=== PATIENT | female | born 1950 | race Caucasian/White ===

== ENCOUNTER 2017-06-13 12:58 | Inpatient (IN) | payer MEDICARE, OTHER ==
[2017-06-13] MEDS ORDERED: Nitroglycerin 0.4 MG Tab.SL SL PRN (16:15)
[2017-06-13] MEDS ORDERED: Albuterol 0.083% 2.5 MG/3 ML Neb Soln NEB PRN (16:15)
[2017-06-13] MEDS ORDERED: Benzocaine/Cetylpyridinium/Menthol Lozenge MUCMEM PRN (16:15)
[2017-06-13] MEDS: oxyCODONE 5 MG Tab PO PRN (18:16)
[2017-06-13] MEDS: Cholecalciferol (Vitamin D3) 1,000 Unit Tab PO SCH (18:16)
[2017-06-13] MEDS: Docusate Sodium 100 MG Cap PO SCH (21:10)
[2017-06-13] MEDS: Lactulose Soln 10 GM/15 ML 15 ML UD Cup PO SCH (21:10)
[2017-06-13] MEDS: Gabapentin 300 MG Cap PO SCH (21:13)
[2017-06-13] MEDS: Cyclobenzaprine 10 MG Tab PO PRN (21:13)
[2017-06-13] MEDS: oxyCODONE ER 20 MG TAB.ER PO SCH (21:13)
--- NOTE | 2017-06-14 02:58 | HP ---
CHIEF COMPLAINT: Status post back surgery. HISTORY OF PRESENT ILLNESS: This is a 67-year-old female, who was admitted to [facility] on 12/08 for a planned T2 through T12 posterior fusion with T2 through T3 and T6 laminectomy and right T9 through 10 costotransversectomy. The patient states the surgery went wonderfully, although, she has not been able to lift and use her right leg, since she had thoracic myelopathy. She has had constant pain in the area, has been started on scheduled oxycodone and is tolerating that, but she has really been unable to eat, because she is wearing a neck brace. She has also been having only liquid stools, but states she feels that is due to her lack of solid food and the food was also not very good at the [facility] per her report. She has not had any chest pain, no cough, no breathing trouble. She does have a history of smoking and COPD, but she is doing okay without that on the NicoDerm patch. Otherwise, her postoperative course was not overly complicated. She did stay on a PODIATRIC MEDICINE DOCTOR for a while, did end up in the ICU with a central line due to hypertension, but after resuming her home medications those things improved. She did require any blood transfusions. She did get some cefazolin until her drains were removed. She has not had any fever or chills. Otherwise, her past medical history includes impaired fasting glucose, essential hypertension, Mittal's esophagus, sleep related hypoxia, but not on oxygen, fibrocystic breast disease, bilateral carotid artery stenosis on Plavix, hyperlipidemia, chronic pain but previously only taking about 1 hydrocodone a day until the last year when she had increased pain prior to this back surgery, lumbar disk herniation L4 in 09/2016 with lumbar radiculopathy. She has had some epidural steroid injections last in November. Left SI joint injection in 09/2016. She has had chronic anxiety. She quit smoking back in 2013, but started again after her had a heart attack, but she quit again in 04/2017 to prepare for this surgery. She has had COPD which is severe, but she is doing much better on Stiolto with fewer exacerbations. She has had coronary artery disease, small vessel disease, not amenable to interventions on medical management with Plavix as she is allergic to aspirin. She has had GERD which is severe with a hiatal hernia. She has had major depressive disorder, otherwise. SOCIAL HISTORY: The patient is . She lives at home with her . She is a former smoker. She did lose a son like over 10 years ago. Otherwise, she has at least a couple other children. FAMILY HISTORY: Her mother and father are . She has a sister who is who had diabetes. She has a brother with diabetes, otherwise. PAST SURGICAL HISTORY: She has had tubal ligation, anal fissure repair, tonsillectomy, hysterectomy, cholecystectomy. She has had a previous cervical C5 through 7 fusion, cataract extractions. She has had a breast excision in 1995 that was benign. She has had an appendectomy. ALLERGIES: List includes penicillin, nausea, vomiting, diarrhea. Levaquin wheezing, but she previously has tolerated Levaquin also. Aspirin, nausea, vomiting and diarrhea, but she has tolerated enteric-coated. Celexa was not helping. Prozac caused anxiety. Codeine caused nausea, vomiting, and diarrhea. Wellbutrin caused depression. Zoloft caused anxiety. MEDICATION: Her medications list is reviewed includes Plavix 75 mg daily, Colace 100 mg twice daily, vitamin D 2000 units daily, Lipitor 40 mg daily, Stiolto 2 puffs once daily, nebulizer as needed, Paxil 10 mg daily, Neurontin 300 mg daily, Cardizem 120 daily, Toprol 50 daily, Protonix 40 mg daily, nitro as needed for chest pain, Dulcolax as needed, NicoDerm 14 mg patch, lactulose 30 mL 3 times a day, stop if more than 3 bowel movements 24 hours. Colace and Senokot one tablet twice daily. OxyContin 20 twice a day for at least another 3 to 4 days. Oxycodone 7.5 mg every 4 to 6 hours as needed for severe pain. Flexeril 10 mg at bedtime as needed for muscle spasm, Cepacol lozenges. During her inpatient stay, I did not see where the patient had been receiving heparin or Lovenox for DVT prophylaxis. REVIEW OF SYSTEMS: General: The patient has not had much of an appetite. HEENT: She has had some trouble swallowing, due to the neck brace and also she had a central line and that has been removed now, another drains, otherwise. Cardiac: Again no chest pain. Respiratory: No trouble breathing. Abdominal: As stated in the HPI. Musculoskeletal: She has had back pain. She has had right leg weakness. Her right leg is also numb. Otherwise, all systems reviewed and found to be negative unless otherwise stated. PHYSICAL EXAMINATION: Vital signs: Weight 97 kg which coincidentally is up about 5 kg since last summer. Temperature 98.9, pulse 98, blood pressure 158/66, respiratory rate 16, and O2 of 94 on 2.5 L. General: She is in no acute distress. Heart: Regular rate and rhythm. S1, S2. She did have a murmur. Lungs: Sounds are clear to auscultation bilaterally without crackles or wheezes. Abdomen: Positive bowel sounds, mildly distended, but soft and nontender. Extremities: Warm and dry. She has trace edema over the right leg. There is no calf tenderness. Homans sign is negative. Otherwise, she is able to wiggle the right toes, but she is not able to lift the right leg. She is able to move her arms equally. She is able to grasp and squeeze my hand. Mental Status: She is alert and orientated x3. Neck: There is covering over the right IJ area. There are also sutures noted on the posterior neck without any drainage from her wound without any surrounding redness or warmth. LABORATORY DATA: Otherwise, lab work should be noted from today, her hemoglobin had actually went up slightly to 8.6. White count was normal. Platelets 277. Her glucose 136, sodium 139, potassium 3.9, and bicarb 37. ASSESSMENT: 1. Postoperative from T2 through T12 posterior fusion, T2-T3 and T6 laminectomy and right T9 through 10 costotransversectomy on 06/07/2017. We will continue all postop cares. No bending wearing her braces and suture removal for 05/21 as outlined by Neurosurgery. She will have a postop check about 6 weeks postop with some x-rays. We will order PT and OT to work with her as well. 2. Postoperative anemia. Hemoglobin has improved slightly, we will probably check in a week or sooner if needed. 3. Essential hypertension. Blood pressure is slightly elevated on admission locally, we will recheck it after she gets settled and get some pain medications. We will make adjustments to her metoprolol if needed. Her dose is back up to 50 mg daily. Pulse is running at 98, so we could easily increase that. 4. Coronary artery disease. She is on Plavix and Zocor. She is not having any chest pain. She is on medical management. 5. Chronic obstructive pulmonary disease. We will continue her home regimen if we were unable to Stiolto, we will make adjustments. 6. Nicotine dependence. She is on the nicotine patch. 7. Depression and anxiety. We will continue her Paxil. 8. Constipation. We will continue laxatives and stool softeners. Hopefully, things will move when she is tolerating a diet, if not we will order some Dulcolax. PLAN: At this point, the patient will continue swing bed cares. PT/OT consult has been ordered. Appropriate followups with Neurosurgery will be arranged. Continue to assess for local signs of infection and we will remove the sutures when do. For DVT prophylaxis, I will put her on support stockings. No Lovenox is ordered on discharge. MKA: 06/13/2017 17:55:17 MODL: 06/14/2017 02:50:32 /[id number]
[2017-06-14] MEDS: oxyCODONE 5 MG Tab PO PRN ×2 (05:45→15:16)
[2017-06-14] MEDS: Pantoprazole 40 MG Tab.CR PO SCH (06:07)
[2017-06-14] MEDS: Albuterol/Ipratropium 3.0-0.5 MG/3 ML Neb Soln NEB SCH ×3 (07:19→18:03)
[2017-06-14] MEDS: atorvaSTATin 40 MG Tab PO SCH (08:12)
[2017-06-14] MEDS: oxyCODONE ER 20 MG TAB.ER PO SCH ×2 (08:12→19:52)
[2017-06-14] MEDS: Diltiazem 120 MG Cap.CD PO SCH (08:12)
[2017-06-14] MEDS: Metoprolol Succinate 50 MG Tab.ER PO SCH (08:13)
[2017-06-14] MEDS: PARoxetine 20 MG Tab PO SCH (08:13)
[2017-06-14] MEDS: Gabapentin 300 MG Cap PO SCH ×3 (08:13→19:52)
[2017-06-14] MEDS: Clopidogrel 75 MG Tab PO SCH (08:13)
[2017-06-14] MEDS: Docusate Sodium 100 MG Cap PO SCH ×2 (08:15→19:52)
[2017-06-14] MEDS: Lactulose Soln 10 GM/15 ML 15 ML UD Cup PO SCH ×3 (08:15→19:56)
[2017-06-14] MEDS: Nicotine 14 MG/24 Hr Patch TRDERM SCH (08:26)
[2017-06-14] MEDS: Cholecalciferol (Vitamin D3) 1,000 Unit Tab PO SCH (16:59)
[2017-06-15] MEDS: Albuterol/Ipratropium 3.0-0.5 MG/3 ML Neb Soln NEB SCH ×4 (00:52→19:48)
[2017-06-15] MEDS: Cyclobenzaprine 10 MG Tab PO PRN ×2 (00:57→21:34)
[2017-06-15] MEDS: oxyCODONE 5 MG Tab PO PRN ×2 (04:00→21:35)
[2017-06-15] MEDS: Pantoprazole 40 MG Tab.CR PO SCH (06:15)
[2017-06-15] MEDS: Diltiazem 120 MG Cap.CD PO SCH (07:59)
[2017-06-15] MEDS: oxyCODONE ER 20 MG TAB.ER PO SCH (08:00)
[2017-06-15] MEDS: PARoxetine 20 MG Tab PO SCH (08:00)
[2017-06-15] MEDS: Gabapentin 300 MG Cap PO SCH ×3 (08:01→19:47)
[2017-06-15] MEDS: atorvaSTATin 40 MG Tab PO SCH (08:01)
[2017-06-15] MEDS: Clopidogrel 75 MG Tab PO SCH (08:01)
[2017-06-15] MEDS: Lactulose Soln 10 GM/15 ML 15 ML UD Cup PO SCH (08:02)
[2017-06-15] MEDS: Docusate Sodium 100 MG Cap PO SCH ×2 (08:02→19:47)
[2017-06-15] MEDS: Nicotine 14 MG/24 Hr Patch TRDERM SCH (08:03)
[2017-06-15] MEDS: Metoprolol Succinate 50 MG Tab.ER PO SCH (08:06)
[2017-06-15] MEDS ORDERED: Lactulose Soln 10 GM/15 ML 30 ML UD Cup PO SCH (12:00)
[2017-06-15] MEDS ORDERED: Albuterol/Ipratropium 3.0-0.5 MG/3 ML Neb Soln NEB PRN (13:52)
[2017-06-15] MEDS: Metoclopramide 10 MG Tab PO SCH (17:06)
[2017-06-15] MEDS: Cholecalciferol (Vitamin D3) 1,000 Unit Tab PO SCH (21:46)
[2017-06-16] MEDS: oxyCODONE 5 MG Tab PO PRN ×2 (01:22→05:31)
[2017-06-16] MEDS: Pantoprazole 40 MG Tab.CR PO SCH (06:21)
[2017-06-16] MEDS: Albuterol/Ipratropium 3.0-0.5 MG/3 ML Neb Soln NEB SCH ×3 (07:18→20:07)
[2017-06-16] MEDS ORDERED: oxyCODONE ER 20 MG TAB.ER PO SCH (08:00)
[2017-06-16] MEDS: Docusate Sodium 100 MG Cap PO SCH ×2 (08:19→20:07)
[2017-06-16] MEDS: PARoxetine 20 MG Tab PO SCH (08:19)
[2017-06-16] MEDS: atorvaSTATin 40 MG Tab PO SCH (08:19)
[2017-06-16] MEDS: Gabapentin 300 MG Cap PO SCH ×3 (08:20→20:07)
[2017-06-16] MEDS: Diltiazem 120 MG Cap.CD PO SCH (08:20)
[2017-06-16] MEDS: Clopidogrel 75 MG Tab PO SCH (08:21)
[2017-06-16] MEDS: Metoprolol Succinate 50 MG Tab.ER PO SCH (08:21)
[2017-06-16] MEDS: Nicotine 14 MG/24 Hr Patch TRDERM SCH (08:22)
[2017-06-16] MEDS: Enoxaparin 40 MG/0.4 ML Syringe SUBCUT SCH (08:26)
--- NOTE | 2017-06-16 08:47 | PN ---
Progress Note for BOB BARONE Date: 06/16/2017 Room #: VM.203 SUBJECTIVE: This is a 67-year-old on swing bed after a thoracic spinal fusion. The patient's pain has improved some, however she is having dreams at night. We tried stopping her OxyContin at night, but still she had the dreams. She is getting oxycodone. In the past, she did take hydrocodone for pain, so we discussed changing it from 7.5 of the Oxy to 10-325 of hydrocodone and getting some Tylenol, and she is agreeable to this. Otherwise, she has been having significant bowel movements. Her lactulose was discontinued. She is not having any abdominal pain, chest pain, cough or shortness of breath. She actually requested to decrease her nebulizers to 3 times a day instead of 4. OBJECTIVE: Vital signs: She has a temperature of 99.2 this morning. She has some sharp stinging pains at times around her incisions, but they were all examined today and looked excellent. Pulse is 86, blood pressure 139/58, respiratory rate 12, O2 90 on room air. General: She is in no acute distress. Cardiac: Her heart is in regular rate and rhythm with murmur. Respiratory: Lung sounds are clear to auscultation bilaterally without crackles or wheezes. She did have slight decreased breath sounds in the left base initially but this improved with deeper breaths. Abdomen: Soft, nontender. Extremities: Warm and dry. Mental status: Alert and orientated x3.. ASSESSMENT: 1. Status post thoracic fusion. Discussed with her primary team from [place]. Lovenox was not indicated on discharge as long as she was up and ambulating. At this point because she is going to be off PTs for the weekend, we discussed doing Lovenox to prevent DVT and patient is agreeable to this. 2. Postoperative anemia. Her hemoglobin had improved prior to discharge from [place]. We will check a hemoglobin today. 3. Essential hypertension. Blood pressure is under control. 4. Coronary artery disease, on medical management with Plavix and Zocor. 5. Chronic obstructive pulmonary disease stable without exacerbation. 6. Nicotine dependence. She is on the patch. 7. Depression and anxiety. Stable on Paxil. 8. Dreams from pain medications. We have made adjustments. PLAN: At this point, the patient will continue swing bed cares. I will likely be discontinuing her morning OxyContin next week. She will be up and moving with PT. She does have Chung stockings ordered, but we will give her Lovenox over the weekend. We will change her oxycodone 7.5 to hydrocodone 10 and see how she does. She was on narcotics before surgery, so I do not anticipate that she will wean off completely. Addendum WBC mildly elevated at 11 and she was hallucinating and O2 sats checked were down to 86 % so oxygen was started She had not had a hydrocodone at this point I advised oxygen and when I reexamined her she did have mild crackles in the left base and reports coughing up green sputum so an x-ray was ordered and Doxycycline 100 mg twice daily was started for 1 week. PENNY: 06/16/2017 08:27:00 MODL: 06/16/2017 08:41:06 /[id number]
[2017-06-16 09:10] LABS: CHLORIDE,CL 99 mmol/L (98-107); SODIUM,NA 135 mmol/L (136-145)
[2017-06-16] MEDS: Doxycycline 100 MG Cap PO SCH ×2 (15:03→20:07)
[2017-06-16] MEDS: Metoclopramide 10 MG Tab PO SCH ×2 (15:50→16:00)
[2017-06-16] MEDS: Bisacodyl 10 MG Supp RECTAL PRN (15:50)
[2017-06-16] MEDS: Acetaminophen/HYDROcodone 325-10 MG Tab PO PRN ×2 (18:38→22:50)
[2017-06-16] MEDS: Cholecalciferol (Vitamin D3) 1,000 Unit Tab PO SCH (22:49)
[2017-06-17] MEDS: Acetaminophen/HYDROcodone 325-10 MG Tab PO PRN ×3 (02:43→20:13)
[2017-06-17] MEDS: Cyclobenzaprine 10 MG Tab PO PRN (02:43)
[2017-06-17] MEDS: Albuterol/Ipratropium 3.0-0.5 MG/3 ML Neb Soln NEB SCH ×3 (07:19→20:13)
[2017-06-17] MEDS: Pantoprazole 40 MG Tab.CR PO SCH (07:33)
[2017-06-17] MEDS: PARoxetine 20 MG Tab PO SCH (08:01)
[2017-06-17] MEDS: Clopidogrel 75 MG Tab PO SCH (08:01)
[2017-06-17] MEDS: Doxycycline 100 MG Cap PO SCH ×2 (08:01→20:13)
[2017-06-17] MEDS: Gabapentin 300 MG Cap PO SCH ×3 (08:01→20:13)
[2017-06-17] MEDS: Diltiazem 120 MG Cap.CD PO SCH (08:01)
[2017-06-17] MEDS: atorvaSTATin 40 MG Tab PO SCH (08:01)
[2017-06-17] MEDS: Docusate Sodium 100 MG Cap PO SCH ×2 (08:01→20:13)
[2017-06-17] MEDS: Metoprolol Succinate 50 MG Tab.ER PO SCH (08:01)
[2017-06-17] MEDS: Enoxaparin 40 MG/0.4 ML Syringe SUBCUT SCH (08:02)
[2017-06-17] MEDS: Nicotine 14 MG/24 Hr Patch TRDERM SCH (08:02)
[2017-06-17] MEDS: Metoclopramide 10 MG Tab PO SCH (16:21)
[2017-06-17] MEDS: Cholecalciferol (Vitamin D3) 1,000 Unit Tab PO SCH ×2 (20:17→22:58)
[2017-06-18] MEDS: Acetaminophen/HYDROcodone 325-10 MG Tab PO PRN ×3 (02:36→20:38)
[2017-06-18] MEDS: Pantoprazole 40 MG Tab.CR PO SCH (06:37)
[2017-06-18] MEDS: Albuterol/Ipratropium 3.0-0.5 MG/3 ML Neb Soln NEB SCH ×4 (07:17→23:28)
[2017-06-18] MEDS: Docusate Sodium 100 MG Cap PO SCH ×2 (08:31→20:29)
[2017-06-18] MEDS: Diltiazem 120 MG Cap.CD PO SCH (08:31)
[2017-06-18] MEDS: Gabapentin 300 MG Cap PO SCH ×3 (08:31→20:29)
[2017-06-18] MEDS: Clopidogrel 75 MG Tab PO SCH (08:32)
[2017-06-18] MEDS: Doxycycline 100 MG Cap PO SCH ×2 (08:32→20:29)
[2017-06-18] MEDS: Metoprolol Succinate 50 MG Tab.ER PO SCH (08:32)
[2017-06-18] MEDS: atorvaSTATin 40 MG Tab PO SCH (08:33)
[2017-06-18] MEDS: PARoxetine 20 MG Tab PO SCH (08:33)
[2017-06-18] MEDS: Nicotine 14 MG/24 Hr Patch TRDERM SCH (08:34)
[2017-06-18] MEDS: Enoxaparin 40 MG/0.4 ML Syringe SUBCUT SCH (08:36)
[2017-06-18] MEDS: Metoclopramide 10 MG Tab PO SCH (17:05)
[2017-06-18] MEDS ORDERED: Cholecalciferol (Vitamin D3) 1,000 Unit Tab PO SCH (20:00)
[2017-06-18] MEDS: Cholecalciferol (Vitamin D3) 1,000 Unit Tab PO SCH (20:30)
[2017-06-19] MEDS: Cyclobenzaprine 10 MG Tab PO PRN (00:37)
[2017-06-19] MEDS: Acetaminophen/HYDROcodone 325-10 MG Tab PO PRN ×4 (01:50→22:45)
[2017-06-19] MEDS: Pantoprazole 40 MG Tab.CR PO SCH (06:01)
[2017-06-19] MEDS: Albuterol/Ipratropium 3.0-0.5 MG/3 ML Neb Soln NEB SCH ×3 (06:02→19:25)
[2017-06-19] MEDS: Nicotine 14 MG/24 Hr Patch TRDERM SCH (08:28)
[2017-06-19] MEDS: Doxycycline 100 MG Cap PO SCH ×2 (08:28→19:26)
[2017-06-19] MEDS: Docusate Sodium 100 MG Cap PO SCH ×2 (08:28→19:49)
[2017-06-19] MEDS: atorvaSTATin 40 MG Tab PO SCH (08:28)
[2017-06-19] MEDS: Diltiazem 120 MG Cap.CD PO SCH (08:28)
[2017-06-19] MEDS: Clopidogrel 75 MG Tab PO SCH (08:28)
[2017-06-19] MEDS: PARoxetine 20 MG Tab PO SCH (08:29)
[2017-06-19] MEDS: Gabapentin 300 MG Cap PO SCH ×2 (08:29→19:25)
[2017-06-19] MEDS: Metoprolol Succinate 50 MG Tab.ER PO SCH (08:29)
[2017-06-19] MEDS: Enoxaparin 40 MG/0.4 ML Syringe SUBCUT SCH (08:35)
--- NOTE | 2017-06-19 15:04 | PN ---
Progress Note for BOB BARONE Date: 06/19/2017 Room #: VM.203 SUBJECTIVE: The patient is a 67-year-old, on swing bed after thoracic spinal fusion. The patient continued to have hallucinations throughout the weekend. She is aware of these. She talked about having one when she was getting ready for [facility]. She seems clear today. She is very concerned about her who has abdominal pain and chills, who I advised to make an appointment in the clinic [facility]. Otherwise, she has been afebrile throughout the weekend. She was started on doxycycline on Monday for presumed COPD exacerbation. Her x-ray was okay. Her white count is normal today at 9.9. Her UA is normal. Staff reported, she had a hallucination about the oxygen coming up in the room even though they took the tank out. Her oxygen saturations have been better. Otherwise, she denies any headache or vision changes. She feels like she is worried some thing is going on in her head, after surgery; but really she has periods of complete clearness between these hallucinations. We have cut back and adjusted her narcotics. In the end, she did admit that she was only taking the Neurontin twice a day at home, so perhaps that could be contributing. OBJECTIVE: Vital Signs: Her temperature is 98.5, pulse 95, blood pressure 181/62, respiratory rate 20, and O2 of 97% on room air. General: She is in no acute distress. Heart: Regular rate and rhythm with murmur. Lungs: Sounds are clear to auscultation bilaterally without crackles or wheezes. Extremities: Warm and dry. No edema. Her back incision is examined with sutures in place. There is no redness, drainage, or warmth. Mental Status: She is alert and orientated x3. LABORATORY DATA: Lab work today did show again hemoglobin improved up to 9.9, and platelets are at 442. She was on Lovenox this weekend for DVT prophylaxis, because she was off PT; but is up and ambulatory. I watched her sit up in bed by herself. She is really doing quite well. ASSESSMENT AND PLAN: 1. Status post thoracic fusion. 2. Postoperative anemia, improving. 3. Essential hypertension with blood pressures elevated this morning, but she is stressed about her . 4. Coronary artery disease, on medical management. 5. Chronic obstructive pulmonary disease, severe with exacerbation, improving on the doxycycline. Stop date is 06/23. 6. Nicotine dependence. Doing well on the patch. 7. Depression and anxiety. She is stable on Paxil. 8. Hallucinations. We will try to go back on Neurontin to twice daily. I think we can continue to monitor this as we taper her off her pain medications. She is down to only 3 per day. PLAN: At this point, the patient will continue swing bed cares. She is off Lovenox today. We will go down to twice daily on Neurontin. We will continue to monitor these hallucinations. Overall, I think her condition is improving. MKA: 06/19/2017 14:11:13 MODL: 06/19/2017 14:46:20 /[id number]
[2017-06-19] MEDS: Metoclopramide 10 MG Tab PO SCH (17:16)
[2017-06-19] MEDS: Cholecalciferol (Vitamin D3) 1,000 Unit Tab PO SCH (19:26)
[2017-06-20] MEDS: Acetaminophen/HYDROcodone 325-10 MG Tab PO PRN ×2 (02:57→20:03)
[2017-06-20] MEDS: Pantoprazole 40 MG Tab.CR PO SCH (06:17)
[2017-06-20] MEDS: Docusate Sodium 100 MG Cap PO SCH ×2 (07:55→20:02)
[2017-06-20] MEDS: PARoxetine 20 MG Tab PO SCH (07:55)
[2017-06-20] MEDS: Clopidogrel 75 MG Tab PO SCH (07:56)
[2017-06-20] MEDS: Metoprolol Succinate 50 MG Tab.ER PO SCH (07:56)
[2017-06-20] MEDS: Gabapentin 300 MG Cap PO SCH ×2 (07:56→20:02)
[2017-06-20] MEDS: Diltiazem 120 MG Cap.CD PO SCH (07:56)
[2017-06-20] MEDS: Doxycycline 100 MG Cap PO SCH ×2 (07:57→20:02)
[2017-06-20] MEDS: Nicotine 14 MG/24 Hr Patch TRDERM SCH (07:57)
[2017-06-20] MEDS: atorvaSTATin 40 MG Tab PO SCH (07:57)
[2017-06-20] MEDS: Albuterol/Ipratropium 3.0-0.5 MG/3 ML Neb Soln NEB SCH ×3 (08:07→20:03)
[2017-06-20] MEDS: Metoclopramide 10 MG Tab PO SCH (17:06)
[2017-06-20] MEDS: Cholecalciferol (Vitamin D3) 1,000 Unit Tab PO SCH (20:01)
[2017-06-21] MEDS: Acetaminophen/HYDROcodone 325-10 MG Tab PO PRN ×3 (05:04→17:43)
[2017-06-21] MEDS: Pantoprazole 40 MG Tab.CR PO SCH (06:52)
[2017-06-21] MEDS: Albuterol/Ipratropium 3.0-0.5 MG/3 ML Neb Soln NEB SCH (07:09)
[2017-06-21] MEDS: atorvaSTATin 40 MG Tab PO SCH (08:00)
[2017-06-21] MEDS: Docusate Sodium 100 MG Cap PO SCH ×2 (08:00→19:59)
[2017-06-21] MEDS: Gabapentin 300 MG Cap PO SCH ×2 (08:00→19:59)
[2017-06-21] MEDS: Doxycycline 100 MG Cap PO SCH ×2 (08:00→19:59)
[2017-06-21] MEDS: PARoxetine 20 MG Tab PO SCH (08:01)
[2017-06-21] MEDS: Metoprolol Succinate 50 MG Tab.ER PO SCH (08:01)
[2017-06-21] MEDS: Nicotine 14 MG/24 Hr Patch TRDERM SCH (08:02)
[2017-06-21] MEDS: Clopidogrel 75 MG Tab PO SCH (08:02)
[2017-06-21] MEDS: Diltiazem 120 MG Cap.CD PO SCH (08:02)
[2017-06-21] MEDS: Albuterol 0.083% 2.5 MG/3 ML Neb Soln NEB SCH ×2 (12:50→20:00)
--- NOTE | 2017-06-21 15:35 | PN ---
Progress Note for BOB BARONE Date: 06/21/2017 Room #: VM.203 SUBJECTIVE: This is a 67-year-old on swing bed after a thoracic spine surgery. She is due to get her sutures out today. She is very hopeful to shower and wash her hair, but she needs to wear her neck brace for a total of 3 months. She also wears a thoracic brace when she is up. She said yesterday it was just so tight that she could not even eat. She is hopeful that we can loosen it up some so she can eat. She is also only up walking with PT once a day and she feels that she is not making enough progress, so she would like to be up moving more. Otherwise, she feels her breathing and cough are fine. Her is going to be having surgery today so she is worried about him. She states her pain is a little bit worse because of the irritation from the brace yesterday, but otherwise has been fine. She is tolerating the Neurontin twice daily without hallucinations. ASSESSMENT: 1. Post thoracic surgery, 2 weeks out time for suture removal. This will happen today. 2. Postoperative anemia, stable. 3. Essential hypertension. Blood pressures are under good control today. 4. Coronary artery disease, stable. 5. Chronic obstructive pulmonary disease stable. She will complete her doxycycline on 06/23 for exacerbation. 6. Nicotine dependence, on the patch. 7. Depression and anxiety. PLAN: The patient will continue swing bed cares. We will get her up in the leung and ambulate her with the aids. MKA: 06/21/2017 15:08:58 MODL: 06/21/2017 15:24:28 /[id number]
[2017-06-21] MEDS: Metoclopramide 10 MG Tab PO SCH (17:43)
[2017-06-21] MEDS: Cholecalciferol (Vitamin D3) 1,000 Unit Tab PO SCH (19:59)
[2017-06-21] MEDS: Cyclobenzaprine 10 MG Tab PO PRN (21:31)
[2017-06-22] MEDS: Acetaminophen/HYDROcodone 325-10 MG Tab PO PRN ×3 (00:24→16:21)
[2017-06-22] MEDS: Pantoprazole 40 MG Tab.CR PO SCH (06:21)
[2017-06-22] MEDS: Albuterol 0.083% 2.5 MG/3 ML Neb Soln NEB SCH ×3 (07:14→19:22)
[2017-06-22] MEDS: Doxycycline 100 MG Cap PO SCH ×2 (07:54→19:20)
[2017-06-22] MEDS: Nicotine 14 MG/24 Hr Patch TRDERM SCH (07:54)
[2017-06-22] MEDS: Docusate Sodium 100 MG Cap PO SCH ×2 (07:55→19:21)
[2017-06-22] MEDS: Clopidogrel 75 MG Tab PO SCH (07:55)
[2017-06-22] MEDS: Diltiazem 120 MG Cap.CD PO SCH (07:55)
[2017-06-22] MEDS: PARoxetine 20 MG Tab PO SCH (07:56)
[2017-06-22] MEDS: atorvaSTATin 40 MG Tab PO SCH (07:56)
[2017-06-22] MEDS: Gabapentin 300 MG Cap PO SCH ×2 (07:56→19:22)
[2017-06-22] MEDS: Metoprolol Succinate 50 MG Tab.ER PO SCH (07:56)
[2017-06-22] MEDS: Cyclobenzaprine 10 MG Tab PO PRN (09:50)
[2017-06-22] MEDS: Metoclopramide 10 MG Tab PO SCH (17:16)
[2017-06-22] MEDS: Cholecalciferol (Vitamin D3) 1,000 Unit Tab PO SCH (19:21)
[2017-06-23] MEDS: Acetaminophen/HYDROcodone 325-10 MG Tab PO PRN ×3 (02:11→17:34)
[2017-06-23] MEDS: Pantoprazole 40 MG Tab.CR PO SCH (06:31)
[2017-06-23] MEDS: Albuterol 0.083% 2.5 MG/3 ML Neb Soln NEB SCH ×3 (07:11→19:37)
[2017-06-23] MEDS: Doxycycline 100 MG Cap PO SCH ×2 (07:23→19:43)
[2017-06-23] MEDS: Diltiazem 120 MG Cap.CD PO SCH (07:24)
[2017-06-23] MEDS: Gabapentin 300 MG Cap PO SCH ×2 (07:24→19:43)
[2017-06-23] MEDS: Docusate Sodium 100 MG Cap PO SCH ×2 (07:24→19:43)
[2017-06-23] MEDS: PARoxetine 20 MG Tab PO SCH (07:25)
[2017-06-23] MEDS: Metoprolol Succinate 50 MG Tab.ER PO SCH (07:25)
[2017-06-23] MEDS: Clopidogrel 75 MG Tab PO SCH (07:26)
[2017-06-23] MEDS: Nicotine 14 MG/24 Hr Patch TRDERM SCH (07:26)
[2017-06-23] MEDS: atorvaSTATin 40 MG Tab PO SCH (07:26)
[2017-06-23] MEDS: Metoclopramide 10 MG Tab PO SCH (17:31)
[2017-06-23] MEDS: Cholecalciferol (Vitamin D3) 1,000 Unit Tab PO SCH (19:37)
[2017-06-24] MEDS: Acetaminophen/HYDROcodone 325-10 MG Tab PO PRN ×5 (00:22→22:58)
[2017-06-24] MEDS: Cyclobenzaprine 10 MG Tab PO PRN ×2 (00:22→22:59)
[2017-06-24] MEDS: Pantoprazole 40 MG Tab.CR PO SCH (06:42)
[2017-06-24] MEDS: Albuterol 0.083% 2.5 MG/3 ML Neb Soln NEB SCH ×3 (06:43→19:59)
[2017-06-24] MEDS: Docusate Sodium 100 MG Cap PO SCH ×2 (08:04→19:58)
[2017-06-24] MEDS: atorvaSTATin 40 MG Tab PO SCH (08:05)
[2017-06-24] MEDS: Metoprolol Succinate 50 MG Tab.ER PO SCH (08:05)
[2017-06-24] MEDS: PARoxetine 20 MG Tab PO SCH (08:06)
[2017-06-24] MEDS: Gabapentin 300 MG Cap PO SCH ×2 (08:06→19:58)
[2017-06-24] MEDS: Clopidogrel 75 MG Tab PO SCH (08:06)
[2017-06-24] MEDS: Nicotine 14 MG/24 Hr Patch TRDERM SCH (08:07)
[2017-06-24] MEDS: Diltiazem 120 MG Cap.CD PO SCH (08:07)
[2017-06-24] MEDS: Metoclopramide 10 MG Tab PO SCH (17:00)
[2017-06-24] MEDS: Cholecalciferol (Vitamin D3) 1,000 Unit Tab PO SCH (19:58)
[2017-06-25] MEDS: Pantoprazole 40 MG Tab.CR PO SCH (06:35)
[2017-06-25] MEDS: Acetaminophen/HYDROcodone 325-10 MG Tab PO PRN ×4 (06:37→21:51)
[2017-06-25] MEDS: Albuterol 0.083% 2.5 MG/3 ML Neb Soln NEB SCH ×3 (06:53→20:04)
[2017-06-25] MEDS: Nicotine 14 MG/24 Hr Patch TRDERM SCH (09:12)
[2017-06-25] MEDS: Docusate Sodium 100 MG Cap PO SCH ×2 (09:13→20:04)
[2017-06-25] MEDS: Diltiazem 120 MG Cap.CD PO SCH (09:13)
[2017-06-25] MEDS: Gabapentin 300 MG Cap PO SCH ×2 (09:13→20:04)
[2017-06-25] MEDS: Metoprolol Succinate 50 MG Tab.ER PO SCH (09:14)
[2017-06-25] MEDS: atorvaSTATin 40 MG Tab PO SCH (09:14)
[2017-06-25] MEDS: PARoxetine 20 MG Tab PO SCH (09:15)
[2017-06-25] MEDS: Clopidogrel 75 MG Tab PO SCH (09:15)
[2017-06-25] MEDS: Cyclobenzaprine 10 MG Tab PO PRN ×2 (13:26→21:52)
[2017-06-25] MEDS: Metoclopramide 10 MG Tab PO SCH (17:06)
[2017-06-25] MEDS: Cholecalciferol (Vitamin D3) 1,000 Unit Tab PO SCH (20:04)
[2017-06-26] MEDS: Pantoprazole 40 MG Tab.CR PO SCH (06:26)
[2017-06-26] MEDS: Albuterol 0.083% 2.5 MG/3 ML Neb Soln NEB SCH ×3 (07:21→21:21)
[2017-06-26] MEDS: atorvaSTATin 40 MG Tab PO SCH (08:46)
[2017-06-26] MEDS: Diltiazem 120 MG Cap.CD PO SCH (08:46)
[2017-06-26] MEDS: PARoxetine 20 MG Tab PO SCH (08:46)
[2017-06-26] MEDS: Docusate Sodium 100 MG Cap PO SCH ×2 (08:47→21:20)
[2017-06-26] MEDS: Gabapentin 300 MG Cap PO SCH ×2 (08:47→21:20)
[2017-06-26] MEDS: Clopidogrel 75 MG Tab PO SCH (08:47)
[2017-06-26] MEDS: Metoprolol Succinate 50 MG Tab.ER PO SCH (08:47)
[2017-06-26] MEDS: Nicotine 14 MG/24 Hr Patch TRDERM SCH (08:48)
[2017-06-26] MEDS: Acetaminophen/HYDROcodone 325-10 MG Tab PO PRN ×4 (08:48→22:10)
[2017-06-26] MEDS: Cyclobenzaprine 10 MG Tab PO PRN ×2 (08:51→22:10)
[2017-06-26 09:21] LABS: CHLORIDE,CL 104 mmol/L (98-107); SODIUM,NA 139 mmol/L (136-145)
--- NOTE | 2017-06-26 09:22 | PN ---
Progress Note for BOB BARONE Date: 06/26/2017 Room #: VM.203 SUBJECTIVE: This is a 67-year-old on swing bed after a thoracic spinal fusion. She had an episode of chest pain last night, midsternal, which she describes as light, lasting 15 minutes. It went away with a nitroglycerin. She had no shortness of breath, no cough, no diaphoresis. She has a known history of coronary artery disease, but has not had any other angina episodes. She is on Plavix. Otherwise, she feels like she is making progress. She is up walking with aids this weekend. She sometimes lets her pain get out of hand before asking for hydrocodone. Otherwise, she has not had any hallucinations since decreasing Neurontin. Hydrocodone use is 10 mg usually 4 times per day. We did also increase her Flexeril to twice daily which has been helpful. OBJECTIVE: Vital Signs: Her temperature is 97.5, pulse 86, blood pressure 110/45, respiratory rate 18, and O2 of 94% on room air. General: She is in no acute distress. Heart: Regular rate and rhythm with murmur. Lungs: Sounds are clear to auscultation bilaterally without crackles or wheezes. Extremities: Warm and dry. No edema Mental Status: Alert and orientated x3. Skin: Incisions over her back and neck area all her clean and intact. ASSESSMENT AND PLAN: 1. Post-thoracic surgery. Sutures removed last week. She is over 2 weeks out. She is progressing appropriately. 2. Postoperative anemia, stable. We will repeat a CBC today. 3. Essential hypertension, controlled. We will repeat a BMP today. 4. Coronary artery disease with chest pain during the night, possibly angina. We will check an EKG and troponin this morning. 5. Chronic obstructive pulmonary disease with recent exacerbation. She completed doxycycline on 06/23/2017. Breathing and cough symptoms are improved. 6. Nicotine dependence on the patch. 7. Depression and anxiety. 8. Hallucinations due to pain medications, resolved. PLAN: At this point, the patient will continue swing bed cares. She will be up with therapies today. We will check labs and an EKG. Nitroglycerin is available if she has any further episodes of chest pain. MKA: 06/26/2017 08:45:53 MODL: 06/26/2017 09:10:03 /[id number]
[2017-06-26] MEDS: Metoclopramide 10 MG Tab PO SCH (16:25)
[2017-06-26] MEDS: Cholecalciferol (Vitamin D3) 1,000 Unit Tab PO SCH (21:20)
[2017-06-27] MEDS: Pantoprazole 40 MG Tab.CR PO SCH (06:35)
[2017-06-27] MEDS: Acetaminophen/HYDROcodone 325-10 MG Tab PO PRN ×4 (06:39→22:04)
[2017-06-27] MEDS: Albuterol 0.083% 2.5 MG/3 ML Neb Soln NEB SCH ×3 (07:02→19:47)
[2017-06-27] MEDS: Nicotine 14 MG/24 Hr Patch TRDERM SCH (08:01)
[2017-06-27] MEDS: Metoprolol Succinate 50 MG Tab.ER PO SCH (08:02)
[2017-06-27] MEDS: atorvaSTATin 40 MG Tab PO SCH (08:02)
[2017-06-27] MEDS: PARoxetine 20 MG Tab PO SCH (08:02)
[2017-06-27] MEDS: Gabapentin 300 MG Cap PO SCH ×2 (08:02→19:47)
[2017-06-27] MEDS: Diltiazem 120 MG Cap.CD PO SCH (08:03)
[2017-06-27] MEDS: Clopidogrel 75 MG Tab PO SCH (08:03)
[2017-06-27] MEDS: Docusate Sodium 100 MG Cap PO SCH ×2 (08:04→19:46)
[2017-06-27] MEDS: Cyclobenzaprine 10 MG Tab PO PRN ×2 (13:11→22:06)
[2017-06-27] MEDS: Metoclopramide 10 MG Tab PO SCH (16:50)
[2017-06-27] MEDS: Cholecalciferol (Vitamin D3) 1,000 Unit Tab PO SCH (21:18)
[2017-06-28] MEDS: Acetaminophen/HYDROcodone 325-10 MG Tab PO PRN ×4 (03:03→22:24)
[2017-06-28] MEDS: Albuterol 0.083% 2.5 MG/3 ML Neb Soln NEB SCH ×3 (06:58→22:22)
[2017-06-28] MEDS: Metoprolol Succinate 50 MG Tab.ER PO SCH (08:20)
[2017-06-28] MEDS: PARoxetine 20 MG Tab PO SCH (08:21)
[2017-06-28] MEDS: Clopidogrel 75 MG Tab PO SCH (08:21)
[2017-06-28] MEDS: Pantoprazole 40 MG Tab.CR PO SCH (08:22)
[2017-06-28] MEDS: atorvaSTATin 40 MG Tab PO SCH (08:22)
[2017-06-28] MEDS: Docusate Sodium 100 MG Cap PO SCH ×2 (08:23→22:22)
[2017-06-28] MEDS: Diltiazem 120 MG Cap.CD PO SCH (08:23)
[2017-06-28] MEDS: Gabapentin 300 MG Cap PO SCH ×2 (08:23→22:22)
[2017-06-28] MEDS: Nicotine 14 MG/24 Hr Patch TRDERM SCH (08:24)
[2017-06-28] MEDS: Cyclobenzaprine 10 MG Tab PO PRN ×2 (08:24→22:24)
[2017-06-28] MEDS: Metoclopramide 10 MG Tab PO SCH (17:02)
[2017-06-28] MEDS: Cholecalciferol (Vitamin D3) 1,000 Unit Tab PO SCH (22:21)
[2017-06-29] MEDS: Acetaminophen/HYDROcodone 325-10 MG Tab PO PRN ×5 (04:53→21:13)
[2017-06-29] MEDS: Pantoprazole 40 MG Tab.CR PO SCH (06:26)
[2017-06-29] MEDS: Albuterol 0.083% 2.5 MG/3 ML Neb Soln NEB SCH ×3 (06:55→21:15)
[2017-06-29] MEDS: Metoprolol Succinate 50 MG Tab.ER PO SCH (08:37)
[2017-06-29] MEDS: Docusate Sodium 100 MG Cap PO SCH ×2 (08:37→21:12)
[2017-06-29] MEDS: Clopidogrel 75 MG Tab PO SCH (08:37)
[2017-06-29] MEDS: Gabapentin 300 MG Cap PO SCH ×2 (08:38→21:13)
[2017-06-29] MEDS: atorvaSTATin 40 MG Tab PO SCH (08:38)
[2017-06-29] MEDS: Diltiazem 120 MG Cap.CD PO SCH (08:38)
[2017-06-29] MEDS: PARoxetine 20 MG Tab PO SCH (08:38)
[2017-06-29] MEDS: Nicotine 14 MG/24 Hr Patch TRDERM SCH (08:38)
[2017-06-29] MEDS: Magnesium Hydroxide 400 MG/5 ML Susp 30 ML Cup PO PRN (08:56)
[2017-06-29] MEDS: Cyclobenzaprine 10 MG Tab PO PRN ×2 (08:58→21:13)
[2017-06-29] MEDS: Metoclopramide 10 MG Tab PO SCH (17:03)
[2017-06-29] MEDS: Cholecalciferol (Vitamin D3) 1,000 Unit Tab PO SCH (21:12)
[2017-06-30] MEDS: Acetaminophen/HYDROcodone 325-10 MG Tab PO PRN ×4 (02:19→22:40)
[2017-06-30] MEDS: Pantoprazole 40 MG Tab.CR PO SCH (06:49)
[2017-06-30] MEDS: Albuterol 0.083% 2.5 MG/3 ML Neb Soln NEB SCH ×3 (07:08→20:15)
[2017-06-30] MEDS: Diltiazem 120 MG Cap.CD PO SCH (07:50)
[2017-06-30] MEDS: atorvaSTATin 40 MG Tab PO SCH (07:50)
[2017-06-30] MEDS: Docusate Sodium 100 MG Cap PO SCH ×2 (07:50→20:11)
[2017-06-30] MEDS: Clopidogrel 75 MG Tab PO SCH (07:51)
[2017-06-30] MEDS: Gabapentin 300 MG Cap PO SCH ×2 (07:51→20:11)
[2017-06-30] MEDS: PARoxetine 20 MG Tab PO SCH (07:51)
[2017-06-30] MEDS: Nicotine 14 MG/24 Hr Patch TRDERM SCH (07:52)
[2017-06-30] MEDS: Metoprolol Succinate 50 MG Tab.ER PO SCH (07:52)
[2017-06-30] MEDS: Cyclobenzaprine 10 MG Tab PO PRN ×2 (07:52→22:42)
[2017-06-30] MEDS: Metoclopramide 10 MG Tab PO SCH (16:57)
[2017-06-30] MEDS: Cholecalciferol (Vitamin D3) 1,000 Unit Tab PO SCH (20:11)
[2017-07-01] MEDS: Acetaminophen/HYDROcodone 325-10 MG Tab PO PRN ×5 (02:35→21:22)
[2017-07-01] MEDS: Pantoprazole 40 MG Tab.CR PO SCH (06:24)
[2017-07-01] MEDS: Albuterol 0.083% 2.5 MG/3 ML Neb Soln NEB SCH ×3 (07:08→19:56)
[2017-07-01] MEDS: Nicotine 14 MG/24 Hr Patch TRDERM SCH (07:56)
[2017-07-01] MEDS: Docusate Sodium 100 MG Cap PO SCH ×2 (07:58→19:56)
[2017-07-01] MEDS: Diltiazem 120 MG Cap.CD PO SCH (07:58)
[2017-07-01] MEDS: Metoprolol Succinate 50 MG Tab.ER PO SCH (07:58)
[2017-07-01] MEDS: atorvaSTATin 40 MG Tab PO SCH (07:58)
[2017-07-01] MEDS: PARoxetine 20 MG Tab PO SCH (07:58)
[2017-07-01] MEDS: Gabapentin 300 MG Cap PO SCH ×2 (07:58→19:55)
[2017-07-01] MEDS: Cyclobenzaprine 10 MG Tab PO PRN ×2 (07:59→21:22)
[2017-07-01] MEDS: Clopidogrel 75 MG Tab PO SCH (07:59)
[2017-07-01] MEDS: Magnesium Hydroxide 400 MG/5 ML Susp 30 ML Cup PO PRN (12:03)
[2017-07-01] MEDS: Metoclopramide 10 MG Tab PO SCH (17:17)
[2017-07-01] MEDS: Cholecalciferol (Vitamin D3) 1,000 Unit Tab PO SCH (19:55)
[2017-07-02] MEDS: Acetaminophen/HYDROcodone 325-10 MG Tab PO PRN ×5 (02:50→20:57)
[2017-07-02] MEDS: Pantoprazole 40 MG Tab.CR PO SCH (06:10)
[2017-07-02] MEDS: Albuterol 0.083% 2.5 MG/3 ML Neb Soln NEB SCH ×3 (07:03→20:37)
[2017-07-02] MEDS: Nicotine 14 MG/24 Hr Patch TRDERM SCH (07:40)
[2017-07-02] MEDS: Metoprolol Succinate 50 MG Tab.ER PO SCH (07:41)
[2017-07-02] MEDS: Cyclobenzaprine 10 MG Tab PO PRN ×2 (07:41→20:57)
[2017-07-02] MEDS: Docusate Sodium 100 MG Cap PO SCH ×2 (07:41→20:37)
[2017-07-02] MEDS: atorvaSTATin 40 MG Tab PO SCH (07:41)
[2017-07-02] MEDS: Gabapentin 300 MG Cap PO SCH ×2 (07:41→20:37)
[2017-07-02] MEDS: Clopidogrel 75 MG Tab PO SCH (07:42)
[2017-07-02] MEDS: Diltiazem 120 MG Cap.CD PO SCH (07:42)
[2017-07-02] MEDS: PARoxetine 20 MG Tab PO SCH (07:42)
[2017-07-02] MEDS: Metoclopramide 10 MG Tab PO SCH (16:11)
[2017-07-02] MEDS: Cholecalciferol (Vitamin D3) 1,000 Unit Tab PO SCH (20:37)
[2017-07-03] MEDS: Acetaminophen/HYDROcodone 325-10 MG Tab PO PRN ×5 (01:06→20:33)
[2017-07-03] MEDS: Pantoprazole 40 MG Tab.CR PO SCH (06:34)
[2017-07-03] MEDS: Albuterol 0.083% 2.5 MG/3 ML Neb Soln NEB SCH ×3 (06:54→20:34)
[2017-07-03] MEDS: Nicotine 14 MG/24 Hr Patch TRDERM SCH (08:33)
[2017-07-03] MEDS: Diltiazem 120 MG Cap.CD PO SCH (08:33)
[2017-07-03] MEDS: PARoxetine 20 MG Tab PO SCH (08:33)
[2017-07-03] MEDS: Docusate Sodium 100 MG Cap PO SCH ×2 (08:34→20:35)
[2017-07-03] MEDS: Clopidogrel 75 MG Tab PO SCH (08:34)
[2017-07-03] MEDS: Gabapentin 300 MG Cap PO SCH ×2 (08:34→20:35)
[2017-07-03] MEDS: atorvaSTATin 40 MG Tab PO SCH (08:34)
[2017-07-03] MEDS: Cyclobenzaprine 10 MG Tab PO PRN ×2 (08:35→20:33)
[2017-07-03] MEDS: Metoprolol Succinate 50 MG Tab.ER PO SCH (08:35)
[2017-07-03] MEDS: Bisacodyl 10 MG Supp RECTAL PRN (12:24)
[2017-07-03] MEDS: Metoclopramide 10 MG Tab PO SCH (15:59)
[2017-07-03] MEDS: Cholecalciferol (Vitamin D3) 1,000 Unit Tab PO SCH (20:35)
[2017-07-04] MEDS: Acetaminophen/HYDROcodone 325-10 MG Tab PO PRN ×4 (03:42→21:45)
[2017-07-04] MEDS: Pantoprazole 40 MG Tab.CR PO SCH (06:05)
[2017-07-04] MEDS: Albuterol 0.083% 2.5 MG/3 ML Neb Soln NEB SCH ×3 (07:09→20:33)
[2017-07-04] MEDS: Nicotine 14 MG/24 Hr Patch TRDERM SCH (08:17)
[2017-07-04] MEDS: PARoxetine 20 MG Tab PO SCH (08:17)
[2017-07-04] MEDS: Clopidogrel 75 MG Tab PO SCH (08:18)
[2017-07-04] MEDS: atorvaSTATin 40 MG Tab PO SCH (08:18)
[2017-07-04] MEDS: Gabapentin 300 MG Cap PO SCH ×2 (08:18→20:33)
[2017-07-04] MEDS: Cyclobenzaprine 10 MG Tab PO PRN ×2 (08:19→21:45)
[2017-07-04] MEDS: Metoprolol Succinate 50 MG Tab.ER PO SCH (08:19)
[2017-07-04] MEDS: Docusate Sodium 100 MG Cap PO SCH ×2 (08:19→20:32)
[2017-07-04] MEDS: Diltiazem 120 MG Cap.CD PO SCH (08:20)
[2017-07-04] MEDS: Metoclopramide 10 MG Tab PO SCH (20:32)
[2017-07-04] MEDS: Cholecalciferol (Vitamin D3) 1,000 Unit Tab PO SCH (20:33)
[2017-07-05] MEDS: Pantoprazole 40 MG Tab.CR PO SCH (06:02)
[2017-07-05] MEDS: Albuterol 0.083% 2.5 MG/3 ML Neb Soln NEB SCH ×3 (07:06→19:45)
[2017-07-05] MEDS: PARoxetine 20 MG Tab PO SCH (07:52)
[2017-07-05] MEDS: Gabapentin 300 MG Cap PO SCH ×2 (07:52→19:45)
[2017-07-05] MEDS: atorvaSTATin 40 MG Tab PO SCH (07:52)
[2017-07-05] MEDS: Nicotine 14 MG/24 Hr Patch TRDERM SCH (07:52)
[2017-07-05] MEDS: Metoprolol Succinate 50 MG Tab.ER PO SCH (07:52)
[2017-07-05] MEDS: Clopidogrel 75 MG Tab PO SCH (07:53)
[2017-07-05] MEDS: Docusate Sodium 100 MG Cap PO SCH ×2 (07:53→19:46)
[2017-07-05] MEDS: Diltiazem 120 MG Cap.CD PO SCH (07:53)
[2017-07-05] MEDS: Acetaminophen/HYDROcodone 325-10 MG Tab PO PRN ×3 (07:54→21:06)
[2017-07-05] MEDS: Cyclobenzaprine 10 MG Tab PO PRN ×2 (07:54→21:06)
[2017-07-05] MEDS: Metoclopramide 10 MG Tab PO SCH (17:26)
[2017-07-05] MEDS: Cholecalciferol (Vitamin D3) 1,000 Unit Tab PO SCH (19:45)
[2017-07-06] MEDS: Pantoprazole 40 MG Tab.CR PO SCH (08:10)
[2017-07-06] MEDS: Albuterol 0.083% 2.5 MG/3 ML Neb Soln NEB SCH ×3 (08:10→20:11)
[2017-07-06] MEDS: Diltiazem 120 MG Cap.CD PO SCH (08:10)
[2017-07-06] MEDS: Gabapentin 300 MG Cap PO SCH ×2 (08:11→20:11)
[2017-07-06] MEDS: PARoxetine 20 MG Tab PO SCH (08:11)
[2017-07-06] MEDS: Docusate Sodium 100 MG Cap PO SCH ×2 (08:11→20:11)
[2017-07-06] MEDS: atorvaSTATin 40 MG Tab PO SCH (08:11)
[2017-07-06] MEDS: Metoprolol Succinate 50 MG Tab.ER PO SCH (08:11)
[2017-07-06] MEDS: Nicotine 14 MG/24 Hr Patch TRDERM SCH (08:11)
[2017-07-06] MEDS: Clopidogrel 75 MG Tab PO SCH (08:11)
[2017-07-06] MEDS: Acetaminophen/HYDROcodone 325-10 MG Tab PO PRN ×3 (11:38→20:11)
[2017-07-06] MEDS: Metoclopramide 10 MG Tab PO SCH (16:16)
[2017-07-06] MEDS: Cholecalciferol (Vitamin D3) 1,000 Unit Tab PO SCH (20:11)
[2017-07-06] MEDS: Cyclobenzaprine 10 MG Tab PO PRN (20:11)
[2017-07-07] MEDS: Acetaminophen/HYDROcodone 325-10 MG Tab PO PRN ×2 (02:13→08:59)
[2017-07-07] MEDS: Albuterol 0.083% 2.5 MG/3 ML Neb Soln NEB SCH (06:54)
[2017-07-07] MEDS: Pantoprazole 40 MG Tab.CR PO SCH (07:00)
[2017-07-07] MEDS: Gabapentin 300 MG Cap PO SCH (07:38)
[2017-07-07] MEDS: PARoxetine 20 MG Tab PO SCH (07:38)
[2017-07-07] MEDS: atorvaSTATin 40 MG Tab PO SCH (07:38)
[2017-07-07] MEDS: Diltiazem 120 MG Cap.CD PO SCH (07:39)
[2017-07-07] MEDS: Clopidogrel 75 MG Tab PO SCH (07:39)
[2017-07-07] MEDS: Nicotine 14 MG/24 Hr Patch TRDERM SCH (07:39)
[2017-07-07] MEDS: Metoprolol Succinate 50 MG Tab.ER PO SCH (07:39)
[2017-07-07] MEDS: Docusate Sodium 100 MG Cap PO SCH (07:39)
[2017-07-07 07:42] VITALS: BP 146/68
[2017-07-07] MEDS: Cyclobenzaprine 10 MG Tab PO PRN (09:00)
--- NOTE | 2017-07-19 00:07 | DISCH ---
PRIMARY DISCHARGE DIAGNOSES: Status post thoracic spinal surgery on 06/07/2017, T2 through T12; posterior spinal fusion with T2-3 and T6 laminectomy; and right T9 and 10 costotransversectomy. SECONDARY DISCHARGE DIAGNOSES: Includes: 1. Postoperative anemia, stable with improved hemoglobin, essential hypertension, coronary artery disease with 1 episode of chest pain during her stay with normal EKG and troponin. 2. Chronic obstructive pulmonary disease with mild exacerbation, getting doxycycline until 06/23 during her stay. Nicotine dependence, wearing the nicotine patch. 3. History of depression and anxiety, hallucinations due to pain medications and Neurontin, improved prior to discharge. 4. History of Mittal's esophagus, essential hypertension, controlled carotid artery stenosis, anxiety, back pain and lumbar radiculopathy, GERD, depression, and coronary artery disease under medical management. REASON FOR ADMISSION: On the date of admission, this 67-year-old female was transferred from [facility] in [place] for further therapies after her thoracic spinal fusion. She did well on swing bed, but she felt she was not walking enough. She did receive some DVT prophylaxis with Lovenox initially but was able to be taken off that. She was up. She was moving around with therapy. She was meeting her goals and progressing. Her pain was under good control. On discharge, we had been weaning her down on opioids, but she had been taking them up to 4 times a day even before admission. LABORATORY DATA: On discharge had showed her hemoglobin up to 10.3, normal white count, normal creatinine and kidney function. Blood sugars mildly elevated at one point up to 178. Otherwise, UA was not showing any UTI. PHYSICAL EXAMINATION: VITAL SIGNS: On discharge show a temperature 98.2, pulse 78, blood pressure 115/41, respiratory rate 16, and O2 of 92% on room air. GENERAL: She is in no acute distress. HEART: Regular rate and rhythm with murmur noted. LUNGS: Sounds were clear to auscultation bilaterally without crackles or wheezes. EXTREMITIES: Warm and dry, no edema. MENTAL STATUS: Alert and orientated x3. Neck brace was in place, but her incisions over the anterior neck and posterior spine were all well healed with no drainage, redness or warmth. DISCHARGE PLANS/INSTRUCTIONS: The patient will follow up with Neurosurgery as recommended on 07/31. She will also see Dr. Craft on 07/21 in the clinic. She was given a 2-week supply of pain pills. No other medication changes were made during her stay. She will take stool softeners and laxatives if needed. ADDENDUM TO HOME HEALTH: I saw this patient [id number] on 07/07/2017. I will periodically review this plan of care. The patient is homebound and requires nursing PT and OT assessment secondary to a recent spinal surgery that requires monitoring of her activities and progress with therapy as well as teaching how to apply her braces and take her pain pills and avoid constipation appropriately. Otherwise, she is requiring assist of another due to her recent surgery to leave her home. She requires the use of a walker. She is not able to drive at this point, but hopefully will be able to when cleared by Neurosurgery. ANTHONYA: 07/18/2017 15:05:04 MODL: 07/18/2017 23:59:52 /[id number]
== END 2017-07-07 10:52 | disposition home or self-care (01) | DRG 560 ==
LOC: VM.MS 14:11
PROVIDERS: ADMIT Internal Medicine; ATTEND Internal Medicine
DX: Z47.89 Encounter for other orthopedic aftercare (principal); J44.1 Chronic obstructive pulmonary disease with (acute) exacerbation; Z98.1 Arthrodesis status; Z48.02 Encounter for removal of sutures; I10 Essential (primary) hypertension; I25.10 Atherosclerotic heart disease of native coronary artery without angina pectoris; F41.8 Other specified anxiety disorders; F17.210 Nicotine dependence, cigarettes, uncomplicated; I65.23 Occlusion and stenosis of bilateral carotid arteries; F32.9 Major depressive disorder, single episode, unspecified; F41.9 Anxiety disorder, unspecified; K21.9 Gastro-esophageal reflux disease without esophagitis; K44.9 Diaphragmatic hernia without obstruction or gangrene; Z88.0 Allergy status to penicillin; Z88.1 Allergy status to other antibiotic agents; Z88.8 Allergy status to other drugs, medicaments and biological substances; Z79.02 Long term (current) use of antithrombotics/antiplatelets; Z79.899 Other long term (current) drug therapy; K59.00 Constipation, unspecified
CPT/HCPCS: 36415; 71010; 80048; 81001; 84484; 85025; 93005; 94640-76; 94760; 97110-GP; 97116-GP; 97161-GP; 97165-GO; 97530-GP; 97535-GO; A9270-GY; J1650; J7620-GY

== ENCOUNTER 2019-01-10 16:18 | Inpatient (IN) | payer MEDICARE, OTHER ==
[2019-01-10] MEDS ORDERED: Sodium Chloride 0.9% 10 ML Syringe FLUSH PRN (16:27)
[2019-01-10] MEDS ORDERED: Acetaminophen/HYDROcodone 325-10 MG Tab PO ONE (16:40)
[2019-01-10] MEDS: Furosemide 40 MG/4 ML VIAL IV SCH (17:26)
--- NOTE | 2019-01-10 17:26 | CR ---
[id number] RAD/RAD Chest PA And Lateral EXAM: FRONTAL AND LATERAL CHEST INDICATION: Shortness of breath. COMPARISON: June 16, 2017. DISCUSSION: Hyperinflation may relate to underlying chronic obstructive pulmonary disease. No acute infiltrates are identified. Normal heart size. Stable small left upper lobe granuloma. Extensive posterior thoracic spine fusion. Anterior fusion hardware at the cervicothoracic junction. IMPRESSION: 1. Chronic obstructive pulmonary disease. No acute findings. Christopher Hartley MD 01/10/19 [id number] Thank you for allowing us to participate in the care of your patient.
[2019-01-10] MEDS: Enoxaparin 40 MG/0.4 ML Syringe SUBCUT SCH (18:02)
[2019-01-10 18:03] LABS: ANION GAP 9.9 mmol/L (10-20); CHLORIDE,CL 102 mmol/L (98-107); SODIUM,NA 141 mmol/L (136-145)
[2019-01-10] MEDS ORDERED: Albuterol 0.083% 2.5 MG/3 ML Neb Soln INH PRN (19:58)
[2019-01-10] MEDS ORDERED: Bisacodyl 10 MG Supp RECTAL PRN (19:58)
[2019-01-10] MEDS ORDERED: Nitroglycerin 0.4 MG Tab.SL SL SCH (20:00)
[2019-01-10] MEDS ORDERED: Nitroglycerin 0.4 MG Tab.SL SL PRN (20:15)
[2019-01-10] MEDS: Cyclobenzaprine 10 MG Tab PO SCH (20:45)
[2019-01-10] MEDS: Acetaminophen/HYDROcodone 325-10 MG Tab PO SCH (20:45)
[2019-01-10] MEDS: Gabapentin 300 MG Cap PO SCH (20:45)
--- NOTE | 2019-01-11 02:19 | HP ---
CHIEF COMPLAINT: Edema and shortness of breath. HISTORY OF PRESENT ILLNESS: This is a 68-year-old female with known history of severe COPD and coronary disease who presents with a greater than 1 month history of edema and weight gain. The patient back in October, weight 190 pounds, but now is up 12 pounds. We did have to decrease her medications due to low blood pressure at that time, and she was only taking her Lasix as needed. On the , we increased her Lasix up to 20 mg daily, but she has gained another pound. She continues to be short of breath and she is not lightheaded or dizzy, but she has had lower blood pressures in the past. She has had no chest pain. She has had no previous admissions for heart failure. She has been on gabapentin long-term for back pain. She has had previous multiple back surgeries. In fact, at one point, she took 300 three times a day and now is on 300 twice daily. PAST MEDICAL HISTORY: Consists of: 1. Anxiety, but she has not taken benzodiazepines for quite some time. 2. She has history of Mittal's esophagus, but looked okay in 2011. 3. She has chronic SI joint pain, she has had injections. 4. She has carotid artery stenosis 50-69% bilaterally. 5. She has had chronic continuous use of opioids. 6. She has had COPD. Her FEV1 was 1.06 or 48% of predicted, this was back in 2012. She was having frequent exacerbations. She reports she has quit smoking. 7. Coronary artery disease, diffuse small vessel disease, 100% RCA with collaterals. She has not had any surgery or stents. 8. Fibrocystic breast disease. 9. Degenerative disk disease of the lumbar spine with history of significant thoracic fusion surgery for stenosis. 10.GERD, severe with hiatal hernia. 11.Hyperlipidemia. 12.Essential hypertension. Stopped Cardizem due to hypotension in 10/2018 and we actually had to also decrease and stop her metoprolol at that point. 13.Impaired fasting glucose. 14.Lumbar radiculopathy, status post surgery in spring. 15.Major depressive disorder. 16.Posterior vitreous detachment in the eye. 17.Sleep related hypoxia, but insurance would not cover oxygen. PAST SURGICAL HISTORY: Includes the multiple back surgeries, as discussed 04/2018 L3-4 lumbar laminectomy and decompression and then T3-4, T6-7, T9-10 decompression and T2 through T12 fusion, cervical fusion, there was a C5 through 7 done at that time. Hysterectomy, anal fissure repair, tonsillectomy, tubal ligation, breast surgery, appendectomy, cataract surgery. She has had a cholecystectomy. ALLERGIES: Her allergy list includes penicillin; nausea, vomiting, diarrhea. Levaquin; wheezing and bronchospasm, but she may have tolerated at one point. Aspirin; nausea, vomiting, diarrhea. Celexa; no effect. Codeine; nausea, vomiting, diarrhea. Percocet; confusion and hallucinations. Prozac; anxiety. Wellbutrin; depression. Sertraline; anxiety. MEDICATIONS: Her medication list is reviewed. She currently takes Anoro inhaler daily, Paxil 10 mg daily, Protonix 40 mg daily, Reglan 10 mg 3 times a day, Neurontin 300 twice daily, Lasix 20 mg as needed for swelling, Lipitor 40 mg daily, hydrocodone 10 mg 3 times a day, Flexeril 10 mg 3 times a day, mag oxide 400 mg daily, Colace 100 mg while on pain medications, Plavix 75 mg daily, Senna-S 1 tablet daily, Proventil nebulizer 4 times a day as needed for cough, Dulcolax as needed, vitamin D 2000 units daily, nitroglycerin 0.4 as needed for chest pain. SOCIAL HISTORY: The patient is . She lives at home with her . She is disabled, mostly because of her lungs. She has quit smoking in the past for her back surgery last April. FAMILY HISTORY: Both parents are . Brother is living, with diabetes. Sister is . Son at age 37. REVIEW OF SYSTEMS: General: There has been weight gain as stated in the HPI. Otherwise, no fever, no chills. HEENT: No sore throat. Cardiac: No chest pain, but she has had the shortness of breath. No palpitation. Respiratory: No increased cough. No wheezing. Abdomen and GI: No nausea, vomiting, diarrhea. Musculoskeletal: She has chronic back pain that has not changed. She has a leg swelling which has came on over the last 1-2 months and is worsening. Otherwise, all systems reviewed and found to be negative unless otherwise stated. PHYSICAL EXAMINATION: Vital Signs: Weight today 202 pounds or 92 kg at the hospital, was weighed, temperature 97.1, pulse 100, blood pressure 109/61, respiratory rate 18, O2 95% on room air. General: She is in no acute distress. Heart: Irregular rate and rhythm. S1, S2 with murmur. Lung: Sounds are decreased throughout without crackles or wheezes. Abdomen: Nondistended, nontender. Extremities: Warm and dry. She has 2+ taut edema. She has some redness over the right foot, but no warmth. Mental Status: She is alert and orientated x3. She is able to stand. She walks, ambulates short distances with her walker. Psychiatric: She is not depressed or anxious. DISCHARGE STUDIES: Her chest x-ray does show previous thoracic surgery, however, no increased fluid just some tiny maybe right pleural effusion. EKG is pending. Lab work shows white count 7.6, hemoglobin 13.3, platelets 226. Sodium 141, potassium 3.9, chloride 102, bicarb 33, BUN 9, creatinine 0.7, glucose 97, calcium 8.4. Bilirubin 0.3, AST 16, ALT 18, alkaline phosphatase 69. Troponin normal. ProBNP elevated 391. Albumin 3. UA was not showing any protein or infection. ASSESSMENT AND PLAN: 1. Generalized edema, probably an acute diastolic heart failure exacerbation. Her last echo was done in 04/2017 and showed her to have a normal EF at that time. She could have some pulmonary hypertension, especially given her severe chronic obstructive pulmonary disease. She will need her echo repeated as an outpatient. At this point, we will admit her. We will place her on telemetry. We will diurese her with IV Lasix, and repeat her lab work in the morning, 40 b.i.d. We will have to watch her blood pressure closely due to history of some hypotension. 2. Essential hypertension. She is off medications. Blood pressure is controlled. 3. Chronic obstructive pulmonary disease. We will continue her Anoro and nebulizer. She does not appear to be having an exacerbation. 4. Anxiety and depression. She will be on her Paxil. 5. Chronic back pain. She is on her Neurontin, Flexeril, and hydrocodone, which she takes at home. 6. History of coronary artery disease, on medical management. She will continue her Plavix. Troponin was negative. 7. Obesity. 8. Deep venous thrombosis prophylaxis on Lovenox. PLAN: At this point, the patient is admitted for acute cares, for IV diuresis, for further workup of heart failure. She will need an echo as an outpatient. Currently, her blood pressures will not tolerate starting an MARII inhibitor while diuresing and she may have normal systolic function still. Pulse is over 100. Potentially, she would do better if she got back on her beta-dianna since stopping that seemed to exacerbate this, but we will have to see how she does over the next few days and discharge her with close outpatient followup. She is a code level 1. MKA: 01/10/2019 20:34:29 MODL: 01/11/2019 02:10:55 /[id number]
[2019-01-11] MEDS: Metoclopramide 10 MG Tab PO SCH ×3 (06:11→17:24)
[2019-01-11 06:45] LABS: ANION GAP 11.9 mmol/L (10-20); CHLORIDE,CL 104 mmol/L (98-107); SODIUM,NA 144 mmol/L (136-145)
[2019-01-11] MEDS: Albuterol/Ipratropium 3.0-0.5 MG/3 ML Neb Soln INH SCH ×3 (07:55→20:21)
[2019-01-11] MEDS: Cyclobenzaprine 10 MG Tab PO SCH ×3 (07:55→20:21)
[2019-01-11] MEDS: Docusate Sodium 100 MG Cap PO SCH (07:55)
[2019-01-11] MEDS: Clopidogrel 75 MG Tab PO SCH (07:56)
[2019-01-11] MEDS: Magnesium Oxide 400 MG Tab PO SCH (07:56)
[2019-01-11] MEDS: Furosemide 40 MG/4 ML VIAL IV SCH (07:56)
[2019-01-11] MEDS: Pantoprazole 40 MG Tab.CR PO SCH (07:56)
[2019-01-11] MEDS: Acetaminophen/HYDROcodone 325-10 MG Tab PO SCH ×3 (07:56→20:21)
[2019-01-11] MEDS: Gabapentin 300 MG Cap PO SCH ×2 (07:56→20:23)
[2019-01-11] MEDS: PARoxetine 20 MG Tab PO SCH (07:57)
[2019-01-11] MEDS ORDERED: atorvaSTATin 40 MG Tab PO SCH (08:00)
[2019-01-11] MEDS: Enoxaparin 40 MG/0.4 ML Syringe SUBCUT SCH (11:23)
[2019-01-11] MEDS ORDERED: Cholecalciferol (Vitamin D3) 1,000 Unit Tab PO SCH (18:00)
--- NOTE | 2019-01-11 20:14 | PN ---
Progress Note for BOB BARONE Date: 01/11/2019 Room #: [facility] SUBJECTIVE: On a 68-year-old, hospital day #2 for CHF exacerbation. The patient is feeling much better. Breathing better. Her weight is down 4 pounds. Her swelling is better. She is not feeling lightheaded or dizzy but later in the day did drop her blood pressure down to 83/47 and 87/34. The second dose of Lasix was held. She had some orthostatics showing 117/56 and dropping to 97/66. She was up walking around without oxygen. She was getting some cramps in her legs. Her magnesium levels were okay. She does have a chronic cough and is using her nebulizers. She has COPD. She has not had any chest pain. She had no events on telemetry. OBJECTIVE: Vital Signs: Her temperature is 98.8, her pulse 92, again blood pressure 87/34, respiratory rate 16, and O2 of 91 on room air. General: She is in no acute distress. Heart: Regular rate and rhythm with murmur. Lungs: Sounds are decreased with some expiratory wheezing. Faint crackles in the bases. Abdomen: Nondistended, nontender. Extremities: Warm and dry. She does have trace edema in the ankles that is taut and nonpitting and improved since yesterday. Mental Status: She is alert, she is orientated x3. LABORATORY WORK: Does show white count normal at 5.7, hemoglobin 13.1, and platelets 235. Sodium 144, potassium 3.9, chloride 104, bicarbonate 32, BUN 11, creatinine 0.6, glucose 112, calcium 8.3, and magnesium 1.9. ASSESSMENT AND PLAN: 1. Acute on chronic diastolic heart failure exacerbation with normal ejection fraction back in 04/2017. The patient will continue with intravenous Lasix but just 40 mg once daily. We will repeat an orthostatic in the morning and likely discharge her home on oral Lasix 20 mg daily for followup in the clinic as I do not feel her blood pressures are going to tolerate higher Lasix. Did also consider adding metolazone but at this point, we will stick with Lasix. 2. Essential hypertension. Blood pressures are under control. Actually getting slightly hypotensive, so we will be careful with diuresis. She does have a history of taking Toprol, which had to be stopped due to hypotension. 3. Chronic obstructive pulmonary disease. She is on anoro and nebulizers. We will continue with the same. 4. Anxiety and depression, on Paxil. 5. Chronic back pain; on Neurontin, Flexeril, and hydrocodone. Same doses, she has been on long-term at home. 6. History of coronary artery disease. She is not having any ischemia. She is on medical management. 7. Deep venous thrombosis prophylaxis, on Lovenox. 8. Obesity. PLAN: At this point, the patient will continue on acute cares. She will continue IV diuresis. We will repeat orthostatic blood pressures tomorrow. We will repeat her lab work in the morning. Anticipate, she will be stable for discharge. We will get her in some Chung stockings. ANTHONYA: 01/11/2019 17:30:24 MODL: 01/11/2019 20:07:10 /[id number]
[2019-01-12] MEDS: Albuterol/Ipratropium 3.0-0.5 MG/3 ML Neb Soln INH SCH ×3 (02:10→07:59)
[2019-01-12] MEDS: Metoclopramide 10 MG Tab PO SCH ×2 (06:01→11:04)
[2019-01-12 07:49] LABS: CHLORIDE,CL 104 mmol/L (98-107); SODIUM,NA 143 mmol/L (136-145)
[2019-01-12 07:50] LABS: ANION GAP 12.3 mmol/L (10-20)
[2019-01-12] MEDS: Docusate Sodium 100 MG Cap PO SCH (07:50)
[2019-01-12] MEDS: Cyclobenzaprine 10 MG Tab PO SCH ×2 (07:51→12:04)
[2019-01-12] MEDS: Clopidogrel 75 MG Tab PO SCH (07:51)
[2019-01-12] MEDS: Magnesium Oxide 400 MG Tab PO SCH (07:51)
[2019-01-12] MEDS: Pantoprazole 40 MG Tab.CR PO SCH (07:51)
[2019-01-12] MEDS: PARoxetine 20 MG Tab PO SCH (07:51)
[2019-01-12] MEDS: Acetaminophen/HYDROcodone 325-10 MG Tab PO SCH ×2 (07:51→12:04)
[2019-01-12] MEDS: Gabapentin 300 MG Cap PO SCH (07:52)
[2019-01-12] MEDS: Enoxaparin 40 MG/0.4 ML Syringe SUBCUT SCH (07:57)
[2019-01-12 10:57] VITALS: BP 101/47
--- NOTE | 2019-01-12 11:56 | PCM.PN ---
- General Info Date of Service: 01/12/19 Admission Dx/Problem (Free Text): Acute on Chronic CHF exacerbation Severe COPD Subjective Update: Patient states she is feeling much better today, despite having lower blood pressures. No chest pain. Has minimal SOB. No issues with BM's or urination. Vitals have remained stable. No fevers. Patient is requesting to be discharge today. Functional Status: Reports: Pain Controlled, Tolerating Diet, Ambulating, Urinating, New Symptoms Pain Score: 0 - Review of Systems General: Denies: Fever, Chills Pulmonary: Reports: Shortness of Breath. Denies: Cough, Sputum Cardiovascular: Reports: Edema. Denies: Chest Pain, Palpitations Gastrointestinal: Denies: Abdominal Pain, Nausea, Vomiting Skin: Reports: No Symptoms Neurological: Reports: No Symptoms - Patient Data Vitals - Most Recent: Last Vital Signs Temp 36.6 C 01/12/19 10:00 Pulse 93 01/12/19 10:00 Resp 20 01/12/19 10:00 BP 101/47 L 01/12/19 10:00 Pulse Ox 95 01/12/19 10:00 Orthostatic Blood Pressure [ 78/38 Supine] Orthostatic Blood Pressure [ 73/50 Standing] Orthostatic Blood Pressure [ 84/60 Sitting] Weight - Most Recent: 89.811 kg I&O - Last 24 Hours: Intake & Output 01/11/19 01/12/19 01/12/19 22:59 06:59 14:59 Intake Total 120 490 180 Output Total 300 700 200 Balance -180 -210 -20 Lab Results Last 24 Hours: Laboratory Results - last 24 hr 01/12/19 01/12/19 01/12/19 Range/Units 07:14 07:14 07:14 WBC 6.3 (4.0-10.0) x10^3/uL RBC 4.08 (4.00-5.50) x10^6/uL Hgb 13.2 (12.0-16.0) g/dL Hct 42.2 (33.0-47.0) % MCV 103.4 H (78.0-93.0) fL MCH 32.4 H (26.0-32.0) pg MCHC 31.3 L (32.0-36.0) g/dL RDW Coeff of Kirti 12.1 (10.0-15.0) % Plt Count 226 (130-400) x10^3/uL Neut % (Auto) 46.3 L (50.0-80.0) % Lymph % (Auto) 38.8 (25.0-50.0) % [place] % (Auto) 11.4 H (2.0-11.0) % Eos % (Auto) 3.2 (0.0-4.0) % Baso % (Auto) 0.3 (0.2-1.2) % Sodium 143 (136-145) mmol/L Potassium 4.3 (3.5-5.1) mmol/L Chloride 104 (98-107) mmol/L Carbon Dioxide 31 (21-32) mmol/L Anion Gap 12.3 (10-20) mmol/L BUN 14 (7-18) mg/dL Creatinine 0.6 (0.55-1.02) mg/dL Est Cr Clr Drug Dosing 68.66 mL/min Estimated GFR (MDRD) > 60 Glucose 111 H (74-106) mg/dL Calcium 8.6 (8.5-10.1) mg/dL Magnesium 1.9 (1.8-2.4) mg/dL Med Orders - Current: Current Medications Hydrocodone Bitart/Acetaminophen ([place] 325-10 Mg) 1 tab PO TID [facility] Last Admin: 01/12/19 07:51 Dose: 1 tab Albuterol (Proventil Neb Soln) 2.5 mg INH QIDRT PRN PRN Reason: Shortness of Breath Last Admin: 01/10/19 20:52 Dose: 2.5 mg Albuterol/Ipratropium (Duoneb 3.0-0.5 Mg/3 Ml) 3 ml INH Q6H [facility] Last Admin: 01/12/19 07:59 Dose: 3 ml Atorvastatin Calcium (Lipitor) 40 mg PO BEDTIME [facility] Bisacodyl (Dulcolax) 10 mg RECTAL DAILY PRN PRN Reason: Constipation Cholecalciferol (Vitamin D3) 2,000 units PO DAILY@1800 [facility] Last Admin: 01/11/19 17:24 Dose: 2,000 units Clopidogrel Bisulfate (Plavix) 75 mg PO DAILY [facility] Last Admin: 01/12/19 07:51 Dose: 75 mg Cyclobenzaprine HCl (Flexeril) 10 mg PO TID [facility] Last Admin: 01/12/19 07:51 Dose: 10 mg Docusate Sodium (Colace) 100 mg PO DAILY [facility] Last Admin: 01/12/19 07:50 Dose: 100 mg Enoxaparin Sodium (Lovenox) 40 mg SUBCUT DAILY [facility] Last Admin: 01/12/19 07:57 Dose: 40 mg Gabapentin (Neurontin) 300 mg PO BID [facility] Last Admin: 01/12/19 07:52 Dose: 300 mg Magnesium Oxide (Magnesium Oxide) 400 mg PO DAILY [facility] Last Admin: 01/12/19 07:51 Dose: 400 mg Metoclopramide HCl (Reglan) 10 mg PO TIDAC [facility] Last Admin: 01/12/19 06:01 Dose: 10 mg Nitroglycerin (Nitrostat) 0.4 mg SL Q5M PRN PRN Reason: CHEST PAIN Pantoprazole Sodium (Protonix) 40 mg PO DAILY [facility] Last Admin: 01/12/19 07:51 Dose: 40 mg Paroxetine HCl (Paxil) 10 mg PO DAILY [facility] Last Admin: 01/12/19 07:51 Dose: 10 mg Senna/Docusate Sodium (Senna Plus) 1 tab PO BID [facility] Last Admin: 01/12/19 07:50 Dose: 1 tab Sodium Chloride (Saline Flush) 10 ml FLUSH ASDIRECTED PRN PRN Reason: Keep Vein Open Discontinued Medications Hydrocodone Bitart/Acetaminophen ([place] 325-10 Mg) 1 tab PO ONETIME ONE Stop: 01/10/19 16:41 Last Admin: 01/10/19 17:32 Dose: Not Given Atorvastatin Calcium (Lipitor) 40 mg PO DAILY [facility] Last Admin: 01/11/19 07:56 Dose: 40 mg Furosemide (Lasix) 40 mg IV BIDDIURETIC [facility] Last Admin: 01/11/19 07:56 Dose: 40 mg Nitroglycerin (Nitrostat) 0.4 mg SL ASDIRECTED [facility] - Exam General: Alert, Oriented, Cooperative, No Acute Distress Lungs: Clear to Auscultation, Normal Respiratory Effort, Decreased Breath Sounds Cardiovascular: Regular Rhythm, Tachycardia GI/Abdominal Exam: Normal Bowel Sounds, Soft, Non-Tender Extremities: Pedal Edema (+2 non-pitting) Peripheral Pulses: 2+: Radial (L), Radial (R) Skin: Warm, Dry, Intact Neurological: No New Focal Deficit - Problem List Review Problem List Initiated/Reviewed/Updated: Yes
--- NOTE | 2019-01-12 12:03 | PCM.DCSUM1 ---
Discharge Summary - Hospital Course HPI Initial Comments: Patient admitted a couple of days ago for fluid overload in need of IV diureses. Patient with a history of diastolic HF now acute. Her last Echo showed an EF of 65%. Patient acutely for close monitoring of acute on chronic failure. Diagnosis: Stroke: No Modified Compton Scale: No Symptoms at All Modified Compton Scale Score: 0 - Discharge Data Discharge Date: 01/12/19 Discharge Disposition: Home, Self-Care 01 Condition: Good - Patient Summary/Data Operative Procedure(s) Performed: None Consults: Consultations 01/11/19 08:31 PT Evaluation and Treatment [CONS] Routine Labs Pending at D/C: None Recommended Follow-up Testing/Procedures: Echo, repeat labs Planned Operative Procedure(s) after DC: None Hospital Course: Patient basically had an uneventful stay. She had issues with her blood pressure in which her blood pressure medication needed to be held. She was nicely diuresed with IV lasix. She did not have any worsening of her symptoms. Patient ambulating independently. No issues with urination or BM's. Tolerated diet ok. Orthostatics this morning were low but consistent. Patient did not have any lightheadedness or dizziness with lower pressure. This will be reviewed with her PCP this week. - Patient Instructions Diet: Fluid Restriction Activity: Rest and Relax Today Driving: Do Not Drive Showering/Bathing: May Shower Other/Special Instructions: Lasix 20 mg daily on dischage. Weight daily and if weight gain over 2 lbs a day repeat the lasix at noon. See Dr. Craft on at 8:50. Echo is being arranged to check heart function. If feeling lightheaded or dizzy come in for a blood pressure check. Weart the support stockings on the legs and avoid salt in your diet ot help with leg swelling. Continue to avoid smoking - Discharge Plan *PRESCRIPTION DRUG MONITORING PROGRAM REVIEWED*: Not Applicable *COPY OF PRESCRIPTION DRUG MONITORING REPORT IN PATIENT HARSHAL: Not Applicable Home Medications: Home Meds Clopidogrel [Plavix] 75 mg PO DAILY 05/02/16 [History] Nitroglycerin [Nitrostat] 1 tab SL ASDIRECTED 05/02/16 [History] atorvaSTATin [Lipitor] 40 mg PO DAILY 05/02/16 [History] Bisacodyl 10 mg RECTAL DAILY PRN 06/13/17 [History] Cholecalciferol (Vitamin D3) [D3 Dots] 2,000 unit PO DAILY@1800 06/13/17 [ History] Docusate Sodium [Colace] 100 mg PO DAILY 06/13/17 [History] Gabapentin [Neurontin] 300 mg PO BID 06/13/17 [History] PARoxetine HCl [Paroxetine HCl] 10 mg PO DAILY 06/13/17 [History] Pantoprazole Sodium 40 mg PO DAILY 06/13/17 [History] Sennosides/Docusate Sodium [Senna-Docusate Sodium] 1 tab PO BID 06/13/17 [ History] Acetaminophen/HYDROcodone [[place] 325-10 MG] 1 tab PO TID 01/10/19 [History] Albuterol [Proventil] 2.5 mg INH QIDRT PRN 01/10/19 [History] Cyclobenzaprine [Flexeril] 10 mg PO TID 01/10/19 [History] Magnesium Oxide 400 mg PO DAILY 01/10/19 [History] Metoclopramide [Reglan] 10 mg PO TIDAC 01/10/19 [History] Umeclidinium Brm/Vilanterol Tr [Anoro Ellipta 62.5-25 MCG] 1 each IH DAILY 01/10 [History] Furosemide [Lasix] 20 mg PO DAILY #0 01/12/19 [Rx] Oxygen Therapy Mode: Room Air Patient Handouts: Heart Failure Referrals: Nyla Craft DO [Primary Care Provider] - - Discharge Summary/Plan Comment DC Time >30 min.: No Discharge Summary/Plan Comment: Patient will be discharge home today. Will keep Lasix at 20 daily until seen by PCP. No changes with any other medications. Continue with fluid restriction for now. Heart healthy diet, low sodium. Monitor weight daily. - General Info Date of Service: 01/12/19 Admission Dx/Problem (Free Text: Acute on Chronic CHF HTN COPD Anxiety/Depression Chronic Back Pain Hx of CAD Obesity Subjective Update: Patient states she is feeling much better today. She denies any chest pain, has SOB chronically. No problems with urination or BM's. Has tolerated her diet ok. She is ambulating independently in room and hallways without any problems. Functional Status: Reports: Pain Controlled, Tolerating Diet, Ambulating, Urinating. Denies: New Symptoms Numeric/FACES Score: 0 - Review of Systems General: Denies: Fever, Chills Pulmonary: Reports: Shortness of Breath (chronic). Denies: Cough, Sputum Cardiovascular: Denies: Chest Pain, Palpitations, Lightheadedness Gastrointestinal: Denies: Abdominal Pain, Nausea, Vomiting Skin: Reports: No Symptoms Neurological: Reports: No Symptoms - Patient Data Vitals - Most Recent: Last Vital Signs Temp 36.6 C 01/12/19 10:00 Pulse 93 01/12/19 10:00 Resp 20 01/12/19 10:00 BP 101/47 L 01/12/19 10:00 Pulse Ox 95 01/12/19 10:00 Orthostatic Blood Pressure [ 78/38 Supine] Orthostatic Blood Pressure [ 73/50 Standing] Orthostatic Blood Pressure [ 84/60 Sitting] Weight - Most Recent: 89.811 kg I&O - Last 24 hours: Intake & Output 01/11/19 01/12/19 01/12/19 22:59 06:59 14:59 Intake Total 120 490 420 Output Total 300 700 200 Balance -180 -210 220 Lab Results - Last 24 hrs: Laboratory Results - last 24 hr 01/12/19 01/12/19 01/12/19 Range/Units 07:14 07:14 07:14 WBC 6.3 (4.0-10.0) x10^3/uL RBC 4.08 (4.00-5.50) x10^6/uL Hgb 13.2 (12.0-16.0) g/dL Hct 42.2 (33.0-47.0) % MCV 103.4 H (78.0-93.0) fL MCH 32.4 H (26.0-32.0) pg MCHC 31.3 L (32.0-36.0) g/dL RDW Coeff of Kirti 12.1 (10.0-15.0) % Plt Count 226 (130-400) x10^3/uL Neut % (Auto) 46.3 L (50.0-80.0) % Lymph % (Auto) 38.8 (25.0-50.0) % [place] % (Auto) 11.4 H (2.0-11.0) % Eos % (Auto) 3.2 (0.0-4.0) % Baso % (Auto) 0.3 (0.2-1.2) % Sodium 143 (136-145) mmol/L Potassium 4.3 (3.5-5.1) mmol/L Chloride 104 (98-107) mmol/L Carbon Dioxide 31 (21-32) mmol/L Anion Gap 12.3 (10-20) mmol/L BUN 14 (7-18) mg/dL Creatinine 0.6 (0.55-1.02) mg/dL Est Cr Clr Drug Dosing 68.66 mL/min Estimated GFR (MDRD) > 60 Glucose 111 H (74-106) mg/dL Calcium 8.6 (8.5-10.1) mg/dL Magnesium 1.9 (1.8-2.4) mg/dL Med Orders - Current: Current Medications Hydrocodone Bitart/Acetaminophen ([place] 325-10 Mg) 1 tab PO TID [facility] Last Admin: 01/12/19 07:51 Dose: 1 tab Albuterol (Proventil Neb Soln) 2.5 mg INH QIDRT PRN PRN Reason: Shortness of Breath Last Admin: 01/10/19 20:52 Dose: 2.5 mg Albuterol/Ipratropium (Duoneb 3.0-0.5 Mg/3 Ml) 3 ml INH Q6H [facility] Last Admin: 01/12/19 07:59 Dose: 3 ml Atorvastatin Calcium (Lipitor) 40 mg PO BEDTIME [facility] Bisacodyl (Dulcolax) 10 mg RECTAL DAILY PRN PRN Reason: Constipation Cholecalciferol (Vitamin D3) 2,000 units PO DAILY@1800 [facility] Last Admin: 01/11/19 17:24 Dose: 2,000 units Clopidogrel Bisulfate (Plavix) 75 mg PO DAILY [facility] Last Admin: 01/12/19 07:51 Dose: 75 mg Cyclobenzaprine HCl (Flexeril) 10 mg PO TID [facility] Last Admin: 01/12/19 07:51 Dose: 10 mg Docusate Sodium (Colace) 100 mg PO DAILY [facility] Last Admin: 01/12/19 07:50 Dose: 100 mg Enoxaparin Sodium (Lovenox) 40 mg SUBCUT DAILY [facility] Last Admin: 01/12/19 07:57 Dose: 40 mg Gabapentin (Neurontin) 300 mg PO BID [facility] Last Admin: 01/12/19 07:52 Dose: 300 mg Magnesium Oxide (Magnesium Oxide) 400 mg PO DAILY [facility] Last Admin: 01/12/19 07:51 Dose: 400 mg Metoclopramide HCl (Reglan) 10 mg PO TIDAC [facility] Last Admin: 01/12/19 06:01 Dose: 10 mg Nitroglycerin (Nitrostat) 0.4 mg SL Q5M PRN PRN Reason: CHEST PAIN Pantoprazole Sodium (Protonix) 40 mg PO DAILY [facility] Last Admin: 01/12/19 07:51 Dose: 40 mg Paroxetine HCl (Paxil) 10 mg PO DAILY [facility] Last Admin: 01/12/19 07:51 Dose: 10 mg Senna/Docusate Sodium (Senna Plus) 1 tab PO BID [facility] Last Admin: 01/12/19 07:50 Dose: 1 tab Sodium Chloride (Saline Flush) 10 ml FLUSH ASDIRECTED PRN PRN Reason: Keep Vein Open Discontinued Medications Hydrocodone Bitart/Acetaminophen ([place] 325-10 Mg) 1 tab PO ONETIME ONE Stop: 01/10/19 16:41 Last Admin: 01/10/19 17:32 Dose: Not Given Atorvastatin Calcium (Lipitor) 40 mg PO DAILY [facility] Last Admin: 01/11/19 07:56 Dose: 40 mg Furosemide (Lasix) 40 mg IV BIDDIURETIC [facility] Last Admin: 01/11/19 07:56 Dose: 40 mg Nitroglycerin (Nitrostat) 0.4 mg SL ASDIRECTED [facility] - Exam General: Reports: Alert, Oriented, Cooperative, No Acute Distress Lungs: Reports: Clear to Auscultation, Normal Respiratory Effort, Decreased Breath Sounds Cardiovascular: Reports: Regular Rate, Regular Rhythm GI/Abdominal Exam: Normal Bowel Sounds, Soft, Non-Tender Extremities: Pedal Edema (+2 non-pitting) Skin: Reports: Warm, Dry, Intact Neurological: Reports: No New Focal Deficit *Q Meaningful Use (DIS) - VTE *Q VTE Mechanical Contraindications *Q: At Risk for Falls
[2019-01-12] MEDS ORDERED: atorvaSTATin 40 MG Tab PO SCH (20:00)
== END 2019-01-12 13:00 | disposition home or self-care (01) | DRG 293 ==
LOC: VM.MS 16:27
PROVIDERS: ADMIT Internal Medicine; ATTEND Internal Medicine
DX: I11.0 Hypertensive heart disease with heart failure (principal); I50.33 Acute on chronic diastolic (congestive) heart failure; J44.9 Chronic obstructive pulmonary disease, unspecified; F41.9 Anxiety disorder, unspecified; F32.9 Major depressive disorder, single episode, unspecified; G89.29 Other chronic pain; I25.10 Atherosclerotic heart disease of native coronary artery without angina pectoris; M54.9 Dorsalgia, unspecified; E66.9 Obesity, unspecified; K21.9 Gastro-esophageal reflux disease without esophagitis; E78.5 Hyperlipidemia, unspecified; K44.9 Diaphragmatic hernia without obstruction or gangrene; Z79.899 Other long term (current) drug therapy; Z87.891 Personal history of nicotine dependence; Z98.1 Arthrodesis status; Z98.51 Tubal ligation status; Z90.49 Acquired absence of other specified parts of digestive tract; Z98.49 Cataract extraction status, unspecified eye; Z88.0 Allergy status to penicillin; Z88.8 Allergy status to other drugs, medicaments and biological substances; Z88.5 Allergy status to narcotic agent; Z79.02 Long term (current) use of antithrombotics/antiplatelets
CPT/HCPCS: 36415; 71046; 80048; 80053; 81001; 83735; 83880; 84484; 85025; 93005; 94640; 97162-GP; A9270-GY; J1650; J1940; J7613-GY; J7620-GY

== ENCOUNTER 2019-01-28 14:28 | Inpatient (IN) | payer MEDICARE, OTHER ==
[2019-01-28] MEDS ORDERED: Iopamidol 612 MG/ML 100 ML Bottle IVPUSH ONE (15:00)
[2019-01-28] MEDS ORDERED: Bisacodyl 10 MG Supp RECTAL PRN (15:40)
[2019-01-28] MEDS ORDERED: Nitroglycerin 0.4 MG Tab.SL SL SCH (15:45)
--- NOTE | 2019-01-28 17:14 | CT ---
[id number] CT/CTA Chest EXAM: CT ANGIOGRAM CHEST INDICATION: Shortness of breath. COMPARISON: January 10, 2018 radiographs. DISCUSSION: The pulmonary arteries are normal in appearance with no emboli identified. Mild emphysematous changes in the lungs. Scattered calcified pulmonary nodules, hilar or mediastinal lymph nodes and liver and spleen calcifications consistent with antecedent granulomatous disease. No acute infiltrates are identified. No pleural or pericardial effusion. There is atherosclerotic plaque scattered throughout the aorta and its major branches including significant stenosis at the origin of the left subclavian artery. Posterior fusion with bilateral transpedicular screws and interconnecting rods T2-T12. Scattered posterior decompression. IMPRESSION: 1. Mild pulmonary emphysema. 2. Negative for pulmonary embolism. 3. Atherosclerotic disease involving the aorta and its major branches including the coronary arteries. Christopher Hartley MD 01/28/19 2291 Thank you for allowing us to participate in the care of your patient.
--- NOTE | 2019-01-28 17:21 | CT ---
[id number] CT/CT Abdomen Pelvis W IV EXAM: ABDOMEN AND PELVIS CT WITH CONTRAST INDICATION: Edema. COMPARISON: None. DISCUSSION: Scattered hepatic and splenic calcifications compatible with antecedent granulomatous disease. Extensive atherosclerotic plaque scattered throughout the aorta and its major branches. Diastases recti. Small fat-containing umbilical hernia. Hysterectomy. Cholecystectomy with mild ectasia of the bile ducts. Scattered colonic diverticula without evidence of diverticulitis. Partially characterized thoracic spine fusion. Prior posterior decompression at multiple levels in the lumbar spine. The pancreas, adrenal glands, kidneys and small bowel are normal in appearance. The appendix is not seen, but there are no changes to suggest appendicitis. IMPRESSION: 1. No acute findings. Christopher Hartley MD 01/28/19 2445 Thank you for allowing us to participate in the care of your patient.
[2019-01-28] MEDS: Metoclopramide 10 MG Tab PO SCH (17:35)
[2019-01-28] MEDS: Cholecalciferol (Vitamin D3) 1,000 Unit Tab PO SCH (17:35)
[2019-01-28] MEDS ORDERED: Furosemide 20 MG/2 ML VIAL IV ONE (18:01)
[2019-01-28] MEDS: Gabapentin 300 MG Cap PO SCH (20:07)
[2019-01-28] MEDS: Acetaminophen/HYDROcodone 325-10 MG Tab PO SCH (20:07)
[2019-01-28] MEDS: Cyclobenzaprine 10 MG Tab PO SCH (20:08)
[2019-01-28] MEDS: atorvaSTATin 40 MG Tab PO SCH (20:13)
[2019-01-28] MEDS: Indacaterol/Glycopyrrolate 1 EA Cap.W.Dev Kit of 6 IH SCH (20:14)
[2019-01-28] MEDS: Sodium Chloride 0.9% 10 ML Syringe FLUSH PRN (20:17)
--- NOTE | 2019-01-28 22:00 | PCM.HP ---
H&P History of Present Illness - General Date of Service: 01/28/19 Admit Problem/Dx: Admission Diagnosis/Problem Admission Diagnosis/Problem CHF, Congestive heart failure Source of Information: Patient - History of Present Illness Initial Comments - Free Text/Narative: Patient admitted 01/10 and home on 01/12 after diuresis for CHF had lost 6 lbs but started to regain weight 3 days ago with increased leg swelling, is a little SOB now and feeling lightheaded BP 74/50 in the clinic. Has been on lasix now 20 mg daily. BP low since October with med changes and Toprol stopped. Unable to get her echo yet as an outpatient but EF normal in 2017. She has known CAD but is on medical management. She has had no chest pain. Denies any increase in salt. Is on same dose of Neurontin due to back pain and has had extensive back surgeries. Weight is up at least 3 lbs over the last few days. She has cramps and pain in the lateral right leg which is new compared to past radicular pain. She feels swelling is the same on both legs. She does not smoke but her still smokes around her. She has severe COPD but denies any worsening of cough or wheezing. Onset of Symptoms: Reports: Gradual Duration of Symptoms: Reports: Day(s): - Related Data Allergies/Adverse Reactions: Allergies Allergy/AdvReac Type Severity Reaction Status Date / Time citalopram hydrobromide Allergy Other Verified 08/03/16 13:03 [From Celexa] levofloxacin [From Levaquin] Allergy Wheezing Verified 08/03/16 13:03 aspirin AdvReac Nausea and Verified 06/13/17 14:20 Vomiting bupropion HCl AdvReac Depression Verified 06/13/17 14:20 [From Wellbutrin] codeine AdvReac Nausea and Verified 06/13/17 14:20 Vomiting fluoxetine HCl [From Prozac] AdvReac Anxiety Verified 06/13/17 14:20 Penicillins AdvReac Nausea and Verified 06/13/17 14:20 Vomiting sertraline HCl [From Zoloft] AdvReac Anxiety Verified 06/13/17 14:20 Home Medications: Home Meds Clopidogrel [Plavix] 75 mg PO DAILY 05/02/16 [History] Nitroglycerin [Nitrostat] 1 tab SL ASDIRECTED 05/02/16 [History] atorvaSTATin [Lipitor] 40 mg PO DAILY 05/02/16 [History] Bisacodyl 10 mg RECTAL DAILY PRN 06/13/17 [History] Cholecalciferol (Vitamin D3) [D3 Dots] 2,000 unit PO DAILY@1800 06/13/17 [ History] Docusate Sodium [Colace] 100 mg PO DAILY 06/13/17 [History] Gabapentin [Neurontin] 300 mg PO BID 06/13/17 [History] PARoxetine HCl [Paroxetine HCl] 10 mg PO DAILY 06/13/17 [History] Pantoprazole Sodium 40 mg PO DAILY 06/13/17 [History] Sennosides/Docusate Sodium [Senna-Docusate Sodium] 1 tab PO BID 06/13/17 [ History] Acetaminophen/HYDROcodone [[place] 325-10 MG] 1 tab PO TID 01/10/19 [History] Cyclobenzaprine [Flexeril] 10 mg PO TID 01/10/19 [History] Magnesium Oxide 400 mg PO DAILY 01/10/19 [History] Metoclopramide [Reglan] 10 mg PO TIDAC 01/10/19 [History] Umeclidinium Brm/Vilanterol Tr [Anoro Ellipta 62.5-25 MCG] 1 each IH DAILY 01/10 [History] Furosemide [Lasix] 20 mg PO DAILY PRN 01/28/19 [History] Past Medical History HEENT History: Reports: Cataract Cardiovascular History: Reports: CAD, High Cholesterol, Hypertension, SOB on Exertion Respiratory History: Reports: Asthma, COPD, SOB, Other (See Below) Other Respiratory History: sleep related hypoxia Gastrointestinal History: Reports: GERD, Hiatal Hernia, Other (See Below) Other Gastrointestinal History: LOW'S ESOPHAGUS Genitourinary History: Reports: Other (See Below) Other Genitourinary History: FIBROCYSTIC BREAST DISEASE Musculoskeletal History: Reports: None Neurological History: Reports: Migraines Psychiatric History: Reports: Anxiety, Depression Endocrine/Metabolic History: Reports: Other (See Below) Other Endocrine/Metabolic History: IFG Hematologic History: Reports: None Immunologic History: Reports: None Oncologic (Cancer) History: Reports: None - Infectious Disease History Infectious Disease History: Reports: Chicken Pox, Influenza - Past Surgical History Head Surgeries/Procedures: Reports: None HEENT Surgical History: Reports: Cataract Surgery, Tonsillectomy GI Surgical History: Reports: Appendectomy, Cholecystectomy, Other (See Below) Female Surgical History: Reports: Breast Biopsy, Hysterectomy, Tubal Ligation Musculoskeletal Surgical History: Reports: ORIF Social & Family History - Family History Family Medical History: Noncontributory - Tobacco Use Smoking Status *Q: Former Smoker Used Tobacco, but Quit: Yes Month/Year Tobacco Last Used: 2016 - Caffeine Use Caffeine Use: Reports: Coffee - Recreational Drug Use Recreational Drug Use: No H&P Review of Systems - Review of Systems: Review Of Systems: See Below General: Reports: Fatigue, Weight Gain. Denies: Fever, Chills, Decreased Appetite HEENT: Reports: No Symptoms Pulmonary: Reports: Shortness of Breath Cardiovascular: Reports: Dyspnea on Exertion, Edema, Lightheadedness, Blood Pressure Problem. Denies: Chest Pain, Palpitations Gastrointestinal: Reports: No Symptoms Genitourinary: Reports: No Symptoms Musculoskeletal: Reports: No Symptoms Skin: Reports: No Symptoms Psychiatric: Reports: No Symptoms Neurological: Reports: No Symptoms Hematologic/Lymphatic: Reports: No Symptoms Immunologic: Reports: No Symptoms Exam - Exam Exam: See Below - Vital Signs Vital Signs: Last Vital Signs Temp 98.2 F 01/28/19 21:39 Pulse 90 01/28/19 21:39 Resp 18 01/28/19 21:39 BP 81/51 L 01/28/19 21:39 Pulse Ox 93 L 01/28/19 21:39 Weight: 90.718 kg - Exam General: Alert, Oriented, Cooperative HEENT: Conjunctiva Clear, EACs Clear, EOMI, Hearing Intact Neck: Supple, Trachea Midline, +2 Carotid Pulse wo Bruit. No: Lymphadenopathy, JVD Lungs: Normal Respiratory Effort, Decreased Breath Sounds. No: Wheezing Cardiovascular: Regular Rate, Regular Rhythm, Normal S1, Normal S2, Systolic Murmur GI/Abdominal Exam: Normal Bowel Sounds, Soft, Non-Tender Back Exam: Normal Inspection Extremities: Pedal Edema (2+ b/l), Leg Pain. No: Kevin's Sign, Increased Warmth Skin: Warm, Dry, Intact Neuro Extensive - Mental Status: Alert, Oriented x3, Normal Mood/Affect, Normal Cognition, Memory Intact Neuro Extensive - Motor, Sensory, Reflexes: Other (uses a walker) Psychiatric: Alert, Normal Affect, Normal Mood EKG INTERPRETATION EKG Date: 01/28/19 Rhythm: NSR [place]: Normal P-Wave: Present QRS: Normal ST-T: Normal QT: Normal Comparison: No Change - Problem List (1) CHF (congestive heart failure) SNOMED Code(s): 51644176 ICD Code: I50.9 - HEART FAILURE, UNSPECIFIED Status: Acute Priority: High Current Visit: Yes Qualifiers: Heart failure type: diastolic Heart failure chronicity: acute on chronic Qualified Code(s): I50.33 - Acute on chronic diastolic (congestive) heart failure (2) Hypotension SNOMED Code(s): 83913393 ICD Code: I95.9 - HYPOTENSION, UNSPECIFIED Status: Acute Priority: High Current Visit: Yes Qualifiers: Hypotension type: unspecified hypotension type Qualified Code(s): I95.9 - Hypotension, unspecified (3) CAD (coronary artery disease) SNOMED Code(s): 45045205 ICD Code: I25.10 - ATHSCL HEART DISEASE OF [place] CORONARY ARTERY W/O ANG PCTRS Status: Chronic Priority: Medium Current Visit: No Qualifiers: Coronary Disease-Associated Artery/Lesion type: [place] artery [place] vs. transplanted heart: [place] heart Associated angina: without angina Qualified Code(s): I25.10 - Atherosclerotic heart disease of [place] coronary artery without angina pectoris (4) COPD (chronic obstructive pulmonary disease) SNOMED Code(s): 20543322 ICD Code: J44.9 - CHRONIC OBSTRUCTIVE PULMONARY DISEASE, UNSPECIFIED Status : Chronic Priority: Medium Current Visit: No Qualifiers: COPD type: chronic bronchitis Chronic bronchitis type: unspecified Qualified Code(s): J42 - Unspecified chronic bronchitis (5) MDD (major depressive disorder) SNOMED Code(s): 890350524 ICD Code: F32.9 - MAJOR DEPRESSIVE DISORDER, SINGLE EPISODE, UNSPECIFIED Status: Chronic Priority: Medium Current Visit: No Qualifiers: Major depression recurrence: unspecified whether recurrent Major depression episode severity: unspecified Problem List Initiated/Reviewed/Updated: Yes Orders Last 24hrs: Active Orders 24 hr Category Date Time Status Patient Status [ADT] Routine ADT 01/28/19 14:30 Active Antiembolic Devices [RC] 08,20 Care 01/28/19 14:42 Active Height and Weight [RC] 07 Care 01/28/19 14:40 Active Oxygen Therapy [RC] PRN Care 01/28/19 14:40 Active Telemetry Monitoring [Cardiac Monitoring] [RC] . Care 01/28/19 20:55 Active DIRECTED Up With Assistance [RC] ASDIRECTED Care 01/28/19 14:40 Active VTE/DVT Education [RC] .PRN Care 01/28/19 14:40 Active Vital Signs [RC] 06,10,14,18,22,02 Care 01/28/19 14:40 Active 2 Gram Sodium Diet [DIET] Diet 01/28/19 Dinner Active BASIC METABOLIC PANEL,BMP [CHEM] AM Lab 01/29/19 05:15 Ordered CBC WITH AUTO DIFF [HEME] AM Lab 01/29/19 05:15 Ordered Acetaminophen/HYDROcodone [[place] 325-10 MG] Med 01/28/19 20:00 Active 1 tab PO TID Bisacodyl [Dulcolax] Med 01/28/19 15:40 Active 10 mg RECTAL DAILY PRN Cholecalciferol (Vitamin D3) [Vitamin D3] Med 01/28/19 18:00 Active 2,000 units PO DAILY@1800 Clopidogrel [Plavix] Med 01/29/19 08:00 Active 75 mg PO DAILY Cyclobenzaprine [Flexeril] Med 01/28/19 20:00 Active 10 mg PO TID Docusate Sodium [Colace] Med 01/29/19 08:00 Active 100 mg PO DAILY Docusate Sodium/Sennosides [Senna Plus] Med 01/28/19 20:00 Active 1 tab PO BID Gabapentin [Neurontin] Med 01/28/19 20:00 Active 300 mg PO BID Indacaterol/Glycopyrrolate [Utibron Neohaler 27.5-15.6 Med 01/28/19 20:00 Active MCG] 1 each IH BIDRT Magnesium Oxide Med 01/29/19 08:00 Active 400 mg PO DAILY Metoclopramide [Reglan] Med 01/28/19 17:00 Active 10 mg PO TIDAC Nitroglycerin [Nitrostat] Med 01/28/19 15:45 Active 0 mg SL ASDIRECTED PARoxetine [Paxil] Med 01/29/19 08:00 Active 10 mg PO DAILY Pantoprazole [ProTONIX] Med 01/29/19 07:00 Active 40 mg PO DAILY@0700 Sodium Chloride 0.9% [Saline Flush] Med 01/28/19 14:40 Active 10 ml FLUSH ASDIRECTED PRN atorvaSTATin [Lipitor] Med 01/28/19 20:00 Active 40 mg PO DAILY@1999 Antiembolic Hose [OM.PC] Per Unit Routine Oth 01/28/19 14:41 Ordered Peripheral IV Insertion Adult [OM.PC] Routine Oth 01/28/19 14:40 Ordered Resuscitation Status Routine Resus Stat 01/28/19 14:40 Ordered Medication Orders Hydrocodone Bitart/Acetaminophen ([place] 325-10 Mg) 1 tab PO TID [facility] Last Admin: 01/28/19 20:07 Dose: 1 tab Atorvastatin Calcium (Lipitor) 40 mg PO DAILY@1999 [facility] [place] Last Admin: 01/28/19 20:13 Dose: 40 mg Bisacodyl (Dulcolax) 10 mg RECTAL DAILY PRN PRN Reason: Constipation Cholecalciferol (Vitamin D3) 2,000 units PO DAILY@1800 [facility] [place] Last Admin: 01/28/19 17:35 Dose: 2,000 units Clopidogrel Bisulfate (Plavix) 75 mg PO DAILY [facility] [place] Cyclobenzaprine HCl (Flexeril) 10 mg PO TID [facility] [place] Last Admin: 01/28/19 20:08 Dose: 10 mg Docusate Sodium (Colace) 100 mg PO DAILY [facility] [place] Gabapentin (Neurontin) 300 mg PO BID [facility] [place] Last Admin: 01/28/19 20:07 Dose: 300 mg Glycopyrrolate/Indacaterol (Utibron Neohaler 27.5-15.6 Mcg) 1 each IH BIDRT [facility] [place] Last Admin: 01/28/19 20:14 Dose: 1 inhalation Magnesium Oxide (Magnesium Oxide) 400 mg PO DAILY [facility] [place] Metoclopramide HCl (Reglan) 10 mg PO TIDAC [facility] [place] Last Admin: 01/28/19 17:35 Dose: 10 mg Nitroglycerin (Nitrostat) 0 mg SL ASDIRECTED [facility] [place] Pantoprazole Sodium (Protonix) 40 mg PO DAILY@0700 [facility] [place] Paroxetine HCl (Paxil) 10 mg PO DAILY [facility] [place] Senna/Docusate Sodium (Senna Plus) 1 tab PO BID [facility] [place] Last Admin: 01/28/19 20:06 Dose: 1 tab Sodium Chloride (Saline Flush) 10 ml FLUSH ASDIRECTED PRN PRN Reason: Keep Vein Open Last Admin: 01/28/19 20:17 Dose: 10 ml Assessment/Plan Comment:: Admit to acute Cares CT done to rule out PE and it was negative and no pathology in the pelvis to explain edema Blood pressures low so will try lasix low dose 20 mg IV x 1 and reassess in AM patient perfusing well and not in shock AM cortisol level, TSH planned with repeat labs Telemetry Lovenox Kidney tests ok Cr 0.67 Consider autonomic causes given significant hx of spinal surgery leila stockings for legs probably we will end up wrapping them again to help with BP and diuresis Anticipate another couple days stay patient still in need of the echo but can wait to be done outpatient but if significant hypotension continues consider transfer to [place] for further testing as if EF low she may require dobutamine or dopamine She is having no chest pain no need to repeat troponin as it was negative and her symptoms started 2 days ago. No changes on her EKG at the clinic from her previous EKG.
[2019-01-29] MEDS: Metoclopramide 10 MG Tab PO SCH ×3 (06:59→16:08)
[2019-01-29] MEDS: Indacaterol/Glycopyrrolate 1 EA Cap.W.Dev Kit of 6 IH SCH ×2 (06:59→19:33)
[2019-01-29] MEDS: Pantoprazole 40 MG Tab.CR PO SCH (06:59)
[2019-01-29 07:08] LABS: CHLORIDE,CL 105 mmol/L (98-107); SODIUM,NA 142 mmol/L (136-145)
[2019-01-29 07:09] LABS: ANION GAP 11.2 mmol/L (10-20)
[2019-01-29] MEDS: Cyclobenzaprine 10 MG Tab PO SCH ×3 (08:41→19:30)
[2019-01-29] MEDS: Clopidogrel 75 MG Tab PO SCH (08:41)
[2019-01-29] MEDS: Enoxaparin 40 MG/0.4 ML Syringe SUBCUT SCH (08:41)
[2019-01-29] MEDS: Acetaminophen/HYDROcodone 325-10 MG Tab PO SCH ×3 (08:41→19:30)
[2019-01-29] MEDS: PARoxetine 20 MG Tab PO SCH (08:42)
[2019-01-29] MEDS: Docusate Sodium 100 MG Cap PO SCH (08:42)
[2019-01-29] MEDS: Magnesium Oxide 400 MG Tab PO SCH (08:42)
[2019-01-29] MEDS: Gabapentin 300 MG Cap PO SCH ×2 (08:43→19:30)
[2019-01-29] MEDS: Furosemide 20 MG/2 ML VIAL IV SCH ×2 (09:48→16:08)
[2019-01-29] MEDS: Sodium Chloride 0.9% 10 ML Syringe FLUSH PRN (09:48)
[2019-01-29] MEDS: Acetaminophen 500 MG Tab PO PRN (16:08)
[2019-01-29] MEDS: Cephalexin 500 MG Cap PO SCH ×2 (16:08→17:48)
[2019-01-29] MEDS: Cholecalciferol (Vitamin D3) 1,000 Unit Tab PO SCH (17:48)
--- NOTE | 2019-01-29 18:30 | PN ---
Progress Note for BOB BARONE Date: 01/29/2019 Room #: VM.214 SUBJECTIVE: This is hospital day #2 on a 68-year-old admitted with a diastolic heart failure exacerbation. The patient feels that her breathing has improved. Her swelling has improved somewhat, but it is a little bit worse over the left foot. She now has pain on the medial right knee and thigh area. Yesterday, it was lateral, some redness did develop. She has not had any fevers. She has not had any vein problems in her legs before or cellulitis. Otherwise, blood pressures have been improved today, up to 92/60. She tolerated 20 mg of Lasix yesterday and did have 1 L of output. OBJECTIVE: Vital Signs: Weight 93.8 kg, although admitting weight was listed at 90.7 kg, so potentially that was an error, and she has actually gained more weight since discharge than what was listed yesterday. Temperature 97.7, pulse 88, blood pressure 92/60, respiratory rate 18, O2 of 93% on room air. General: She was in no acute distress. Heart: Regular rate and rhythm with murmur. Lungs: Sounds were slightly decreased in the bases, but without crackles or wheezes. Abdomen: Nondistended, nontender. Extremities: Warm and dry. She has 2+ edema over that left foot, otherwise 1+ edema over both legs. Mild redness and warmth in that left inner thigh area. The knee is without effusion. She has no knee discomfort with flexion, extension, but it does irritate the left thigh area. The redness is not hot or spreading significantly proximally. Mental status: She is alert and orientated x3. LABORATORY DATA: Lab work today does show normal white count at 6.7, hemoglobin 12.9, platelets 227. Sodium 142, potassium 4.2, chloride 105, bicarb 30, BUN 13, creatinine 0.5, glucose 115. TSH 3.6. Cortisol pending. ASSESSMENT AND PLAN: 1. Acute on chronic diastolic heart failure exacerbation with known normal ejection fraction in 2017. Outpatient echo has been ordered and is pending. 2. Continued leg swelling. Outpatient workup with venous insufficiency ultrasound is being arranged. 3. Hypotension. Blood pressure is slightly improved today. We will continue with diuresis, 20 mg b.i.d., and monitor closely. 4. Known history of coronary artery disease, on medical management. Telemetry has been fine. We will go ahead and discontinue that. 5. Severe chronic obstructive pulmonary disease without exacerbation. No changes were made to her home medications. 6. Major depressive disorder. We will continue her home medications. 7. Chronic back pain. We will continue home medications. Consider at some point trying to stop Neurontin as it could contribute to swelling, although she has been on the same dose for quite some time. The plan at this point, the patient will continue acute cares with IV Lasix. We will discontinue telemetry. We will repeat lab work tomorrow. She will continue Lovenox for deep venous thrombosis prophylaxis. I anticipate she will be discharged as soon as tomorrow with close outpatient followup. MKA: 01/29/2019 16:40:53 MODL: 01/29/2019 16:59:00 /[id number]
[2019-01-29] MEDS: atorvaSTATin 40 MG Tab PO SCH (19:30)
[2019-01-30] MEDS: Cephalexin 500 MG Cap PO SCH ×2 (01:25→06:09)
[2019-01-30] MEDS: Acetaminophen 500 MG Tab PO PRN (05:42)
[2019-01-30] MEDS: Pantoprazole 40 MG Tab.CR PO SCH ×2 (05:43→06:12)
[2019-01-30] MEDS: Metoclopramide 10 MG Tab PO SCH ×3 (05:43→11:48)
[2019-01-30] MEDS: Indacaterol/Glycopyrrolate 1 EA Cap.W.Dev Kit of 6 IH SCH ×2 (05:46→06:11)
[2019-01-30 07:15] LABS: CHLORIDE,CL 102 mmol/L (98-107); SODIUM,NA 140 mmol/L (136-145)
[2019-01-30 07:18] LABS: ANION GAP 10.2 mmol/L (10-20)
[2019-01-30] MEDS: Docusate Sodium 100 MG Cap PO SCH (08:28)
[2019-01-30] MEDS: Magnesium Oxide 400 MG Tab PO SCH (08:28)
[2019-01-30] MEDS: PARoxetine 20 MG Tab PO SCH (08:29)
[2019-01-30] MEDS: Cyclobenzaprine 10 MG Tab PO SCH (08:29)
[2019-01-30] MEDS: Gabapentin 300 MG Cap PO SCH (08:29)
[2019-01-30] MEDS: Acetaminophen/HYDROcodone 325-10 MG Tab PO SCH (08:29)
[2019-01-30] MEDS: Enoxaparin 40 MG/0.4 ML Syringe SUBCUT SCH (08:30)
[2019-01-30] MEDS: Clopidogrel 75 MG Tab PO SCH (08:30)
[2019-01-30] MEDS: Sodium Chloride 0.9% 10 ML Syringe FLUSH PRN (08:31)
[2019-01-30] MEDS: Furosemide 20 MG/2 ML VIAL IV SCH (09:57)
[2019-01-30 10:03] VITALS: BP 85/48
--- NOTE | 2019-01-30 20:44 | DISCH ---
PRIMARY DISCHARGE DIAGNOSIS: An acute diastolic heart failure exacerbation. SECONDARY DISCHARGE DIAGNOSES: 1. Hypotension, not overly symptomatic, probably some improper blood pressure readings due to peripheral vascular disease. 2. History of smoking. 3. History of spinal stenosis with extensive back surgeries. 4. Leg swelling, need to rule out venous insufficiency. 5. Cellulitis to the right thigh, improving on day 2 now of Keflex. 6. Known history of coronary artery disease, on medical management. 7. Severe chronic obstructive pulmonary disease, stable without exacerbation. 8. Major depressive disorder. 9. Chronic back pain. REASON FOR ADMISSION: On the day of admission, this 68-year-old female came into the clinic, had recently been admitted and discharged after a 6-pound diuresis. She was feeling well, but then 2 days ago she started to retain fluid again, gained at least 3 pounds back, was having more leg swelling, was having more pain, she said more in the outside of her right leg. Did have a mildly elevated D-dimer to 0.8. Therefore, she underwent CT PE protocol and an abdominal CT. These were negative for any signs of blood clots or obstructing masses causing her swelling. There was some subclavian stenosis noted, however. Otherwise, she has been afebrile, but was having more pain on the inner aspect of her right thigh. It was red, warm, and she was started on Keflex for cellulitis and the condition improved. Her swelling improved. She had weights that actually were showing her to have gained weight from her admitting weight, but it is possible that was just inaccurate and she is down 2 L during her stay. She is moving around and feeling better. She was hypotensive at times. Therefore, we did orthostatics. She went from 80/57 to 77/35, but she was not overly symptomatic, and supine was 88/54. Therefore, she felt like she could return home. She will use the LYDIA stockings as she could not tolerate harder Oh wrapping with that cellulitis. She is planning to be on a trip out of state with her for 1 month. Did recommend that she have medical care out of state if needed. Otherwise, when she returns, she will get her echo and her leg ultrasound. I felt it was quite unlikely that she would have a DVT at this point given both legs were swollen and she had cellulitis. I did not feel any firm cords on her legs to suggest varicose veins that were superficial or thrombophlebitis. She also was on Lovenox for DVT prophylaxis during her stay. PHYSICAL EXAMINATION: Vital signs: Other discharge vitals include respiratory rate 20, O2 of 95% on room air, she was 88% to 90% on admission. She was afebrile at 97.1 and pulse was 60. General: She is in no acute distress. Heart: Regular rate and rhythm with murmur. Lungs: Lung sounds are clear to auscultation bilaterally without crackles or wheezes. Abdomen: Has positive bowel sounds. Soft, nontender. Extremities: Warm and dry. She still has 1+ edema over the left ankle and foot. Trace edema over the right leg with the tenderness in the right medial knee area into the thigh. DISCHARGE PLANS AND INSTRUCTIONS: She will recheck in late February after she returns from her trip. Medications have already been filled including her pain medication. Otherwise, Lasix was increased to 20 mg twice daily. She should also pick that up before her trip and cut back to once daily if she becomes lightheaded. She also will take Keflex 4 times a day for another 5 days for the cellulitis. Admitted for heart failure exacerbation with hypotension. MKA: 01/30/2019 16:24:47 MODL: 01/30/2019 20:37:11 /[id number]
== END 2019-01-30 11:30 | disposition home or self-care (01) | DRG 292 ==
LOC: VM.MS 14:41
PROVIDERS: ADMIT Internal Medicine; ATTEND Internal Medicine
DX: I11.0 Hypertensive heart disease with heart failure (principal); L03.115 Cellulitis of right lower limb; I50.33 Acute on chronic diastolic (congestive) heart failure; I25.10 Atherosclerotic heart disease of native coronary artery without angina pectoris; I95.9 Hypotension, unspecified; J44.9 Chronic obstructive pulmonary disease, unspecified; I73.9 Peripheral vascular disease, unspecified; E78.00 Pure hypercholesterolemia, unspecified; F41.9 Anxiety disorder, unspecified; F32.9 Major depressive disorder, single episode, unspecified; G89.29 Other chronic pain; M54.9 Dorsalgia, unspecified; G43.909 Migraine, unspecified, not intractable, without status migrainosus; K21.9 Gastro-esophageal reflux disease without esophagitis; Z90.710 Acquired absence of both cervix and uterus; Z88.8 Allergy status to other drugs, medicaments and biological substances; Z88.0 Allergy status to penicillin; Z88.6 Allergy status to analgesic agent; Z79.899 Other long term (current) drug therapy; Z90.49 Acquired absence of other specified parts of digestive tract; Z87.891 Personal history of nicotine dependence
CPT/HCPCS: 36415; 71275; 74177; 80048; 82533; 84443; 85025; A9270-GY; J1650; J1940; Q9967

== ENCOUNTER 2020-10-12 16:27 | Emergency (ER) | payer MEDICARE, OTHER ==
[2020-10-12] MEDS ORDERED: Albuterol/Ipratropium 3.0-0.5 MG/3 ML Neb Soln NEB ONE (17:05)
[2020-10-12 17:41] LABS: ANION GAP 11.6 mmol/L (10-20); CHLORIDE,CL 98 mmol/L (98-107); SODIUM,NA 138 mmol/L (136-145)
--- NOTE | 2020-10-12 18:04 | EDM.PDOC ---
ED HPI GENERAL MEDICAL PROBLEM - General Stated Complaint: SOB Time Seen by Provider: 10/12/20 16:45 Source of Information: Reports: Patient, RN, RN Notes Reviewed History Limitations: Reports: Respiratory Distress - History of Present Illness INITIAL COMMENTS - FREE TEXT/NARRATIVE: Pt presents to ER With complaint of increased shortness of breath which began this morning. Patient states she does use oxygen at home during the night, but does not use it during the day. Patient states she has not been tested for Covid. Does states she has a history of CHF, COPD, and CAD with blockages in the heart. Patient denies any fever chills, denies chest pains, denies nausea, vomiting, diarrhea. Patient states she has noticed increased swelling in her lower extremities, as well as an increase in her weight. Onset: Today, Gradual - Related Data Allergies Allergy/AdvReac Type Severity Reaction Status Date / Time citalopram hydrobromide Allergy Other Verified 10/12/20 17:43 [From Celexa] levofloxacin [From Levaquin] Allergy Wheezing Verified 10/12/20 17:43 aspirin AdvReac Nausea and Verified 10/12/20 17:43 Vomiting bupropion HCl AdvReac Depression Verified 10/12/20 17:43 [From Wellbutrin] codeine AdvReac Nausea and Verified 10/12/20 17:43 Vomiting fluoxetine HCl [From Prozac] AdvReac Anxiety Verified 10/12/20 17:43 Penicillins AdvReac Nausea and Verified 10/12/20 17:43 Vomiting sertraline HCl [From Zoloft] AdvReac Anxiety Verified 10/12/20 17:43 Home Meds: Home Meds Clopidogrel [Plavix] 75 mg PO DAILY 05/02/16 [History] Nitroglycerin [Nitrostat] 1 tab SL ASDIRECTED 05/02/16 [History] atorvaSTATin [Lipitor] 40 mg PO DAILY 05/02/16 [History] Bisacodyl 10 mg RECTAL DAILY PRN 06/13/17 [History] Cholecalciferol (Vitamin D3) [D3 Dots] 2,000 unit PO DAILY@1800 06/13/17 [History] Docusate Sodium [Colace] 100 mg PO DAILY 06/13/17 [History] Gabapentin [Neurontin] 300 mg PO BID 06/13/17 [History] PARoxetine HCL [Paroxetine HCl] 10 mg PO DAILY 06/13/17 [History] Pantoprazole Sodium 40 mg PO DAILY 06/13/17 [History] Sennosides/Docusate Sodium [Senna-Docusate Sodium] 1 tab PO BID 06/13/17 [History] Acetaminophen/HYDROcodone [[place] 325-10 MG] 1 tab PO TID 01/10/19 [History] Cyclobenzaprine [Flexeril] 10 mg PO TID 01/10/19 [History] Magnesium Oxide 400 mg PO DAILY 01/10/19 [History] Metoclopramide [Reglan] 10 mg PO TIDAC 01/10/19 [History] Umeclidinium Brm/Vilanterol Tr [Anoro Ellipta 62.5-25 MCG] 1 each IH DAILY 01/10/19 [History] Furosemide [Lasix] 20 mg PO BID #60 tablet 01/30/19 [Rx] Past Medical History HEENT History: Reports: Cataract Cardiovascular History: Reports: CAD, High Cholesterol, Hypertension, SOB on Exertion Respiratory History: Reports: Asthma, COPD, SOB, Other (See Below) Other Respiratory History: sleep related hypoxia Gastrointestinal History: Reports: GERD, Hiatal Hernia, Other (See Below) Other Gastrointestinal History: LOW'S ESOPHAGUS Genitourinary History: Reports: Other (See Below) Other Genitourinary History: FIBROCYSTIC BREAST DISEASE Musculoskeletal History: Reports: None Neurological History: Reports: Migraines Psychiatric History: Reports: Anxiety, Depression Endocrine/Metabolic History: Reports: Other (See Below) Other Endocrine/Metabolic History: IFG Hematologic History: Reports: None Immunologic History: Reports: None Oncologic (Cancer) History: Reports: None - Infectious Disease History Infectious Disease History: Reports: Chicken Pox, Influenza, Novel Coronavirus - Past Surgical History Head Surgeries/Procedures: Reports: None HEENT Surgical History: Reports: Cataract Surgery, Tonsillectomy Cardiovascular Surgical History: Reports: None Respiratory Surgical History: Reports: None GI Surgical History: Reports: Appendectomy, Cholecystectomy, Other (See Below) Other GI Surgeries/Procedures: ANAL FISSURE REPAIR Female Surgical History: Reports: Breast Biopsy, Hysterectomy, Tubal Ligation Endocrine Surgical History: Reports: None Musculoskeletal Surgical History: Reports: ORIF Social & Family History - Family History Family Medical History: No Pertinent Family History - Tobacco Use Tobacco Use Status *Q: Former Tobacco User Used Tobacco, but Quit: Yes Month/Year Tobacco Last Used: 1969 - Caffeine Use Caffeine Use: Reports: Coffee - Recreational Drug Use Recreational Drug Use: No ED ROS GENERAL - Review of Systems Review Of Systems: Comprehensive ROS is negative, except as noted in HPI. ED EXAM, GENERAL - Physical Exam Exam: See Below Exam Limited By: No Limitations General Appearance: Alert, WD/WN, Mild Distress Eye Exam: Bilateral Eye: EOMI, Normal Inspection Ears: Normal External Exam, Hearing Grossly Normal Nose: Normal Inspection Throat/Mouth: Normal Inspection, Normal Voice, No Airway Compromise Head: Atraumatic, Normocephalic Neck: Normal Inspection, Supple, Non-Tender, Full Range of Motion Respiratory/Chest: Decreased Breath Sounds, Crackles, Rhonchi Cardiovascular: Normal Peripheral Pulses, Regular Rate, Rhythm, No Gallop, No JVD, No Rub, Other (Pedal Edema +2-3 ankles/lower extremities) Peripheral Pulses: 1+: Dorsalis Pedis (L), Dorsalis Pedis (R), 2+: Radial (L), Radial (R) GI/Abdominal: Normal Bowel Sounds, Soft, Non-Tender (Female) Exam: Deferred Rectal (Female) Exam: Deferred Back Exam: Normal Inspection, Decreased Range of Motion Extremities: Pedal Edema Neurological: Alert, Oriented, CN II-XII Intact, Normal Cognition, Normal Reflexes, No Motor/Sensory Deficits Psychiatric: Normal Affect, Normal Mood Skin Exam: Warm, Dry, Intact, Normal Color, No Rash Lymphatic: No Adenopathy Course - Vital Signs Last Recorded V/S: Last Vital Signs Temp 97.2 F 10/12/20 16:30 Pulse 90 10/12/20 18:11 Resp 22 H 10/12/20 18:11 BP 92/42 L 10/12/20 18:11 Pulse Ox 95 10/12/20 18:11 - Orders/Labs/Meds Orders: Active Orders 24 hr Category Date Time Status EKG Documentation Completion [RC] STAT Care 10/12/20 16:37 Active Insert Urinary Catheter [OM.PC] Q24H Care 10/12/20 18:40 Ordered RT Aerosol Therapy [RC] ASDIRECTED Care 10/12/20 17:05 Active Urinary Catheter Assessment [RC] ASDIRECTED Care 10/12/20 18:51 Active Labs: Laboratory Tests 1110/12/20 10/12/20 Range/Units 16:37 16:55 16:55 WBC (4.0-10.0) x10^3/uL RBC (4.00-5.50) x10^6/uL Hgb (12.0-16.0) g/dL Hct (33.0-47.0) % MCV (78.0-93.0) fL MCH (26.0-32.0) pg MCHC (32.0-36.0) g/dL RDW Coeff of Kirti (10.0-15.0) % Plt Count (130-400) x10^3/uL Add Manual Diff Neutrophils % (Manual) (50-80) % Lymphocytes % (Manual) (25-50) % Reactive Lymphs % (0) % Atypical Lymphs % (0) % Monocytes % (Manual) (2-11) % PT 9.4 L (9.5-12.3) SEC INR 0.9 L (2.0-3.5) D-Dimer, Quantitative 0.76 H (<=0.58) mg/LFEU Sodium 138 (136-145) mmol/L Potassium 3.6 (3.5-5.1) mmol/L Chloride 98 (98-107) mmol/L Carbon Dioxide 32 (21-32) mmol/L Anion Gap 11.6 (10-20) mmol/L BUN 9 (7-18) mg/dL Creatinine 0.8 (0.55-1.02) mg/dL Est Cr Clr Drug Dosing TNP Estimated GFR (MDRD) > 60 Glucose 133 H (74-106) mg/dL Lactic Acid (0.4-2.0) mmol/L Calcium 8.4 L (8.5-10.1) mg/dL Corrected Calcium 9.60 (8.5-10.1) mg/dL Total Bilirubin 0.5 (0.2-1.0) mg/dL AST 23 (15-37) U/L ALT 19 (14-59) U/L Alkaline Phosphatase 58 (46-116) U/L Lactate Dehydrogenase 310 H (81-234) U/L Troponin I 0.216 H* (<=0.056) ng/mL C-Reactive Protein 12.2 H (<=0.9) mg/dL NT-Pro-B Natriuret Pep 4983 H (<=125) pg/mL Total Protein 6.3 L (6.4-8.2) g/dL Albumin 2.5 L (3.4-5.0) g/dL Globulin 3.8 Albumin/Globulin Ratio 0.66 Urine Color (YELLOW) Urine Appearance (CLEAR) Urine pH (5.0-8.0) Ur Specific Davidson Urine Protein (NEGATIVE) mg/dL Urine Glucose (UA) (NEGATIVE) mg/dL Urine Ketones (NEGATIVE) mg/dL Urine Occult Blood (NEGATIVE) Urine Nitrite (NEGATIVE) Urine Bilirubin (NEGATIVE) Urine Urobilinogen (0.2) EU/dL Ur Leukocyte Esterase (NEGATIVE) Urine RBC (NOT SEEN) /HPF Urine WBC (NOT SEEN) /HPF Ur Squamous Epith Cells (NEGATIVE) /HPF Urine Bacteria (NEGATIVE) /HPF Urine Mucus (NEGATIVE) /LPF SARS CoV-2 RNA Rapid SERGEY Positive H (NEGATIVE) 10/12/20 10/12/20 10/12/20 Range/Units 17:07 17:25 17:25 WBC 6.5 (4.0-10.0) x10^3/uL RBC 3.92 L (4.00-5.50) x10^6/uL Hgb 12.2 (12.0-16.0) g/dL Hct 38.5 (33.0-47.0) % MCV 98.2 H D (78.0-93.0) fL MCH 31.1 (26.0-32.0) pg MCHC 31.7 L (32.0-36.0) g/dL RDW Coeff of Kirti 13.5 (10.0-15.0) % Plt Count 195 (130-400) x10^3/uL Add Manual Diff Yes Neutrophils % (Manual) 60 (50-80) % Lymphocytes % (Manual) 29 (25-50) % Reactive Lymphs % 1 H (0) % Atypical Lymphs % 2 H (0) % Monocytes % (Manual) 8 (2-11) % PT (9.5-12.3) SEC INR (2.0-3.5) D-Dimer, Quantitative (<=0.58) mg/LFEU Sodium (136-145) mmol/L Potassium (3.5-5.1) mmol/L Chloride (98-107) mmol/L Carbon Dioxide (21-32) mmol/L Anion Gap (10-20) mmol/L BUN (7-18) mg/dL Creatinine (0.55-1.02) mg/dL Est Cr Clr Drug Dosing Estimated GFR (MDRD) Glucose (74-106) mg/dL Lactic Acid 1.7 (0.4-2.0) mmol/L Calcium (8.5-10.1) mg/dL Corrected Calcium (8.5-10.1) mg/dL Total Bilirubin (0.2-1.0) mg/dL AST (15-37) U/L ALT (14-59) U/L Alkaline Phosphatase (46-116) U/L Lactate Dehydrogenase (81-234) U/L Troponin I (<=0.056) ng/mL C-Reactive Protein (<=0.9) mg/dL NT-Pro-B Natriuret Pep (<=125) pg/mL Total Protein (6.4-8.2) g/dL Albumin (3.4-5.0) g/dL Globulin Albumin/Globulin Ratio Urine Color Dark yellow H (YELLOW) Urine Appearance Slightly cloudy H (CLEAR) Urine pH 6.0 (5.0-8.0) Ur Specific Davidson 1.025 Urine Protein Trace H (NEGATIVE) mg/dL Urine Glucose (UA) Negative (NEGATIVE) mg/dL Urine Ketones Trace H (NEGATIVE) mg/dL Urine Occult Blood Negative (NEGATIVE) Urine Nitrite Negative (NEGATIVE) Urine Bilirubin Small H (NEGATIVE) Urine Urobilinogen 2.0 H (0.2) EU/dL Ur Leukocyte Esterase Trace H (NEGATIVE) Urine RBC 0-5 (NOT SEEN) /HPF Urine WBC 5-10 H (NOT SEEN) /HPF Ur Squamous Epith Cells Few H (NEGATIVE) /HPF Urine Bacteria Rare (NEGATIVE) /HPF Urine Mucus Few H (NEGATIVE) /LPF SARS CoV-2 RNA Rapid SERGEY (NEGATIVE) Meds: Medications Discontinued Medications Generic Name Dose Route Start Last Admin Trade Name Freq PRN Reason Stop Dose Admin Albuterol/Ipratropium 3 ml 10/12/20 17:05 10/12/20 17:12 Duoneb 3.0-0.5 Mg/3 Ml NEB 10/12/20 17:06 3 ml ONETIME ONE Administration Dexamethasone 6 mg 10/12/20 18:11 10/12/20 18:24 Decadron IVPUSH 10/12/20 18:12 6 mg ONETIME ONE Administration Furosemide 80 mg 10/12/20 18:10 10/12/20 18:24 Lasix IV 10/12/20 18:11 Not Given ONETIME ONE Furosemide Confirm 10/12/20 18:24 10/12/20 18:23 Lasix Administered 10/12/20 18:25 80 mg Dose Administration 80 mg .ROUTE .[facility] ONE - Radiology Interpretation Free Text/Narrative:: Chest xray: Chronic bibasilar scarring with no definite acute findings. See rad report - Re-Assessments/Exams Free Text/Narrative Re-Assessment/Exam: 10/12/20 18:09 Patient case discussed with Dr. Thibodeaux at [facility] in [place] who agreed to accept the patient for transfer to [place]. Departure - Departure Time of Disposition: 18:59 Disposition: DC/Tfer to [facility] 02 Condition: Serious Clinical Impression: COVID-19, Elevated brain natriuretic peptide (BNP) level, Elevated troponin COPD (chronic obstructive pulmonary disease) Qualifiers: COPD type: chronic bronchitis Chronic bronchitis type: unspecified Qualified Code(s): J42 - Unspecified chronic bronchitis CHF (congestive heart failure) Qualifiers: Heart failure type: diastolic Heart failure chronicity: acute on chronic Qualified Code(s): I50.33 - Acute on chronic diastolic (congestive) heart failure - Discharge Information *PRESCRIPTION DRUG MONITORING PROGRAM REVIEWED*: No *COPY OF PRESCRIPTION DRUG MONITORING REPORT IN PATIENT HARSHAL: No Referrals: Nyla Craft, [Primary Care Provider] - Forms: ED Department Discharge, Interfacility Transfer [facility] Sepsis Event Note (ED) - Evaluation Sepsis Screening Result: No Definite Risk - Focused Exam Vital Signs: Vital Signs Temp Pulse Resp BP Pulse Ox 10/12/20 18:11 90 22 H 92/42 L 95 10/12/20 17:57 88 16 97 10/12/20 16:30 97.2 F 105 H 20 106/90 86 L - My Orders Last 24 Hours: My Active Orders 10/12/20 16:37 EKG Documentation Completion [RC] STAT 10/12/20 17:05 RT Aerosol Therapy [RC] ASDIRECTED 10/12/20 18:40 Insert Urinary Catheter [OM.PC] Q24H 10/12/20 18:51 Urinary Catheter Assessment [RC] ASDIRECTED - Assessment/Plan Last 24 Hours: My Active Orders 10/12/20 16:37 EKG Documentation Completion [RC] STAT 10/12/20 17:05 RT Aerosol Therapy [RC] ASDIRECTED 10/12/20 18:40 Insert Urinary Catheter [OM.PC] Q24H 10/12/20 18:51 Urinary Catheter Assessment [RC] ASDIRECTED
[2020-10-12] MEDS ORDERED: Furosemide 100 MG/10 ML SDV IV ONE (18:10)
[2020-10-12] MEDS ORDERED: Dexamethasone 4 MG/ML SDV IVPUSH ONE (18:11)
[2020-10-12 18:13] VITALS: BP 92/42; PULSE 90
[2020-10-12] MEDS ORDERED: Furosemide 40 MG/4 ML VIAL ONE (18:24)
--- NOTE | 2020-10-12 18:53 | CR ---
[id number] RAD/RAD Chest PA or AP 1V EXAM: FRONTAL CHEST INDICATION: CHEST PAIN. COMPARISON: January 10, 2019. DISCUSSION: Mild chronic linear scarring the lung bases with no definite acute infiltrates. Hyperinflation suggests underlying chronic obstructive pulmonary disease. Extensive posterior fusion hardware throughout the thoracic spine and anterior fusion hardware at the cervicothoracic junction. Normal heart size. Stable left upper lobe calcified granuloma. IMPRESSION: 1. Chronic bibasilar scarring with no definite acute findings. Christopher Hartley MD 10/12/20 [id number] Thank you for allowing us to participate in the care of your patient.
== END 2020-10-12 19:30 | disposition short-term general hospital (02) ==
LOC: VM.ED 16:27
DX: U07.1 COVID-19 (principal); I11.0 Hypertensive heart disease with heart failure; I50.33 Acute on chronic diastolic (congestive) heart failure; J44.9 Chronic obstructive pulmonary disease, unspecified; I25.10 Atherosclerotic heart disease of native coronary artery without angina pectoris; E78.00 Pure hypercholesterolemia, unspecified; K21.9 Gastro-esophageal reflux disease without esophagitis; F41.9 Anxiety disorder, unspecified; F32.9 Major depressive disorder, single episode, unspecified; R79.89 Other specified abnormal findings of blood chemistry; Z88.8 Allergy status to other drugs, medicaments and biological substances; Z88.1 Allergy status to other antibiotic agents; Z88.6 Allergy status to analgesic agent; Z88.5 Allergy status to narcotic agent; Z88.0 Allergy status to penicillin; Z79.899 Other long term (current) drug therapy; Z87.891 Personal history of nicotine dependence; Z79.02 Long term (current) use of antithrombotics/antiplatelets
CPT/HCPCS: 36415; 51702; 71045; 80053; 81001; 83605; 83615; 83880; 84484; 85025; 85379; 85610; 86140; 93005; 94640; 96374; 96375; 99284; 99285; J1100; J1940; U0002; J7620-GY

== ENCOUNTER 2020-10-20 10:36 | Inpatient (IN) | payer MEDICARE, OTHER ==
[2020-10-20] MEDS ORDERED: Bisacodyl 10 MG Supp RECTAL PRN (13:07)
[2020-10-20] MEDS ORDERED: Nitroglycerin 0.4 MG Tab.SL SL SCH (13:15)
[2020-10-20] MEDS ORDERED: Albuterol/Ipratropium 3.0-0.5 MG/3 ML Neb Soln ONE (13:15)
[2020-10-20] MEDS ORDERED: Albuterol 0.083% 2.5 MG/3 ML Neb Soln ONE (13:17)
[2020-10-20] MEDS ORDERED: Hydrocortisone 20 MG Tab PO PRN (13:42)
[2020-10-20] MEDS ORDERED: Polyethylene Glycol 3350 Powder 17 GM Packet PO PRN (13:43)
[2020-10-20] MEDS: Metoclopramide 10 MG Tab PO SCH (17:15)
[2020-10-20] MEDS: Cholecalciferol (Vitamin D3) 25 MCG Tab PO SCH (17:15)
--- NOTE | 2020-10-20 19:56 | HP ---
CHIEF COMPLAINT: Post COVID-19 diagnosis on 10/12/2020. HISTORY OF PRESENT ILLNESS: This is a 70-year-old female who had actually been in the clinic in the previous week right before . Has known severe COPD, was having some increasing cough, had mentioned a COVID test. However, the patient also had I felt an ischemic leg, but she refused to go to the ER. Therefore, COVID testing was not completed. When she called the clinic that following Monday, she could not catch her breath. She normally uses oxygen at night. She was requesting further oxygen. I recommended the patient be seen in ER, which she did go the next day and was found to be COVID positive with an elevated troponin. Therefore, was transitioned to [place] and treated with oxygen up to 4 L, but currently back down to 1 to 2 L and normally again she is only on it at night. She was treated with IV Lasix, Decadron, IV remdesivir, vitamin C, D, and zinc. Overall, the patient states she is feeling much better. She is still little wheezy and has been using nebs about 4 times a day. She denies any chest pain. No fever, no chills. She is tolerating a diet. She had a bowel movement yesterday. ALLERGIES: Include penicillin, Levaquin, aspirin, Celexa, codeine, Percocet, Prozac, Wellbutrin, and Zoloft. MEDICATION LIST: Reviewed from [place]. Proventil nebs 4 times a day as needed for cough, Anoro, Reglan 10 mg 3 times a day, midodrine 15 mg 3 times a day, hydrocodone every 4 hours as needed for pain, Cymbalta 60 mg daily, nitro as needed, Neurontin 200 mg once daily in the morning, Flexeril 10 mg 3 times a day, Lasix 10 mg daily, Plavix 75 mg daily, Cortef 10 mg in the morning, 5 mg in the late afternoon, and 20 mg if needed for stress dosing, B12, 1000 mcg daily, Protonix 40 mg daily, Lipitor 40 mg daily, MiraLAX as needed, Paxil 10 mg daily, and vitamin D 2000 units daily. PAST MEDICAL HISTORY: Includes adrenal insufficiency with low blood pressures, anxiety, Mittal esophagus, carotid artery stenosis, chronic diastolic heart failure, peripheral vascular disease, severe, needing multiple previous lower extremity surgeries, ischial ulcer and left heel ulcer present on admission, COPD severe. FEV1 was around 1.06 L back in 2013, around 48% of predicted. Coronary artery disease, small vessel. She has not required any stenting. She has collaterals, GERD, herpes, conjunctivitis, hyperlipidemia, essential hypertension, spinal stenosis, status post major thoracic back surgery, lumbar disk herniation with chronic back pain status post back surgeries with lumbar radiculopathy, major depression, sleep related hypoxia, tobacco use. PAST SURGICAL HISTORY: This patient has had the back surgeries x2. The last was in 2018. Hysterectomy, tubal ligation, tonsillectomy, anal fissure repair, endarterectomy of femoral right and left femoral, cholecystectomy, cervical fusion, cataracts, breast biopsy, appendectomy. SOCIAL HISTORY: The patient is . She is a current smoker every day at least 5 cigarettes. She also recently unexpectedly lost her brother. One of her children lives out of state in [place]. No alcohol use. 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 FAMILY HISTORY: Both parents are . Sister had diabetes, is . Brother with diabetes is . REVIEW OF SYSTEMS: General: The patient is not currently having any fever or chills. She is not aware of any weight changes. HEENT: No sore throat. No trouble swallowing. Cardiac: No chest pain. No palpitations. Respiratory: She has had cough, wheezing, and shortness of breath. Abdomen: No nausea, vomiting, diarrhea, or constipation. Musculoskeletal: She is not having any new aches or pains, but continues to have chronic back pain. Psychiatric: Moods have been stable. She was looking forward to trip later this month. She is not anxious or depressed. PHYSICAL EXAMINATION: Vital Signs: On presentation, temperature 97, pulse 98, weight 82.3 kg, blood pressure 109/80, respiratory rate 18, and O2 of 95% on 1 L. General: She is in no acute distress. Heart: Regular rate and rhythm. S1, S2. Her heart does have a murmur. Lungs: Sounds are decreased throughout. No kesha crackles appreciated, but she has expiratory wheezing throughout. Mental Status: She is alert. She is oriented x3. Her moods are appropriate. She is not anxious or depressed. Abdomen: Has positive bowel sounds. It is soft, nondistended, nontender. Extremities: She does have no current edema. Both legs are warm. LABORATORY WORK: Last on the , troponin was negative. Her white count, hemoglobin negative. Her kidney function was also normal on 10/18. Despite the positive troponin, she did not have any stress testing, but did undergo an echocardiogram, which showed her to have an EF of 60% with no significant change from her prior echo. ASSESSMENT: 1. Coronavirus disease 19 infection on 10/12/2020. She will be in isolation until Monday, although the symptoms probably started on 10/07 already. We will continue the patient in isolation. We will continue her on oxygen support as needed. She currently also has 2 more days of dexamethasone and nebulizers will be available for her as needed. 2. Adrenal insufficiency. She will continue her home medications. 3. Peripheral vascular disease. She has outpatient followup with Vascular Surgery. Currently, her leg is doing well. It does not appear to be ischemic. The patient had actually told me her symptoms come and go. 4. Obesity. 5. Smoking. 6. Severe chronic obstructive pulmonary disease. 7. Coronary artery disease and non-ST elevation myocardial infarction type 2. She is not having any symptoms. 8. Chronic diastolic heart failure. 9. Chronic hypoxic respiratory failure. 10.Hyperlipidemia. 11.Gastroesophageal reflux disease. 12.Depression. 13.Anxiety. 14.Chronic back pain. PLAN: The patient will be admitted for swing bed cares. We will have PT and OT involved. We will get wound care orders in place. We will continue her current medications. Anticipate that she will be discharged home in a couple of days or a week with home health after recovering from the COVID-19, which she is day #9, but again likely her symptoms started up to 6 days prior. For DVT prophylaxis, I will order her Lovenox. MKA: 10/20/2020 17:42:09 MODL: 10/20/2020 19:48:37 /[id number]
[2020-10-20] MEDS ORDERED: Cyclobenzaprine 10 MG Tab PO SCH (20:00)
[2020-10-20] MEDS: Cyclobenzaprine 10 MG Tab PO SCH (20:30)
[2020-10-20] MEDS: Midodrine 2.5 MG Tab PO SCH (20:30)
[2020-10-20] MEDS: Acetaminophen/HYDROcodone 325-10 MG Tab PO PRN (21:14)
[2020-10-21] MEDS: Pantoprazole 40 MG Tab.CR PO SCH (07:49)
[2020-10-21] MEDS: Metoclopramide 10 MG Tab PO SCH ×3 (07:49→17:37)
[2020-10-21] MEDS ORDERED: Docusate Sodium 100 MG Cap PO SCH (08:00)
[2020-10-21] MEDS ORDERED: dexAMETHasone 2 MG, dexAMETHasone 4 MG PO ONE ×2 (08:00)
[2020-10-21] MEDS: Albuterol 0.083% 2.5 MG/3 ML Neb Soln NEB PRN ×2 (08:12→12:56)
[2020-10-21] MEDS: Cyanocobalamin (Vitamin B12) 1,000 MCG Tab PO SCH (09:44)
[2020-10-21] MEDS: atorvaSTATin 40 MG Tab PO SCH (09:44)
[2020-10-21] MEDS: Midodrine 2.5 MG Tab PO SCH ×3 (09:44→20:22)
[2020-10-21] MEDS: Magnesium Oxide 400 MG Tab PO SCH (09:45)
[2020-10-21] MEDS: DULoxetine 60 MG Cap PO SCH (09:45)
[2020-10-21] MEDS: Clopidogrel 75 MG Tab PO SCH (09:46)
[2020-10-21] MEDS: Furosemide 20 MG Tab PO SCH (09:46)
[2020-10-21] MEDS: PARoxetine 20 MG Tab PO SCH (09:46)
[2020-10-21] MEDS: Gabapentin 100 MG Cap PO SCH (09:46)
[2020-10-21] MEDS: Cyclobenzaprine 10 MG Tab PO SCH ×3 (09:48→20:22)
[2020-10-21] MEDS: Tiotropium BR/Olodaterol HCL 4 GM Inhalation Spray 2.5mcg/1 dose; 10 doses INH SCH (10:25)
--- NOTE | 2020-10-21 15:43 | PN ---
Progress Note for BOB BARONE Date: 10/21/2020 Room #: VM.206 SUBJECTIVE: This is a 70-year-old recovering from COVID, who was admitted to swing bed yesterday. Unfortunately, she started coughing on eggs this morning. She thinks they just went down her wind pipe, but she is able to speak in full sentences. She is coughing real hard but nothing is coming up. She feels she needs a nebulizer. Otherwise, she has not had any other concerns other than she is hoping to go home with home health in a few days. OBJECTIVE: Vital Signs: Her temperature is 96.7, her pulse 85, blood pressure 116/71, respiratory rate 20, and O2 of 94% on 1 L. General: She is in mild distress. Her face is red. She is trying to cough quite hard. Heart: Regular rate and rhythm. Lungs: Sounds are clear throughout without crackles or wheezing currently. Extremities: Warm and dry, no edema. Mental Status: Alert and orientated x3. ASSESSMENT AND PLAN: 1. An episode of choking on egg. The patient seems to be ventilating and breathing okay. We will continue to watch her throughout the day. 2. Chronic obstructive pulmonary disease exacerbation due to COVID-19. She has nebulizers available. 3. COVID-19. She is in quarantine until Monday. 4. Adrenal insufficiency, on home medications. 5. Peripheral vascular disease. 6. Obesity. 7. Smoking. 8. Coronary artery disease with recent non-ST elevation myocardial infarction due to the COVID. 9. Chronic diastolic heart failure, stable. 10.Hyperlipidemia. 11.Gastroesophageal reflux disease. 12.Depression and anxiety. 13.Chronic back pain. PLAN: The patient will be monitored closely for her episode of choking. She was encouraged to sit up more when eating. For DVT prophylaxis, she is on Lovenox. She will complete her dexamethasone dose today. MKA: 10/21/2020 14:57:36 MODL: 10/21/2020 15:37:14 /[id number]
[2020-10-21] MEDS: Cholecalciferol (Vitamin D3) 25 MCG Tab PO SCH (17:38)
[2020-10-21] MEDS: Enoxaparin 40 MG/0.4 ML Syringe SUBCUT SCH (17:39)
[2020-10-22] MEDS: Pantoprazole 40 MG Tab.CR PO SCH (06:33)
[2020-10-22] MEDS: Metoclopramide 10 MG Tab PO SCH ×3 (06:34→16:00)
[2020-10-22] MEDS: Albuterol 0.083% 2.5 MG/3 ML Neb Soln NEB PRN ×2 (07:28→12:43)
[2020-10-22] MEDS: Acetaminophen/HYDROcodone 325-10 MG Tab PO PRN ×3 (08:50→23:38)
[2020-10-22] MEDS: atorvaSTATin 40 MG Tab PO SCH (08:51)
[2020-10-22] MEDS: Cyclobenzaprine 10 MG Tab PO SCH ×3 (08:51→19:58)
[2020-10-22] MEDS: Clopidogrel 75 MG Tab PO SCH (08:51)
[2020-10-22] MEDS: DULoxetine 60 MG Cap PO SCH (08:51)
[2020-10-22] MEDS: Gabapentin 100 MG Cap PO SCH (08:56)
[2020-10-22] MEDS: Cyanocobalamin (Vitamin B12) 1,000 MCG Tab PO SCH (08:56)
[2020-10-22] MEDS: Magnesium Oxide 400 MG Tab PO SCH (08:56)
[2020-10-22] MEDS: Furosemide 20 MG Tab PO SCH (08:57)
[2020-10-22] MEDS: Midodrine 2.5 MG Tab PO SCH ×3 (08:57→19:58)
[2020-10-22] MEDS: PARoxetine 20 MG Tab PO SCH (08:58)
[2020-10-22] MEDS: Tiotropium BR/Olodaterol HCL 4 GM Inhalation Spray 2.5mcg/1 dose; 10 doses INH SCH (09:07)
[2020-10-22] MEDS: Cholecalciferol (Vitamin D3) 25 MCG Tab PO SCH (17:59)
[2020-10-22] MEDS: Enoxaparin 40 MG/0.4 ML Syringe SUBCUT SCH (18:00)
[2020-10-23 05:39] VITALS: BP 103/62; PULSE 89
[2020-10-23] MEDS: Albuterol 0.083% 2.5 MG/3 ML Neb Soln NEB PRN (06:17)
[2020-10-23] MEDS: Metoclopramide 10 MG Tab PO SCH (06:17)
[2020-10-23] MEDS: Pantoprazole 40 MG Tab.CR PO SCH (06:17)
[2020-10-23] MEDS: atorvaSTATin 40 MG Tab PO SCH (08:32)
[2020-10-23] MEDS: Cyclobenzaprine 10 MG Tab PO SCH (08:32)
[2020-10-23] MEDS: Midodrine 2.5 MG Tab PO SCH (08:33)
[2020-10-23] MEDS: Cyanocobalamin (Vitamin B12) 1,000 MCG Tab PO SCH (08:33)
[2020-10-23] MEDS: Furosemide 20 MG Tab PO SCH (08:33)
[2020-10-23] MEDS: Gabapentin 100 MG Cap PO SCH (08:33)
[2020-10-23] MEDS: Clopidogrel 75 MG Tab PO SCH (08:33)
[2020-10-23] MEDS: DULoxetine 60 MG Cap PO SCH (08:34)
[2020-10-23] MEDS: Magnesium Oxide 400 MG Tab PO SCH (08:34)
[2020-10-23] MEDS: PARoxetine 20 MG Tab PO SCH (08:34)
[2020-10-23] MEDS: Tiotropium BR/Olodaterol HCL 4 GM Inhalation Spray 2.5mcg/1 dose; 10 doses INH SCH (08:36)
--- NOTE | 2020-10-23 11:32 | DISCH ---
PRIMARY DISCHARGE DIAGNOSIS: A coronavirus disease 19 infection diagnosed on 10/12/[address] [facility]. SECONDARY DISCHARGE DIAGNOSES: Include: 1. Chronic obstructive pulmonary disease exacerbation due to coronavirus disease 19. 2. Chronic adrenal insufficiency. 3. Peripheral vascular disease with ischemic ulcer in the left leg. 4. Obesity. 5. Smoking. 6. Coronary artery disease with non-ST elevation myocardial infarction during her coronavirus disease 19 admit. 7. Chronic diastolic heart failure. 8. Chronic hypoxic respiratory failure, using oxygen at night previous, but weaned off oxygen during her stay. 9. Hyperlipidemia. 10.Gastroesophageal reflux disease. 11.Depression. 12.Anxiety. 13.Chronic back pain with previous multiple back surgeries. REASON FOR ADMISSION: On the date of admission, this 70-year-old female who is well known to myself, was transferred from [facility] post COVID-19 admit. She had completed remdesivir and was finishing up her course of dexamethasone. She was also on nebulizers around 4 times a day to help with her cough and breathing. She had been up to a max of 4 L, but was weaned down to 1 to 2 L before swing bed. The patient had also been treated with vitamins of C, D, and zinc. Her home medications were continued including her chronic pain control medications and she was transferred to [facility] for further cares. While at [facility], the patient worked with Physical Therapy, who had her up and walking. Even with a mask without oxygen, she was maintaining her sats. She was doing quite well, but her breathing did limit her distance that she could travel. However, she was quite steady with her walker and was felt to be close to her baseline. She may have benefitted from a few more days of therapy. However, the patient declined to stay as she did have a ride coming to get her and she was really hopeful to return home with home health. On discharge, the patient will follow up with Dr. Craft on 10/29 as previously planned. She has a plane trip planned later this month and is wondering if she will be able to do that. Instructions were given that she should wait and see and will know more closer to that time. No followup lab work is due. Otherwise, she will resume her same medications as all medications for COVID-19 were completed during her stay. The patient should continue with a Band-Aid on the left leg heel ulcer if the Mepilex, Optifoam type pads were quite tight and hurting her. The left groin lesion had healed. PHYSICAL EXAMINATION: Discharging Vitals: Include a weight of 81.6 kg, temp 96.8, pulse 89, blood pressure 103/62, respiratory rate 18, and O2 of 91% on room air. General: She is in no acute distress. Heart: Regular rate and rhythm with systolic murmur. Lungs: Sounds are clear to auscultation bilaterally without crackles or wheezes. Extremities: Warm and dry. No edema. The left heel ulcer is noted. It is superficial. No drainage. No surrounding redness. The left groin is healed. Just some minimal redness. Mental Status: Alert and oriented x3. [id number] for home health occurred with myself on 10/23/2020. The primary reasons for home health are for PT for gait and mobility as well as nursing due to her recent event of COVID-19. She also has peripheral vascular disease with an ischemic left leg and will be following up with Vascular Surgery soon. The patient also has an ischemic left heel ulcer that needs monitoring by home health. Otherwise, OT can also assess for activities of daily living. I will periodically review this plan of care, and the patient is considered home bound due to her recent event of COVID-19 as absences from home are infrequent and require taxing effort due to her dyspnea. She requires an assistance of another person to make it to those appointments. MKA: 10/23/2020 09:42:50 MODL: 10/23/2020 11:18:17 /[id number] JEEVAN
== END 2020-10-23 09:15 | disposition home health service (06) | DRG 177 ==
LOC: VM.MS 10:36
PROVIDERS: ADMIT Internal Medicine; ATTEND Internal Medicine
DX: U07.1 COVID-19 (principal); I21.A1 Myocardial infarction type 2; E27.40 Unspecified adrenocortical insufficiency; I50.32 Chronic diastolic (congestive) heart failure; J96.11 Chronic respiratory failure with hypoxia; L97.429 Non-pressure chronic ulcer of left heel and midfoot with unspecified severity; I13.0 Hypertensive heart and chronic kidney disease with heart failure and stage 1 through stage 4 chronic kidney disease, or unspecified chronic kidney disease; I73.9 Peripheral vascular disease, unspecified; E66.9 Obesity, unspecified; I25.10 Atherosclerotic heart disease of native coronary artery without angina pectoris; E78.5 Hyperlipidemia, unspecified; K21.9 Gastro-esophageal reflux disease without esophagitis; F32.9 Major depressive disorder, single episode, unspecified; F41.9 Anxiety disorder, unspecified; F17.200 Nicotine dependence, unspecified, uncomplicated; M54.9 Dorsalgia, unspecified; G89.29 Other chronic pain; Z88.0 Allergy status to penicillin; Z88.6 Allergy status to analgesic agent; Z88.5 Allergy status to narcotic agent; Z90.710 Acquired absence of both cervix and uterus; Z98.890 Other specified postprocedural states; Z90.49 Acquired absence of other specified parts of digestive tract
CPT/HCPCS: 94640; 94760; 97116-GP; 97161-GP; 97530-GP; A9270-GY; J1650; J7613-GY; J8540

== ENCOUNTER 2021-01-29 12:42 | Emergency (ER) | payer MEDICARE, OTHER ==
--- NOTE | 2021-01-29 13:04 | EDM.PDOC ---
ED HPI GENERAL MEDICAL PROBLEM - General Chief Complaint: Cardiovascular Problem Stated Complaint: shortness of breath/edema Time Seen by Provider: 01/29/21 12:55 Source of Information: Reports: Patient History Limitations: Reports: No Limitations - History of Present Illness INITIAL COMMENTS - FREE TEXT/NARRATIVE: Maritza is a 70 year old female who presents with increased shortness of breath and edema. Has noted a 5# weight gain in the last couple of days. Legs are now very edematous and normally "are small". She had contacted Dr. Og and was advised to take 3 extra doses of Lasix. Has taken one but felt more activity intolerance and shortness of breath and needed more than that. She denies any chest pain. No abdominal pain. No nausea or vomiting. No urinary concerns. Does have bruising on arms but states that is chronic for her since taking Plavix. History of CHF. Has had worsening concerns since COVID. Has been on oxygen chronically at home at 2 1/2 liters. Does admit to "small heart attack during covid infection" but had problems with CHF long before that. Onset: Gradual Duration: Day(s):, Getting Worse Location: Reports: Generalized Improves with: Reports: Rest Associated Symptoms: Reports: Malaise, Shortness of Breath, Weakness. 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) (one extra Lasix dose) - Related Data Allergies Allergy/AdvReac Type Severity Reaction Status Date / Time levofloxacin [From Levaquin] Allergy Wheezing Verified 11/25/20 13:06 acetaminophen [From Percocet] AdvReac Confusion/H Verified 11/25/20 13:06 allucinatio ns aspirin AdvReac Nausea and Verified 11/25/20 13:06 Vomiting bupropion HCl AdvReac Depression Verified 11/25/20 13:06 [From Wellbutrin] citalopram hydrobromide AdvReac no effect Verified 11/25/20 13:06 [From Celexa] codeine AdvReac Nausea and Verified 11/25/20 13:06 Vomiting fluoxetine HCl [From Prozac] AdvReac Anxiety Verified 11/25/20 13:06 oxycodone [From Percocet] AdvReac Confusion/H Verified 11/25/20 13:06 allucinatio ns Penicillins AdvReac Nausea and Verified 11/25/20 13:06 Vomiting sertraline HCl [From Zoloft] AdvReac Anxiety Verified 11/25/20 13:06 Home Meds: Home Meds Clopidogrel [Plavix] 75 mg PO DAILY 05/02/16 [History] Nitroglycerin [Nitrostat] 0.4 mg SL ASDIRECTED 05/02/16 [History] atorvaSTATin [Lipitor] 40 mg PO DAILY 05/02/16 [History] Cholecalciferol (Vitamin D3) [D3 Dots] 2,000 unit PO DAILY@1800 06/13/17 [History] PARoxetine HCL [Paroxetine HCl] 10 mg PO DAILY 06/13/17 [History] Pantoprazole Sodium 40 mg PO DAILY 06/13/17 [History] Acetaminophen/HYDROcodone [[place] 325-10 MG] 1 tab PO Q4H PRN 01/10/19 [History] Metoclopramide [Reglan] 10 mg PO TIDMEALS 01/10/19 [History] Umeclidinium Brm/Vilanterol Tr [Anoro Ellipta 62.5-25 MCG] 1 inh PO DAILY 01/10/19 [History] Cyanocobalamin (Vitamin B12) [Vitamin B12] 1,000 mcg PO DAILY tablet 10/23/20 [Rx] Cyclobenzaprine [Flexeril] 10 mg PO TID tablet 10/23/20 [Rx] DULoxetine [Cymbalta] 60 mg PO DAILY cap 10/23/20 [Rx] Gabapentin [Neurontin] 200 mg PO DAILY cap 10/23/20 [Rx] polyethylene glycoL 3350 [MiraLAX] 17 gm PO DAILY PRN packet 10/23/20 [Rx] Albuterol [Proventil Neb Soln] 2.5 mg NEB QID PRN 11/25/20 [History] Gabapentin [Neurontin] 300 mg PO BEDTIME 11/25/20 [History] Midodrine 15 mg PO TID 11/25/20 [History] Furosemide [Lasix] 20 mg PO DAILY #30 11/27/20 [Rx] Hydrocortisone [Cortef] 20 mg PO TID tablet 11/27/20 [Rx] Nystatin [Nystatin Crm] 1 gm TOP BID 12 Days #1 tube 01/15/21 [Rx] Past Medical History HEENT History: Reports: Cataract Cardiovascular History: Reports: CAD, High Cholesterol, Hypertension, SOB on Exertion Respiratory History: Reports: Asthma, COPD, SOB, Other (See Below) Other Respiratory History: sleep related hypoxia Gastrointestinal History: Reports: GERD, Hiatal Hernia, Other (See Below) Other Gastrointestinal History: LOW'S ESOPHAGUS Genitourinary History: Reports: Other (See Below) Other Genitourinary History: FIBROCYSTIC BREAST DISEASE Musculoskeletal History: Reports: Other (See Below) Other Musculoskeletal History: lumbar disc herniation. sacroiliac joint dysfunction of left side Neurological History: Reports: Migraines Psychiatric History: Reports: Anxiety, Depression Endocrine/Metabolic History: Reports: Other (See Below) Other Endocrine/Metabolic History: IFG Hematologic History: Reports: None Immunologic History: Reports: None Oncologic (Cancer) History: Reports: None - Infectious Disease History Infectious Disease History: Reports: Chicken Pox, Influenza, Novel Coronavirus - Past Surgical History Head Surgeries/Procedures: Reports: None HEENT Surgical History: Reports: Cataract Surgery, Tonsillectomy Cardiovascular Surgical History: Reports: None Respiratory Surgical History: Reports: None GI Surgical History: Reports: Appendectomy, Cholecystectomy, Other (See Below) Other GI Surgeries/Procedures: ANAL FISSURE REPAIR Female Surgical History: Reports: Breast Biopsy, Hysterectomy, Tubal Ligation, Other (See Below) Other Female Surgeries/Procedures: fibrocystic breast disease Endocrine Surgical History: Reports: None Musculoskeletal Surgical History: Reports: ORIF Social & Family History - Family History Family Medical History: No Pertinent Family History - Caffeine Use Caffeine Use: Reports: Coffee, Soda Other Caffeine Use: 1-2 cups a day ED ROS GENERAL - Review of Systems Review Of Systems: See Below Constitutional: Reports: Malaise, Weakness, Fatigue. Denies: Fever, Chills HEENT: Denies: Ear Pain, Sinus Problem, Throat Pain, Vertigo Respiratory: Reports: Shortness of Breath. Denies: Cough Cardiovascular: Reports: Edema. Denies: Chest Pain, Lightheadedness Endocrine: Reports: Fatigue GI/Abdominal: Denies: Abdominal Pain, Constipation, Diarrhea, Nausea, Vomiting Skin: Reports: Bruising Neurological: Reports: Weakness. Denies: Confusion ED EXAM, GENERAL - Physical Exam Exam: See Below Exam Limited By: No Limitations General Appearance: Alert, WD/WN, Mild Distress Ears: Normal External Exam, Normal TMs Nose: Normal Inspection, Normal Mucosa, No Blood Throat/Mouth: Normal Inspection, Other (mucous membranes dry) Head: Normocephalic Neck: Normal Inspection, Supple, Non-Tender Respiratory/Chest: Decreased Breath Sounds, Crackles Cardiovascular: Regular Rate, Rhythm GI/Abdominal: Normal Bowel Sounds, Soft, Non-Tender Extremities: Pedal Edema (3-4+ pitting in legs) Neurological: Alert, Oriented Skin Exam: Warm, Dry Course - Vital Signs Last Recorded V/S: Last Vital Signs Temp 97.4 F 01/29/21 12:50 Pulse 99 01/29/21 15:15 Resp 18 01/29/21 15:15 BP 106/50 L 01/29/21 15:15 Pulse Ox 98 01/29/21 15:15 - Orders/Labs/Meds Orders: Active Orders 24 hr Category Date Time Status EKG 12 Lead [EKG Documentation Completion] [RC] ROUTINE Care 01/29/21 12:52 Active Insert Urinary Catheter [OM.PC] Q24H Care 01/29/21 15:15 Ordered Urinary Catheter Assessment [RC] ASDIRECTED Care 01/29/21 15:01 Ordered Norepinephrine 4 MG in D5W @ 2 MCG/MIN(250ml) Med 01/29/21 14:45 Ordered Norepinephrine [Levophed] 4 mg Dextrose 5% in Water 246 ml IV TITRATE Medication Orders Norepinephrine Bitartrate 4 mg (/ Dextrose/Water) 250 mls @ 7.5 mls/hr IV TITRATE KIERSTEN; Protocol Last Admin: 01/29/21 15:10 Dose: 2 mcg/min, 7.5 mls/hr Documented by: Labs: Laboratory Tests 01/29/21 01/29/21 Range/Units 13:45 13:45 WBC 12.1 H (4.0-10.0) x10^3/uL RBC 3.48 L (4.00-5.50) x10^6/uL Hgb 10.6 L (12.0-16.0) g/dL Hct 35.6 (33.0-47.0) % MCV 102.3 H (78.0-93.0) fL MCH 30.5 (26.0-32.0) pg MCHC 29.8 L (32.0-36.0) g/dL RDW Coeff of Kirti 14.7 (10.0-15.0) % Plt Count 219 D (130-400) x10^3/uL Add Manual Diff Yes Neutrophils % (Manual) 82 H (50-80) % Band Neutrophils % 2 (0-6) % Lymphocytes % (Manual) 7 L (25-50) % Monocytes % (Manual) 8 (2-11) % Eosinophils % (Manual) 1 (0-4) % Platelet Estimate Adequate Hypochromasia 1+ slight H Macrocytosis 1+ slight H Sodium 146 H (136-145) mmol/L Potassium 3.5 (3.5-5.1) mmol/L Chloride 100 (98-107) mmol/L Carbon Dioxide 41 H (21-32) mmol/L Anion Gap 8.5 (5-15) mmol/L BUN 15 (7-18) mg/dL Creatinine 0.7 (0.55-1.02) mg/dL Est Cr Clr Drug Dosing 57.24 mL/min Estimated GFR (MDRD) > 60 Glucose 179 H (74-106) mg/dL Calcium 8.7 (8.5-10.1) mg/dL Corrected Calcium 9.66 (8.5-10.1) mg/dL Total Bilirubin 0.3 (0.2-1.0) mg/dL AST 25 (15-37) U/L ALT 53 (14-59) U/L Alkaline Phosphatase 90 (46-116) U/L Troponin I High Sens 364 H* (<=51) ng/L NT-Pro-B Natriuret Pep 4204 H (<=125) pg/mL Total Protein 6.1 L (6.4-8.2) g/dL Albumin 2.8 L (3.4-5.0) g/dL Globulin 3.3 Albumin/Globulin Ratio 0.85 Meds: Medications Generic Name Dose Route Start Last Admin Trade Name Freq PRN Reason Stop Dose Admin Norepinephrine Bitartrate 4 mg 250 mls @ 7.5 mls/hr 01/29/21 14:45 01/29/21 15:10 / Dextrose/Water IV 2 mcg/min TITRATE KIERSTEN 7.5 mls/hr Administration Protocol 2 MCG/MIN Discontinued Medications Generic Name Dose Route Start Last Admin Trade Name Freq PRN Reason Stop Dose Admin Methylprednisolone Sodium Succinate 125 mg 01/29/21 14:40 01/29/21 14:52 Methylprednisolone Sodium Succinate 125 Mg/2 Ml Sdv IVPUSH 01/29/21 14:41 125 mg ONETIME ONE Administration - Re-Assessments/Exams Free Text/Narrative Re-Assessment/Exam: 01/29/21 14:30-Labs noted abnormalities. Troponin high at 364. ProBNP 4204. Creatinine is good. Blood pressure continues to be low in the 60s/30s now. Did start IV fluids but cautiously due to ProBNP. Contacted [facility] call and spoke with Dr. Gordon. Recommended IV Solu Medrol 125 mg due to likely adrenal crisis. Will start Levophed. Agreed to accept the patient in transfer. 01/29/21 15:31 Blood pressure has improved, now 100/60. Patient stable. Departure - Departure Time of Disposition: 15:31 Disposition: DC/Tfer to [facility] Reason for Transfer *Q: Other (intermediate ICU) Condition: Undetermined Clinical Impression: Acute adrenal crisis, Elevated troponin CHF (congestive heart failure) Qualifiers: Heart failure type: diastolic Heart failure chronicity: acute on chronic Qualified Code(s): I50.33 - Acute on chronic diastolic (congestive) heart failure Referrals: Nyla Craft DO [Primary Care Provider] - Forms: ED Department Discharge, Interfacility Transfer EMTALA Additional Instructions: Transfer to [facility] to Dr. Gordon Sepsis Event Note (ED) - Focused Exam Vital Signs: Vital Signs Temp Pulse Resp BP Pulse Ox 01/29/21 15:15 99 18 106/50 L 98 01/29/21 14:57 96 20 82/46 L 98 01/29/21 14:36 98 20 76/38 L 98 01/29/21 14:16 98 20 55/22 L 98 01/29/21 14:10 92 18 128/91 H 96 01/29/21 14:08 99 20 62/31 L 96 01/29/21 13:55 99 20 62/31 L 98 01/29/21 12:50 97.4 F 112 H 28 H 93/57 L 91 L - My Orders Last 24 Hours: My Active Orders 01/29/21 12:52 EKG 12 Lead [EKG Documentation Completion] [RC] ROUTINE 01/29/21 14:45 Norepinephrine 4 MG in D5W @ 2 MCG/MIN(250ml) Norepinephrine [Levophed] 4 mg Dextrose 5% in Water 246 ml IV TITRATE 01/29/21 15:01 Urinary Catheter Assessment [RC] ASDIRECTED 01/29/21 15:15 Insert Urinary Catheter [OM.PC] Q24H - Assessment/Plan Last 24 Hours: My Active Orders 01/29/21 12:52 EKG 12 Lead [EKG Documentation Completion] [RC] ROUTINE 01/29/21 14:45 Norepinephrine 4 MG in D5W @ 2 MCG/MIN(250ml) Norepinephrine [Levophed] 4 mg Dextrose 5% in Water 246 ml IV TITRATE 01/29/21 15:01 Urinary Catheter Assessment [RC] ASDIRECTED 01/29/21 15:15 Insert Urinary Catheter [OM.PC] Q24H
--- NOTE | 2021-01-29 13:25 | CR ---
[id number] RAD/RAD Chest PA And Lateral EXAM: RAD Chest PA And Lateral INDICATION: SHORTNESS OF BREATH. COMPARISON: December 2018. DISCUSSION: Mild vascular congestion and borderline cardiomegaly. Bilateral symmetric lung hyperinflation, similar to the prior examination. Calcified granuloma on the left upper lung. No evidence of pneumonia. No pleural effusion or pneumothorax. Extensive fusion with hardware throughout the thoracic spine. IMPRESSION: As above. Akil Allen MD 01/29/21 [id number] Thank you for allowing us to participate in the care of your patient.
[2021-01-29 14:16] LABS: ANION GAP 8.5 mmol/L (5-15); CHLORIDE,CL 100 mmol/L (98-107); SODIUM,NA 146 mmol/L (136-145)
[2021-01-29] MEDS ORDERED: methylPREDNISolone Sodium Succinate 125 MG/2 ML SDV IVPUSH ONE (14:40)
[2021-01-29] MEDS ORDERED: Norepinephrine 4 MG in Dextrose 5% in Water 246 ML IV SCH ×2 (14:45)
[2021-01-29 15:15] VITALS: BP 106/50; PULSE 99
== END 2021-01-29 15:57 | disposition short-term general hospital (02) ==
LOC: VM.ED 12:42
DX: I11.0 Hypertensive heart disease with heart failure (principal); I50.33 Acute on chronic diastolic (congestive) heart failure; E27.2 Addisonian crisis; R79.89 Other specified abnormal findings of blood chemistry; I25.10 Atherosclerotic heart disease of native coronary artery without angina pectoris; E78.00 Pure hypercholesterolemia, unspecified; I10 Essential (primary) hypertension; J44.9 Chronic obstructive pulmonary disease, unspecified; K21.9 Gastro-esophageal reflux disease without esophagitis; Z86.16 Personal history of COVID-19; Z88.1 Allergy status to other antibiotic agents; Z88.6 Allergy status to analgesic agent; Z88.8 Allergy status to other drugs, medicaments and biological substances; Z88.5 Allergy status to narcotic agent; Z88.0 Allergy status to penicillin; Z79.899 Other long term (current) drug therapy; Z79.02 Long term (current) use of antithrombotics/antiplatelets
CPT/HCPCS: 36415; 51702; 71046; 80053; 83880; 84484; 85025; 93005; 96365; 96375; 99284; 99285-25; J2930; J7060

== ENCOUNTER 2021-02-12 10:39 | Emergency (ER) | payer MEDICARE, OTHER ==
[2021-02-12] MEDS ORDERED: Sodium Chloride 0.9% 10 ML Syringe FLUSH PRN (10:51)
[2021-02-12] MEDS ORDERED: Ondansetron 4 MG/2 ML SDV IVPUSH ONE (11:04)
[2021-02-12] MEDS ORDERED: Sodium Chloride 0.9% 1,000 ML IV SCH (11:15)
--- NOTE | 2021-02-12 11:43 | EDM.PDOC ---
ED HPI GENERAL MEDICAL PROBLEM - General Time Seen by Provider: 02/12/21 10:41 Source of Information: Reports: Patient, EMS, RN History Limitations: Reports: No Limitations - History of Present Illness INITIAL COMMENTS - FREE TEXT/NARRATIVE: Pt. presents to ER with complaints of chest pain, abdominal discomfort, weakness, lightheadedness, and fatigue. Pt. was admitted from 01/29 until 02/08 at [facility] with CHF exacerbation, NSTEMI, hypotension thought to be secondary to bilateral subclavian artery stenosis, adrenal insufficiency secondary to empty sella syndrome. Prior to admission to [place], she was initially seen here and transferred to [place] with CHF, NSTEMI, hypotension. She was started on levophed at that time, as her BP was in the 70s systolic. When she was hospitalized, she underwent angiogram. EF found to be approx. 50. She was noted to have severe pulmonary HTN, 100% stenosis mid RCA, 40% proximal LAD. No intervention was performed. She is not a candidate for CABG. She also underwent CTA of the chest which showed the subclavian stenosis. Today, pt. complains of abdominal discomfort and states that she has not had a BM in 5 days. She has nauseous and was vomiting yesterday. She thinks that she is dehydrated. States that she has not felt like or has been able to eat much. She states that she thinks she has a bowel obstruction, but she states that she has never had a bowel obstruction in the past. She states that she has had numerous abdominal surgeries, including cholecystectomy and hysterectomy in the past. Pt. states that she has been experiencing chest pain intermittently since dis charge. She lives by herself in an apartment. Dr. Craft is her PCP. She was discharged from [place] with home health who called the ambulance for her today. Denies any significant shortness of breath. Primary complaint today noted above. She was unable to stand and ambulate on her own today. She denies any dysuria. No cough or congestion. No sore throat or rhinorrhea. Denies any headache. No nu mbness, tingling in extremities. Denies any dysuria. Onset: Today Onset Date: 02/12/21 Mid-Sternal Chest Pain Score (Numeric/FACES): 5 - Related Data Allergies Allergy/AdvReac Type Severity Reaction Status Date / Time levofloxacin [From Levaquin] Allergy Wheezing Verified 02/12/21 11:13 acetaminophen [From Percocet] AdvReac Confusion/H Verified 02/12/21 11:13 allucinatio ns aspirin AdvReac Nausea and Verified 02/12/21 11:13 Vomiting bupropion HCl AdvReac Depression Verified 02/12/21 11:13 [From Wellbutrin] citalopram hydrobromide AdvReac no effect Verified 02/12/21 11:13 [From Celexa] codeine AdvReac Nausea and Verified 02/12/21 11:13 Vomiting fluoxetine HCl [From Prozac] AdvReac Anxiety Verified 02/12/21 11:13 oxycodone [From Percocet] AdvReac Confusion/H Verified 02/12/21 11:13 allucinatio ns Penicillins AdvReac Nausea and Verified 02/12/21 11:13 Vomiting sertraline HCl [From Zoloft] AdvReac Anxiety Verified 02/12/21 11:13 Home Meds: Home Meds Clopidogrel [Plavix] 75 mg PO DAILY 05/02/16 [History] Nitroglycerin [Nitrostat] 0.4 mg SL ASDIRECTED 05/02/16 [History] atorvaSTATin [Lipitor] 40 mg PO DAILY 05/02/16 [History] Cholecalciferol (Vitamin D3) [D3 Dots] 2,000 unit PO DAILY@1800 06/13/17 [History] PARoxetine HCL [Paroxetine HCl] 10 mg PO DAILY 06/13/17 [History] Pantoprazole Sodium 40 mg PO DAILY 06/13/17 [History] Acetaminophen/HYDROcodone [[place] 325-10 MG] 1 tab PO Q4H PRN 01/10/19 [History] Metoclopramide [Reglan] 10 mg PO TIDMEALS 01/10/19 [History] Cyclobenzaprine [Flexeril] 10 mg PO TID tablet 10/23/20 [Rx] DULoxetine [Cymbalta] 60 mg PO DAILY cap 10/23/20 [Rx] Gabapentin [Neurontin] 200 mg PO DAILY cap 10/23/20 [Rx] polyethylene glycoL 3350 [MiraLAX] 17 gm PO DAILY PRN packet 10/23/20 [Rx] Albuterol [Proventil Neb Soln] 2.5 mg NEB QID PRN 11/25/20 [History] Gabapentin [Neurontin] 300 mg PO BEDTIME 11/25/20 [History] Midodrine 15 mg PO TID 11/25/20 [History] Cyanocobalamin (Vitamin B12) [Vitamin B12] 2,500 mcg PO DAILY 02/12/21 [History] Fluticasone/Umeclidin/Vilanter [Trelegy Ellipta 100-62.5-25 MCG] 1 puff INH DAILY 02/12/21 [History] Hydrocortisone [Cortef] 10 mg PO DAILY 02/12/21 [History] Hydrocortisone [Cortef] 20 mg PO DAILY 02/12/21 [History] Torsemide 20 mg PO BID 02/12/21 [History] Triamcinolone Acetonide [Kenalog 0.1% Crm] 1 dose TOP BID 02/12/21 [History] Past Medical History HEENT History: Reports: Cataract Cardiovascular History: Reports: CAD, High Cholesterol, Hypertension, SOB on Exertion Respiratory History: Reports: Asthma, COPD, SOB, Other (See Below) Other Respiratory History: sleep related hypoxia Gastrointestinal History: Reports: GERD, Hiatal Hernia, Other (See Below) Other Gastrointestinal History: LOW'S ESOPHAGUS Genitourinary History: Reports: Other (See Below) Other Genitourinary History: FIBROCYSTIC BREAST DISEASE Musculoskeletal History: Reports: Other (See Below) Other Musculoskeletal History: lumbar disc herniation. sacroiliac joint dysfunction of left side Neurological History: Reports: Migraines Psychiatric History: Reports: Anxiety, Depression Endocrine/Metabolic History: Reports: Other (See Below) Other Endocrine/Metabolic History: IFG Hematologic History: Reports: None Immunologic History: Reports: None Oncologic (Cancer) History: Reports: None - Infectious Disease History Infectious Disease History: Reports: Chicken Pox, Influenza, Novel Coronavirus - Past Surgical History Head Surgeries/Procedures: Reports: None HEENT Surgical History: Reports: Cataract Surgery, Tonsillectomy Cardiovascular Surgical History: Reports: None Respiratory Surgical History: Reports: None GI Surgical History: Reports: Appendectomy, Cholecystectomy, Other (See Below) Other GI Surgeries/Procedures: ANAL FISSURE REPAIR Female Surgical History: Reports: Breast Biopsy, Hysterectomy, Tubal Ligation, Other (See Below) Other Female Surgeries/Procedures: fibrocystic breast disease Endocrine Surgical History: Reports: None Musculoskeletal Surgical History: Reports: ORIF Social & Family History - Family History Family Medical History: No Pertinent Family History - Caffeine Use Caffeine Use: Reports: Coffee, Soda Other Caffeine Use: 1-2 cups a day ED ROS GENERAL - Review of Systems Review Of Systems: See Below Constitutional: Reports: Malaise, Weakness, Fatigue, Decreased Appetite. Denies: Fever, Chills HEENT: Reports: No Symptoms Respiratory: Reports: No Symptoms Cardiovascular: Reports: Chest Pain Endocrine: Reports: No Symptoms GI/Abdominal: Reports: Abdominal Pain, Nausea, Vomiting. Denies: Hematemesis, Hematochezia, Melena : Reports: No Symptoms Musculoskeletal: Reports: No Symptoms Skin: Reports: Pallor Neurological: Reports: No Symptoms Psychiatric: Reports: No Symptoms Hematologic/Lymphatic: Reports: No Symptoms Immunologic: Reports: No Symptoms ED EXAM, GENERAL - Physical Exam Exam: See Below Exam Limited By: No Limitations General Appearance: Alert, WD/WN, No Apparent Distress Throat/Mouth: Normal Inspection, Normal Lips, Normal Voice, No Airway Compromise Head: Atraumatic, Normocephalic Neck: Normal Inspection, Supple, Non-Tender Respiratory/Chest: No Respiratory Distress, Lungs Clear, No Accessory Muscle Use, Chest Non-Tender, Decreased Breath Sounds Cardiovascular: Normal Peripheral Pulses, Regular Rate, Rhythm, No Edema Peripheral Pulses: 2+: Radial (L), Radial (R) GI/Abdominal: Soft, No Organomegaly, No Distention, Tender, Other (hypoactive BS) (Female) Exam: Deferred Rectal (Female) Exam: Deferred Extremities: Normal Inspection, Normal Range of Motion, Non-Tender, No Pedal Ed chidi, Normal Capillary Refill Neurological: Alert, Oriented, CN II-XII Intact, Normal Cognition, Normal Reflexes Psychiatric: Normal Affect, Normal Mood Skin Exam: Warm, Dry, Intact, Pallor Lymphatic: No Adenopathy Course - Vital Signs Last Recorded V/S: Last Vital Signs Temp 36.6 C 02/12/21 10:45 Pulse 98 02/12/21 12:46 Resp 16 02/12/21 11:29 BP 70/50 L 02/12/21 12:46 Pulse Ox 97 02/12/21 11:29 - Orders/Labs/Meds Orders: Active Orders 24 hr Category Date Time Status Cardiac Monitoring [RC] CONTINUOUS Care 02/12/21 10:55 Active EKG Documentation Completion [RC] STAT Care 02/12/21 10:52 Active Gastrointestinal Tube Mgmt [RC] ASDIRECTED Care 02/12/21 13:43 Active Oxygen Therapy [RC] PRN Care 02/12/21 10:55 Active CULTURE BLOOD [BC] Stat Lab 02/12/21 10:55 Received CULTURE BLOOD [BC] Stat Lab 02/12/21 11:13 Received UA RFX ALBERT AND CULT IF INDIC [URIN] Stat Lab 02/12/21 10:54 Ordered Sodium Chloride 0.9% [Normal Saline] 1,000 ml Med 02/12/21 11:15 Active IV ASDIRECTED Sodium Chloride 0.9% [Saline Flush] Med 02/12/21 10:51 Active 10 ml FLUSH ASDIRECTED PRN Blood Culture x2 Reflex Set [OM.PC] Stat Oth 02/12/21 10:52 Ordered NG [Nasogastric Orogastric Tube Insertion] [OM.PC] Oth 02/12/21 13:42 Ordered Routine Peripheral IV Insertion Adult [OM.PC] Routine Oth 02/12/21 10:52 Ordered Medication Orders Sodium Chloride (Normal Saline) 1,000 mls @ 500 mls/hr IV ASDIRECTED KIERSTEN Last Admin: 02/12/21 11:08 Dose: 500 mls/hr Documented by: DANIELLA Sodium Chloride (Sodium Chloride 0.9% 10 Ml Syringe) 10 ml FLUSH ASDIRECTED PRN PRN Reason: Keep Vein Open Labs: Laboratory Tests 02/12/21 02/12/21 02/12/21 Range/Units 11:13 11:13 11:13 WBC 14.8 H (4.0-10.0) x10^3/uL RBC 3.41 L (4.00-5.50) x10^6/uL Hgb 10.7 L (12.0-16.0) g/dL Hct 33.3 (33.0-47.0) % MCV 97.7 H D (78.0-93.0) fL MCH 31.4 (26.0-32.0) pg MCHC 32.1 (32.0-36.0) g/dL RDW Coeff of Kirti 14.9 (10.0-15.0) % Plt Count 353 D (130-400) x10^3/uL Neut % (Auto) 80.5 H (50.0-80.0) % Lymph % (Auto) 10.5 L (25.0-50.0) % [place] % (Auto) 8.4 (2.0-11.0) % Eos % (Auto) 0.3 (0.0-4.0) % Baso % (Auto) 0.3 (0.2-1.2) % PT 9.7 L (9.9-12.5) SEC INR 0.9 L (2.0-3.5) APTT (25.6-32.8) SEC Sodium 139 (136-145) mmol/L Potassium 3.3 L (3.5-5.1) mmol/L Chloride 95 L (98-107) mmol/L Carbon Dioxide 39 H (21-32) mmol/L Anion Gap 8.3 (5-15) mmol/L BUN 21 H (7-18) mg/dL Creatinine 1.0 (0.55-1.02) mg/dL Est Cr Clr Drug Dosing 40.07 mL/min Estimated GFR (MDRD) 55 Glucose 183 H (74-106) mg/dL Lactic Acid (0.4-2.0) mmol/L Calcium 8.6 (8.5-10.1) mg/dL Corrected Calcium 9.40 (8.5-10.1) mg/dL Magnesium 1.8 (1.8-2.4) mg/dL Total Bilirubin 0.6 (0.2-1.0) mg/dL AST 91 H (15-37) U/L ALT 42 (14-59) U/L Alkaline Phosphatase 73 (46-116) U/L Troponin I High Sens 45 (<=51) ng/L C-Reactive Protein 3.5 H (<=0.9) mg/dL NT-Pro-B Natriuret Pep 6533 H (<=125) pg/mL Total Protein 6.6 (6.4-8.2) g/dL Albumin 3.0 L (3.4-5.0) g/dL Globulin 3.6 Albumin/Globulin Ratio 0.83 TSH, Ultra Sensitive 7.301 H (0.358-3.74) uIU/mL SARS-CoV-2 RNA (SERGEY) (NEGATIVE) 02/12/21 02/12/21 02/12/21 Range/Units 11:13 11:13 11:17 WBC (4.0-10.0) x10^3/uL RBC (4.00-5.50) x10^6/uL Hgb (12.0-16.0) g/dL Hct (33.0-47.0) % MCV (78.0-93.0) fL MCH (26.0-32.0) pg MCHC (32.0-36.0) g/dL RDW Coeff of Kirti (10.0-15.0) % Plt Count (130-400) x10^3/uL Neut % (Auto) (50.0-80.0) % Lymph % (Auto) (25.0-50.0) % [place] % (Auto) (2.0-11.0) % Eos % (Auto) (0.0-4.0) % Baso % (Auto) (0.2-1.2) % PT (9.9-12.5) SEC INR (2.0-3.5) APTT 19.6 L (25.6-32.8) SEC Sodium (136-145) mmol/L Potassium (3.5-5.1) mmol/L Chloride (98-107) mmol/L Carbon Dioxide (21-32) mmol/L Anion Gap (5-15) mmol/L BUN (7-18) mg/dL Creatinine (0.55-1.02) mg/dL Est Cr Clr Drug Dosing mL/min Estimated GFR (MDRD) Glucose (74-106) mg/dL Lactic Acid 1.9 (0.4-2.0) mmol/L Calcium (8.5-10.1) mg/dL Corrected Calcium (8.5-10.1) mg/dL Magnesium (1.8-2.4) mg/dL Total Bilirubin (0.2-1.0) mg/dL AST (15-37) U/L ALT (14-59) U/L Alkaline Phosphatase (46-116) U/L Troponin I High Sens (<=51) ng/L C-Reactive Protein (<=0.9) mg/dL NT-Pro-B Natriuret Pep (<=125) pg/mL Total Protein (6.4-8.2) g/dL Albumin (3.4-5.0) g/dL Globulin Albumin/Globulin Ratio TSH, Ultra Sensitive (0.358-3.74) uIU/mL SARS-CoV-2 RNA (SERGEY) Negative (NEGATIVE) Meds: Medications Generic Name Dose Route Start Last Admin Trade Name Freq PRN Reason Stop Dose Admin Sodium Chloride 1,000 mls @ 500 mls/hr 02/12/21 11:15 02/12/21 11:08 Normal Saline IV 500 mls/hr ASDIRECTED KIERSTEN Administration Sodium Chloride 10 ml 02/12/21 10:51 Sodium Chloride 0.9% 10 Ml Syringe FLUSH ASDIRECTED PRN Keep Vein Open Discontinued Medications Generic Name Dose Route Start Last Admin Trade Name Freq PRN Reason Stop Dose Admin Iopamidol 100 ml 02/12/21 12:55 02/12/21 12:56 Iopamidol 612 Mg/Ml 100 Ml Bottle IVPUSH 02/12/21 12:56 100 ml ONETIME ONE Administration Ondansetron HCl 4 mg 02/12/21 11:04 02/12/21 11:10 Ondansetron 4 Mg/2 Ml Sdv IVPUSH 02/12/21 11:05 4 mg ONETIME ONE Administration Departure - Departure Time of Disposition: 14:15 Disposition: DC/Tfer to Acute Hospital 02 Clinical Impression: Bowel obstruction - Discharge Information Sepsis Event Note (ED) - Focused Exam Vital Signs: Vital Signs Temp Pulse Resp BP Pulse Ox Pulse Ox 02/12/21 12:46 98 70/50 L 02/12/21 12:00 72 88/46 L 02/12/21 11:29 101 H 16 103/50 L 97 02/12/21 11:00 102 H 16 63/28 L 97 97 02/12/21 10:45 36.6 C 103 H 14 71/29 L 95 - Problem List Review Problem List Initiated/Reviewed/Updated: Yes - My Orders Last 24 Hours: My Active Orders 02/12/21 10:51 Sodium Chloride 0.9% [Saline Flush] 10 ml FLUSH ASDIRECTED PRN 02/12/21 10:52 EKG Documentation Completion [RC] STAT Blood Culture x2 Reflex Set [OM.PC] Stat Peripheral IV Insertion Adult [OM.PC] Routine 02/12/21 10:54 UA RFX ALBERT AND CULT IF INDIC [URIN] Stat 02/12/21 10:55 Cardiac Monitoring [RC] CONTINUOUS Oxygen Therapy [RC] PRN CULTURE BLOOD [BC] Stat 02/12/21 11:13 CULTURE BLOOD [BC] Stat 02/12/21 11:15 Sodium Chloride 0.9% [Normal Saline] 1,000 ml IV ASDIRECTED 02/12/21 13:42 NG [Nasogastric Orogastric Tube Insertion] [OM.PC] Routine 02/12/21 13:43 Gastrointestinal Tube Mgmt [RC] ASDIRECTED - Assessment/Plan Last 24 Hours: My Active Orders 02/12/21 10:51 Sodium Chloride 0.9% [Saline Flush] 10 ml FLUSH ASDIRECTED PRN 02/12/21 10:52 EKG Documentation Completion [RC] STAT Blood Culture x2 Reflex Set [OM.PC] Stat Peripheral IV Insertion Adult [OM.PC] Routine 02/12/21 10:54 UA RFX ALBERT AND CULT IF INDIC [URIN] Stat 02/12/21 10:55 Cardiac Monitoring [RC] CONTINUOUS Oxygen Therapy [RC] PRN CULTURE BLOOD [BC] Stat 02/12/21 11:13 CULTURE BLOOD [BC] Stat 02/12/21 11:15 Sodium Chloride 0.9% [Normal Saline] 1,000 ml IV ASDIRECTED 02/12/21 13:42 NG [Nasogastric Orogastric Tube Insertion] [OM.PC] Routine 02/12/21 13:43 Gastrointestinal Tube Mgmt [RC] ASDIRECTED Plan: Pt. will be transferred to [place]. CT chest, abdomen, and pelvis obtained with contrast and showed high grade SBO with transition point in lower anterior mid abdomen. Initially I was under the impression that the patient has had previous SBO, but she states that she doesn't think she has. She has had numerous abdominal surgeries in the past, including cholecystectomy and hysterectomy. IV fluids at 250ml/hr. Her BP remained in the 70-80 systolic range, consistent with her admission last month. Her lactic acid was normal today. Troponin is negative. Pt. was rehydrated cautiously, as her proBNP was greater than 6000. NG tube was placed and applied to low intermittent suction. Approx. 400ml output noted as of 1418. Pt. will be transferred to [facility]. Dr. Garcia is accepting. Covid 19 was negative. Pt. will be transported via [facility] ground ambulance.
[2021-02-12 11:51] LABS: ANION GAP 8.3 mmol/L (5-15)
[2021-02-12] MEDS ORDERED: Iopamidol 612 MG/ML 100 ML Bottle IVPUSH ONE (12:55)
--- NOTE | 2021-02-12 13:32 | CT ---
[id number] CT/CT Chest Abdomen Pelvis W IV EXAM: CT Chest Abdomen Pelvis W IV CLINICAL DATA: ABDOMINAL PAIN, HYPOTENSION. COMPARISON STUDY: CT from January 2019. FINDINGS: Mild circumference thickening of the mid and distal esophagus extending to the gastroesophageal junction. Mild granulomatous change in the lungs mediastinum. No suspicious lung nodules or masses. No pneumomediastinum. No mediastinal or hilar lymphadenopathy. Heart is normal in size. Coronary artery atherosclerosis. No pericardial effusion. No evidence of acute aortic injury. Abdomen and pelvis: Granulomatous change spleen and liver. Cholecystectomy. Adrenal glands, pancreas, and kidneys are unremarkable. Dilation and distention of the stomach and small bowel to the level of the pelvic inlet where there is transition to decompressed bowel that extends to the terminal ileum. Transition point is seen on series 3 images 34 and 36 and series 2 image 160 in the anterior aspect of the abdomen. Loop of bowel just proximal to the transition point demonstrates equalization (series 2 image 157). No evidence of bowel perforation or ischemia. No colitis or diverticulitis. Aorta atherosclerosis. No aneurysm. Urinary bladder is intact. No lymphadenopathy, free fluid, or pneumoperitoneum. Bones and soft tissues: No fracture, compression deformity, or osseous lesion. Extensive changes of fusion in the cervical and thoracic spine. IMPRESSION: High-grade distal small bowel obstruction with transition point in the lower anterior mid abdomen, described in detail above. No evidence of bowel perforation or ischemia. Circumferential esophageal thickening. Correlate for reflux. Consider endoscopy for further evaluation. Other findings are described above. Akil Allen MD 02/12/21 1701 Thank you for allowing us to participate in the care of your patient.
[2021-02-12 14:37] VITALS: BP 75/43; PULSE 100
== END 2021-02-12 15:43 | disposition short-term general hospital (02) ==
LOC: VM.ED 10:39
DX: K56.609 Unspecified intestinal obstruction, unspecified as to partial versus complete obstruction (principal); I25.10 Atherosclerotic heart disease of native coronary artery without angina pectoris; E78.00 Pure hypercholesterolemia, unspecified; I10 Essential (primary) hypertension; J44.9 Chronic obstructive pulmonary disease, unspecified; K21.9 Gastro-esophageal reflux disease without esophagitis; Z20.822 Contact with and (suspected) exposure to COVID-19; Z88.1 Allergy status to other antibiotic agents; Z88.6 Allergy status to analgesic agent; Z88.8 Allergy status to other drugs, medicaments and biological substances; Z88.5 Allergy status to narcotic agent; Z88.0 Allergy status to penicillin; Z79.02 Long term (current) use of antithrombotics/antiplatelets; Z79.899 Other long term (current) drug therapy
CPT/HCPCS: 36415; 43752; 71260; 74177; 80053; 81003; 83605; 83735; 83880; 84443; 84484; 85025; 85610; 85730; 86140; 87040; 94760; 96374; 99285; 99285-25; J2405; J7030; Q9967; U0002

== ENCOUNTER 2021-02-22 04:55 | Inpatient (IN) | payer MEDICARE, OTHER ==
[2021-02-22] MEDS ORDERED: Furosemide 40 MG/4 ML VIAL IV ONE (05:12)
--- NOTE | 2021-02-22 05:42 | EDM.PDOC ---
ED HPI GENERAL MEDICAL PROBLEM - General Chief Complaint: Respiratory Problem Stated Complaint: shortness of breath Time Seen by Provider: 02/22/21 05:00 Source of Information: Reports: Patient, EMS History Limitations: Reports: No Limitations - History of Present Illness INITIAL COMMENTS - FREE TEXT/NARRATIVE: Pt. presents to ER via EMS with complaints of acute shortness of breath that woke her from her sleep this AM. Pt. states that the onset was acute. She denies any recent cough or chest congestion. No fever or chills. Denies any chest pain. Pt. was discharged for [facility] in [place] 02/16 following treatment for a SBO. This resolved with bowel rest and NG suction. She did have an elevated troponin at that time as well, but is not a candidate for either percutaneous or surgical intervention. It appears that, during that stay, her torsemide was decreased (currently 20mg daily) and her metoprolol and imdur were both stopped due to hypotension. Pt. states that she is feeling better from that standpoint, and denies any abdominal pain today. She was also admitted for 01/29/21-02/08/21 with CHF exacerbation, NSTEMI. At that time she had an angiogram which showed 100% stenosis mid RCA, 40% stenosis proximal LAD. EF was 50%. Again, she is not a candidate for CABG. Pt. also has a history of bilateral subclavian artery stenosis which could be contributing to low blood pressure readings at times. EMS states that pt. was hemodynamically stable while in their care. She was given a breathing treatment on the way to the hospital. Pt. was saturating in the 100% range with O2 per NC at 2L/min (which she is on chronically). Onset: Today Location: Reports: Chest, Generalized - Related Data Allergies Allergy/AdvReac Type Severity Reaction Status Date / Time levofloxacin [From Levaquin] Allergy Wheezing Verified 02/12/21 11:13 acetaminophen [From Percocet] AdvReac Confusion/H Verified 02/12/21 11:13 allucinatio ns aspirin AdvReac Nausea and Verified 02/12/21 11:13 Vomiting bupropion HCl AdvReac Depression Verified 02/12/21 11:13 [From Wellbutrin] citalopram hydrobromide AdvReac no effect Verified 02/12/21 11:13 [From Celexa] codeine AdvReac Nausea and Verified 02/12/21 11:13 Vomiting fluoxetine HCl [From Prozac] AdvReac Anxiety Verified 02/12/21 11:13 oxycodone [From Percocet] AdvReac Confusion/H Verified 02/12/21 11:13 allucinatio ns Penicillins AdvReac Nausea and Verified 02/12/21 11:13 Vomiting sertraline HCl [From Zoloft] AdvReac Anxiety Verified 02/12/21 11:13 Home Meds: Home Meds Clopidogrel [Plavix] 75 mg PO DAILY 05/02/16 [History] Nitroglycerin [Nitrostat] 0.4 mg SL ASDIRECTED 05/02/16 [History] atorvaSTATin [Lipitor] 40 mg PO DAILY 05/02/16 [History] Cholecalciferol (Vitamin D3) [D3 Dots] 2,000 unit PO DAILY@1800 06/13/17 [Histor y] PARoxetine HCL [Paroxetine HCl] 10 mg PO DAILY 06/13/17 [History] Pantoprazole Sodium 40 mg PO DAILY 06/13/17 [History] Acetaminophen/HYDROcodone [[place] 325-10 MG] 1 tab PO Q4H PRN 01/10/19 [History] Metoclopramide [Reglan] 10 mg PO TIDMEALS 01/10/19 [History] Cyclobenzaprine [Flexeril] 10 mg PO TID tablet 10/23/20 [Rx] DULoxetine [Cymbalta] 60 mg PO DAILY cap 10/23/20 [Rx] Gabapentin [Neurontin] 200 mg PO DAILY cap 10/23/20 [Rx] polyethylene glycoL 3350 [MiraLAX] 17 gm PO DAILY PRN packet 10/23/20 [Rx] Albuterol [Proventil Neb Soln] 2.5 mg NEB QID PRN 11/25/20 [History] Gabapentin [Neurontin] 300 mg PO BEDTIME 11/25/20 [History] Midodrine 15 mg PO TID 11/25/20 [History] Cyanocobalamin (Vitamin B12) [Vitamin B12] 2,500 mcg PO DAILY 02/12/21 [History] Fluticasone/Umeclidin/Vilanter [Trelegy Ellipta 100-62.5-25 MCG] 1 puff INH DAILY 02/12/21 [History] Hydrocortisone [Cortef] 10 mg PO DAILY 02/12/21 [History] Hydrocortisone [Cortef] 20 mg PO DAILY 02/12/21 [History] Torsemide 20 mg PO BID 02/12/21 [History] Triamcinolone Acetonide [Kenalog 0.1% Crm] 1 dose TOP BID 02/12/21 [History] Past Medical History HEENT History: Reports: Cataract Cardiovascular History: Reports: CAD, High Cholesterol, Hypertension, SOB on Exertion Respiratory History: Reports: Asthma, COPD, SOB, Other (See Below) Other Respiratory History: sleep related hypoxia Gastrointestinal History: Reports: GERD, Hiatal Hernia, Other (See Below) Other Gastrointestinal History: LOW'S ESOPHAGUS Genitourinary History: Reports: Other (See Below) Other Genitourinary History: FIBROCYSTIC BREAST DISEASE Musculoskeletal History: Reports: Other (See Below) Other Musculoskeletal History: lumbar disc herniation. sacroiliac joint dysfunction of left side Neurological History: Reports: Migraines Psychiatric History: Reports: Anxiety, Depression Endocrine/Metabolic History: Reports: Other (See Below) Other Endocrine/Metabolic History: IFG Hematologic History: Reports: None Immunologic History: Reports: None Oncologic (Cancer) History: Reports: None - Infectious Disease History Infectious Disease History: Reports: Chicken Pox, Influenza, Novel Coronavirus - Past Surgical History Head Surgeries/Procedures: Reports: None HEENT Surgical History: Reports: Cataract Surgery, Tonsillectomy Cardiovascular Surgical History: Reports: None Respiratory Surgical History: Reports: None GI Surgical History: Reports: Appendectomy, Cholecystectomy, Other (See Below) Other GI Surgeries/Procedures: ANAL FISSURE REPAIR Female Surgical History: Reports: Breast Biopsy, Hysterectomy, Tubal Ligation, Other (See Below) Other Female Surgeries/Procedures: fibrocystic breast disease Endocrine Surgical History: Reports: None Musculoskeletal Surgical History: Reports: ORIF Social & Family History - Family History Family Medical History: No Pertinent Family History - Caffeine Use Caffeine Use: Reports: Coffee, Soda Other Caffeine Use: 1-2 cups a day ED ROS GENERAL - Review of Systems Review Of Systems: See Below Constitutional: Reports: No Symptoms HEENT: Reports: No Symptoms Respiratory: Reports: Shortness of Breath Cardiovascular: Reports: Dyspnea on Exertion, Edema (2+ pitting edema) Endocrine: Reports: No Symptoms GI/Abdominal: Reports: No Symptoms : Reports: No Symptoms Musculoskeletal: Reports: No Symptoms Skin: Reports: Diaphoresis, Other (pallor) Neurological: Reports: No Symptoms Psychiatric: Reports: No Symptoms Hematologic/Lymphatic: Reports: No Symptoms Immunologic: Reports: No Symptoms ED EXAM, GENERAL - Physical Exam Exam: See Below Exam Limited By: No Limitations General Appearance: Alert, WD/WN, Anxious Head: Atraumatic Neck: Normal Inspection, Supple, Non-Tender Respiratory/Chest: No Accessory Muscle Use, Respiratory Distress (mild), Decreased Breath Sounds Cardiovascular: Normal Peripheral Pulses, Regular Rate, Rhythm, Other (3+ edema to lower extremities). No: No Edema Peripheral Pulses: 4+: Radial (L) GI/Abdominal: Normal Bowel Sounds, Soft, Non-Tender (Female) Exam: Deferred Rectal (Female) Exam: Deferred Back Exam: Normal Inspection, Full Range of Motion Extremities: Normal Inspection, Normal Range of Motion, Non-Tender, Normal Capil kellie Refill Neurological: Alert, Oriented, CN II-XII Intact, Normal Cognition. No: No Motor/Sensory Deficits Psychiatric: Normal Affect, Normal Mood Skin Exam: Cool, Diaphoretic, Pallor #1 Interpretation Rhythm: NSR [place]: Normal P-Wave: Present QRS: Normal ST-T: Normal QT: Normal Course - Vital Signs Last Recorded V/S: Last Vital Signs Temp 35.1 C L 02/22/21 05:45 Pulse 114 H 02/22/21 06:08 Resp 19 02/22/21 06:08 BP 151/99 H 02/22/21 06:08 Pulse Ox 97 02/22/21 06:08 - Orders/Labs/Meds Orders: Active Orders 24 hr Category Date Time Status EKG Documentation Completion [RC] STAT Care 02/22/21 05:10 Active Chest 1V Frontal [CR] Stat Exams 02/22/21 05:10 Taken CBC WITH AUTO DIFF [HEME] Stat Lab 02/22/21 05:40 Results COMPREHENSIVE METABOLIC PN,CMP [CHEM] Stat Lab 02/22/21 05:40 Received MAGNESIUM [CHEM] Stat Lab 02/22/21 05:40 Received MANUAL DIFFERENTIAL QA/NC [HEME] Stat Lab 02/22/21 05:40 Results PRO B-TYPE NATRIUR PEPT,BNPPRO [CHEM] Stat Lab 02/22/21 05:40 Received TROPONIN I HIGH SENSITIVITY [CHEM] Stat Lab 02/22/21 05:40 Received Sodium Chloride 0.9% [Saline Flush] Med 02/22/21 05:09 Active 10 ml FLUSH ASDIRECTED PRN Peripheral IV Insertion Adult [OM.PC] Routine Oth 02/22/21 05:10 Ordered Medication Orders Sodium Chloride (Sodium Chloride 0.9% 10 Ml Syringe) 10 ml FLUSH ASDIRECTED PRN PRN Reason: Keep Vein Open Labs: Laboratory Tests 02/22/21 02/22/21 Range/Units 05:40 05:40 WBC 13.8 H (4.0-10.0) x10^3/uL RBC 3.23 L (4.00-5.50) x10^6/uL Hgb 10.0 L (12.0-16.0) g/dL Hct 33.1 (33.0-47.0) % MCV 102.5 H D (78.0-93.0) fL MCH 31.0 (26.0-32.0) pg MCHC 30.2 L (32.0-36.0) g/dL RDW Coeff of Kirti 15.9 H (10.0-15.0) % Plt Count 294 (130-400) x10^3/uL Add Manual Diff Yes PT 10.4 (9.9-12.5) SEC INR 0.9 L (2.0-3.5) APTT 20.5 L (25.6-32.8) SEC Meds: Medications Generic Name Dose Route Start Last Admin Trade Name Freq PRN Reason Stop Dose Admin Sodium Chloride 10 ml 02/22/21 05:09 Sodium Chloride 0.9% 10 Ml Syringe FLUSH ASDIRECTED PRN Keep Vein Open Discontinued Medications Generic Name Dose Route Start Last Admin Trade Name Freq PRN Reason Stop Dose Admin Furosemide 60 mg 02/22/21 05:12 02/22/21 05:28 Furosemide 40 Mg/4 Ml Vial IV 02/22/21 05:13 60 mg ONETIME ONE Administration - Radiology Interpretation Free Text/Narrative:: CHF - Re-Assessments/Exams Free Text/Narrative Re-Assessment/Exam: Pt. was given lasix 60mg IV. She was observed. She reported significant improvement in shortness of breath. As of approx. 0745, she has diuresed approx. 600ml urine since getting the medication. Pt. was also started on lovenox 1mg/kg per NSTEMI algorithm. Departure - Departure Time of Disposition: 07:47 Disposition: Home, Self-Care 01 Clinical Impression: CHF exacerbation, NSTEMI (non-ST elevated myocardial infarction) - Discharge Information Forms: ED Department Discharge Sepsis Event Note (ED) - Focused Exam Vital Signs: Vital Signs Temp Pulse Resp BP Pulse Ox 02/22/21 06:08 114 H 19 151/99 H 97 02/22/21 05:45 35.1 C L 122 H 30 H 145/98 H 99 - Problem List Review Problem List Initiated/Reviewed/Updated: Yes - My Orders Last 24 Hours: My Active Orders 02/22/21 05:09 Sodium Chloride 0.9% [Saline Flush] 10 ml FLUSH ASDIRECTED PRN 02/22/21 05:10 EKG Documentation Completion [RC] STAT Chest 1V Frontal [CR] Stat Peripheral IV Insertion Adult [OM.PC] Routine 02/22/21 05:40 CBC WITH AUTO DIFF [HEME] Stat COMPREHENSIVE METABOLIC PN,CMP [CHEM] Stat MAGNESIUM [CHEM] Stat MANUAL DIFFERENTIAL QA/NC [HEME] Stat PRO B-TYPE NATRIUR PEPT,BNPPRO [CHEM] Stat TROPONIN I HIGH SENSITIVITY [CHEM] Stat - Assessment/Plan Last 24 Hours: My Active Orders 02/22/21 05:09 Sodium Chloride 0.9% [Saline Flush] 10 ml FLUSH ASDIRECTED PRN 02/22/21 05:10 EKG Documentation Completion [RC] STAT Chest 1V Frontal [CR] Stat Peripheral IV Insertion Adult [OM.PC] Routine 02/22/21 05:40 CBC WITH AUTO DIFF [HEME] Stat COMPREHENSIVE METABOLIC PN,CMP [CHEM] Stat MAGNESIUM [CHEM] Stat MANUAL DIFFERENTIAL QA/NC [HEME] Stat PRO B-TYPE NATRIUR PEPT,BNPPRO [CHEM] Stat TROPONIN I HIGH SENSITIVITY [CHEM] Stat Plan: Pt. was adamantly opposed to transfer to [place]. Discussed reasoning for transfer. Pt. indicated that she did not want CPR or intubation. Previously she had been a code 1. She is now DNR/DNI. Dr. Craft will be admitting the patient.
[2021-02-22 06:05] LABS: PTT,PARTIAL THROMBOPLSTIN TIME 20.5 SEC (25.6-32.8)
[2021-02-22 06:21] LABS: CHLORIDE,CL 101 mmol/L (98-107); SODIUM,NA 145 mmol/L (136-145)
[2021-02-22 06:25] LABS: ANION GAP 7.7 mmol/L (5-15)
[2021-02-22] MEDS ORDERED: Enoxaparin 80 MG/0.8 ML Syringe SUBCUT ONE (07:37)
--- NOTE | 2021-02-22 08:13 | CR ---
[id number] RAD/RAD Chest PA or AP 1V EXAM: RAD Chest PA or AP 1V INDICATION: SHORTNESS OF BREATH. COMPARISON: January 29, 2021. Station/impression: Cardiomegaly and central vascular congestion. Bilateral symmetric lung hyperinflation similar to the prior examination. Bibasal interlobular septal thickening. Slight blunting of the costophrenic sulci. Correlate for fluid retention, as findings could represent early changes of CHF. No evidence of pneumonia. No pneumothorax. Akil Allen MD 02/22/21 0817 Thank you for allowing us to participate in the care of your patient.
[2021-02-22] MEDS ORDERED: Potassium Chloride 10 MEQ Tab.ER PO SCH (09:00)
[2021-02-22] MEDS ORDERED: Magnesium Sulfate/Water 4 GM/100 ML BAG IV ONE (09:03)
[2021-02-22] MEDS: Metoprolol Succinate 25 MG Tab.ER PO SCH (09:53)
[2021-02-22] MEDS: Hydrocortisone 20 MG Tab PO SCH (09:53)
[2021-02-22] MEDS: Magnesium Oxide 400 MG Tab PO SCH ×2 (09:54→20:06)
[2021-02-22] MEDS: Sodium Chloride 0.9% 10 ML Syringe FLUSH PRN ×2 (09:54→20:10)
[2021-02-22] MEDS ORDERED: Polyethylene Glycol 3350 Powder 17 GM Packet PO PRN (13:13)
[2021-02-22] MEDS ORDERED: Nitroglycerin 0.4 MG Tab.SL SL PRN (13:13)
[2021-02-22] MEDS: Clopidogrel 75 MG Tab PO SCH (15:08)
[2021-02-22] MEDS: Midodrine 5 MG Tab PO SCH ×2 (15:08→20:07)
[2021-02-22] MEDS: Metoclopramide 10 MG Tab PO SCH (17:19)
[2021-02-22] MEDS: Potassium Chloride 10 MEQ Tab.ER PO SCH (17:19)
[2021-02-22] MEDS ORDERED: Furosemide 20 MG/2 ML VIAL IV ONE (18:06)
[2021-02-22] MEDS: LORazepam 0.5 MG Tab PO PRN (18:20)
[2021-02-22] MEDS: Albuterol 0.083% 2.5 MG/3 ML Neb Soln NEB PRN (19:09)
[2021-02-22] MEDS: atorvaSTATin 40 MG Tab PO SCH (20:06)
[2021-02-22] MEDS: Gabapentin 300 MG Cap PO SCH (20:06)
[2021-02-22] MEDS: Cyanocobalamin (Vitamin B12) 1,000 MCG Tab PO SCH (20:06)
[2021-02-22] MEDS: Cholecalciferol (Vitamin D3) 25 MCG Tab PO SCH (20:07)
[2021-02-22] MEDS: Triamcinolone Acetonide 0.1% Crm 15 GM Tube TOP SCH (22:22)
--- NOTE | 2021-02-22 23:31 | HP ---
CHIEF COMPLAINT: Shortness of breath. HISTORY OF PRESENT ILLNESS: This is a 70-year-old female with history of recurrent admissions like this is the eighth one since she had COVID in late September. Most recently, she was admitted for a small bowel obstruction, which resolved conservatively from 02/12 through 02/16. She did have an episode of chest pain while she was admitted, but she was unable to be managed with Toprol and Imdur were due to low blood pressures. She had been on Toprol many years ago, but now has suffered with hypotension requiring midodrine and empty sella syndrome requiring hydrocortisone. She had more distantly been admitted from 01/29 through the for acute on chronic heart failure exacerbation with EF worsening from 60% to 50% and a lth-IA-qyupybrld WI with angiogram done at that time showing 100% blockage of the right coronary artery and 90% to the diagonal and she is not felt to be a candidate for CABG due to her comorbidities. She also had 40% proximal LAD. The patient has severe peripheral vascular disease and is still smoking at least 3 cigarettes a day. She had note sent to me from [facility] that she continues to smoke despite oxygen in her house and she is noncompliant with her medications. A friend of hers has also contacted them about these concerns. The patient tells me that she ran out of her midodrine and was not able to get a refill at the pharmacy and I did also confirm this with the pharmacy, but interestingly enough, they wanted her to taper down on the midodrine and when she came into the ER today, her blood pressure was quite elevated. As soon as the patient got the IV Lasix 60 mg, she had good urine output and her blood pressure started coming down. She was never having any chest pain today or this morning when she called the ambulance around 5:30. She is not having any cough or other respiratory symptoms. The patient has been on Demadex; previously was on Lasix. Her Demadex was changed from twice daily to once daily. The patient has wanted to have CPR, but no intubation. I did discuss with her today regarding her overall health condition and she was in agreement that without intubation and with her significant coronary disease with no fixing with stents or surgery, that she would not want to be resuscitated with CPR. ALLERGIES: Include penicillin, Levaquin, aspirin, Celexa, codeine, Percocet, Prozac, Wellbutrin, and Zoloft. MEDICATIONS: Her medication list currently includes: Midodrine 15 mg 3 times a day, Reglan 10 mg before meals, Demadex 20 mg daily, Cortef 20 mg in the morning and 10 at noon, Protonix 40 mg daily, Lipitor 40 mg daily, Cymbalta 60 mg daily, hydrocodone 10 mg 325 every 4 hours as needed for pain, triamcinolone, MiraLAX, Paxil 10 mg daily, Trilogy inhaler once daily, Neurontin 200 in the morning and 300 at bedtime, nitroglycerin as needed for chest pain, Proventil nebulizer, Flexeril 10 mg 3 times a day as needed, Plavix 75 mg daily, B12 at 1000 mcg daily, vitamin D 2000 units daily. PAST MEDICAL HISTORY: Includes adrenal insufficiency found in 2019 when admitted for peripheral vascular disease surgeries, severe peripheral vascular disease in that left leg, anxiety, which does get mentioned also on her home health report, Mittal's esophagus, carotid artery stenosis, chronic diastolic heart failure, chronic SI joint pain, and chronic back pain status post multiple back surgeries, diastolic heart failure, COPD - severe, coronary artery disease - not amenable to interventions, COVID-19 back in late September, chronic hypoxic respiratory failure - not compliant always with oxygen, empty sella, GERD, herpes zoster, conjunctivitis, hyperlipidemia. Essential hypertension remotely, but in 2018 with hypotension, some of it felt to be due to peripheral vascular disease. Blood pressure is most accurate in the right leg. Even with low blood pressures in the 50s and 60, she is usually asymptomatic. Lumbar stenosis and radiculopathy, major depressive disorder, smoking. PAST SURGICAL HISTORY: The patient has had tubal ligation, tonsillectomy, anal fissure surgery, lumbar diskectomy, hysterectomy, thoracic spine fusion, eye surgery, exploration of the groin with washout after a femoral endarterectomy, she has had left and right femoral endarterectomies, cholecystectomy, cervical neck fusion in 2017, cataracts, breast surgery and biopsy which was benign, appendectomy. SOCIAL HISTORY: The patient is . She recently lost her . She recently lost her brother who lives locally unexpectedly. 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 She continues to smoke. Her sons live out of state. She did go down to [place] to visit family over [place]; was hospitalized twice while she was down there. FAMILY HISTORY: Siblings are ; some of them had diabetes. Her mother had heart disease. REVIEW OF SYSTEMS: General: The patient has had swelling, has had some weight gain between her hospital discharge due to the decrease in Demadex. HEENT: No trouble swallowing. Cardiac: She has not had chest pain, but she has been short of breath. No palpitations. Respiratory: No cough. No wheezing. Neurologic: She has not felt lightheaded or dizzy. No confusions. Otherwise, all systems reviewed and found to be negative unless otherwise stated. PHYSICAL EXAMINATION: Vital Signs: On hospital admission when she was seen by me, her blood pressure is 107/60, temperature 97.6, pulse 109, respiratory rate is 23, O2 of 99% on 3 L. Her lowest O2 saturation in the ER was 99, but also on 4 L. General: She is in no acute distress. Heart: Regular rate and rhythm with tachycardia and murmur, which is unchanged. Lungs: Lung sounds are clear to auscultation currently without crackles or wheezes. Abdomen: Nondistended and nontender. Positive bowel sounds. Extremities: Warm and dry. She does have 1+ pedal edema in her ankles and feet. Mental Status: She is alert and orientated x3. Overall, she does state she is quite tired. LABORATORY DATA: EKG shows sinus tachycardia, no acute changes. Chest x-ray shows increased pulmonary vascular congestion. Lab work shows a white count 13.3, hemoglobin 10, platelets 294. INR 0.9. Sodium 145, potassium 3.7, chloride 101, bicarb 40, BUN 21, creatinine 0.9, glucose 201, calcium 8.6, magnesium 1.1, bilirubin 0.4, AST 36, ALT 32, alkaline phosphatase 72. Troponin 1201. ProBNP 5785. Albumin 2.8. COVID negative on her previous admissions as she has been in the ER 3 times in the last month. Her proBNP was 6500 on the last one. ASSESSMENT: 1. Acute on chronic diastolic heart failure exacerbation with ejection fraction of 50%, responding well to IV Lasix. 2. Non-ST elevation myocardial infarction due to heart failure along with known severe coronary disease, not amenable to treatments. 3. Adrenal insufficiency with empty sella syndrome. 4. Obesity. 5. Chronic pain. 6. Moderate malnutrition. 7. Smoking. 8. Chronic obstructive pulmonary disease without exacerbation. 9. Gastroesophageal reflux disease with Mittal's esophagus. 10.Anxiety. 11.Depression. PLAN: The patient is admitted to acute cares. We will continue with IV diuresis. We will see how this 60 mg IV went for today. I will likely hold off on re-dosing until tomorrow. She also will be given 12.5 of metoprolol-XL due to her non ST-elevation WI and tachycardia with close monitoring of blood pressures. She did get Lovenox 80 mg x1. I am not planning to re-dose that again today given the fact that the patient has significant bruising on the extremities although her platelets are normal. We will likely start DVT prophylaxis doses tomorrow. We will monitor with telemetry. We will have nitroglycerin available for any chest pain. We will order a nicotine patch if needed. We will order her Paxil for anxiety. We will order her inhalers and nebulizers. We will continue oxygen and we will continue her pain medications. The patient is admitted to acute care. 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 The patient is a code level 3. For DVT prophylaxis, she is covered with Lovenox. We will repeat. We will repeat serial troponins. Currently, she is having no chest pain. MKA: 02/22/2021 17:50:22 MODL: 02/22/2021 23:22:31 /[id number]
[2021-02-23] MEDS: LORazepam 0.5 MG Tab PO PRN ×3 (00:38→21:04)
[2021-02-23] MEDS: Albuterol 0.083% 2.5 MG/3 ML Neb Soln NEB PRN (02:05)
[2021-02-23] MEDS ORDERED: Furosemide 20 MG/2 ML VIAL IV ONE (02:12)
[2021-02-23] MEDS: Metoclopramide 10 MG Tab PO SCH ×3 (06:02→16:33)
[2021-02-23] MEDS: Pantoprazole 40 MG Tab.CR PO SCH (06:03)
[2021-02-23 07:29] LABS: ANION GAP 7.5 mmol/L (5-15); CHLORIDE,CL 96 mmol/L (98-107); SODIUM,NA 139 mmol/L (136-145)
[2021-02-23] MEDS: Fluticasone-Salmeterol 55-14 MCG Powder Inhalent INH SCH ×2 (07:54→19:44)
[2021-02-23] MEDS: Tiotropium Bromide 4 GM Inhalation Spray (2.5mcg/1 dose; 10 doses) INH SCH (07:57)
[2021-02-23] MEDS: Magnesium Oxide 400 MG Tab PO SCH ×2 (07:59→19:47)
[2021-02-23] MEDS: Gabapentin 100 MG Cap PO SCH (07:59)
[2021-02-23] MEDS: Metoprolol Succinate 25 MG Tab.ER PO SCH (08:00)
[2021-02-23] MEDS ORDERED: Hydrocortisone 20 MG Tab PO SCH (08:00)
[2021-02-23] MEDS: Clopidogrel 75 MG Tab PO SCH (08:03)
[2021-02-23] MEDS: Midodrine 5 MG Tab PO SCH ×3 (08:03→19:47)
[2021-02-23] MEDS: Potassium Chloride 10 MEQ Tab.ER PO SCH ×2 (08:03→16:34)
[2021-02-23] MEDS: DULoxetine 60 MG Cap PO SCH (08:03)
[2021-02-23] MEDS: PARoxetine 20 MG Tab PO SCH (08:03)
[2021-02-23] MEDS: Hydrocortisone 20 MG Tab PO SCH (08:03)
[2021-02-23] MEDS: Triamcinolone Acetonide 0.1% Crm 15 GM Tube TOP SCH ×2 (08:07→19:45)
[2021-02-23] MEDS: Nicotine 7 MG/24 Hr Patch TRDERM SCH (09:29)
[2021-02-23] MEDS: Doxycycline 100 MG Cap PO SCH ×2 (09:34→19:45)
[2021-02-23] MEDS: Cyclobenzaprine 10 MG Tab PO PRN (09:35)
[2021-02-23] MEDS: Furosemide 20 MG/2 ML VIAL IV SCH ×2 (09:35→16:33)
[2021-02-23] MEDS: Acetaminophen/HYDROcodone 325-10 MG Tab PO PRN (09:35)
--- NOTE | 2021-02-23 10:41 | PN ---
Progress Note for BOB BARONE Date: 02/23/2021 Room #: VM.204 SUBJECTIVE: 70-year-old seen today hospital day #2 for a CHF exacerbation and a elb-[id number] OK. She presented yesterday morning with acute shortness of breath. She was diuresed with IV Lasix 60 mg initially and required an extra 20 mg x2 late afternoon and evening. She was out 1400, but had 1200 of intake. However, she is breathing better. She did have a low-grade temp 100 overnight, and she has cough productive of some green sputum. She has known severe COPD. She is not having any abdominal pain or burning with urination. Her hemoglobin did drop slightly to 8.9. She did get an 80 mg dose of Lovenox due to the [id number] OK. She is already on Plavix and has significant bruising. She has not had any blood in the stool. She has not had any chest pain. OBJECTIVE: Vital Signs: Her weight is 85.3 kg, temp is 97.8, pulse 99, blood pressure 125/52, respiratory rate 16, O2 of 96% on room air. General: She is in no acute distress. Heart: Regular rate and rhythm with murmur. Lungs: Sounds do show some wheezing throughout, but no crackles appreciated. Abdomen: Nondistended. Positive bowel sounds. Nontender. Extremities: Warm and dry. She has still 1+ edema over the right leg, trace on the left ankle, but both legs are warm. She has slight cramp in her left calf. She says she is very tender. She has a heel spur she believes. Mental Status: She is alert and orientated x3. Skin: She has significant bruising on her forearm. LABORATORY DATA: Lab work does show white count 12.1, hemoglobin 8.9, platelets 269. Sodium 139, potassium 3.5, chloride 96, bicarb 39, BUN 15, creatinine 0.7, glucose 138, calcium 8.7. Troponin down to 1624. ASSESSMENT AND PLAN: 1. Acute on chronic diastolic heart failure exacerbation with EF of 50% on recent echo. We will start her on 20 mg IV b.i.d. of Lasix and continue to monitor blood pressures closely. 2. Ppu-GY-mecxihifg myocardial infarction, likely related to her heart failure and coronary artery disease. It is not amenable to any treatment. She will continue on medical management with the Plavix. She is not on aspirin, but now is on metoprolol and tolerating that. She is also on a statin. 3. Adrenal insufficiency with empty sella syndrome, on medications. 4. Obesity. 5. Chronic pain. 6. Moderate malnutrition. 7. Smoking. 8. Chronic obstructive pulmonary disease with exacerbation. We will start her on oral doxycycline. She has nebs available. 9. Gastroesophageal reflux disease with history of Mittal's esophagitis. 10.Anxiety. 11.Depression. 12.Acute on chronic anemia with no signs of acute bleeding. The patient will continue on acute cares. We did replace the magnesium IV and orally. We will repeat a level tomorrow. We will get her up and working with therapy. She is not interested in transferring over to the [facility]; however, she may qualify for a swing bed stay. We will start the doxycycline for her lungs and check a UA. Oxygen requirements are at her baseline. If further fevers or hypoxia, would repeat her chest x-ray. We will continue monitoring her with telemetry. She has not had any events. For DVT prophylaxis, she got 80 mg of Lovenox yesterday. Due to concern for bleeding, anemia, I will hold off on any Lovenox today and check her hemoglobin this afternoon. She does have SCDs ordered. MKA: 02/23/2021 09:29:49 MODL: 02/23/2021 10:35:56 /[id number]
[2021-02-23] MEDS: Cefdinir 300 MG Cap PO SCH ×2 (17:23→19:45)
[2021-02-23] MEDS: atorvaSTATin 40 MG Tab PO SCH (19:46)
[2021-02-23] MEDS: Cholecalciferol (Vitamin D3) 25 MCG Tab PO SCH (19:46)
[2021-02-23] MEDS: Cyanocobalamin (Vitamin B12) 1,000 MCG Tab PO SCH (19:46)
[2021-02-23] MEDS: Gabapentin 300 MG Cap PO SCH (19:47)
[2021-02-24] MEDS: Cyclobenzaprine 10 MG Tab PO PRN ×2 (01:52→18:30)
[2021-02-24] MEDS: Acetaminophen/HYDROcodone 325-10 MG Tab PO PRN (04:06)
[2021-02-24] MEDS: Pantoprazole 40 MG Tab.CR PO SCH (06:27)
[2021-02-24] MEDS: Metoclopramide 10 MG Tab PO SCH ×3 (06:27→16:31)
[2021-02-24 06:57] LABS: CHLORIDE,CL 95 mmol/L (98-107); SODIUM,NA 139 mmol/L (136-145)
[2021-02-24 07:00] LABS: ANION GAP 6.6 mmol/L (5-15)
[2021-02-24] MEDS: Enoxaparin 30 MG/0.3 ML Syringe SUBCUT SCH (08:47)
[2021-02-24] MEDS: Fluticasone-Salmeterol 55-14 MCG Powder Inhalent INH SCH ×2 (08:47→19:20)
[2021-02-24] MEDS: Midodrine 5 MG Tab PO SCH ×3 (08:48→19:18)
[2021-02-24] MEDS: Triamcinolone Acetonide 0.1% Crm 15 GM Tube TOP SCH ×2 (08:48→19:20)
[2021-02-24] MEDS: Tiotropium Bromide 4 GM Inhalation Spray (2.5mcg/1 dose; 10 doses) INH SCH (08:48)
[2021-02-24] MEDS: DULoxetine 60 MG Cap PO SCH (08:49)
[2021-02-24] MEDS: Hydrocortisone 20 MG Tab PO SCH (08:49)
[2021-02-24] MEDS: PARoxetine 20 MG Tab PO SCH (08:49)
[2021-02-24] MEDS: Cefdinir 300 MG Cap PO SCH ×2 (08:49→19:19)
[2021-02-24] MEDS: Magnesium Oxide 400 MG Tab PO SCH ×2 (08:49→19:19)
[2021-02-24] MEDS: Clopidogrel 75 MG Tab PO SCH (08:49)
[2021-02-24] MEDS: Potassium Chloride 10 MEQ Tab.ER PO SCH ×4 (08:49→19:19)
[2021-02-24] MEDS: Gabapentin 100 MG Cap PO SCH (08:49)
[2021-02-24] MEDS: Doxycycline 100 MG Cap PO SCH ×2 (08:49→19:18)
[2021-02-24] MEDS: Furosemide 20 MG/2 ML VIAL IV SCH ×2 (08:50→16:32)
[2021-02-24] MEDS: Nicotine 7 MG/24 Hr Patch TRDERM SCH (08:50)
[2021-02-24] MEDS: Metoprolol Succinate 25 MG Tab.ER PO SCH (08:50)
--- NOTE | 2021-02-24 10:06 | PN ---
Progress Note for BOB BARONE Date: 02/24/2021 Room #: VM.204 SUBJECTIVE: This is hospital day #3 on a 70-year-old admitted with non-ST- elevation ID and a diastolic heart failure exacerbation. The patient has been diuresing with IV Lasix. She feels she is are urinating well and quite a bit and breathing better. Her cough is even better, but the urine output has not been high. She had a bladder scan, but did not require any catheter. She has not had any chest pain throughout her stay. She has leg weakness and has been working with PT. She tells me that has been going on over a week and started when she was in her previous hospital stay in [place] for bowel obstruction. She has had like 4 previous back surgeries. She denies any new injury. She denies any other weakness or stroke symptoms. Telemetry has been uneventful. She was started on doxycycline for COPD exacerbation and Omnicef to cover for UTI yesterday due to low-grade fevers and elevated white count. She also has left heel pain that was present on admission. She does have padding there. No ulcer, but area of skin is noted to be at risk, especially with her peripheral vascular disease. OBJECTIVE: Vital Signs: Today, her temp 97.8, pulse 98, blood pressure 106/65, respiratory rate 15, O2 of 93% on 2-1/2 L. General: She is in no acute distress. Heart: Regular rate and rhythm with murmur. Lungs: Lung sounds are clear to auscultation bilaterally without crackles or wheezes, which is much improved today. Abdomen: Nondistended, nontender. Extremities: Warm and dry. She still has the trace edema. Significant bruising over her forearms and shins, but has not worsened since admission. Mental Status: She is alert and orientated x3. Extremities: Left heel is noted with some dry skin there, little bit of scab, but no ulcer. On exam of the right leg, it is just slightly weak, but she is able to move it. This has been present for days, but had not been addressed by myself honestly as we were focused more on her heart failure. Physical therapy is working with her. LABORATORY DATA: White count down to 10.6, hemoglobin 8.6, platelets 247. Sodium 139, potassium 3.6, chloride 95, bicarb 41, BUN 15, creatinine 0.6, glucose 122, calcium 8.5, magnesium 1.9. ASSESSMENT AND PLAN: 1. Acute on chronic diastolic heart failure exacerbation with known EF 50%. We will continue IV Lasix 20 mg IV b.i.d. We considered increasing it today, but blood pressures are running lower around 100, and she is tolerating this dose and feeling better. 2. Non ST-elevation myocardial infarction, related to heart failure. Troponin trended down yesterday. She is on Plavix. 3. Adrenal insufficiency with empty sella syndrome. She is on her home medications. 4. Obesity. 5. Chronic pain. Interesting, she has not received any hydrocodone yet during her stay. She is definitely more awake and alert today than she was the last 2 days. 6. Moderate malnutrition. 7. Smoking. 8. Chronic obstructive pulmonary disease with exacerbation, on the Omnicef and doxycycline. 9. Urinary tract infection, on Omnicef. 10.Gastroesophageal reflux disease, with history of Mittal's esophagitis. 11.Anxiety and depression. 12.Acute on chronic anemia with no signs of bleeding. 13.Deep venous thrombosis prophylaxis. I will restart her on Lovenox today. PLAN: The patient will continue on acute cares and likely transition over to swing bed tomorrow to help with her gait and mobility due to right leg weakness. She continues to have a lot of back and sciatica pain, which is long standing. We will continue her oral antibiotics. We will continue oxygen, she is already on it at home. We will discontinue telemetry and we will repeat lab work in the morning. We will continue wound cares and elevation to that left heel. MKA: 02/24/2021 08:39:55 MODL: 02/24/2021 09:55:42 /[id number]
[2021-02-24] MEDS: Acetaminophen/HYDROcodone 325-5 MG Tab PO PRN (16:32)
[2021-02-24] MEDS: LORazepam 0.5 MG Tab PO PRN (18:30)
[2021-02-24] MEDS: Sodium Chloride 0.9% 10 ML Syringe FLUSH PRN (19:17)
[2021-02-24] MEDS: Cyanocobalamin (Vitamin B12) 1,000 MCG Tab PO SCH (19:18)
[2021-02-24] MEDS: Gabapentin 300 MG Cap PO SCH (19:18)
[2021-02-24] MEDS: Cholecalciferol (Vitamin D3) 25 MCG Tab PO SCH (19:18)
[2021-02-24] MEDS: atorvaSTATin 40 MG Tab PO SCH (19:19)
[2021-02-25] MEDS: Pantoprazole 40 MG Tab.CR PO SCH (06:11)
[2021-02-25] MEDS: Metoclopramide 10 MG Tab PO SCH ×2 (06:11→11:48)
[2021-02-25 06:59] LABS: CHLORIDE,CL 98 mmol/L (98-107); SODIUM,NA 140 mmol/L (136-145)
[2021-02-25 07:01] LABS: ANION GAP 5.3 mmol/L (5-15)
[2021-02-25] MEDS: Enoxaparin 30 MG/0.3 ML Syringe SUBCUT SCH (08:15)
[2021-02-25] MEDS: Gabapentin 100 MG Cap PO SCH (08:18)
[2021-02-25] MEDS: Midodrine 5 MG Tab PO SCH ×2 (08:18→11:48)
[2021-02-25] MEDS: Doxycycline 100 MG Cap PO SCH (08:18)
[2021-02-25] MEDS: Hydrocortisone 20 MG Tab PO SCH (08:18)
[2021-02-25] MEDS: DULoxetine 60 MG Cap PO SCH (08:18)
[2021-02-25] MEDS: Clopidogrel 75 MG Tab PO SCH (08:19)
[2021-02-25] MEDS: Magnesium Oxide 400 MG Tab PO SCH (08:19)
[2021-02-25] MEDS: Metoprolol Succinate 25 MG Tab.ER PO SCH (08:19)
[2021-02-25] MEDS: Furosemide 20 MG/2 ML VIAL IV SCH (08:19)
[2021-02-25] MEDS: Cefdinir 300 MG Cap PO SCH (08:19)
[2021-02-25] MEDS: Albuterol 0.083% 2.5 MG/3 ML Neb Soln NEB PRN (08:20)
[2021-02-25] MEDS: Potassium Chloride 10 MEQ Tab.ER PO SCH ×2 (08:21→11:48)
[2021-02-25] MEDS: PARoxetine 20 MG Tab PO SCH (08:21)
[2021-02-25] MEDS: Tiotropium Bromide 4 GM Inhalation Spray (2.5mcg/1 dose; 10 doses) INH SCH (08:27)
[2021-02-25] MEDS: Fluticasone-Salmeterol 55-14 MCG Powder Inhalent INH SCH (08:27)
[2021-02-25] MEDS: Triamcinolone Acetonide 0.1% Crm 15 GM Tube TOP SCH (08:28)
[2021-02-25] MEDS: Nicotine 7 MG/24 Hr Patch TRDERM SCH (08:33)
[2021-02-25] MEDS ORDERED: Furosemide 20 MG/2 ML VIAL IV ONE (08:33)
[2021-02-25 10:33] VITALS: BP 101/52; PULSE 90
--- NOTE | 2021-02-25 11:07 | CR ---
[id number] RAD/RAD Chest PA or AP 1V EXAM: RAD Chest PA or AP 1V INDICATION: SHORTNESS OF BREATH. COMPARISON: February 22, 2021. DISCUSSION: Cardiomediastinal silhouette is normal in size and contour. Stable hazy opacification overlying the lungs bilaterally, left greater than right. No pneumothorax or pleural effusion. Postsurgical changes of the thoracic spine. IMPRESSION: Stable chest. Samir Paredes DO 02/25/21 1104 Thank you for allowing us to participate in the care of your patient.
[2021-02-25] MEDS: Acetaminophen/HYDROcodone 325-5 MG Tab PO PRN (12:28)
--- NOTE | 2021-02-25 17:20 | PCM.DCSUM1 ---
Discharge Summary - Hospital Course Free Text/Narrative:: 70 yo admitted with CHF and a Nonstemi with now 8th admission since she had COVID in late September and 7 of them were for similar symptoms with one recent related to a SOB treated conservatively. She had no chest pain during her stay. She was SOB. She was short of breath this AM so she got an extra dose of 20 mg of IV lasix this morning. Repeat CXR was improved. Her swelling improved but her weight actually went up. She had weakness in her R leg for the last week and has a hx of 4 back surgeries. She has been working with PT and they recommended a swing bed stay. Troponin was elevated but it trended down. She had a slight drop in hemoglobin but no signs of bleeding. She did get Lovenox for DVT prophylaxis. She had pain in her left heel which was red on admit and she has known PVD but her leg was warm and there was no open sore. She had a lot of bruising. HPI Initial Comments: Woke up in the AM SOB, hx of CHF and COPD. EF recently decreased to 50 % by echo and known CAD but not a candidate for CABG. - Discharge Data Discharge Date: 02/25/21 Discharge Disposition: DC/Tfer W/I Hosp To Swing Condition: Fair - Referral to Home Health Primary Care Physician: Nyla Craft DO - Patient Summary/Data Consults: Consultations 02/23/21 09:02 PT Evaluation and Treatment [CONS] Routine 02/23/21 09:19 Consult to Case Management/[employer] [CONS] Routine Hospital Course: Patient diuresed with IV lasix, on a statin, plavix, lovenox, and beta dianna started. no events on telemetry. Also treated with Omnicef for UTI and doxycycline to cover for a COPD exacerbation due to low grade 100 fever and an elevated WBC. She had dysuria but no urinary retention. - Discharge Plan Home Medications: Home Meds Clopidogrel [Plavix] 75 mg PO DAILY 05/02/16 [History] Nitroglycerin [Nitrostat] 0.4 mg SL ASDIRECTED PRN 05/02/16 [History] atorvaSTATin [Lipitor] 40 mg PO BEDTIME 05/02/16 [History] Cholecalciferol (Vitamin D3) [D3 Dots] 2,000 unit PO BEDTIME 06/13/17 [History] PARoxetine HCL [Paroxetine HCl] 10 mg PO DAILY 06/13/17 [History] Pantoprazole Sodium 40 mg PO DAILY@0700 06/13/17 [History] Acetaminophen/HYDROcodone [[place] 325-10 MG] 1 tab PO Q4H PRN 01/10/19 [History] Metoclopramide [Reglan] 10 mg PO TIDMEALS 01/10/19 [History] Cyclobenzaprine [Flexeril] 10 mg PO TID tablet 10/23/20 [Rx] DULoxetine [Cymbalta] 60 mg PO DAILY cap 10/23/20 [Rx] Gabapentin [Neurontin] 200 mg PO DAILY cap 10/23/20 [Rx] polyethylene glycoL 3350 [MiraLAX] 17 gm PO DAILY PRN packet 10/23/20 [Rx] Albuterol [Proventil Neb Soln] 2.5 mg NEB QID PRN 11/25/20 [History] Gabapentin [Neurontin] 300 mg PO BEDTIME 11/25/20 [History] Midodrine 15 mg PO TID 11/25/20 [History] Cyanocobalamin (Vitamin B12) [Vitamin B12] 1,000 mcg PO BEDTIME 02/12/21 [History] Fluticasone/Umeclidin/Vilanter [Trelegy Ellipta 100-62.5-25 MCG] 1 inh PO DAILY 02/12/21 [History] Hydrocortisone [Cortef] 10 mg PO DAILY 02/12/21 [History] Hydrocortisone [Cortef] 20 mg PO DAILY 02/12/21 [History] Torsemide 20 mg PO DAILY 02/12/21 [History] Triamcinolone Acetonide [Kenalog 0.1% Crm] 1 applic TOP BID 02/12/21 [History] Forms: ED Department Discharge Referrals: Nyla Craft DO [Primary Care Provider] - - Discharge Summary/Plan Comment DC Time >30 min.: Yes - General Info Date of Service: 02/25/21 Functional Status: Reports: Pain Controlled (used only 1-2 pain pills a day) - Review of Systems General: Reports: Weakness, Chills. Denies: Fever HEENT: Reports: No Symptoms Pulmonary: Reports: Shortness of Breath, Cough, Sputum, Wheezing. Denies: Pleuritic Chest Pain Cardiovascular: Reports: Dyspnea on Exertion, Edema. Denies: Chest Pain, Palpitations, Lightheadedness Gastrointestinal: Reports: No Symptoms Genitourinary: Reports: Dysuria Musculoskeletal: Reports: Back Pain Skin: Reports: Bruising Neurological: Reports: Weakness. Denies: Confusion, Dizziness, Headache Psychiatric: Reports: Anxiety. Denies: Confusion - Patient Data Vitals - Most Recent: Last Vital Signs Temp 97.8 F 02/25/21 10:00 Pulse 90 02/25/21 10:00 Resp 20 02/25/21 05:42 BP 101/52 L 02/25/21 10:00 Pulse Ox 98 02/25/21 10:00 Weight - Most Recent: 86.228 kg I&O - Last 24 hours: Intake & Output 02/25/21 02/25/21 02/25/21 06:59 14:59 22:59 Intake Total 180 Output Total 200 450 Balance -200 -270 Lab Results - Last 24 hrs: Laboratory Results - last 24 hr 02/25/21 02/25/21 Range/Units 06:40 06:40 WBC 9.2 (4.0-10.0) x10^3/uL RBC 2.88 L (4.00-5.50) x10^6/uL Hgb 8.9 L (12.0-16.0) g/dL Hct 29.4 L (33.0-47.0) % MCV 102.1 H (78.0-93.0) fL MCH 30.9 (26.0-32.0) pg MCHC 30.3 L (32.0-36.0) g/dL RDW Coeff of Kirti 15.7 H (10.0-15.0) % Plt Count 282 (130-400) x10^3/uL Neut % (Auto) 67.7 (50.0-80.0) % Lymph % (Auto) 21.3 L (25.0-50.0) % [place] % (Auto) 8.6 (2.0-11.0) % Eos % (Auto) 2.2 (0.0-4.0) % Baso % (Auto) 0.2 (0.2-1.2) % Sodium 140 (136-145) mmol/L Potassium 4.3 (3.5-5.1) mmol/L Chloride 98 (98-107) mmol/L Carbon Dioxide 41 H (21-32) mmol/L Anion Gap 5.3 (5-15) mmol/L BUN 12 (7-18) mg/dL Creatinine 0.6 (0.55-1.02) mg/dL Est Cr Clr Drug Dosing 66.78 mL/min Estimated GFR (MDRD) > 60 Glucose 109 H (70-99) mg/dL Calcium 8.9 (8.5-10.1) mg/dL ALBERT Results - Last 24 hrs: Microbiology 02/23/21 13:50 Urine Culture - Final Urine, Bladder Escherichia Coli Med Orders - Current: Current Medications Discontinued Medications Hydrocodone Bitart/Acetaminophen (Acetaminophen/Hydrocodone 325-5 Mg Tab) 1 tab PO Q4H PRN PRN Reason: Pain (moderate 4-6) Last Admin: 02/25/21 12:28 Dose: 1 tab Documented by: Hydrocodone Bitart/Acetaminophen (Acetaminophen/Hydrocodone 325-10 Mg Tab) 1 t ab PO Q4H PRN PRN Reason: moderate pain Last Admin: 02/24/21 04:06 Dose: 1 tab Documented by: Albuterol (Albuterol 0.083% 2.5 Mg/3 Ml Neb Soln) 2.5 mg NEB QID PRN PRN Reason: Cough Last Admin: 02/25/21 08:20 Dose: 2.5 mg Documented by: Atorvastatin Calcium (Atorvastatin 40 Mg Tab) 40 mg PO BEDTIME [facility] Last Admin: 02/24/21 19:19 Dose: 40 mg Documented by: Cefdinir (Cefdinir 300 Mg Cap) 300 mg PO BID [facility] Last Admin: 02/25/21 08:19 Dose: 300 mg Documented by: Cholecalciferol (Cholecalciferol (Vitamin D3) 25 Mcg Tab) 50 mcg PO BEDTIME [facility] Last Admin: 02/24/21 19:18 Dose: 50 mcg Documented by: Clopidogrel Bisulfate (Clopidogrel 75 Mg Tab) 75 mg PO DAILY [facility] Last Admin: 02/25/21 08:19 Dose: 75 mg Documented by: Cyanocobalamin (Cyanocobalamin (Vitamin B12) 1,000 Mcg Tab) 1,000 mcg PO BEDTIME [facility] Last Admin: 02/24/21 19:18 Dose: 1,000 mcg Documented by: Cyclobenzaprine HCl (Cyclobenzaprine 10 Mg Tab) 10 mg PO TID PRN PRN Reason: spasm Last Admin: 02/24/21 18:30 Dose: 10 mg Documented by: Doxycycline Hyclate (Doxycycline 100 Mg Cap) 100 mg PO BID [facility] Last Admin: 02/25/21 08:18 Dose: 100 mg Documented by: Duloxetine HCl (Duloxetine 60 Mg Cap) 60 mg PO DAILY [facility] Last Admin: 02/25/21 08:18 Dose: 60 mg Documented by: Enoxaparin Sodium (Enoxaparin 80 Mg/0.8 Ml Syringe) 80 mg SUBCUT ONETIME ONE Stop: 02/22/21 07:38 Last Admin: 02/22/21 07:43 Dose: 80 mg Documented by: Enoxaparin Sodium (Enoxaparin 30 Mg/0.3 Ml Syringe) 30 mg SUBCUT Q24H [facility] Last Admin: 02/25/21 08:15 Dose: 30 mg Documented by: Furosemide (Furosemide 40 Mg/4 Ml Vial) 60 mg IV ONETIME ONE Stop: 02/22/21 05:13 Last Admin: 02/22/21 05:28 Dose: 60 mg Documented by: Furosemide (Furosemide 20 Mg/2 Ml Vial) 20 mg IV ONETIME ONE Stop: 02/22/21 18:07 Last Admin: 02/22/21 18:20 Dose: 20 mg Documented by: Furosemide (Furosemide 20 Mg/2 Ml Vial) 20 mg IV ONETIME ONE Stop: 02/23/21 02:13 Last Admin: 02/23/21 02:20 Dose: 20 mg Documented by: Furosemide (Furosemide 20 Mg/2 Ml Vial) 20 mg IV BIDDIURETIC [facility] Last Admin: 02/25/21 08:19 Dose: 20 mg Documented by: Furosemide (Furosemide 20 Mg/2 Ml Vial) 20 mg IV ONETIME ONE Stop: 02/25/21 08:34 Last Admin: 02/25/21 09:20 Dose: 20 mg Documented by: Gabapentin (Gabapentin 100 Mg Cap) 200 mg PO DAILY [facility] Last Admin: 02/25/21 08:18 Dose: 200 mg Documented by: Gabapentin (Gabapentin 300 Mg Cap) 300 mg PO BEDTIME [facility] Last Admin: 02/24/21 19:18 Dose: 300 mg Documented by: Hydrocortisone (Hydrocortisone 20 Mg Tab) 20 mg PO WITHBREAKFAST [facility] Last Admin: 02/25/21 08:18 Dose: 20 mg Documented by: Hydrocortisone (Hydrocortisone 5 Mg Tab) 10 mg PO DAILY@1700 [facility] Last Admin: 02/24/21 16:31 Dose: 10 mg Documented by: Magnesium Sulfate (Magnesium Sulfate In Water 4 Gm/100 Ml) 4 gm in 100 mls @ 25 mls/hr IV ONETIME ONE Stop: 02/22/21 13:02 Last Admin: 02/22/21 09:50 Dose: 25 mls/hr Documented by: Lorazepam (Lorazepam 0.5 Mg Tab) 0.5 mg PO Q4H PRN PRN Reason: Anxiety Last Admin: 02/24/21 18:30 Dose: 0.5 mg Documented by: Magnesium Oxide (Magnesium Oxide 400 Mg Tab) 400 mg PO BID [facility] Last Admin: 02/25/21 08:19 Dose: 400 mg Documented by: Metoclopramide HCl (Metoclopramide 10 Mg Tab) 10 mg PO TIDAC [facility] Last Admin: 02/25/21 11:48 Dose: 10 mg Documented by: Metoprolol Succinate (Metoprolol Succinate 25 Mg Tab.Er) 12.5 mg PO DAILY [facility] Last Admin: 02/25/21 08:19 Dose: 12.5 mg Documented by: Midodrine (Midodrine 5 Mg Tab) 15 mg PO TID [facility] Last Admin: 02/25/21 11:48 Dose: 15 mg Documented by: Nicotine (Nicotine 7 Mg/24 Hr Patch) 7 mg TRDERM DAILY [facility] Last Admin: 02/25/21 08:33 Dose: Not Given Documented by: Nitroglycerin (Nitroglycerin 0.4 Mg Tab.Sl) 0.4 mg SL ASDIRECTED PRN PRN Reason: Chest Pain Pantoprazole Sodium (Pantoprazole 40 Mg Tab.Cr) 40 mg PO DAILY@0700 [facility] Last Admin: 02/25/21 06:11 Dose: 40 mg Documented by: Paroxetine HCl (Paroxetine 20 Mg Tab) 10 mg PO DAILY [facility] Last Admin: 02/25/21 08:21 Dose: 10 mg Documented by: Polyethylene Glycol (Polyethylene Glycol 3350 Powder 17 Gm Packet) 17 gm PO DAILY PRN PRN Reason: CONSTIPATION Potassium Chloride (Potassium Chloride 10 Meq Tab.Er) 10 meq PO BIDMEALS [facility] Last Admin: 02/22/21 09:54 Dose: 10 meq Documented by: Potassium Chloride (Potassium Chloride 10 Meq Tab.Er) 10 meq PO BID@0800,1700 [facility] Last Admin: 02/24/21 08:59 Dose: Not Given Documented by: Potassium Chloride (Potassium Chloride 10 Meq Tab.Er) 10 meq PO TID [facility] Last Admin: 02/25/21 11:48 Dose: 10 meq Documented by: Fluticasone/Salmeterol (Fluticasone-Salmeterol 55-14 Mcg Powder Inhalent) 1 puff INH BID [facility] Last Admin: 02/25/21 08:27 Dose: 1 puff Documented by: Sodium Chloride (Sodium Chloride 0.9% 10 Ml Syringe) 10 ml FLUSH ASDIRECTED PRN PRN Reason: Keep Vein Open Last Admin: 02/24/21 19:17 Dose: 10 ml Documented by: Tiotropium [place] (Tiotropium [place] 4 Gm Inhalation [place] (2.5mcg/1 Dose; 10 Doses)) 0 gm INH DAILY [facility] Last Admin: 02/25/21 08:27 Dose: 1 gm Documented by: Triamcinolone Acetonide (Triamcinolone Acetonide 0.1% Crm 15 Gm Tube) 0 gm TOP BID [facility] Last Admin: 02/25/21 08:28 Dose: 1 applic Documented by: - Exam Quality Assessment: Reports: Supplemental Oxygen General: Reports: Alert, Oriented, Cooperative HEENT: Reports: Pupils Equal, Pupils Reactive Neck: Reports: Supple, Trachea Midline, No JVD Lungs: Reports: Decreased Breath Sounds, Crackles Cardiovascular: Reports: Regular Rate, Regular Rhythm, Murmurs GI/Abdominal Exam: Normal Bowel Sounds, Soft, Non-Tender Extremities: Pedal Edema (improved at the ankles but 1+ at the ankle). No: Joint Swelling, Leg Pain, Increased Warmth, Mottled, Pallor, Redness Skin: Reports: Warm, Dry, Intact, Ecchymosis Wound/Incisions: Reports: Other (scab to the left heel) Neurological: Reports: Normal Speech (with dentures in ) Psy/Mental Status: Reports: Alert, Normal Affect, Normal Mood
== END 2021-02-25 13:50 | disposition swing bed (61) | DRG 280 ==
LOC: VM.ED 04:55 → VM.MS 07:41
PROVIDERS: ADMIT Internal Medicine; ATTEND Internal Medicine
DX: I21.4 Non-ST elevation (NSTEMI) myocardial infarction (principal); I50.33 Acute on chronic diastolic (congestive) heart failure; N30.00 Acute cystitis without hematuria; E44.0 Moderate protein-calorie malnutrition; E27.40 Unspecified adrenocortical insufficiency; J44.1 Chronic obstructive pulmonary disease with (acute) exacerbation; I11.0 Hypertensive heart disease with heart failure; F41.1 Generalized anxiety disorder; K22.70 Barrett's esophagus without dysplasia; I25.10 Atherosclerotic heart disease of native coronary artery without angina pectoris; J42 Unspecified chronic bronchitis; F32.9 Major depressive disorder, single episode, unspecified; G47.34 Idiopathic sleep related nonobstructive alveolar hypoventilation; K21.9 Gastro-esophageal reflux disease without esophagitis; E78.5 Hyperlipidemia, unspecified; E78.00 Pure hypercholesterolemia, unspecified; Z66 Do not resuscitate; F17.200 Nicotine dependence, unspecified, uncomplicated; E66.9 Obesity, unspecified; G89.29 Other chronic pain; D64.9 Anemia, unspecified; Z20.822 Contact with and (suspected) exposure to COVID-19; Z88.0 Allergy status to penicillin; Z88.1 Allergy status to other antibiotic agents; Z88.8 Allergy status to other drugs, medicaments and biological substances; Z86.16 Personal history of COVID-19; Z79.01 Long term (current) use of anticoagulants; Z79.899 Other long term (current) drug therapy; Z90.710 Acquired absence of both cervix and uterus; Z90.49 Acquired absence of other specified parts of digestive tract; Z98.49 Cataract extraction status, unspecified eye; Z88.5 Allergy status to narcotic agent; Z88.6 Allergy status to analgesic agent; Z68.35 Body mass index [BMI] 35.0-35.9, adult
CPT/HCPCS: 36415; 71045; 80048; 80053; 81001; 83735; 83880; 84484; 85014; 85018; 85025; 85027; 85610; 85730; 87086; 87088; 87186; 93005; 93010; 94640; 94760; 96374; 97110-GP; 97163-GP; 97530-GP; 99284; 99285-25; A9270-GY; J1650; J1940; J3475; J7613-GY; U0002

== ENCOUNTER 2021-02-25 10:16 | Inpatient (IN) | payer MEDICARE, OTHER ==
[2021-02-25] MEDS ORDERED: Sodium Chloride 0.9% 10 ML Syringe FLUSH PRN (12:23)
[2021-02-25] MEDS ORDERED: Albuterol 0.083% 2.5 MG/3 ML Neb Soln NEB PRN (12:23)
[2021-02-25] MEDS: Cefdinir 300 MG Cap PO SCH ×2 (14:14→19:33)
[2021-02-25] MEDS: LORazepam 0.5 MG Tab PO PRN ×2 (14:14→20:49)
[2021-02-25] MEDS: Torsemide 20 MG Tab PO SCH (17:02)
[2021-02-25] MEDS: Metoclopramide 10 MG Tab PO SCH (17:03)
[2021-02-25] MEDS: Doxycycline 100 MG Cap PO SCH (19:32)
[2021-02-25] MEDS: Midodrine 5 MG Tab PO SCH (19:32)
[2021-02-25] MEDS: Cyanocobalamin (Vitamin B12) 1,000 MCG Tab PO SCH (19:33)
[2021-02-25] MEDS: Potassium Chloride 10 MEQ Tab.ER PO SCH (19:33)
[2021-02-25] MEDS: Cholecalciferol (Vitamin D3) 25 MCG Tab PO SCH (19:33)
[2021-02-25] MEDS: Gabapentin 300 MG Cap PO SCH (19:33)
[2021-02-25] MEDS: Magnesium Oxide 400 MG Tab PO SCH (19:33)
[2021-02-25] MEDS: atorvaSTATin 40 MG Tab PO SCH (19:33)
[2021-02-25] MEDS: Fluticasone-Salmeterol 55-14 MCG Powder Inhalent INH SCH (19:43)
[2021-02-25] MEDS: Triamcinolone Acetonide 0.1% Crm 15 GM Tube TOP SCH (19:44)
[2021-02-25] MEDS ORDERED: Cefdinir 300 MG Cap PO SCH (20:00)
[2021-02-25] MEDS: Cyclobenzaprine 10 MG Tab PO PRN (20:49)
[2021-02-26] MEDS: Pantoprazole 40 MG Tab.CR PO SCH (06:13)
[2021-02-26] MEDS: Metoclopramide 10 MG Tab PO SCH ×3 (06:13→19:21)
[2021-02-26] MEDS: Nicotine 7 MG/24 Hr Patch TRDERM SCH ×2 (09:38→12:02)
[2021-02-26] MEDS: Fluticasone-Salmeterol 55-14 MCG Powder Inhalent INH SCH ×2 (09:38→20:01)
[2021-02-26] MEDS: Midodrine 5 MG Tab PO SCH ×4 (09:40→20:03)
[2021-02-26] MEDS: Gabapentin 100 MG Cap PO SCH (09:41)
[2021-02-26] MEDS: Magnesium Oxide 400 MG Tab PO SCH ×2 (09:41→20:04)
[2021-02-26] MEDS: PARoxetine 20 MG Tab PO SCH (09:41)
[2021-02-26] MEDS: DULoxetine 60 MG Cap PO SCH (09:41)
[2021-02-26] MEDS: Cefdinir 300 MG Cap PO SCH ×2 (09:41→20:03)
[2021-02-26] MEDS: Metoprolol Succinate 25 MG Tab.ER PO SCH (09:42)
[2021-02-26] MEDS: Doxycycline 100 MG Cap PO SCH ×2 (09:42→20:02)
[2021-02-26] MEDS: Hydrocortisone 20 MG Tab PO SCH (09:43)
[2021-02-26] MEDS: Clopidogrel 75 MG Tab PO SCH (09:43)
[2021-02-26] MEDS: Torsemide 20 MG Tab PO SCH ×2 (09:44→15:15)
[2021-02-26] MEDS: Potassium Chloride 10 MEQ Tab.ER PO SCH ×3 (09:44→20:04)
[2021-02-26] MEDS: Tiotropium Bromide 4 GM Inhalation Spray (2.5mcg/1 dose; 10 doses) INH SCH (09:46)
[2021-02-26] MEDS: Triamcinolone Acetonide 0.1% Crm 15 GM Tube TOP SCH ×2 (09:47→20:02)
[2021-02-26] MEDS: Acetaminophen/HYDROcodone 325-5 MG Tab PO PRN ×2 (15:15→21:05)
[2021-02-26] MEDS: LORazepam 0.5 MG Tab PO PRN ×2 (15:16→21:06)
[2021-02-26] MEDS: atorvaSTATin 40 MG Tab PO SCH (20:03)
[2021-02-26] MEDS: Cyanocobalamin (Vitamin B12) 1,000 MCG Tab PO SCH (20:03)
[2021-02-26] MEDS: Cholecalciferol (Vitamin D3) 25 MCG Tab PO SCH (20:04)
[2021-02-26] MEDS: Gabapentin 300 MG Cap PO SCH (20:04)
[2021-02-26] MEDS: Cyclobenzaprine 10 MG Tab PO PRN (21:59)
[2021-02-27] MEDS: LORazepam 0.5 MG Tab PO PRN ×3 (00:52→21:10)
[2021-02-27] MEDS: Pantoprazole 40 MG Tab.CR PO SCH (06:20)
[2021-02-27] MEDS: Metoclopramide 10 MG Tab PO SCH ×3 (06:20→16:42)
[2021-02-27] MEDS: Acetaminophen/HYDROcodone 325-10 MG Tab PO PRN (06:24)
[2021-02-27] MEDS: Tiotropium Bromide 4 GM Inhalation Spray (2.5mcg/1 dose; 10 doses) INH SCH (08:24)
[2021-02-27] MEDS: Triamcinolone Acetonide 0.1% Crm 15 GM Tube TOP SCH ×2 (08:24→19:40)
[2021-02-27] MEDS: Fluticasone-Salmeterol 55-14 MCG Powder Inhalent INH SCH ×2 (08:24→19:39)
[2021-02-27] MEDS: Torsemide 20 MG Tab PO SCH ×2 (08:25→16:42)
[2021-02-27] MEDS: DULoxetine 60 MG Cap PO SCH (08:25)
[2021-02-27] MEDS: Potassium Chloride 10 MEQ Tab.ER PO SCH ×3 (08:25→19:38)
[2021-02-27] MEDS: Doxycycline 100 MG Cap PO SCH ×2 (08:26→19:38)
[2021-02-27] MEDS: Gabapentin 100 MG Cap PO SCH (08:26)
[2021-02-27] MEDS: Midodrine 5 MG Tab PO SCH ×3 (08:26→19:39)
[2021-02-27] MEDS: PARoxetine 20 MG Tab PO SCH (08:26)
[2021-02-27] MEDS: Clopidogrel 75 MG Tab PO SCH (08:27)
[2021-02-27] MEDS: Magnesium Oxide 400 MG Tab PO SCH ×2 (08:27→19:39)
[2021-02-27] MEDS: Cyclobenzaprine 10 MG Tab PO PRN ×3 (08:27→21:10)
[2021-02-27] MEDS: Hydrocortisone 20 MG Tab PO SCH (08:27)
[2021-02-27] MEDS: Metoprolol Succinate 25 MG Tab.ER PO SCH (08:27)
[2021-02-27] MEDS: Cefdinir 300 MG Cap PO SCH ×2 (08:27→19:39)
[2021-02-27] MEDS: Nicotine 7 MG/24 Hr Patch TRDERM SCH (08:32)
[2021-02-27] MEDS: Acetaminophen/HYDROcodone 325-5 MG Tab PO PRN (12:08)
--- NOTE | 2021-02-27 13:56 | PN ---
Progress Note for BOB BARONE Date: 02/27/2021 Room #: VM.204 SUBJECTIVE: This is a 70-year-old on swing bed after an acute stay for heart failure and a [id number]-[id number] CO. The patient has been feeling well without any shortness of breath. She has diuresed very well over 2 L the last couple of days, even on the oral diuretics. She has been eating well. She was a little anxious yesterday about missing her appointment in the clinic, however, that had been rescheduled and her lab work is planned for Monday. She is having a little bit of left leg pain, but it feels better when holding it over the bed. She has a longstanding history of an ischemic leg, but due to her other health problems, she has not been found to be a good candidate for surgery. She has not had any chest pain. OBJECTIVE: Vital Signs: Her weight is 85.2 kg, temp 97.6, pulse 80, blood pressure 128/86, respiratory rate 18, and O2 of 97% on 2 L. General: She is in no acute distress. She is resting comfortably in bed. Her mental status is alert and orientated x3. Answering questions. Heart: Regular rate and rhythm with murmur. Lungs: Lung sounds are clear to auscultation today without crackles or wheezes. Extremities: Warm and dry. That left leg is slightly cool, but unchanged from past clinic visits. There are no open sores. Her heel actually overall is doing better on the left side. She has been receiving just one pain pill per day, which is less than she normally uses. She also has not had any nebulizer in the past 24 hours. ASSESSMENT AND PLAN: 1. Acute diastolic heart failure exacerbation and [id number] myocardial infarction with known ejection fraction of 50%. 2. Urinary tract infection, treated. 3. Chronic obstructive pulmonary disease exacerbation, on doxycycline. Last dose was today. 4. Anxiety. She did get an Ativan this morning. She has it available p.r.n. 5. Chronic pain. 6. Gastroesophageal reflux disease and Mittal's esophagus. 7. Known coronary artery disease, not a candidate for coronary artery bypass graft. 8. Depression. 9. Chronic hypoxia. She is on oxygen. 10.Smoker at home. 11.Peripheral vascular disease. The patient will continue on swing bed cares and working with therapy. She feels like her right leg weakness is related to her chronic back pain. She has had multiple surgeries. She has had multiple previous hospitalizations for heart failure ever since she had COVID. She is hoping she can return home when she completes her swing bed. Lab work is planned for Monday. MKA: 02/27/2021 13:29:39 MODL: 02/27/2021 13:51:25 /[id number]
[2021-02-27] MEDS: Cholecalciferol (Vitamin D3) 25 MCG Tab PO SCH (19:38)
[2021-02-27] MEDS: Cyanocobalamin (Vitamin B12) 1,000 MCG Tab PO SCH (19:38)
[2021-02-27] MEDS: atorvaSTATin 40 MG Tab PO SCH (19:39)
[2021-02-27] MEDS: Gabapentin 300 MG Cap PO SCH (19:39)
[2021-02-28] MEDS: Pantoprazole 40 MG Tab.CR PO SCH (06:35)
[2021-02-28] MEDS: Metoclopramide 10 MG Tab PO SCH ×3 (06:35→17:52)
[2021-02-28] MEDS: Hydrocortisone 20 MG Tab PO SCH (08:33)
[2021-02-28] MEDS: Gabapentin 100 MG Cap PO SCH (08:33)
[2021-02-28] MEDS: Cyclobenzaprine 10 MG Tab PO PRN ×3 (08:33→20:52)
[2021-02-28] MEDS: Torsemide 20 MG Tab PO SCH ×2 (08:33→15:45)
[2021-02-28] MEDS: DULoxetine 60 MG Cap PO SCH (08:33)
[2021-02-28] MEDS: Clopidogrel 75 MG Tab PO SCH (08:33)
[2021-02-28] MEDS: Metoprolol Succinate 25 MG Tab.ER PO SCH (08:34)
[2021-02-28] MEDS: PARoxetine 20 MG Tab PO SCH (08:34)
[2021-02-28] MEDS: Potassium Chloride 10 MEQ Tab.ER PO SCH ×3 (08:34→20:52)
[2021-02-28] MEDS: Midodrine 5 MG Tab PO SCH ×3 (08:34→20:50)
[2021-02-28] MEDS: Magnesium Oxide 400 MG Tab PO SCH ×2 (08:34→20:52)
[2021-02-28] MEDS: LORazepam 0.5 MG Tab PO PRN ×3 (08:35→20:51)
[2021-02-28] MEDS: Triamcinolone Acetonide 0.1% Crm 15 GM Tube TOP SCH (08:36)
[2021-02-28] MEDS: Tiotropium Bromide 4 GM Inhalation Spray (2.5mcg/1 dose; 10 doses) INH SCH (08:37)
[2021-02-28] MEDS: Nicotine 7 MG/24 Hr Patch TRDERM SCH (08:37)
[2021-02-28] MEDS: Fluticasone-Salmeterol 55-14 MCG Powder Inhalent INH SCH (08:38)
[2021-02-28] MEDS: Acetaminophen/HYDROcodone 325-5 MG Tab PO PRN ×3 (10:09→20:59)
[2021-02-28] MEDS: Gabapentin 300 MG Cap PO SCH (20:50)
[2021-02-28] MEDS: Cholecalciferol (Vitamin D3) 25 MCG Tab PO SCH (20:50)
[2021-02-28] MEDS: atorvaSTATin 40 MG Tab PO SCH (20:51)
[2021-02-28] MEDS: Cyanocobalamin (Vitamin B12) 1,000 MCG Tab PO SCH (20:51)
[2021-03-01] MEDS: Triamcinolone Acetonide 0.1% Crm 15 GM Tube TOP SCH ×3 (01:39→20:16)
[2021-03-01] MEDS: Fluticasone-Salmeterol 55-14 MCG Powder Inhalent INH SCH ×3 (01:39→20:10)
[2021-03-01] MEDS: Pantoprazole 40 MG Tab.CR PO SCH (06:08)
[2021-03-01] MEDS: Metoclopramide 10 MG Tab PO SCH ×3 (06:08→17:14)
[2021-03-01 07:52] LABS: CHLORIDE,CL 97 mmol/L (98-107); SODIUM,NA 140 mmol/L (136-145)
[2021-03-01] MEDS: Torsemide 20 MG Tab PO SCH ×2 (08:42→17:14)
[2021-03-01] MEDS: Tiotropium Bromide 4 GM Inhalation Spray (2.5mcg/1 dose; 10 doses) INH SCH (08:42)
[2021-03-01] MEDS: LORazepam 0.5 MG Tab PO PRN (08:42)
[2021-03-01] MEDS: PARoxetine 20 MG Tab PO SCH (08:43)
[2021-03-01] MEDS: Hydrocortisone 20 MG Tab PO SCH (08:43)
[2021-03-01] MEDS: Gabapentin 100 MG Cap PO SCH (08:43)
[2021-03-01] MEDS: Magnesium Oxide 400 MG Tab PO SCH ×2 (08:43→20:08)
[2021-03-01] MEDS: Cyclobenzaprine 10 MG Tab PO PRN (08:44)
[2021-03-01] MEDS: Metoprolol Succinate 25 MG Tab.ER PO SCH (08:44)
[2021-03-01] MEDS: Midodrine 5 MG Tab PO SCH ×3 (08:44→20:09)
[2021-03-01] MEDS: Clopidogrel 75 MG Tab PO SCH (08:44)
[2021-03-01] MEDS: DULoxetine 60 MG Cap PO SCH (08:45)
[2021-03-01] MEDS: Potassium Chloride 10 MEQ Tab.ER PO SCH ×3 (08:45→20:08)
[2021-03-01] MEDS: Nicotine 7 MG/24 Hr Patch TRDERM SCH (08:46)
[2021-03-01] MEDS: Acetaminophen/HYDROcodone 325-5 MG Tab PO PRN ×2 (11:55→17:14)
[2021-03-01] MEDS: Cyanocobalamin (Vitamin B12) 1,000 MCG Tab PO SCH (20:09)
[2021-03-01] MEDS: Gabapentin 300 MG Cap PO SCH (20:09)
[2021-03-01] MEDS: Cholecalciferol (Vitamin D3) 25 MCG Tab PO SCH (20:09)
[2021-03-01] MEDS: atorvaSTATin 40 MG Tab PO SCH (20:09)
[2021-03-02] MEDS: Acetaminophen/HYDROcodone 325-10 MG Tab PO PRN ×2 (06:11→19:59)
[2021-03-02] MEDS: Pantoprazole 40 MG Tab.CR PO SCH (06:12)
[2021-03-02] MEDS: Metoclopramide 10 MG Tab PO SCH ×3 (06:12→17:05)
[2021-03-02] MEDS: PARoxetine 20 MG Tab PO SCH (09:08)
[2021-03-02] MEDS: Midodrine 5 MG Tab PO SCH ×3 (09:08→19:59)
[2021-03-02] MEDS: Torsemide 20 MG Tab PO SCH ×2 (09:09→15:32)
[2021-03-02] MEDS: Potassium Chloride 10 MEQ Tab.ER PO SCH ×3 (09:09→20:00)
[2021-03-02] MEDS: DULoxetine 60 MG Cap PO SCH (09:10)
[2021-03-02] MEDS: Hydrocortisone 20 MG Tab PO SCH (09:10)
[2021-03-02] MEDS: Magnesium Oxide 400 MG Tab PO SCH ×2 (09:10→19:59)
[2021-03-02] MEDS: Gabapentin 100 MG Cap PO SCH (09:10)
[2021-03-02] MEDS: Metoprolol Succinate 25 MG Tab.ER PO SCH (09:10)
[2021-03-02] MEDS: Clopidogrel 75 MG Tab PO SCH (09:10)
[2021-03-02] MEDS: Tiotropium Bromide 4 GM Inhalation Spray (2.5mcg/1 dose; 10 doses) INH SCH (09:12)
[2021-03-02] MEDS: Fluticasone-Salmeterol 55-14 MCG Powder Inhalent INH SCH ×2 (09:12→20:04)
[2021-03-02] MEDS: Triamcinolone Acetonide 0.1% Crm 15 GM Tube TOP SCH ×2 (09:15→20:05)
[2021-03-02] MEDS: Nicotine 7 MG/24 Hr Patch TRDERM SCH (09:15)
[2021-03-02] MEDS: LORazepam 0.5 MG Tab PO PRN ×2 (09:18→19:58)
[2021-03-02] MEDS: Polyethylene Glycol 3350 Powder 17 GM Packet PO PRN (15:32)
[2021-03-02] MEDS: Gabapentin 300 MG Cap PO SCH (19:59)
[2021-03-02] MEDS: Cyanocobalamin (Vitamin B12) 1,000 MCG Tab PO SCH (19:59)
[2021-03-02] MEDS: Cholecalciferol (Vitamin D3) 25 MCG Tab PO SCH (19:59)
[2021-03-02] MEDS: atorvaSTATin 40 MG Tab PO SCH (20:05)
[2021-03-03] MEDS: Metoclopramide 10 MG Tab PO SCH ×3 (06:01→16:12)
[2021-03-03] MEDS: Pantoprazole 40 MG Tab.CR PO SCH (06:01)
[2021-03-03] MEDS: Hydrocortisone 20 MG Tab PO SCH (08:05)
[2021-03-03] MEDS: Gabapentin 100 MG Cap PO SCH (08:05)
[2021-03-03] MEDS: PARoxetine 20 MG Tab PO SCH (08:05)
[2021-03-03] MEDS: Potassium Chloride 10 MEQ Tab.ER PO SCH ×3 (08:06→20:45)
[2021-03-03] MEDS: Midodrine 5 MG Tab PO SCH ×3 (08:06→20:46)
[2021-03-03] MEDS: Torsemide 20 MG Tab PO SCH ×2 (08:06→16:12)
[2021-03-03] MEDS: DULoxetine 60 MG Cap PO SCH (08:06)
[2021-03-03] MEDS: Clopidogrel 75 MG Tab PO SCH (08:06)
[2021-03-03] MEDS: Magnesium Oxide 400 MG Tab PO SCH ×2 (08:06→20:47)
[2021-03-03] MEDS: Metoprolol Succinate 25 MG Tab.ER PO SCH (08:07)
[2021-03-03] MEDS: Tiotropium Bromide 4 GM Inhalation Spray (2.5mcg/1 dose; 10 doses) INH SCH (08:08)
[2021-03-03] MEDS: Fluticasone-Salmeterol 55-14 MCG Powder Inhalent INH SCH ×2 (08:08→20:44)
[2021-03-03] MEDS: Nicotine 7 MG/24 Hr Patch TRDERM SCH (08:08)
[2021-03-03] MEDS: Triamcinolone Acetonide 0.1% Crm 15 GM Tube TOP SCH ×2 (08:09→20:46)
[2021-03-03] MEDS: Acetaminophen/HYDROcodone 325-5 MG Tab PO PRN ×2 (08:14→14:35)
[2021-03-03] MEDS: Cyclobenzaprine 10 MG Tab PO PRN ×2 (14:34→22:02)
--- NOTE | 2021-03-03 17:06 | PN ---
Progress Note for BOB BARONE Date: 03/03/2021 Room #: VM.204 SUBJECTIVE: This is a 70-year-old on swing bed after recurrent admissions for bowel obstructions and a [id number] SC with CHF. The patient has not had any chest pain. Her breathing has been real good. Her blood pressures have been excellent on her midodrine titrated down to 10 mg three times a day. Her weight in fact has gone down 5 kg since admission. Her swelling is better. The patient is scheduled for outpatient angiogram due to the severe peripheral vascular disease in the left leg on Monday. She had lab work for this earlier in the week that all looks stable. The patient has been on higher doses of Demadex than she was at home and is tolerating it here, 40 mg twice daily. The patient is eating at least 75% of her meals. OBJECTIVE: Vital Signs: Temperature 97.8, pulse 78, blood pressure 126/77, respiratory rate 16, and O2 of 98% on room air. Weight 80.7 kg. General: She is in no acute distress. Heart: Regular rate and rhythm. S1, S2 with murmur noted. Lungs: Lung sounds are clear to auscultation bilaterally without crackles or wheezes. Extremities: Warm and dry. She still has 1+ edema in that left foot. No swelling at the ankle. No swelling in the right leg. She is having warmth of both extremities. No worsening of her heel scabs. Mental Status: She is alert and oriented x3, but it has been reported by nursing that she has been forgetful about some appointments when they are scheduled and asking multiple questions about that. ASSESSMENT AND PLAN: 1. Acute on chronic diastolic heart failure exacerbation with known ejection fraction 50%. 2. Pfd-OD-ntqhbfocp myocardial infarction, on medical management. 3. Urinary tract infection, treated, completed antibiotics. 4. Chronic obstructive pulmonary disease with recent exacerbation, treated with doxycycline. 5. Anxiety. She has p.r.n. medications available. 6. Chronic pain. The patient has actually been doing quite well with using less Flexeril, usually just once a day; and less [place] than she would at home, usually only a couple a day of the 5 mg dose or a couple of the 10 mg per day. So, no more than two doses of pain pills a day. She has not used any of the p.r.n. nebulizers also for her chronic obstructive pulmonary disease. 7. Gastroesophageal reflux disease. She is on reflux medications. She is also on Reglan. 8. Coronary artery disease. She is on medical management. 9. Obesity. 10.Smoking. She is not smoking while inpatient. 11.Depression, on home medications. 12.Chronic hypoxia. She is on oxygen. 13.Peripheral vascular disease. She has appropriate followups with her surgeon this week. The patient will continue swing bed cares. She has recently been discontinued from OT Services. Her right leg pain weakness is improving and she is still under PT Services with no discharge date yet on file. The patient was updated of this plan. We will get some lab work again tomorrow. We will cut down on the midodrine to 5 mg t.i.d. If she does well, we will try to further taper off this and eventually get her back to lower doses of fludrocortisone with Endocrinology collaboration. MKA: 03/03/2021 16:43:07 MODL: 03/03/2021 16:59:12 /[id number]
[2021-03-03] MEDS: atorvaSTATin 40 MG Tab PO SCH (20:45)
[2021-03-03] MEDS: Gabapentin 300 MG Cap PO SCH (20:46)
[2021-03-03] MEDS: Cholecalciferol (Vitamin D3) 25 MCG Tab PO SCH (20:47)
[2021-03-03] MEDS: Cyanocobalamin (Vitamin B12) 1,000 MCG Tab PO SCH (20:47)
[2021-03-03] MEDS: Polyethylene Glycol 3350 Powder 17 GM Packet PO PRN (20:47)
[2021-03-03] MEDS: LORazepam 0.5 MG Tab PO PRN (20:58)
[2021-03-03] MEDS: Acetaminophen/HYDROcodone 325-10 MG Tab PO PRN (22:02)
[2021-03-04] MEDS: Pantoprazole 40 MG Tab.CR PO SCH (06:32)
[2021-03-04] MEDS: Metoclopramide 10 MG Tab PO SCH ×3 (06:32→16:58)
[2021-03-04 07:12] LABS: CHLORIDE,CL 100 mmol/L (98-107); SODIUM,NA 142 mmol/L (136-145)
[2021-03-04 07:16] LABS: ANION GAP 5.3 mmol/L (5-15)
[2021-03-04] MEDS: Potassium Chloride 10 MEQ Tab.ER PO SCH ×3 (09:17→20:17)
[2021-03-04] MEDS: Fluticasone-Salmeterol 55-14 MCG Powder Inhalent INH SCH ×2 (09:17→20:16)
[2021-03-04] MEDS: Clopidogrel 75 MG Tab PO SCH (09:18)
[2021-03-04] MEDS: Hydrocortisone 20 MG Tab PO SCH (09:18)
[2021-03-04] MEDS: Midodrine 5 MG Tab PO SCH ×3 (09:18→20:17)
[2021-03-04] MEDS: Triamcinolone Acetonide 0.1% Crm 15 GM Tube TOP SCH ×2 (09:18→20:16)
[2021-03-04] MEDS: Magnesium Oxide 400 MG Tab PO SCH ×2 (09:18→20:17)
[2021-03-04] MEDS: Torsemide 20 MG Tab PO SCH ×2 (09:18→16:58)
[2021-03-04] MEDS: Tiotropium Bromide 4 GM Inhalation Spray (2.5mcg/1 dose; 10 doses) INH SCH (09:18)
[2021-03-04] MEDS: Gabapentin 100 MG Cap PO SCH (09:18)
[2021-03-04] MEDS: DULoxetine 60 MG Cap PO SCH (09:19)
[2021-03-04] MEDS: Nicotine 7 MG/24 Hr Patch TRDERM SCH (09:19)
[2021-03-04] MEDS: PARoxetine 20 MG Tab PO SCH (09:19)
[2021-03-04] MEDS: Polyethylene Glycol 3350 Powder 17 GM Packet PO PRN (09:19)
[2021-03-04] MEDS: Metoprolol Succinate 25 MG Tab.ER PO SCH (09:25)
[2021-03-04] MEDS: Acetaminophen/HYDROcodone 325-5 MG Tab PO PRN (14:04)
--- NOTE | 2021-03-04 16:55 | CR ---
[id number] RAD/RAD Foot Left 2V EXAM: RAD Foot Left 2V CLINICAL DATA: LEFT FOOT PAIN COMPARISON: No previous similar exam is available. FINDINGS: No fracture or dislocation is seen. There is no radiopaque foreign body in the soft tissues. There is no air in the soft tissues. There is no cortical thickening or periosteal reaction either. IMPRESSION: NEGATIVE PLAIN FILM EXAM. Brandon Coronado MD 03/04/21 [id number] Thank you for allowing us to participate in the care of your patient.
[2021-03-04] MEDS: Cyclobenzaprine 10 MG Tab PO PRN (20:16)
[2021-03-04] MEDS: Cyanocobalamin (Vitamin B12) 1,000 MCG Tab PO SCH (20:17)
[2021-03-04] MEDS: atorvaSTATin 40 MG Tab PO SCH (20:17)
[2021-03-04] MEDS: Gabapentin 300 MG Cap PO SCH (20:17)
[2021-03-04] MEDS: LORazepam 0.5 MG Tab PO PRN (20:17)
[2021-03-04] MEDS: Cholecalciferol (Vitamin D3) 25 MCG Tab PO SCH (20:17)
[2021-03-05] MEDS: Gabapentin 100 MG Cap PO SCH ×2 (04:22→09:29)
[2021-03-05] MEDS: Hydrocortisone 20 MG Tab PO SCH ×2 (04:22→09:28)
[2021-03-05] MEDS: Midodrine 5 MG Tab PO SCH ×4 (04:22→20:06)
[2021-03-05] MEDS: DULoxetine 60 MG Cap PO SCH ×2 (04:22→09:28)
[2021-03-05] MEDS: Pantoprazole 40 MG Tab.CR PO SCH ×2 (04:23→06:58)
[2021-03-05] MEDS: Metoclopramide 10 MG Tab PO SCH ×4 (04:23→16:50)
[2021-03-05] MEDS: Torsemide 20 MG Tab PO SCH ×3 (04:23→16:50)
[2021-03-05] MEDS: Magnesium Oxide 400 MG Tab PO SCH ×3 (04:28→20:06)
[2021-03-05] MEDS: PARoxetine 20 MG Tab PO SCH ×2 (04:28→09:29)
[2021-03-05] MEDS: Metoprolol Succinate 25 MG Tab.ER PO SCH ×2 (04:32→09:26)
[2021-03-05] MEDS: Fluticasone-Salmeterol 55-14 MCG Powder Inhalent INH SCH ×3 (04:36→20:07)
[2021-03-05] MEDS: Tiotropium Bromide 4 GM Inhalation Spray (2.5mcg/1 dose; 10 doses) INH SCH ×2 (04:37→09:29)
[2021-03-05] MEDS: Nicotine 7 MG/24 Hr Patch TRDERM SCH (09:28)
[2021-03-05] MEDS: Potassium Chloride 10 MEQ Tab.ER PO SCH ×3 (09:32→20:05)
[2021-03-05] MEDS: Clopidogrel 75 MG Tab PO SCH (09:33)
[2021-03-05] MEDS: Triamcinolone Acetonide 0.1% Crm 15 GM Tube TOP SCH ×2 (09:34→20:08)
[2021-03-05] MEDS: Cyclobenzaprine 10 MG Tab PO PRN ×2 (12:12→20:08)
[2021-03-05] MEDS: Acetaminophen/HYDROcodone 325-5 MG Tab PO PRN ×2 (12:12→16:50)
[2021-03-05] MEDS: Gabapentin 300 MG Cap PO SCH (20:05)
[2021-03-05] MEDS: Cyanocobalamin (Vitamin B12) 1,000 MCG Tab PO SCH (20:06)
[2021-03-05] MEDS: atorvaSTATin 40 MG Tab PO SCH (20:06)
[2021-03-05] MEDS: Cholecalciferol (Vitamin D3) 25 MCG Tab PO SCH (20:06)
[2021-03-05] MEDS: LORazepam 0.5 MG Tab PO PRN (20:07)
[2021-03-06] MEDS: Pantoprazole 40 MG Tab.CR PO SCH (06:11)
[2021-03-06] MEDS: Metoclopramide 10 MG Tab PO SCH ×3 (06:11→17:25)
[2021-03-06] MEDS: Fluticasone-Salmeterol 55-14 MCG Powder Inhalent INH SCH ×2 (08:58→20:17)
[2021-03-06] MEDS: Tiotropium Bromide 4 GM Inhalation Spray (2.5mcg/1 dose; 10 doses) INH SCH (08:58)
[2021-03-06] MEDS: Acetaminophen/HYDROcodone 325-5 MG Tab PO PRN ×3 (08:58→21:33)
[2021-03-06] MEDS: Gabapentin 100 MG Cap PO SCH (08:59)
[2021-03-06] MEDS: Hydrocortisone 20 MG Tab PO SCH (08:59)
[2021-03-06] MEDS: Clopidogrel 75 MG Tab PO SCH (08:59)
[2021-03-06] MEDS: PARoxetine 20 MG Tab PO SCH (08:59)
[2021-03-06] MEDS: Midodrine 5 MG Tab PO SCH ×3 (08:59→20:14)
[2021-03-06] MEDS: Torsemide 20 MG Tab PO SCH ×2 (09:00→17:25)
[2021-03-06] MEDS: Magnesium Oxide 400 MG Tab PO SCH ×2 (09:00→20:14)
[2021-03-06] MEDS: Potassium Chloride 10 MEQ Tab.ER PO SCH ×3 (09:00→20:14)
[2021-03-06] MEDS: Cyclobenzaprine 10 MG Tab PO PRN ×2 (09:00→17:25)
[2021-03-06] MEDS: Metoprolol Succinate 25 MG Tab.ER PO SCH (09:01)
[2021-03-06] MEDS: DULoxetine 60 MG Cap PO SCH (09:01)
[2021-03-06] MEDS: Triamcinolone Acetonide 0.1% Crm 15 GM Tube TOP SCH ×2 (09:02→20:15)
[2021-03-06] MEDS: Nicotine 7 MG/24 Hr Patch TRDERM SCH (09:02)
[2021-03-06] MEDS: Cholecalciferol (Vitamin D3) 25 MCG Tab PO SCH (20:13)
[2021-03-06] MEDS: atorvaSTATin 40 MG Tab PO SCH (20:13)
[2021-03-06] MEDS: Gabapentin 300 MG Cap PO SCH (20:13)
[2021-03-06] MEDS: Cyanocobalamin (Vitamin B12) 1,000 MCG Tab PO SCH (20:14)
[2021-03-06] MEDS: LORazepam 0.5 MG Tab PO PRN (20:17)
[2021-03-07] MEDS: Pantoprazole 40 MG Tab.CR PO SCH (06:07)
[2021-03-07] MEDS: Metoclopramide 10 MG Tab PO SCH ×3 (06:07→17:36)
[2021-03-07] MEDS: Triamcinolone Acetonide 0.1% Crm 15 GM Tube TOP SCH ×2 (08:59→20:03)
[2021-03-07] MEDS: Fluticasone-Salmeterol 55-14 MCG Powder Inhalent INH SCH ×2 (08:59→20:03)
[2021-03-07] MEDS: Tiotropium Bromide 4 GM Inhalation Spray (2.5mcg/1 dose; 10 doses) INH SCH (08:59)
[2021-03-07] MEDS: Acetaminophen/HYDROcodone 325-5 MG Tab PO PRN ×3 (09:00→20:06)
[2021-03-07] MEDS: Torsemide 20 MG Tab PO SCH ×2 (09:00→17:35)
[2021-03-07] MEDS: Cyclobenzaprine 10 MG Tab PO PRN ×3 (09:00→20:04)
[2021-03-07] MEDS: Gabapentin 100 MG Cap PO SCH (09:00)
[2021-03-07] MEDS: Magnesium Oxide 400 MG Tab PO SCH ×2 (09:00→20:08)
[2021-03-07] MEDS: Metoprolol Succinate 25 MG Tab.ER PO SCH (09:01)
[2021-03-07] MEDS: PARoxetine 20 MG Tab PO SCH (09:02)
[2021-03-07] MEDS: DULoxetine 60 MG Cap PO SCH (09:02)
[2021-03-07] MEDS: Clopidogrel 75 MG Tab PO SCH (09:02)
[2021-03-07] MEDS: Potassium Chloride 10 MEQ Tab.ER PO SCH ×3 (09:02→20:04)
[2021-03-07] MEDS: Hydrocortisone 20 MG Tab PO SCH (09:02)
[2021-03-07] MEDS: Midodrine 5 MG Tab PO SCH ×3 (09:02→20:07)
[2021-03-07] MEDS: Nicotine 7 MG/24 Hr Patch TRDERM SCH (09:03)
[2021-03-07] MEDS: Gabapentin 300 MG Cap PO SCH (20:04)
[2021-03-07] MEDS: atorvaSTATin 40 MG Tab PO SCH (20:04)
[2021-03-07] MEDS: Cyanocobalamin (Vitamin B12) 1,000 MCG Tab PO SCH (20:04)
[2021-03-07] MEDS: Cholecalciferol (Vitamin D3) 25 MCG Tab PO SCH (20:05)
[2021-03-07] MEDS: LORazepam 0.5 MG Tab PO PRN (20:07)
[2021-03-08] MEDS: Metoclopramide 10 MG Tab PO SCH ×3 (05:59→16:24)
[2021-03-08] MEDS: Pantoprazole 40 MG Tab.CR PO SCH (05:59)
[2021-03-08] MEDS: Acetaminophen/HYDROcodone 325-5 MG Tab PO PRN ×3 (08:43→20:26)
[2021-03-08] MEDS: Gabapentin 100 MG Cap PO SCH (08:43)
[2021-03-08] MEDS: Potassium Chloride 10 MEQ Tab.ER PO SCH ×3 (08:43→20:25)
[2021-03-08] MEDS: Magnesium Oxide 400 MG Tab PO SCH ×2 (08:44→20:25)
[2021-03-08] MEDS: Clopidogrel 75 MG Tab PO SCH (08:44)
[2021-03-08] MEDS: PARoxetine 20 MG Tab PO SCH (08:44)
[2021-03-08] MEDS: Metoprolol Succinate 25 MG Tab.ER PO SCH (08:44)
[2021-03-08] MEDS: Hydrocortisone 20 MG Tab PO SCH (08:45)
[2021-03-08] MEDS: Cyclobenzaprine 10 MG Tab PO PRN ×2 (08:45→20:25)
[2021-03-08] MEDS: Midodrine 5 MG Tab PO SCH ×3 (08:45→20:25)
[2021-03-08] MEDS: DULoxetine 60 MG Cap PO SCH (08:45)
[2021-03-08] MEDS: Nicotine 7 MG/24 Hr Patch TRDERM SCH (08:46)
[2021-03-08] MEDS: Fluticasone-Salmeterol 55-14 MCG Powder Inhalent INH SCH ×2 (08:48→20:24)
[2021-03-08] MEDS: Tiotropium Bromide 4 GM Inhalation Spray (2.5mcg/1 dose; 10 doses) INH SCH (08:48)
[2021-03-08] MEDS: Triamcinolone Acetonide 0.1% Crm 15 GM Tube TOP SCH ×2 (08:49→20:24)
[2021-03-08] MEDS: Torsemide 20 MG Tab PO SCH ×2 (08:57→16:24)
[2021-03-08] MEDS: Gabapentin 300 MG Cap PO SCH (20:24)
[2021-03-08] MEDS: atorvaSTATin 40 MG Tab PO SCH (20:24)
[2021-03-08] MEDS: Cholecalciferol (Vitamin D3) 25 MCG Tab PO SCH (20:25)
[2021-03-08] MEDS: LORazepam 0.5 MG Tab PO PRN (20:25)
[2021-03-08] MEDS: Cyanocobalamin (Vitamin B12) 1,000 MCG Tab PO SCH (20:25)
[2021-03-09] MEDS: Metoclopramide 10 MG Tab PO SCH ×3 (06:40→16:57)
[2021-03-09] MEDS: Pantoprazole 40 MG Tab.CR PO SCH (06:40)
[2021-03-09] MEDS: Fluticasone-Salmeterol 55-14 MCG Powder Inhalent INH SCH ×2 (08:35→19:46)
[2021-03-09] MEDS: Tiotropium Bromide 4 GM Inhalation Spray (2.5mcg/1 dose; 10 doses) INH SCH (08:35)
[2021-03-09] MEDS: DULoxetine 60 MG Cap PO SCH (08:36)
[2021-03-09] MEDS: Gabapentin 100 MG Cap PO SCH (08:36)
[2021-03-09] MEDS: Triamcinolone Acetonide 0.1% Crm 15 GM Tube TOP SCH ×2 (08:36→19:47)
[2021-03-09] MEDS: Torsemide 20 MG Tab PO SCH ×2 (08:36→16:57)
[2021-03-09] MEDS: Midodrine 5 MG Tab PO SCH (08:37)
[2021-03-09] MEDS: Potassium Chloride 10 MEQ Tab.ER PO SCH ×3 (08:37→19:41)
[2021-03-09] MEDS: Magnesium Oxide 400 MG Tab PO SCH ×2 (08:37→19:44)
[2021-03-09] MEDS: Clopidogrel 75 MG Tab PO SCH (08:37)
[2021-03-09] MEDS: PARoxetine 20 MG Tab PO SCH (08:37)
[2021-03-09] MEDS: Hydrocortisone 20 MG Tab PO SCH (08:38)
[2021-03-09] MEDS: Metoprolol Succinate 25 MG Tab.ER PO SCH (08:38)
[2021-03-09] MEDS: Cyclobenzaprine 10 MG Tab PO PRN ×2 (08:38→21:21)
[2021-03-09] MEDS: Acetaminophen/HYDROcodone 325-5 MG Tab PO PRN ×3 (08:38→19:44)
[2021-03-09] MEDS: Nicotine 7 MG/24 Hr Patch TRDERM SCH (08:39)
--- NOTE | 2021-03-09 10:44 | PN ---
Progress Note for BOB BARONE Date: 03/09/2021 Room #: VM.204 SUBJECTIVE: This is a 70-year-old on swing bed due to weakness after an admission for heart failure and nxa-AA-lronkhcru [place]. She had recurrent admissions for similar illnesses. She is doing well here. Strength is coming back. She is eating 100% of her meals. She continues to have some left heel pain and was supposed to have an angiogram for that Monday. However, she had drank some coffee with creamer, so was sent back. Blood pressures are actually higher today. She had been weaned down on her midodrine to 5 mg twice daily. She is not lightheaded. She is not short of breath. She is not dizzy. OBJECTIVE: Vital Signs: Her temperature is 97.8, pulse 80, blood pressure 140/94, respiratory rate 15, and O2 of 98% on 2.5 L. Weight is 80.4 kg. General: She is in no acute distress. Heart: Regular rate and rhythm with murmur. Lungs: Lung sounds are clear to auscultation bilaterally without crackles or wheezes. Extremities: Warm and dry. She has 3+ edema over that foot and 1+ at the ankle. She does tend to hang that left leg over the bed probably due to her claudication. She also has just trace edema to the right ankle. She has been slightly anxious. She is getting Ativan about once a day. She is taking her [place] the 5 mg dose about 3 times a day for pain control. She has not used the 10 mg dose. ASSESSMENT: 1. Nbi-OA-imygmolnx myocardial infarction and acute on chronic diastolic heart failure exacerbation with ejection fraction of 50%. She is doing well. Continue with the same Demadex doses of 40 mg twice daily. She will be due for lab work around 03/19 prior to her next angiogram. 2. Urinary tract infection, treated. Completed antibiotics. 3. Peripheral vascular disease, scheduled for an angiogram on 03/26. The patient will likely be discharged home by then. 4. Chronic obstructive pulmonary disease with recent exacerbation, treated. She finished doxycycline. She is on her nebulizers. 5. Anxiety. She has p.r.n. Ativan available. She is not overusing it. 6. Chronic pain. She is on her home pain medication. She also has Flexeril available. 7. Gastroesophageal reflux disease. She is on home medications. 8. Coronary artery disease, on medical management. 9. Obesity. 10.Smoking. She has been off cigarettes while inpatient. 11.Depression, on home medications. 12.Chronic hypoxia, on oxygen. 13.Adrenal insufficiency, on steroids and midodrine. PLAN: At this point, blood pressures have been very acceptable, even high today. I had already talked to her about titrating down the midodrine. We are going to try just 5 mg only today. She is still on her same steroids. She will continue working with therapies. She will have lab work next week. No further wound cares needed to that left heel. If I neglected to mention it in exam, it is just a very small 3 mm, just scab. No ulcer. MKA: 03/09/2021 09:18:03 MODL: 03/09/2021 10:37:06 /[id number]
[2021-03-09] MEDS: atorvaSTATin 40 MG Tab PO SCH (19:43)
[2021-03-09] MEDS: Gabapentin 300 MG Cap PO SCH (19:43)
[2021-03-09] MEDS: Cholecalciferol (Vitamin D3) 25 MCG Tab PO SCH (19:43)
[2021-03-09] MEDS: Cyanocobalamin (Vitamin B12) 1,000 MCG Tab PO SCH (19:43)
[2021-03-09] MEDS: LORazepam 0.5 MG Tab PO PRN (21:21)
[2021-03-10] MEDS: Pantoprazole 40 MG Tab.CR PO SCH (06:29)
[2021-03-10] MEDS: Metoclopramide 10 MG Tab PO SCH ×3 (06:29→16:15)
[2021-03-10] MEDS: Tiotropium Bromide 4 GM Inhalation Spray (2.5mcg/1 dose; 10 doses) INH SCH (08:50)
[2021-03-10] MEDS: Fluticasone-Salmeterol 55-14 MCG Powder Inhalent INH SCH ×2 (08:51→19:39)
[2021-03-10] MEDS: DULoxetine 60 MG Cap PO SCH (08:51)
[2021-03-10] MEDS: Triamcinolone Acetonide 0.1% Crm 15 GM Tube TOP SCH ×2 (08:51→19:38)
[2021-03-10] MEDS: Magnesium Oxide 400 MG Tab PO SCH ×2 (08:52→19:37)
[2021-03-10] MEDS: PARoxetine 20 MG Tab PO SCH (08:52)
[2021-03-10] MEDS: Torsemide 20 MG Tab PO SCH ×2 (08:52→16:15)
[2021-03-10] MEDS: Gabapentin 100 MG Cap PO SCH (08:53)
[2021-03-10] MEDS: Hydrocortisone 20 MG Tab PO SCH (08:53)
[2021-03-10] MEDS: Midodrine 5 MG Tab PO SCH (08:53)
[2021-03-10] MEDS: Clopidogrel 75 MG Tab PO SCH (08:53)
[2021-03-10] MEDS: Potassium Chloride 10 MEQ Tab.ER PO SCH ×3 (08:53→19:37)
[2021-03-10] MEDS: Metoprolol Succinate 25 MG Tab.ER PO SCH (08:54)
[2021-03-10] MEDS: Nicotine 7 MG/24 Hr Patch TRDERM SCH (08:57)
--- NOTE | 2021-03-10 10:17 | PCM.SN.2 ---
- Free Text/Narrative Note: Advised ok to get 2nd covid shot on Monday at 11 as planned Sil to call the clinic and notify them that they are on the way since the back door is locked. She did ask about getting the 2nd shot since after the first one she got sick again with trouble breathing but advised she had numerous admits for CHF and NST [place] since so I feel that the COVID vaccine wasn't the only cause of her admit. She may get SOB or chest heaviness again but she will be monitored in the hospital with a planned d/c home Monday. Other side effects like fatigue, headache, fever, and muscle aches are probably more likely from the vaccine.
[2021-03-10] MEDS: Acetaminophen/HYDROcodone 325-5 MG Tab PO PRN ×2 (16:15→20:44)
[2021-03-10] MEDS: Cholecalciferol (Vitamin D3) 25 MCG Tab PO SCH (19:36)
[2021-03-10] MEDS: Gabapentin 300 MG Cap PO SCH (19:36)
[2021-03-10] MEDS: Cyclobenzaprine 10 MG Tab PO PRN (19:36)
[2021-03-10] MEDS: Cyanocobalamin (Vitamin B12) 1,000 MCG Tab PO SCH (19:37)
[2021-03-10] MEDS: atorvaSTATin 40 MG Tab PO SCH (19:37)
[2021-03-10] MEDS: LORazepam 0.5 MG Tab PO PRN (21:25)
[2021-03-11] MEDS: Acetaminophen/HYDROcodone 325-5 MG Tab PO PRN (05:19)
[2021-03-11] MEDS: Cyclobenzaprine 10 MG Tab PO PRN ×2 (05:53→20:45)
[2021-03-11] MEDS: Metoclopramide 10 MG Tab PO SCH ×3 (06:00→17:07)
[2021-03-11] MEDS: Pantoprazole 40 MG Tab.CR PO SCH (06:00)
[2021-03-11] MEDS: Triamcinolone Acetonide 0.1% Crm 15 GM Tube TOP SCH ×2 (09:21→20:43)
[2021-03-11] MEDS: Tiotropium Bromide 4 GM Inhalation Spray (2.5mcg/1 dose; 10 doses) INH SCH (09:21)
[2021-03-11] MEDS: Fluticasone-Salmeterol 55-14 MCG Powder Inhalent INH SCH ×2 (09:21→20:43)
[2021-03-11] MEDS: Potassium Chloride 10 MEQ Tab.ER PO SCH ×3 (09:22→20:44)
[2021-03-11] MEDS: Clopidogrel 75 MG Tab PO SCH (09:22)
[2021-03-11] MEDS: Gabapentin 100 MG Cap PO SCH (09:22)
[2021-03-11] MEDS: Metoprolol Succinate 25 MG Tab.ER PO SCH (09:23)
[2021-03-11] MEDS: PARoxetine 20 MG Tab PO SCH (09:24)
[2021-03-11] MEDS: Midodrine 5 MG Tab PO SCH (09:24)
[2021-03-11] MEDS: Torsemide 20 MG Tab PO SCH ×2 (09:24→15:51)
[2021-03-11] MEDS: Hydrocortisone 20 MG Tab PO SCH (09:25)
[2021-03-11] MEDS: Nicotine 7 MG/24 Hr Patch TRDERM SCH (09:25)
[2021-03-11] MEDS: Magnesium Oxide 400 MG Tab PO SCH ×2 (09:25→20:45)
[2021-03-11] MEDS: DULoxetine 60 MG Cap PO SCH (09:25)
[2021-03-11] MEDS: Cyanocobalamin (Vitamin B12) 1,000 MCG Tab PO SCH (20:45)
[2021-03-11] MEDS: LORazepam 0.5 MG Tab PO PRN (20:45)
[2021-03-11] MEDS: atorvaSTATin 40 MG Tab PO SCH (20:45)
[2021-03-11] MEDS: Cholecalciferol (Vitamin D3) 25 MCG Tab PO SCH (20:45)
[2021-03-11] MEDS: Gabapentin 300 MG Cap PO SCH (20:45)
[2021-03-11] MEDS: Acetaminophen/HYDROcodone 325-10 MG Tab PO PRN (22:37)
[2021-03-12] MEDS: Metoclopramide 10 MG Tab PO SCH ×3 (06:15→16:21)
[2021-03-12] MEDS: Pantoprazole 40 MG Tab.CR PO SCH (06:15)
[2021-03-12] MEDS: Fluticasone-Salmeterol 55-14 MCG Powder Inhalent INH SCH ×2 (08:13→20:26)
[2021-03-12] MEDS: Tiotropium Bromide 4 GM Inhalation Spray (2.5mcg/1 dose; 10 doses) INH SCH (08:13)
[2021-03-12] MEDS: Triamcinolone Acetonide 0.1% Crm 15 GM Tube TOP SCH ×2 (08:13→20:27)
[2021-03-12] MEDS: DULoxetine 60 MG Cap PO SCH (08:13)
[2021-03-12] MEDS: Acetaminophen/HYDROcodone 325-5 MG Tab PO PRN (08:14)
[2021-03-12] MEDS: Gabapentin 100 MG Cap PO SCH (08:14)
[2021-03-12] MEDS: Cyclobenzaprine 10 MG Tab PO PRN ×2 (08:14→20:27)
[2021-03-12] MEDS: Midodrine 5 MG Tab PO SCH (08:14)
[2021-03-12] MEDS: Potassium Chloride 10 MEQ Tab.ER PO SCH ×3 (08:14→20:27)
[2021-03-12] MEDS: Magnesium Oxide 400 MG Tab PO SCH ×2 (08:14→20:27)
[2021-03-12] MEDS: Metoprolol Succinate 25 MG Tab.ER PO SCH (08:15)
[2021-03-12] MEDS: Clopidogrel 75 MG Tab PO SCH (08:15)
[2021-03-12] MEDS: Hydrocortisone 20 MG Tab PO SCH (08:15)
[2021-03-12] MEDS: Torsemide 20 MG Tab PO SCH ×2 (08:15→16:21)
[2021-03-12] MEDS: PARoxetine 20 MG Tab PO SCH (08:16)
[2021-03-12] MEDS: Nicotine 7 MG/24 Hr Patch TRDERM SCH (08:17)
[2021-03-12] MEDS: Acetaminophen/HYDROcodone 325-10 MG Tab PO PRN (11:54)
[2021-03-12] MEDS: Gabapentin 300 MG Cap PO SCH (20:27)
[2021-03-12] MEDS: Cholecalciferol (Vitamin D3) 25 MCG Tab PO SCH (20:27)
[2021-03-12] MEDS: Cyanocobalamin (Vitamin B12) 1,000 MCG Tab PO SCH (20:27)
[2021-03-12] MEDS: LORazepam 0.5 MG Tab PO PRN (20:28)
[2021-03-12] MEDS: atorvaSTATin 40 MG Tab PO SCH (20:28)
[2021-03-13] MEDS: Metoclopramide 10 MG Tab PO SCH ×3 (06:37→16:42)
[2021-03-13] MEDS: Pantoprazole 40 MG Tab.CR PO SCH (06:37)
[2021-03-13] MEDS: Triamcinolone Acetonide 0.1% Crm 15 GM Tube TOP SCH ×2 (08:00→20:03)
[2021-03-13] MEDS: Fluticasone-Salmeterol 55-14 MCG Powder Inhalent INH SCH ×2 (08:00→20:08)
[2021-03-13] MEDS: Tiotropium Bromide 4 GM Inhalation Spray (2.5mcg/1 dose; 10 doses) INH SCH (08:00)
[2021-03-13] MEDS: DULoxetine 60 MG Cap PO SCH (08:01)
[2021-03-13] MEDS: Acetaminophen/HYDROcodone 325-5 MG Tab PO PRN ×3 (08:01→20:06)
[2021-03-13] MEDS: Gabapentin 100 MG Cap PO SCH (08:01)
[2021-03-13] MEDS: Potassium Chloride 10 MEQ Tab.ER PO SCH ×3 (08:01→20:05)
[2021-03-13] MEDS: Magnesium Oxide 400 MG Tab PO SCH ×2 (08:01→20:04)
[2021-03-13] MEDS: Torsemide 20 MG Tab PO SCH ×2 (08:01→16:42)
[2021-03-13] MEDS: Hydrocortisone 20 MG Tab PO SCH (08:01)
[2021-03-13] MEDS: Cyclobenzaprine 10 MG Tab PO PRN ×2 (08:02→21:32)
[2021-03-13] MEDS: Metoprolol Succinate 25 MG Tab.ER PO SCH (08:02)
[2021-03-13] MEDS: PARoxetine 20 MG Tab PO SCH (08:02)
[2021-03-13] MEDS: Midodrine 5 MG Tab PO SCH (08:03)
[2021-03-13] MEDS: Clopidogrel 75 MG Tab PO SCH (08:03)
[2021-03-13] MEDS: Nicotine 7 MG/24 Hr Patch TRDERM SCH (08:03)
[2021-03-13] MEDS: Cholecalciferol (Vitamin D3) 25 MCG Tab PO SCH (20:04)
[2021-03-13] MEDS: Gabapentin 300 MG Cap PO SCH (20:04)
[2021-03-13] MEDS: Cyanocobalamin (Vitamin B12) 1,000 MCG Tab PO SCH (20:04)
[2021-03-13] MEDS: atorvaSTATin 40 MG Tab PO SCH (20:05)
[2021-03-13] MEDS: LORazepam 0.5 MG Tab PO PRN (21:31)
[2021-03-14] MEDS: Acetaminophen/HYDROcodone 325-5 MG Tab PO PRN ×4 (01:51→20:13)
[2021-03-14] MEDS: Pantoprazole 40 MG Tab.CR PO SCH (06:19)
[2021-03-14] MEDS: Metoclopramide 10 MG Tab PO SCH ×3 (06:19→17:41)
[2021-03-14] MEDS: Potassium Chloride 10 MEQ Tab.ER PO SCH ×3 (08:56→20:12)
[2021-03-14] MEDS: Tiotropium Bromide 4 GM Inhalation Spray (2.5mcg/1 dose; 10 doses) INH SCH (08:57)
[2021-03-14] MEDS: Metoprolol Succinate 25 MG Tab.ER PO SCH (08:57)
[2021-03-14] MEDS: Fluticasone-Salmeterol 55-14 MCG Powder Inhalent INH SCH ×2 (08:57→20:11)
[2021-03-14] MEDS: Clopidogrel 75 MG Tab PO SCH (08:58)
[2021-03-14] MEDS: PARoxetine 20 MG Tab PO SCH (08:58)
[2021-03-14] MEDS: Torsemide 20 MG Tab PO SCH ×2 (08:59→17:40)
[2021-03-14] MEDS: Magnesium Oxide 400 MG Tab PO SCH ×2 (08:59→20:13)
[2021-03-14] MEDS: Hydrocortisone 20 MG Tab PO SCH (08:59)
[2021-03-14] MEDS: Cyclobenzaprine 10 MG Tab PO PRN ×2 (08:59→21:10)
[2021-03-14] MEDS: Midodrine 5 MG Tab PO SCH (08:59)
[2021-03-14] MEDS: Gabapentin 100 MG Cap PO SCH (08:59)
[2021-03-14] MEDS: DULoxetine 60 MG Cap PO SCH (09:00)
[2021-03-14] MEDS: Triamcinolone Acetonide 0.1% Crm 15 GM Tube TOP SCH ×2 (09:00→20:13)
[2021-03-14] MEDS: Nicotine 7 MG/24 Hr Patch TRDERM SCH (09:00)
[2021-03-14] MEDS: Polyethylene Glycol 3350 Powder 17 GM Packet PO PRN (11:52)
[2021-03-14] MEDS: Nitroglycerin 0.4 MG Tab.SL SL PRN ×2 (18:23→18:34)
[2021-03-14] MEDS ORDERED: GI Cocktail Oral Solution 30 ML PO STA (18:56)
[2021-03-14] MEDS ORDERED: GI Cocktail Oral Solution 30 ML ONE (19:05)
--- NOTE | 2021-03-14 19:36 | PCM.SN.2 ---
- Free Text/Narrative Note: Contacted by nurse that the patient developed burning chest discomfort after supper, which consistent of "spicy" lasagna. Patient had no shortness of breath, diaphoresis, or any other symptoms. Pain radiating into the back. Patient requested nitro as this is what she would do at home. Doses given x 2 without relief in symptoms. This is when I was called. Orders were then given for patient to have a GI cocktail. 15 minutes after receiving this, her pain had completely resolved. EKG was obtained by nursing. Computer interpretation reviewed and I concur. No STEMI. Will not check a troponin as patient was recently admitted in [place] for an NSTEMI and had uptrending troponins even approaching d/c but is not a candidate for PCI or CABG. Suspect her symptoms were secondary to GERD given description, timing, and response to GI cocktail but not nitro. Will monitor for any recurrence.
[2021-03-14] MEDS: atorvaSTATin 40 MG Tab PO SCH (20:12)
[2021-03-14] MEDS: Cholecalciferol (Vitamin D3) 25 MCG Tab PO SCH (20:12)
[2021-03-14] MEDS: Cyanocobalamin (Vitamin B12) 1,000 MCG Tab PO SCH (20:12)
[2021-03-14] MEDS: Gabapentin 300 MG Cap PO SCH (20:12)
[2021-03-14] MEDS: LORazepam 0.5 MG Tab PO PRN (21:10)
[2021-03-15 06:02] VITALS: BP 121/52; PULSE 93
[2021-03-15] MEDS: Pantoprazole 40 MG Tab.CR PO SCH (06:14)
[2021-03-15] MEDS: Metoclopramide 10 MG Tab PO SCH (06:14)
[2021-03-15] MEDS: Metoprolol Succinate 25 MG Tab.ER PO SCH (07:33)
[2021-03-15] MEDS: Torsemide 20 MG Tab PO SCH (07:34)
[2021-03-15] MEDS: Potassium Chloride 10 MEQ Tab.ER PO SCH (07:34)
[2021-03-15] MEDS: Midodrine 5 MG Tab PO SCH (07:34)
[2021-03-15] MEDS: DULoxetine 60 MG Cap PO SCH (07:34)
[2021-03-15] MEDS: Hydrocortisone 20 MG Tab PO SCH (07:34)
[2021-03-15] MEDS: Clopidogrel 75 MG Tab PO SCH (07:34)
[2021-03-15] MEDS: PARoxetine 20 MG Tab PO SCH (07:34)
[2021-03-15] MEDS: Gabapentin 100 MG Cap PO SCH (07:34)
[2021-03-15] MEDS: Magnesium Oxide 400 MG Tab PO SCH (07:34)
[2021-03-15] MEDS: Fluticasone-Salmeterol 55-14 MCG Powder Inhalent INH SCH (07:35)
[2021-03-15] MEDS: Nicotine 7 MG/24 Hr Patch TRDERM SCH (07:35)
[2021-03-15] MEDS: Tiotropium Bromide 4 GM Inhalation Spray (2.5mcg/1 dose; 10 doses) INH SCH (07:35)
[2021-03-15] MEDS: Triamcinolone Acetonide 0.1% Crm 15 GM Tube TOP SCH (07:37)
[2021-03-15] MEDS: Acetaminophen/HYDROcodone 325-5 MG Tab PO PRN (09:49)
--- NOTE | 2021-03-15 14:37 | DISCH ---
PRIMARY DISCHARGE DIAGNOSES: 1. Acute dbm-DY-cgvsllwct myocardial infarction with known underlying coronary artery disease, however, not a candidate for any interventions. 2. Mhwrv-eb-gektkyy diastolic heart failure with EF of 50%, improved with a 5 kg of diuresis during her stay while on IV Lasix, increased up to Demadex 40 mg twice daily. 3. Adrenal insufficiency with empty sella syndrome. She continued on her home doses of hydrocortisone. 4. Obesity. 5. Chronic pain due to back pain and previous back surgeries. 6. Moderate malnutrition. 7. Smoking. She has not had cigarettes here. She declines a nicotine patch. 8. Chronic obstructive pulmonary disease with exacerbation, treated with Omnicef and doxycycline. 9. Urinary tract infection, treated with Omnicef. 10.Peripheral vascular disease, severe with a scab on the left heel. The patient actually hangs her foot over the bed to help with circulation leading to some more pedal edema on the left. 11.Anxiety and depression, longstanding. She did well with once daily Ativan here, a new medication. Discussed the risks and benefits with her and she agrees to restricted to just once daily. 12.Chronic anemia with no signs of bleeding, other than bruising. She is on Plavix. 13.Deep venous thrombosis prophylaxis. The patient was on Lovenox on acute care. She was up and ambulatory on swing bed. 14.Right leg pain. No clear etiology that she had any stroke or worsening of her back pain. No additional imaging was done. She was able to get up and work with therapies and progressively improved. She has had multiple recurrent hospitalizations, like 8 since October. REASON FOR ADMISSION: On the date of admission, this 71-year-old female who had the COVID-19 vaccine about 4 or 5 days earlier, woke up with shortness of breath necessitating an ER visit. She actually did not have any reported chest pain on this admission into the hospital. She did not have any cough. She is normally on oxygen 2-1/2 L. She has a known 100% stenosis of her mid RCA, 40% on the LAD. She was brought in and received IV Lasix and her condition improved. Her troponins were monitored and did trend up slightly to 1672, but then began trending back down again. She was not lightheaded or dizzy. She had been on midodrine 15 mg t.i.d. with recent recommendations to try to wean that off, which in fact we did. Some of her blood pressures were even up into the 140s. Her lowest blood pressures were like 94/53, and overall she just did well getting her routine medications. She did develop more of a cough and wheezing. She was given nebulizers. She was on Spiriva and other inhalers to substitute for her Trelegy at home. She completed a short course of antibiotics for the COPD exacerbation and did well. Otherwise, none of her regular home medications for pain like Neurontin were changed. She continued on that. Her potassium was replaced. Her magnesium was replaced. She was continued on her Paxil. Did have chest pain last night after eating spicy spaghetti which improved after a GI cocktail she is already on a PPI. PHYSICAL EXAMINATION: Vital Signs: Discharging vitals include a weight of 80.4 kg, temp 98.2, pulse 93, blood pressure 121/52, respiratory rate was 16, and O2 of 99% on 2-1/2 L. General: She is in no acute distress. Heart: Regular rate and rhythm with murmur. Lungs: Lung sounds are clear to auscultation today without crackles or wheezes. Abdomen: Positive bowel sounds. Extremities: Warm and dry. She does still have 1+ edema in that left ankle, 2+ over the foot, but it is warm, dry. There is a scab in the left heel. Mental Status: She is alert and orientated x3. She is not anxious or depressed. DIAGNOSTIC DATA: It should also be noted that while the patient was on our swing bed, her event monitor did return for Zio patch, I neglected to mention the results to her on discharge today, but she did have less than 1% AFib burden with heart rates up to 156 briefly. She had SVT briefly as well. No V-tach found. For heart rates minimum of 71, average of 101. Underlying rhythm was sinus. Short runs of supraventricular tachycardia up to 14 beats. The patient is not on Coumadin. DISCHARGE PLANS AND INSTRUCTIONS: She will follow up in the clinic on the with myself. She will have her angiogram on the . She will have a renal panel and CBC on 03/19/2021 or 03/22/2021 which can be drawn by [facility]. Midodrine decreased to 5 mg daily, Demadex 40 mg twice daily, hold the morning of her angiogram. She should continue Plavix through the angiogram and all those instructions had been printed and given to her. She is now on potassium 10 mEq twice daily, magnesium twice daily. Ativan also is a new medication 0.5 once daily as needed for anxiety. Ifsv-mz-okzj encounter occurred with myself on 03/15/2021. The primary reasons for home health are for nursing, for teaching and assessments, and monitoring of medication, tapering in the setting of hypotension and adrenal insufficiency as well as to reinforce CHF monitoring and teaching. She will also need physical therapy for gait and mobility. Due to this recent event of MS, she is unable to leave her home without the assistance of another. She also requires a walker and oxygen. I will periodically review this plan of care and I have also discussed with the patient in detail, referral to [facility] at [facility] for a transitional program back into the home, and she is quite interested in that, and trying to get other services to utilize. I did explain that home health would likely have the bathing aide, but for instance, her concern about the heel ulcer and soaking and care for that if needed down the road would be something potentially this program through [facility] could help her with. However, I do not think that long-term she would need to be on the homebound program. The patient seemed quite interested and I also discussed how they could help her with her anxiety as well as her chronic pain, although there have been no concerns with how she is taking her pain pills, though she is actually using less in the hospital as she has been hospitalized quite frequently. Greater than 30 minutes spent on this discharge plan. I have also sent notices to her vascular specialist as well as Endocrinology as eventually she will need some tapering back to previous original doses on the hydrocortisone which were lower prior to her hospital admissions for the heart failure and COVID last winter.. MKA: 03/15/2021 10:33:20 MODL: 03/15/2021 14:20:58 /[id number] JEEVAN
== END 2021-03-15 10:00 | disposition home health service (06) | DRG 947 ==
LOC: VM.MS 12:31
PROVIDERS: ADMIT Internal Medicine; ATTEND Internal Medicine
DX: R53.1 Weakness (principal); I21.4 Non-ST elevation (NSTEMI) myocardial infarction; I50.33 Acute on chronic diastolic (congestive) heart failure; N39.0 Urinary tract infection, site not specified; J44.1 Chronic obstructive pulmonary disease with (acute) exacerbation; E27.40 Unspecified adrenocortical insufficiency; E44.0 Moderate protein-calorie malnutrition; I73.9 Peripheral vascular disease, unspecified; F41.9 Anxiety disorder, unspecified; K21.9 Gastro-esophageal reflux disease without esophagitis; I25.10 Atherosclerotic heart disease of native coronary artery without angina pectoris; E66.9 Obesity, unspecified; F17.210 Nicotine dependence, cigarettes, uncomplicated; G89.29 Other chronic pain; R09.02 Hypoxemia; K22.70 Barrett's esophagus without dysplasia; F32.9 Major depressive disorder, single episode, unspecified; M54.9 Dorsalgia, unspecified; M79.604 Pain in right leg; G47.34 Idiopathic sleep related nonobstructive alveolar hypoventilation; Z86.16 Personal history of COVID-19; Z79.899 Other long term (current) drug therapy; Z79.51 Long term (current) use of inhaled steroids; Z88.0 Allergy status to penicillin; Z88.6 Allergy status to analgesic agent; Z88.5 Allergy status to narcotic agent; Z88.8 Allergy status to other drugs, medicaments and biological substances
CPT/HCPCS: 36415; 73620-LT; 80048; 80069; 85025; 85730; 93005; 94760; 97110-GP; 97116-GP; 97165-GO; 97530-GP; 97535-GO; A9270-GY

== ENCOUNTER 2021-03-22 20:49 | Inpatient (IN) | payer MEDICARE, OTHER ==
[2021-03-22] MEDS ORDERED: Albuterol/Ipratropium 3.0-0.5 MG/3 ML Neb Soln NEB ONE (21:10)
[2021-03-22] MEDS ORDERED: methylPREDNISolone Sodium Succinate 125 MG/2 ML SDV IV ONE (21:10)
[2021-03-22 22:02] LABS: PTT,PARTIAL THROMBOPLSTIN TIME 21.3 SEC (25.6-32.8)
[2021-03-22 22:18] LABS: CHLORIDE,CL 99 mmol/L (98-107); SODIUM,NA 140 mmol/L (136-145)
[2021-03-22 22:25] LABS: ANION GAP 10.8 mmol/L (5-15)
[2021-03-22] MEDS ORDERED: cefTRIAXone 2 GM Vial IVPUSH ONE (22:28)
[2021-03-22] MEDS ORDERED: Albuterol 0.083% 2.5 MG/3 ML Neb Soln NEB ONE (22:35)
[2021-03-22] MEDS: Doxycycline 100 MG Cap PO SCH (22:42)
[2021-03-22] MEDS ORDERED: Albuterol 0.083% 2.5 MG/3 ML Neb Soln NEB PRN (23:05)
[2021-03-22] MEDS ORDERED: Polyethylene Glycol 3350 Powder 17 GM Packet PO PRN (23:10)
--- NOTE | 2021-03-23 00:45 | HP ---
CHIEF COMPLAINT: Shortness of breath. HISTORY OF PRESENT ILLNESS: This 71-year-old female who was recently admitted for non-ST ND and heart failure exacerbation on 02/12 and had actually went home from swing bed 1 week ago, who unfortunately this evening was just sitting there with her dog and became acutely short of breath. She denied any chest pain. She denied any coughing. Her lungs were tight. She is wheezing. She had not had any sore throat or cold symptoms leading up to this. She had used her nebulizer in the morning, but instead of trying her neb, she called the ambulance and in the ER she was found to be quite in respiratory distress, not moving any air. She got Solu-Medrol and nebulizer and she reports her symptoms are much improved now. The patient is followed by Home Health. I did get a fax from them today stating she had some increased leg swelling, but no changes in her breathing or weight. The patient herself feels that the swelling is mainly just in the left leg. She tends to hang that leg over the bed due to peripheral vascular disease. She has not had any fever or chills. She has not returned to smoking. This is her 9th hospital admissions since she had COVID at the end of September. ALLERGIES: Include penicillin, nausea, vomiting, and diarrhea; Levaquin, wheezing and bronchospasm; injectable Tylenol caused confusion; aspirin; Celexa; codeine; Percocet, hallucinations; Prozac, anxiety; Wellbutrin, depression; and Zoloft, anxiety. MEDICATION: Current medication list is reviewed from her recent discharge. Cortef 20 mg in the morning and 10 in the afternoon, magnesium oxide 400 b.i.d., Lipitor 40 daily, Plavix 75 mg daily, potassium 10 mEq b.i.d., Toprol 12.5 mg daily, midodrine weaned down to 5 mg daily; Demadex 40 mg twice daily, she denies missing doses; Ativan 0.5 once daily as needed for anxiety, Neurontin 200 in the morning and 300 at bedtime, Reglan 10 mg t.i.d. with meals, Protonix 40 mg daily, Cymbalta 60 mg daily, hydrocodone 10 mg every 4 hours as needed for pain, MiraLAX daily as needed for constipation, triamcinolone cream, Paxil 10 mg daily, Trilogy inhaler, Proventil nebulizer, nitro p.r.n., Flexeril 10 mg 3 times a day as needed for pain, B12 oral 1000 mcg daily, and vitamin D 2000 units daily. PAST MEDICAL HISTORY: Includes severe COPD, last PFTs in 2016, FEV1 1.14 or 54%. She had a 24% improvement with bronchodilator. She has coronary artery disease, which is not amenable to stenting or surgery. She has chronic diastolic heart failure with EF of 50%. In 01/2021, she has severe peripheral vascular disease, especially in the left leg. She has had previous surgeries. The patient had a Zio patch showing some SVT, but minimal events on her recent event monitor in February. She had adrenal insufficiency, anxiety, Mittal's esophagus, carotid artery stenosis, chronic SI joint pain, chronic back pain, multiple back surgeries, degenerative disk disease of the back, GERD, hyperlipidemia, essential hypertension but now more with hypotension, but nearly weaned off midodrine, major depression, sleep related hypoxia, and previous smoking. She reports she has not returned to smoking. PAST SURGICAL HISTORY: The patient did have a tubal ligation, tonsillectomy, anal fissure repair, laminectomy, L3-4 fusion of the thoracic spine, hysterectomy, eye surgery, femoral endarterectomies on both sides, cholecystectomy, cervical fusion, cataract extraction, breast biopsy, and appendectomies. FAMILY HISTORY: Both parents are . SOCIAL HISTORY: The patient is . She lives in an apartment independently. She has not returned to smoking since her recent stay. 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 No alcohol use reported. REVIEW OF SYSTEMS: General: The patient is not aware of any weight changes. No fever. No chills. No fatigue. HEENT: No sore throat. Cardiac: She had trouble breathing, but no chest pain and no palpitations. Respiratory: She has had wheezing and shortness of breath, but had not been coughing. Otherwise, all systems reviewed and found to be negative unless otherwise stated. PHYSICAL EXAMINATION: Vital Signs: Hold vitals, but actually 98% on 2 L currently. General: She is in no acute distress. Heart: Regular rate and rhythm with murmur noted. Lungs: Sounds are decreased throughout. Very tight, limited air exchange with a rare expiratory wheezing in the left upper lung. No crackles are appreciated. Abdomen: Nondistended. Positive bowel sounds. Soft and nontender. Extremities: Warm and dry. She has 1+ edema at that left ankle and foot. Overall, the foot is improved from her previous stay. She has trace edema to the right ankle. Mental Status: She is alert and orientated x3. Chest x-ray shows no infiltrate. She has some scarring and some poor inspiration. LAB WORK: Shows white count 8.5, hemoglobin 10.6, and platelets 257. INR 0.9. Sodium 140, potassium 3.8, chloride 99, bicarb 34, BUN 16, creatinine 0.9, glucose 176, lactic 3.5, and magnesium 2.1. ALT and AST normal. Alkaline phosphatase 270. CRP 2.4. Albumin 3.2. COVID pending now. ASSESSMENT: 1. Acute chronic obstructive pulmonary disease exacerbation with known history of chronic obstructive pulmonary disease. 2. Non-ST elevation myocardial infarction with shortness of breath. Troponin mildly elevated. It was significantly higher on her last stay to 1600. We will trend her troponins. She is not having any chest pain. She is not a candidate for any coronary interventions. 3. Chronic diastolic heart failure, stable. We will continue her oral Bumex. 4. Hypotension with adrenal insufficiency. She will continue her stress doses of steroids. She will be on IV steroids for her chronic obstructive pulmonary disease. She will also continue midodrine. 5. Severe peripheral vascular disease. She is due for an angiogram on Monday. 6. Anxiety. She has her Paxil and her Ativan p.r.n. 7. Chronic back pain. She is on her home medications including Neurontin, p.r.n. hydrocodone, and Flexeril. 8. Hyperglycemia, likely due to steroids. We will monitor q.i.d. Accu-Cheks. PLAN: The patient is admitted for acute cares for IV steroids 40 q.12, oral doxycycline scheduled and p.r.n. nebulizers. We will trend the troponins. She also got a dose IV Rocephin in the ER. The patient is a code level 3. We will get some venous blood gases with a repeat lactic. I think her lactic is elevated due to her breathing. The patient has not previously used BiPAP, but would be interested in trying that if needed. However, I think she is clinically improving with the steroids and nebs she has already received. For DVT prophylaxis, I will place her on Lovenox. MKA: 03/22/2021 23:28:43 MODL: 03/23/2021 00:40:55 /[id number]
[2021-03-23] MEDS: Albuterol/Ipratropium 3.0-0.5 MG/3 ML Neb Soln NEB SCH ×4 (07:21→19:53)
[2021-03-23 07:25] LABS: CHLORIDE,CL 102 mmol/L (98-107); SODIUM,NA 142 mmol/L (136-145)
[2021-03-23 07:33] LABS: ANION GAP 7.6 mmol/L (5-15)
[2021-03-23 07:38] LABS: BICARBONATE,VENOUS 36 mmol/L (22-29); O2 SATURATION VENOUS 100 %; PCO2 VENOUS 57 mmHG (41-51); PO2 VENOUS 193 mmHG
--- NOTE | 2021-03-23 08:34 | CR ---
[id number] RAD/RAD Chest Portable EXAM: PORTABLE CHEST RADIOGRAPH. INDICATION: SHORTNESS OF BREATH COMPARISON: CORRELATION IS MADE WITH FEBRUARY 25, 2021 FINDINGS: There is borderline edema. The cardiac silhouette is stable Wells rods again are seen IMPRESSION: BORDERLINE EDEMA Brandon Coronado MD 03/23/21 0832 Thank you for allowing us to participate in the care of your patient.
[2021-03-23] MEDS: Enoxaparin 40 MG/0.4 ML Syringe SUBCUT SCH (09:35)
[2021-03-23] MEDS: Sodium Chloride 0.9% 10 ML Syringe FLUSH PRN ×2 (09:35→14:28)
[2021-03-23] MEDS: methylPREDNISolone Sodium Succinate 40 MG/1 ML SDV IVPUSH SCH ×3 (09:35→20:00)
[2021-03-23] MEDS: Doxycycline 100 MG Cap PO SCH ×2 (09:36→19:46)
[2021-03-23] MEDS ORDERED: Torsemide 20 MG Tab PO SCH (10:00)
[2021-03-23] MEDS ORDERED: Midodrine 5 MG Tab PO SCH (10:00)
[2021-03-23] MEDS: Gabapentin 100 MG Cap PO SCH ×2 (10:31→19:47)
[2021-03-23] MEDS: Acetaminophen/HYDROcodone 325-10 MG Tab PO PRN ×3 (10:32→21:24)
[2021-03-23] MEDS: Magnesium Oxide 400 MG Tab PO SCH ×2 (10:32→19:46)
[2021-03-23] MEDS: PARoxetine 20 MG Tab PO SCH (10:33)
[2021-03-23] MEDS: DULoxetine 60 MG Cap PO SCH (10:33)
[2021-03-23] MEDS: Hydrocortisone 20 MG Tab PO SCH (10:33)
[2021-03-23] MEDS: Pantoprazole 40 MG Tab.CR PO SCH (10:34)
[2021-03-23] MEDS: Clopidogrel 75 MG Tab PO SCH (10:34)
[2021-03-23] MEDS: Potassium Chloride 10 MEQ Tab.ER PO SCH ×2 (10:34→17:03)
[2021-03-23] MEDS: Metoprolol Succinate 25 MG Tab.ER PO SCH (10:37)
[2021-03-23] MEDS ORDERED: Nitroglycerin 0.4 MG Tab.SL SL STA (11:22)
[2021-03-23] MEDS ORDERED: GI Cocktail Oral Solution 30 ML PO STA (11:23)
[2021-03-23] MEDS ORDERED: Nitroglycerin 0.4 MG Tab.SL ONE (11:30)
[2021-03-23] MEDS ORDERED: GI Cocktail Oral Solution 30 ML ONE (11:38)
[2021-03-23] MEDS ORDERED: GI Cocktail Oral Solution 30 ML PO PRN (11:41)
[2021-03-23] MEDS: Metoclopramide 10 MG Tab PO SCH ×2 (12:21→17:03)
[2021-03-23] MEDS: Nitroglycerin 0.4 MG Tab.SL SL PRN ×2 (12:22→17:04)
--- NOTE | 2021-03-23 14:04 | PN ---
Progress Note for BOB BARONE Date: 03/23/2021 Room #: [facility] SUBJECTIVE: This is hospital day #2 on a 71-year-old admitted with acute shortness of breath and a COPD exacerbation yesterday. The patient improved after IV steroids and nebs. She was not having any chest pain. Then, today, around 11 a.m., she had acute chest pain similar to on her last hospitalization, but at that time she had eaten some lasagna. She did eat breakfast today, but nothing spicy. She got a nitroglycerin and within about half-hour the pain resolved. She also had pain going into the right arm to the elbow. A GI cocktail was also ordered, but by the time it was ready, the patient was already better. The patient otherwise prior to that had felt her breathing and cough were a little bit better today. She has been afebrile. OBJECTIVE: Vital Signs: Her temperature is 98.9, pulse 107, blood pressure 105/50, respiratory rate is 15, and O2 was 98 on 2 L. Weight should be noted also at 86 kg which is up from her previous hospital stay, up 12 pounds. The patient denied that she was missing any doses of her medications at home. General: She is in no acute distress, but does appear uncomfortable. She sitting upright. Heart: Regular rate and rhythm with murmur. Lungs: Lung sounds are decreased with still some expiratory wheezing throughout. No crackles. Abdomen: Nondistended, nontender. Extremities: Warm and dry. She does have some bruising actually. She has 1+ edema on the left foot, trace edema to both ankles. Mental Status: Alert and orientated x3. LABORATORY DATA: Laboratory work did show a proBNP added on was 9800. Troponin stayed the same at 270. COVID was negative. White count 5.6; hemoglobin 9.8, just a slight drop; platelets 208. Venous gas: PCO2 of 57. INR 0.9. Sodium 142, potassium 3.6, chloride 102, bicarb 36, BUN 13, creatinine 0.7, glucose 174, lactic 1.1, calcium 9. ASSESSMENT AND PLAN: 1. Acute chronic obstructive pulmonary disease exacerbation, clinically improving on Solu-Medrol 40 b.i.d. and nebs and oral doxycycline. She got IV Rocephin in the ER, but no signs of pneumonia, so we will not continue. 2. Acute chest pain, possibly angina with known history of coronary artery disease and a dhm-NX-ixizxwfgc myocardial infarction on this admission. The patient has coronary artery disease that is not amenable to any interventions. We will continue with medical management. This episode has already resolved. EKG was done and did show some ST changes for ischemia. 3. Chronic diastolic heart failure with exacerbation EF 50 %. We will start her on IV Lasix. We will give her 20 mg dose IV x1 since she already had her other Demadex this morning. We will watch her blood pressure closely. 4. Adrenal insufficiency. She is on her hydrocortisone. She has been on higher doses. We can also increase to 20 b.i.d. for stress doses if needed. She is on midodrine once daily. She was tapered down to this on her last stay. We will increase if needed. 5. Peripheral vascular disease. She has a followup angiogram planned for Monday. 6. Chronic back pain. She is on her home medications. 7. Hyperglycemia due to steroids. We will continue to monitor with accuchecks. No insulin indicated. The patient will continue acute cares. We have nitroglycerin p.r.n. available for chest pain. We will repeat lab work with a troponin tomorrow or sooner if needed. She will continue oral doxycycline. She will continue IV Solu-Medrol. She will continue scheduled and p.r.n. nebs. She is just on her home oxygen. Currently, for DVT prophylaxis, she will continue Lovenox. MKA: 03/23/2021 13:34:10 MODL: 03/23/2021 13:56:56 /[id number] JEEVAN
[2021-03-23] MEDS: Furosemide 20 MG/2 ML VIAL IV ONE ×2 (14:28→15:23)
[2021-03-23] MEDS ORDERED: Midodrine 5 MG Tab PO STA (14:41)
--- NOTE | 2021-03-23 16:57 | PCM.EKG ---
#1 Interpretation EKG Date: 03/23/21 Rhythm: Other (Sinus Tachycardia) Rate (Beats/Min): 117 [place]: Normal P-Wave: Present QRS: Normal ST-T: Depressed QT: Normal Comparison: No Change
[2021-03-23] MEDS ORDERED: Hydrocortisone 20 MG Tab PO STA (18:49)
[2021-03-23] MEDS ORDERED: Glucagon,Human Recombinant 1 MG Vial IM PRN (18:57)
[2021-03-23] MEDS ORDERED: 50% Dextrose in Water 50 ML Syringe IV PRN (18:57)
[2021-03-23] MEDS: Cyanocobalamin (Vitamin B12) 1,000 MCG Tab PO SCH (19:46)
[2021-03-23] MEDS: atorvaSTATin 40 MG Tab PO SCH (19:46)
[2021-03-23] MEDS: Midodrine 5 MG Tab PO SCH (19:47)
[2021-03-23] MEDS ORDERED: Insulin Glarg,Human.Rec.Analog 100 Unit/ML SUBCUT SCH (20:00)
[2021-03-23] MEDS: Cholecalciferol (Vitamin D3) 25 MCG Tab PO SCH (20:14)
[2021-03-23] MEDS: LORazepam 0.5 MG Tab PO PRN (21:24)
[2021-03-23] MEDS: Cyclobenzaprine 10 MG Tab PO PRN (21:25)
[2021-03-24] MEDS: Metoclopramide 10 MG Tab PO SCH ×3 (06:01→17:11)
[2021-03-24] MEDS: Pantoprazole 40 MG Tab.CR PO SCH (06:01)
[2021-03-24] MEDS: Albuterol/Ipratropium 3.0-0.5 MG/3 ML Neb Soln NEB SCH ×4 (07:09→20:04)
[2021-03-24] MEDS: Metoprolol Succinate 25 MG Tab.ER PO SCH (08:50)
[2021-03-24] MEDS: Midodrine 5 MG Tab PO SCH ×3 (08:51→20:04)
[2021-03-24] MEDS: PARoxetine 20 MG Tab PO SCH (08:52)
[2021-03-24] MEDS: Doxycycline 100 MG Cap PO SCH ×2 (08:52→20:04)
[2021-03-24] MEDS: Potassium Chloride 10 MEQ Tab.ER PO SCH ×2 (08:53→17:13)
[2021-03-24] MEDS: Magnesium Oxide 400 MG Tab PO SCH ×2 (08:53→20:04)
[2021-03-24] MEDS: Clopidogrel 75 MG Tab PO SCH (08:53)
[2021-03-24] MEDS: DULoxetine 60 MG Cap PO SCH (08:53)
[2021-03-24] MEDS: Enoxaparin 40 MG/0.4 ML Syringe SUBCUT SCH (08:57)
[2021-03-24] MEDS: methylPREDNISolone Sodium Succinate 40 MG/1 ML SDV IVPUSH SCH (08:57)
[2021-03-24] MEDS: Gabapentin 100 MG Cap PO SCH ×2 (09:01→20:04)
[2021-03-24] MEDS: Hydrocortisone 20 MG Tab PO SCH ×2 (09:02→20:04)
[2021-03-24 09:11] LABS: CHLORIDE,CL 99 mmol/L (98-107); SODIUM,NA 141 mmol/L (136-145)
[2021-03-24] MEDS: Insulin Glarg,Human.Rec.Analog 100 Unit/ML SUBCUT SCH (09:57)
[2021-03-24] MEDS: Nitroglycerin 0.4 MG Tab.SL SL PRN ×2 (10:19→12:18)
[2021-03-24] MEDS ORDERED: Furosemide 20 MG/2 ML VIAL IV ONE (16:35)
--- NOTE | 2021-03-24 17:32 | PN ---
Progress Note for BOB BARONE Date: 03/24/2021 Room #: VM.212 SUBJECTIVE: This is hospital day #3 on a 71-year-old admitted for a COPD exacerbation. When I saw her this morning, she was doing quite well. Her breathing was really good. Unfortunately, she started having chest discomfort again, which she had yesterday as well and was relieved by nitroglycerin. This one lasted a little longer. She got 2 nitroglycerin. Her heart rates were up to 120s when she was up to the bathroom, but her cough is better, her wheezing is better. Blood pressures were running lower yesterday and she had to get an additional 10 mg of hydrocortisone and her midodrine was increased back up to 5 mg t.i.d. Unfortunately, her weight did go up another pound since yesterday. She has improvement in her leg swelling and her lab work has looked okay. She is still on IV Solu-Medrol. White count did go up to 11.6, but no fevers. She has been on doxycycline. OBJECTIVE: Vital Signs: Weight 87 kg, temperature 97.9, pulse 114, blood pressure 105/44, respiratory rate 24, O2 of 98 on 2 L. General: She is in no acute distress. Heart: Regular rate and rhythm without murmur. Lungs: Sounds are clear to auscultation bilaterally without crackles or wheezes. Abdomen: Positive bowel sounds. Soft, nondistended, nontender. Extremities: Warm and dry. She does have 1+ edema at the ankles, but overall, her swelling appears to be improved. She has a large bruise to her right forearm that she says she bumped before coming into the hospital. Mental Status: She is alert and orientated x3. She is not overly anxious. LABORATORY DATA: White count 11.6, hemoglobin 9.6, stable, platelets 238. Sodium 141, potassium 3.6, chloride 99, bicarb 38, BUN 17, creatinine 0.7, glucose 137, calcium 9, phosphorus 3.4. Troponin down to 171. Albumin 2.8. ASSESSMENT: 1. Acute chronic obstructive pulmonary disease exacerbation, improving. We will continue IV Solu-Medrol today. If she does real well, we will send her home on 40 mg daily of prednisone. 2. Acute on chronic diastolic heart failure exacerbation with EF of 50%. We will continue IV Lasix 20 mg daily, watching closely due to low blood pressures. 3. Non-ST elevation myocardial infarction with known coronary artery disease with recurrent angina. The patient's blood pressure is running lower. She is not a good candidate for the Imdur; however, she is on metoprolol, we will continue with that. 4. Adrenal insufficiency. She is on hydrocortisone. We will increase her to 20 mg twice daily for stress doses. We will continue to increase midodrine 5 mg t.i.d. 5. Peripheral vascular disease. She has a followup appointment planned for Monday and for angiogram. 6. Chronic back pain. She is on her home medications. 7. Hyperglycemia due to steroids. We will schedule her insulin with Lantus 12 units daily this morning as blood sugars are still over 100. 8. Anxiety. She is on Paxil. PLAN: The patient will continue on acute cares. Anticipate discharge tomorrow if medically stable. We will have Physical Therapy also assess her. She is on scheduled and p.r.n. nebulizers, and for DVT prophylaxis she is on Lovenox. MKA: 03/24/2021 16:39:21 MODL: 03/24/2021 17:24:12 /[id number]
--- NOTE | 2021-03-24 17:41 | PCM.EKG ---
#1 Interpretation EKG Date: 03/24/21 Time: 12:44 Rhythm: NSR Rate (Beats/Min): 114 Redfox: Normal P-Wave: Present QRS: Normal ST-T: Depressed QT: Normal Comparison: No Change
[2021-03-24] MEDS: Cholecalciferol (Vitamin D3) 25 MCG Tab PO SCH (20:04)
[2021-03-24] MEDS: atorvaSTATin 40 MG Tab PO SCH (20:04)
[2021-03-24] MEDS: Cyanocobalamin (Vitamin B12) 1,000 MCG Tab PO SCH (20:04)
[2021-03-24] MEDS: Sodium Chloride 0.9% 10 ML Syringe FLUSH PRN (20:18)
[2021-03-24] MEDS: LORazepam 0.5 MG Tab PO PRN (21:28)
[2021-03-24] MEDS: Cyclobenzaprine 10 MG Tab PO PRN (21:28)
[2021-03-24] MEDS: Acetaminophen/HYDROcodone 325-10 MG Tab PO PRN (23:04)
[2021-03-25] MEDS: Metoclopramide 10 MG Tab PO SCH ×2 (06:24→11:24)
[2021-03-25] MEDS: Pantoprazole 40 MG Tab.CR PO SCH (06:24)
[2021-03-25] MEDS: Albuterol/Ipratropium 3.0-0.5 MG/3 ML Neb Soln NEB SCH ×2 (06:59→10:47)
[2021-03-25] MEDS ORDERED: Furosemide 20 MG/2 ML VIAL IV SCH (08:00)
[2021-03-25] MEDS ORDERED: Potassium Chloride 10 MEQ Tab.ER PO SCH (08:30)
[2021-03-25] MEDS: Magnesium Oxide 400 MG Tab PO SCH (08:50)
[2021-03-25] MEDS: Doxycycline 100 MG Cap PO SCH (08:50)
[2021-03-25] MEDS: DULoxetine 60 MG Cap PO SCH (08:50)
[2021-03-25] MEDS: Hydrocortisone 20 MG Tab PO SCH (08:51)
[2021-03-25] MEDS: Midodrine 5 MG Tab PO SCH (08:51)
[2021-03-25] MEDS: PARoxetine 20 MG Tab PO SCH (08:51)
[2021-03-25] MEDS: Metoprolol Succinate 25 MG Tab.ER PO SCH (08:51)
[2021-03-25] MEDS: Enoxaparin 40 MG/0.4 ML Syringe SUBCUT SCH (08:52)
[2021-03-25] MEDS: Gabapentin 100 MG Cap PO SCH (08:52)
[2021-03-25] MEDS: Potassium Chloride 10 MEQ Tab.ER PO SCH (08:52)
[2021-03-25] MEDS ORDERED: Furosemide 20 MG/2 ML VIAL IV ONE (08:54)
[2021-03-25] MEDS ORDERED: Famotidine 20 MG Tab PO SCH (09:00)
[2021-03-25] MEDS: Insulin Glarg,Human.Rec.Analog 100 Unit/ML SUBCUT SCH (09:06)
[2021-03-25] MEDS: Clopidogrel 75 MG Tab PO SCH (09:12)
[2021-03-25 11:53] VITALS: BP 91/52; PULSE 85
--- NOTE | 2021-03-25 20:13 | DISCH ---
PRIMARY DISCHARGE DIAGNOSES: 1. An acute chronic obstructive pulmonary disease exacerbation with known underlying severe chronic obstructive pulmonary disease. 2. Non-ST elevation myocardial infarction and chronic heart failure exacerbation with EF of 50% with multiple recurrent admissions since having coronavirus disease in September of last year including 9 hospital admissions. EF 50% on 01/30/2021. 3. Severe peripheral vascular disease with left leg ischemia. Angiogram planned for tomorrow. The left heel ulcer was examined. It is nearly healed. 4. Adrenal insufficiency, on chronic hydrocortisone with hypotension, on midodrine. 5. Chronic back pain, on home medications. 6. Hyperglycemia due to steroids. 7. Anxiety. 8. Obesity. 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 10.Coronary artery disease, diffuse, with small vessels since 2008. She has not been amenable to any interventions. She is not a candidate for coronary artery bypass grafting. 11.History of smoking. She has quit since her admission last month. 12. Hyperglycemia due to steroids REASON FOR ADMISSION: On the date of admission, this 71-year-old female presented to the ER because she could not breathe. She had been feeling fine up until that evening. She had used her nebulizer earlier in the day, but had not tried it again in the evening. She had not had any fever. She has had some cough. She was given IV Solu-Medrol and DuoNebs, and today her breathing is much improved. She still has a little bit of a cough, but followup x-ray did not show any infiltrates. She has been taken off IV steroids yesterday afternoon, and now is on oral prednisone, and she has been receiving oral doxycycline. She did get 1 dose of IV Rocephin initially. White count had trended up slightly yesterday. This was suspected to be due to her steroids. Her hemoglobin was stable. Blood sugars did go up to 220 and she got up to 12 units a day of Lantus. She has not been on any insulin at home. Troponin did trend up to 270, but it was over 1000 on her previous admission. It improved to 171 yesterday. ProBNP was also elevated, so her oral Demadex was switched to Lasix 20 mg daily, but today we will give her a 40 mg IV dose. Leg swelling had continued, but was no worse. She was having some increased leg swelling also at home and in the left leg in particular. She does not keep up as much. She was doing so well we were hopeful to discharge her home yesterday, but she had episode of chest discomfort after eating. The same thing happened the day before. It was relieved by 2 nitroglycerin and a GI cocktail. Today, the patient did not have those symptoms and she was pretreated with Pepcid. She is already on Protonix and Reglan. DISCHARGE PLANS AND INSTRUCTIONS: The patient was referred to [facility] for transitional care. I do see her paperwork says house calls. However, the patient is able to get out of her home for appointments and needs more help in the home and Home Health felt that they could not provide her and that she needs a higher level of care. The patient though is not having enough physical or mental disabilities to require penitentiary care and she is absolutely refusing it. She also was seen by PT and was able to discharge home. The patient will follow up in the clinic on 03/30 with lab work. She will have her angiogram tomorrow as previously scheduled. Medications include the midodrine will be increased back up to 5 three times a day. Prednisone will be 20 mg for another 3 days, doxycycline 100 mg for 3 days, and Pepcid 20 mg daily to continue. She was encouraged to watch the salt in her diet and limit fluids as we did put her on a 2 L fluid restriction here as it was observed that she was drinking more fluids than she needed, which likely contributed more to her weight gain in the initial days, but she is back down 2 pounds. She also is encouraged to use her nebulizers. DISCHARGE PHYSICAL EXAMINATION: Vital Signs: Included temperature 97.6, pulse 83, blood pressure 115/66, respiratory rate 20, O2 of 100% on 2 L, which she is chronically on. General: She is in no acute distress. Heart: Regular rate and rhythm with murmur. Lungs: Lung sounds are clear to auscultation bilaterally without crackles or wheezes. Abdomen: Nondistended, nontender. Extremities: Warm and dry. Still 1+ edema to her ankles and feet, but 2+ over that left foot. Left heel shows just a small scab. No significant ulcer. Mental Status: She is alert and oriented x3. Greater than 30 minutes spent on the discharge process. MKA: 03/25/2021 12:59:42 MODL: 03/25/2021 20:03:03 /[id number] JEEVAN
--- NOTE | 2021-03-26 11:29 | CR ---
[id number] RAD/RAD Chest PA or AP 1V EXAM: RAD Chest PA or AP 1V INDICATION: COUGH. COMPARISON: March 22, 2021. DISCUSSION/IMPRESSION: Cardiomegaly. Central vascular congestion. Lung hyperinflation. No pneumonia, pleural effusion, or pneumothorax. Akil Allen MD 03/26/21 1128 Thank you for allowing us to participate in the care of your patient.
--- NOTE | 2021-03-27 01:47 | EDM.PDOC ---
ED HPI GENERAL MEDICAL PROBLEM - General Chief Complaint: Respiratory Problem Stated Complaint: Shortness of breath, COPD Time Seen by Provider: 03/22/21 21:00 Source of Information: Reports: Patient, EMS History Limitations: Reports: No Limitations - History of Present Illness INITIAL COMMENTS - FREE TEXT/NARRATIVE: Pt. presents to ER with complaints of shortness of breath. Pt. has a history of severe COPD and takes nebulizers at home. Pt. states that her last nebulizer was taken at 10:30 AM. When asked why she didn't take anymore, she stated that she couldn't because she was having such a hard time breathing. EMS states that on their arrival, her O2 sat was approx. 75%. She was given a duoneb breathing treatment which helped minimally. Pt. has been hospitalized numerous times for COPD exacerbation and CHF, particularly since she had covid 19 last winter (has been hospitalized 9 times since then). Pt. was admitted for non-STEMI and exacerbation of CHF. She was ho spitalized acutely and then went to swing bed and was discharged on 02/19. Pt. denies any significant cough. No sore throat or rhinorrhea. No nausea, vomiting or diarrhea. Denies any bloody stools. Onset Date: 03/22/21 Location: Reports: Chest, Generalized Treatments AGRICULTURE MANAGER: Reports: Breathing Treatments, Oxygen Other Treatments AGRICULTURE MANAGER: Duo neb given by EMS left heel Pain Score (Numeric/FACES): 4 - Related Data Allergies Allergy/AdvReac Type Severity Reaction Status Date / Time levofloxacin [From Levaquin] Allergy Severe Wheezing Verified 03/23/21 08:14 acetaminophen [From Percocet] AdvReac Confusion/H Verified 03/23/21 08:14 allucinatio ns aspirin AdvReac Nausea and Verified 03/23/21 08:14 Vomiting bupropion HCl AdvReac Depression Verified 03/23/21 08:14 [From Wellbutrin] citalopram hydrobromide AdvReac no effect Verified 03/23/21 08:14 [From Celexa] codeine AdvReac Nausea and Verified 03/23/21 08:14 Vomiting fluoxetine HCl [From Prozac] AdvReac Anxiety Verified 03/23/21 08:14 oxycodone [From Percocet] AdvReac Confusion/H Verified 03/23/21 08:14 allucinatio ns Penicillins AdvReac Nausea and Verified 03/23/21 08:14 Vomiting sertraline HCl [From Zoloft] AdvReac Anxiety Verified 03/23/21 08:14 Home Meds: Home Meds Clopidogrel [Plavix] 75 mg PO DAILY 05/02/16 [History] Nitroglycerin [Nitrostat] 0.4 mg SL ASDIRECTED PRN 05/02/16 [History] atorvaSTATin [Lipitor] 40 mg PO BEDTIME 05/02/16 [History] Cholecalciferol (Vitamin D3) [D3 Dots] 2,000 unit PO BEDTIME 06/13/17 [History] PARoxetine HCL [Paroxetine HCl] 10 mg PO DAILY 06/13/17 [History] Pantoprazole Sodium 40 mg PO DAILY@0700 06/13/17 [History] Acetaminophen/HYDROcodone [[place] 325-10 MG] 1 tab PO Q4H PRN 01/10/19 [History] Metoclopramide [Reglan] 10 mg PO TIDMEALS 01/10/19 [History] Cyclobenzaprine [Flexeril] 10 mg PO TID tablet 10/23/20 [Rx] DULoxetine [Cymbalta] 60 mg PO DAILY cap 10/23/20 [Rx] Gabapentin [Neurontin] 200 mg PO DAILY cap 10/23/20 [Rx] polyethylene glycoL 3350 [MiraLAX] 17 gm PO DAILY PRN packet 10/23/20 [Rx] Albuterol [Proventil Neb Soln] 2.5 mg NEB QID PRN 11/25/20 [History] Gabapentin [Neurontin] 300 mg PO BEDTIME 11/25/20 [History] Cyanocobalamin (Vitamin B12) [Vitamin B12] 1,000 mcg PO BEDTIME 02/12/21 [History] Fluticasone/Umeclidin/Vilanter [Trelegy Ellipta 100-62.5-25 MCG] 1 inh PO DAILY 02/12/21 [History] Triamcinolone Acetonide [Kenalog 0.1% Crm] 1 applic TOP BID 02/12/21 [History] Hydrocortisone [Cortef] 10 mg PO DAILY@1700 tablet 03/15/21 [Rx] Hydrocortisone [Cortef] 20 mg PO WITHBREAKFAST tablet 03/15/21 [Rx] LORazepam [Ativan] 0.5 mg PO Q4H PRN tablet 03/15/21 [Rx] Magnesium Oxide 400 mg PO BID tablet 03/15/21 [Rx] Metoprolol Succinate [Toprol XL] 12.5 mg PO DAILY tab.er 03/15/21 [Rx] Potassium Chloride [Klor-Con 10] 10 meq PO BID #60 tab.er 03/15/21 [Rx] Torsemide [Demadex] 40 mg PO BIDDIURETIC #60 tablet 03/15/21 [Rx] Doxycycline [Vibramycin] 100 mg PO BID #6 cap 03/25/21 [Rx] Famotidine [Pepcid] 20 mg PO DAILY #30 tablet 03/25/21 [Rx] GI Cocktail 30 ml PO BID PRN #5 bottle 03/25/21 [Rx] Midodrine 5 mg PO TID@0800,1500,2000 #90 tablet 03/25/21 [Rx] predniSONE [Prednisone] 20 mg PO DAILY #3 tablet 03/25/21 [Rx] Past Medical History HEENT History: Reports: Cataract, Other (See Below) Other HEENT History: Astigmatism, presbyopia, senile nuclear sclerosis, posterior vitreous detachment Cardiovascular History: Reports: CAD, Heart Failure, High Cholesterol, Hypertension, PVD, SOB on Exertion, Other (See Below) Other Cardiovascular History: Carotid artery stenosis, chest pain, lower extremity edema, abnormal echocardiogram Respiratory History: Reports: Asthma, COPD, SOB, Other (See Below) Other Respiratory History: sleep related hypoxia Gastrointestinal History: Reports: Bowel Obstruction, Chronic Constipation, GERD, Hiatal Hernia, Other (See Below) Other Gastrointestinal History: LOW'S ESOPHAGUS Genitourinary History: Reports: Other (See Below) Other Genitourinary History: fibrocystic breast disease Musculoskeletal History: Reports: Other (See Below) Other Musculoskeletal History: lumbar disc herniation, lumbar stenosis, spondylolisthesis of lumbar region, chronic SI joint pain, left hip pain, degenerative disc disease, empty sella, fusion of spine, radiculopathy of cervical region. sacroiliac joint dysfunction of left side Neurological History: Reports: Migraines Psychiatric History: Reports: Anxiety, Depression, Other (See Below) Other Psychiatric History: Chronic, continuous use of opioids Endocrine/Metabolic History: Reports: Other (See Below) Other Endocrine/Metabolic History: Impaired fasting glucose, adrenal insufficiency, hyperprolactinemia Hematologic History: Reports: None Immunologic History: Reports: None Oncologic (Cancer) History: Reports: None Dermatologic History: Reports: Cellulitis, Other (See Below) Other Dermatologic History: Surgical wound dehiscence - Infectious Disease History Infectious Disease History: Reports: Chicken Pox, Influenza, Novel Coronavirus, Shingles - Past Surgical History Head Surgeries/Procedures: Reports: None HEENT Surgical History: Reports: Cataract Surgery, Tonsillectomy Cardiovascular Surgical History: Reports: Other (See Below) Other Cardiovascular Surgeries/Procedures: Endarterectomy (left and right) angiogram Respiratory Surgical History: Reports: None GI Surgical History: Reports: Appendectomy, Cholecystectomy, Other (See Below) Other GI Surgeries/Procedures: ANAL FISSURE REPAIR Female Surgical History: Reports: Breast Biopsy, Hysterectomy, Tubal Ligation Other Female Surgeries/Procedures: fibrocystic breast disease Endocrine Surgical History: Reports: None Neurological Surgical History: Reports: Laminectomy, Spinal Fusion Musculoskeletal Surgical History: Reports: ORIF Dermatological Surgical History: Reports: Other (See Below) Social & Family History - Family History Family Medical History: No Pertinent Family History - Tobacco Use Tobacco Use Status *Q: Unknown Ever Used Tobacco - Caffeine Use Caffeine Use: Reports: Other Other Caffeine Use: unknown ED ROS GENERAL - Review of Systems Review Of Systems: See Below Constitutional: Reports: Weakness, Fatigue HEENT: Reports: No Symptoms Respiratory: Reports: Shortness of Breath, Wheezing. Denies: Cough, Sputum Cardiovascular: Reports: No Symptoms Endocrine: Reports: No Symptoms GI/Abdominal: Reports: No Symptoms : Reports: No Symptoms Musculoskeletal: Reports: No Symptoms Skin: Reports: No Symptoms Neurological: Reports: No Symptoms Psychiatric: Reports: No Symptoms Hematologic/Lymphatic: Reports: No Symptoms Immunologic: Reports: No Symptoms ED EXAM, GENERAL - Physical Exam Exam: See Below Exam Limited By: No Limitations General Appearance: Alert, WD/WN, No Apparent Distress Eye Exam: Bilateral Eye: EOMI, Normal Inspection, PERRL Throat/Mouth: Normal Inspection, Normal Voice, No Airway Compromise Head: Atraumatic, Normocephalic Neck: Normal Inspection, Supple, Non-Tender Respiratory/Chest: Respiratory Distress, Decreased Breath Sounds, Wheezing, A ccessory Muscle Use, Prolonged Expiration Cardiovascular: Normal Peripheral Pulses, Regular Rate, Rhythm Peripheral Pulses: 3+: Radial (R) GI/Abdominal: Soft, Non-Tender, No Distention, No Mass (Female) Exam: Deferred Rectal (Female) Exam: Deferred Extremities: Normal Inspection Neurological: Alert, Oriented, CN II-XII Intact, Normal Cognition, Normal Reflexes, No Motor/Sensory Deficits Psychiatric: Normal Affect, Normal Mood Skin Exam: Warm, Dry, Intact, No Rash, Pallor Lymphatic: No Adenopathy #1 Interpretation EKG Interpretation Comments: sinus tach without any acute ST or T wave abnormality. Quality of study was poor due to pt. respiratory distress. Course - Vital Signs Last Recorded V/S: Last Vital Signs Temp 36.4 C 03/25/21 11:25 Pulse 85 03/25/21 11:25 Resp 20 03/25/21 11:25 BP 91/52 L 03/25/21 11:25 Pulse Ox 100 03/25/21 11:25 - Orders/Labs/Meds Labs: Laboratory Tests 03/22/21 03/22/21 03/22/21 Range/Units 21:27 21:27 21:27 WBC 8.5 (4.0-10.0) x10^3/uL RBC 3.43 L (4.00-5.50) x10^6/uL Hgb 10.6 L (12.0-16.0) g/dL Hct 34.2 (33.0-47.0) % MCV 99.7 H (78.0-93.0) fL MCH 30.9 (26.0-32.0) pg MCHC 31.0 L (32.0-36.0) g/dL RDW Coeff of Kirti 15.4 H (10.0-15.0) % Plt Count 257 D (130-400) x10^3/uL Add Manual Diff Yes Neutrophils % (Manual) 68 (50-80) % Lymphocytes % (Manual) 27 (25-50) % Monocytes % (Manual) 4 (2-11) % Metamyelocytes % 1 H (0) % Platelet Estimate Adequate PT 9.9 (9.9-12.5) SEC INR 0.9 L (2.0-3.5) APTT 21.3 L (25.6-32.8) SEC Sodium 140 (136-145) mmol/L Potassium 3.8 (3.5-5.1) mmol/L Chloride 99 (98-107) mmol/L Carbon Dioxide 34 H (21-32) mmol/L Anion Gap 10.8 (5-15) mmol/L BUN 16 (7-18) mg/dL Creatinine 0.9 (0.55-1.02) mg/dL Est Cr Clr Drug Dosing TNP Estimated GFR (MDRD) > 60 Glucose 176 H (70-99) mg/dL Lactic Acid (0.4-2.0) mmol/L Calcium 9.0 (8.5-10.1) mg/dL Corrected Calcium 9.6 (8.5-10.1) mg/dL Magnesium 2.1 (1.8-2.4) mg/dL Total Bilirubin 0.3 (0.2-1.0) mg/dL AST 34 (15-37) U/L ALT 36 (14-59) U/L Alkaline Phosphatase 70 (46-116) U/L Troponin I High Sens 270 H* (<=51) ng/L C-Reactive Protein 2.4 H (<=0.9) mg/dL Total Protein 7.1 (6.4-8.2) g/dL Albumin 3.2 L (3.4-5.0) g/dL Globulin 3.9 Albumin/Globulin Ratio 0.82 /09/02 Range/Units 21:27 WBC (4.0-10.0) x10^3/uL RBC (4.00-5.50) x10^6/uL Hgb (12.0-16.0) g/dL Hct (33.0-47.0) % MCV (78.0-93.0) fL MCH (26.0-32.0) pg MCHC (32.0-36.0) g/dL RDW Coeff of Kirti (10.0-15.0) % Plt Count (130-400) x10^3/uL Add Manual Diff Neutrophils % (Manual) (50-80) % Lymphocytes % (Manual) (25-50) % Monocytes % (Manual) (2-11) % Metamyelocytes % (0) % Platelet Estimate PT (9.9-12.5) SEC INR (2.0-3.5) APTT (25.6-32.8) SEC Sodium (136-145) mmol/L Potassium (3.5-5.1) mmol/L Chloride (98-107) mmol/L Carbon Dioxide (21-32) mmol/L Anion Gap (5-15) mmol/L BUN (7-18) mg/dL Creatinine (0.55-1.02) mg/dL Est Cr Clr Drug Dosing Estimated GFR (MDRD) Glucose (70-99) mg/dL Lactic Acid 3.5 H* (0.4-2.0) mmol/L Calcium (8.5-10.1) mg/dL Corrected Calcium (8.5-10.1) mg/dL Magnesium (1.8-2.4) mg/dL Total Bilirubin (0.2-1.0) mg/dL AST (15-37) U/L ALT (14-59) U/L Alkaline Phosphatase (46-116) U/L Troponin I High Sens (<=51) ng/L C-Reactive Protein (<=0.9) mg/dL Total Protein (6.4-8.2) g/dL Albumin (3.4-5.0) g/dL Globulin Albumin/Globulin Ratio Meds: Medications Discontinued Medications Generic Name Dose Route Start Last Admin Trade Name Freq PRN Reason Stop Dose Admin Hydrocodone Bitart/Acetaminophen 1 tab 03/22/21 23:10 03/24/21 23:04 Acetaminophen/Hydrocodone 325-10 Mg Tab PO 1 tab Q4H PRN Administration moderate pain Al Hydroxide/Mg Hydroxide 30 ml 03/23/21 11:23 03/23/21 11:32 Gi Cocktail Oral Solution 30 Ml PO 03/23/21 11:24 30 ml ONETIME STA Administration Al Hydroxide/Mg Hydroxide Confirm 03/23/21 11:38 03/23/21 11:37 Gi Cocktail Oral Solution 30 Ml Administered 03/23/21 11:39 Not Given Dose 30 ml .ROUTE .STK-MED ONE Al Hydroxide/Mg Hydroxide 30 ml 03/23/21 11:41 03/24/21 12:32 Gi Cocktail Oral Solution 30 Ml PO 30 ml BID PRN Administration Heartburn Albuterol 2.5 mg 03/22/21 22:35 03/22/21 22:42 Albuterol 0.083% 2.5 Mg/3 Ml Neb Soln NEB 03/22/21 22:36 2.5 mg ONETIME ONE Administration Albuterol 2.5 mg 03/22/21 23:05 Albuterol 0.083% 2.5 Mg/3 Ml Neb Soln NEB Q2H PRN Dyspnea Albuterol/Ipratropium 3 ml 03/22/21 21:10 03/22/21 21:21 Albuterol/Ipratropium 3.0-0.5 Mg/3 Ml Neb Soln NEB 03/22/21 21:11 3 ml ONETIME ONE Administration Albuterol/Ipratropium 3 ml 03/23/21 07:00 03/25/21 10:47 Albuterol/Ipratropium 3.0-0.5 Mg/3 Ml Neb Soln NEB 3 ml QIDRT KIERSTEN Administration Atorvastatin Calcium 40 mg 03/23/21 20:00 03/24/21 20:04 Atorvastatin 40 Mg Tab PO 40 mg BEDTIME KIERSTEN Administration Ceftriaxone Sodium 2 gm 03/22/21 22:28 03/22/21 23:22 Ceftriaxone 2 Gm Vial IVPUSH 03/22/21 22:29 2 gm STAT ONE Administration Cholecalciferol 50 mcg 03/23/21 20:00 03/24/21 20:04 Cholecalciferol (Vitamin D3) 25 Mcg Tab PO 50 mcg BEDTIME KIERSTEN Administration Clopidogrel Bisulfate 75 mg 03/23/21 10:00 03/25/21 09:12 Clopidogrel 75 Mg Tab PO 75 mg DAILY KIERSTEN Administration Cyanocobalamin 1,000 mcg 03/23/21 20:00 03/24/21 20:04 Cyanocobalamin (Vitamin B12) 1,000 Mcg Tab PO 1,000 mcg BEDTIME KIERSTEN Administration Cyclobenzaprine HCl 10 mg 03/22/21 23:10 03/24/21 21:28 Cyclobenzaprine 10 Mg Tab PO 10 mg TID PRN Administration Pain/MUSCLE SPASM Dextrose/Water 50 ml 03/23/21 18:57 50% Dextrose In Water 50 Ml Syringe IV ASDIRECTED PRN Hypoglycemia Doxycycline Hyclate 100 mg 03/22/21 22:45 03/25/21 08:50 Doxycycline 100 Mg Cap PO 100 mg BID KIERSTEN Administration Duloxetine HCl 60 mg 03/23/21 10:15 03/25/21 08:50 Duloxetine 60 Mg Cap PO 60 mg DAILY KIERSTEN Administration Enoxaparin Sodium 40 mg 03/23/21 08:00 03/25/21 08:52 Enoxaparin 40 Mg/0.4 Ml Syringe SUBCUT 40 mg DAILY KIERSTEN Administration Famotidine 20 mg 03/25/21 09:00 03/25/21 09:05 Famotidine 20 Mg Tab PO 20 mg DAILY KIERSTEN Administration Furosemide 20 mg 03/23/21 13:30 03/23/21 15:23 Furosemide 20 Mg/2 Ml Vial IV 03/23/21 13:31 20 mg ONETIME ONE Administration Furosemide 20 mg 03/24/21 16:35 03/24/21 17:11 Furosemide 20 Mg/2 Ml Vial IV 03/24/21 16:36 20 mg ONETIME ONE Administration Furosemide 20 mg 03/25/21 08:00 03/25/21 08:53 Furosemide 20 Mg/2 Ml Vial IV 20 mg DAILY KIERTSEN Administration Furosemide 20 mg 03/25/21 08:54 03/25/21 09:05 Furosemide 20 Mg/2 Ml Vial IV 03/25/21 08:55 20 mg ONETIME ONE Administration Gabapentin 200 mg 03/23/21 10:15 03/25/21 08:52 Gabapentin 100 Mg Cap PO 200 mg DAILY KIERSTEN Administration Gabapentin 300 mg 03/23/21 20:00 03/24/21 20:04 Gabapentin 100 Mg Cap PO 300 mg BEDTIME KIERSTEN Administration Glucagon 1 mg 03/23/21 18:57 Glucagon,Human Recombinant 1 Mg Vial IM ASDIRECTED PRN Hypoglycemia Hydrocortisone 20 mg 03/23/21 10:00 03/24/21 09:02 Hydrocortisone 20 Mg Tab PO 20 mg WITHBREAKFAST KIERSTEN Administration Hydrocortisone 10 mg 03/23/21 17:00 03/24/21 17:15 Hydrocortisone 5 Mg Tab PO 10 mg DAILY@1700 KIERSTEN Administration Hydrocortisone 10 mg 03/23/21 18:49 03/23/21 19:52 Hydrocortisone 20 Mg Tab PO 03/23/21 18:50 10 mg ONETIME STA Administration Hydrocortisone 20 mg 03/24/21 20:00 03/25/21 08:51 Hydrocortisone 20 Mg Tab PO 20 mg BID KIERSTEN Administration Insulin Glargine 8 unit 03/23/21 20:00 03/23/21 19:49 Insulin Glarg,Human.Rec.Analog 100 Unit/Ml SUBCUT 8 units BEDTIME KIERSTEN Administration Insulin Glargine 12 unit 03/24/21 08:15 03/25/21 09:06 Insulin Glarg,Human.Rec.Analog 100 Unit/Ml SUBCUT 12 units DAILY KIERSTEN Administration Lorazepam 0.5 mg 03/22/21 23:10 03/24/21 21:28 Lorazepam 0.5 Mg Tab PO 0.5 mg Q4H PRN Administration Anxiety Magnesium Oxide 400 mg 03/23/21 10:00 03/25/21 08:50 Magnesium Oxide 400 Mg Tab PO 400 mg BID KIERSTEN Administration Methylprednisolone Sodium Succinate 125 mg 03/22/21 21:10 03/22/21 21:23 Methylprednisolone Sodium Succinate 125 Mg/2 Ml Sdv IV 03/22/21 21:11 125 mg ONETIME ONE Administration Methylprednisolone Sodium Succinate 40 mg 03/23/21 09:00 03/24/21 08:57 Methylprednisolone Sodium Succinate 40 Mg/1 Ml Sdv IVPUSH 40 mg Q12H KIERSTEN Administration Metoclopramide HCl 10 mg 03/23/21 12:00 03/25/21 11:24 Metoclopramide 10 Mg Tab PO 10 mg TIDAC KIERSTEN Administration Metoprolol Succinate 12.5 mg 03/23/21 10:00 03/25/21 08:51 Metoprolol Succinate 25 Mg Tab.Er PO 12.5 mg DAILY KIERSTEN Administration Midodrine 5 mg 03/23/21 10:00 03/23/21 10:33 Midodrine 5 Mg Tab PO 5 mg DAILY KIERSTEN Administration Midodrine 5 mg 03/23/21 14:41 03/23/21 15:03 Midodrine 5 Mg Tab PO 03/23/21 14:42 5 mg ONETIME STA Administration Midodrine 5 mg 03/23/21 20:00 03/25/21 08:51 Midodrine 5 Mg Tab PO 5 mg TID@0800,1500,2000 KIERSTEN Administration Nitroglycerin 0.4 mg 03/22/21 23:10 03/24/21 12:18 Nitroglycerin 0.4 Mg Tab.Sl SL 0.4 mg ASDIRECTED PRN Administration Chest Pain Nitroglycerin Confirm 03/23/21 11:30 03/23/21 11:37 Nitroglycerin 0.4 Mg Tab.Sl Administered 03/23/21 11:31 Not Given Dose 0.4 mg .ROUTE .STK-MED ONE Nitroglycerin 0.4 mg 03/23/21 11:22 03/23/21 11:20 Nitroglycerin 0.4 Mg Tab.Sl SL 03/23/21 11:23 0.4 mg ONETIME STA Administration Pantoprazole Sodium 40 mg 03/23/21 10:00 03/25/21 06:24 Pantoprazole 40 Mg Tab.Cr PO 40 mg DAILY@0700 KIERSTEN Administration Paroxetine HCl 10 mg 03/23/21 10:00 03/25/21 08:51 Paroxetine 20 Mg Tab PO 10 mg DAILY KIERSTEN Administration Polyethylene Glycol 17 gm 03/22/21 23:10 Polyethylene Glycol 3350 Powder 17 Gm Packet PO DAILY PRN CONSTIPATION Potassium Chloride 10 meq 03/23/21 10:00 03/25/21 08:52 Potassium Chloride 10 Meq Tab.Er PO 10 meq BIDMEALS KIERSTEN Administration Potassium Chloride 10 meq 03/25/21 08:30 03/25/21 11:24 Potassium Chloride 10 Meq Tab.Er PO 10 meq DAILY KIERSTEN Administration Sodium Chloride 10 ml 03/22/21 21:07 03/24/21 20:18 Sodium Chloride 0.9% 10 Ml Syringe FLUSH 10 ml ASDIRECTED PRN Administration Keep Vein Open Torsemide 40 mg 03/23/21 10:00 03/23/21 10:33 Torsemide 20 Mg Tab PO 40 mg BIDDIURETIC KIERSTEN Administration - Radiology Interpretation Free Text/Narrative:: Hyperinflation, CHF noted on chest x-ray Departure - Departure Time of Disposition: 23:45 Disposition: Admitted As Inpatient 67 Clinical Impression: Hypoxemia, COPD exacerbation, NSTEMI (non-ST elevated myocardial infarction) CHF (congestive heart failure) Qualifiers: Heart failure type: diastolic Heart failure chronicity: acute on chronic Qualified Code(s): I50.33 - Acute on chronic diastolic (congestive) heart failure - Discharge Information Sepsis Event Note (ED) - Evaluation Sepsis Screening Result: No Definite Risk
== END 2021-03-25 13:25 | disposition home or self-care (01) | DRG 190 ==
LOC: VM.ED 20:49 → VM.MS 22:29
PROVIDERS: ADMIT Internal Medicine; ATTEND Internal Medicine
DX: J44.1 Chronic obstructive pulmonary disease with (acute) exacerbation (principal); I21.4 Non-ST elevation (NSTEMI) myocardial infarction; I50.33 Acute on chronic diastolic (congestive) heart failure; E27.40 Unspecified adrenocortical insufficiency; I47.1 Supraventricular tachycardia; I73.9 Peripheral vascular disease, unspecified; I95.9 Hypotension, unspecified; M54.9 Dorsalgia, unspecified; G89.29 Other chronic pain; R73.9 Hyperglycemia, unspecified; T38.0X5A Adverse effect of glucocorticoids and synthetic analogues, initial encounter; F41.9 Anxiety disorder, unspecified; E66.9 Obesity, unspecified; K22.70 Barrett's esophagus without dysplasia; I25.10 Atherosclerotic heart disease of native coronary artery without angina pectoris; K21.9 Gastro-esophageal reflux disease without esophagitis; Z20.822 Contact with and (suspected) exposure to COVID-19; Z87.891 Personal history of nicotine dependence; Z88.0 Allergy status to penicillin; Z88.1 Allergy status to other antibiotic agents; Z88.8 Allergy status to other drugs, medicaments and biological substances; Z88.6 Allergy status to analgesic agent; Z79.899 Other long term (current) drug therapy; Z98.890 Other specified postprocedural states; Z90.49 Acquired absence of other specified parts of digestive tract; Z68.36 Body mass index [BMI] 36.0-36.9, adult
CPT/HCPCS: 36415; 71045; 80048; 80053; 80069; 82803; 82947; 83605; 83735; 83880; 84484; 85025; 85610; 85730; 86140; 87040; 93005; 94640; 94760; 97116-GP; 97161-GP; A9270-GY; J0696; J1650; J1815-GY; J1940; J2920; J2930; J7613-GY; J7620-GY; U0002

== ENCOUNTER 2021-04-06 11:49 | Inpatient (IN) | payer MEDICARE, OTHER ==
[2021-04-06] MEDS ORDERED: Furosemide 40 MG/4 ML VIAL IV ONE (14:55)
[2021-04-06] MEDS ORDERED: Polyethylene Glycol 3350 Powder 17 GM Packet PO PRN (16:43)
[2021-04-06] MEDS ORDERED: Promethazine 25 MG Tab PO PRN (16:43)
[2021-04-06] MEDS ORDERED: Aluminum Hydroxide/Magnesium Hydroxide/Simethicone Susp 30 ML Cup PO PRN (16:43)
[2021-04-06] MEDS ORDERED: Nitroglycerin 0.4 MG Tab.SL SL PRN (16:43)
[2021-04-06] MEDS ORDERED: Lidocaine 2% Viscous Solution 15 ML Cup PO SCH (16:45)
[2021-04-06] MEDS ORDERED: Furosemide 40 MG/4 ML VIAL ONE (17:16)
[2021-04-06] MEDS: Acetaminophen/HYDROcodone 325-10 MG Tab PO PRN (17:48)
[2021-04-06] MEDS ORDERED: Lidocaine 2% Viscous Solution 15 ML Cup PO PRN (19:36)
[2021-04-06] MEDS: atorvaSTATin 40 MG Tab PO SCH (19:48)
[2021-04-06] MEDS: Cyanocobalamin (Vitamin B12) 1,000 MCG Tab PO SCH (19:48)
[2021-04-06] MEDS: Potassium Chloride 10 MEQ Tab.ER PO SCH (19:48)
[2021-04-06] MEDS: Magnesium Oxide 400 MG Tab PO SCH (19:48)
[2021-04-06] MEDS: Cholecalciferol (Vitamin D3) 25 MCG Tab PO SCH (19:48)
[2021-04-06] MEDS: Gabapentin 100 MG Cap PO SCH (19:49)
[2021-04-06] MEDS: Metoclopramide 10 MG Tab PO SCH (19:49)
[2021-04-06] MEDS ORDERED: Triamcinolone Acetonide 0.1% Crm 15 GM Tube TOP PRN (20:00)
--- NOTE | 2021-04-06 20:22 | PCM.EKG ---
#1 Interpretation EKG Date: 04/06/21 Rhythm: NSR Velarde: Normal P-Wave: Present QRS: Normal ST-T: Depressed QT: Normal Comparison: NA - No Prior EKG
--- NOTE | 2021-04-06 20:56 | HP ---
CHIEF COMPLAINT: Leg swelling. HISTORY OF PRESENT ILLNESS: This is a 71-year-old female with multiple previous admissions with similar complaints, who has COPD and heart failure, admitted now for the 10th time since she had COVID at [facility], who had come into the clinic yesterday with increasing edema in her lower extremities, but not short of breath and then was given 40 mg of IV Lasix and was hopeful that would help her symptoms. Unfortunately, she returns today. She was still in the same clothes. She states she is no better. She had a little bit of short of breath this morning, but no chest pain. Decision was made then that she should be admitted for further treatments. Blood pressures were also running low in the clinic like 80 systolic, but she was not lightheaded or dizzy. She also had new since yesterday, some pain to the inner aspect of her left leg with almost a firm area, but it was not red or warm, but it was quite tender and she is on Plavix. The question was whether or not she had a hematoma or blood clot. D- dimer was actually negative. She has not had fever or chills. No cough or other signs of infection other than she does have some irritation in her groin from using briefs. ALLERGIES: Include penicillin, Levaquin, injectable Tylenol, aspirin, Celexa, codeine, Percocet, Prozac, Wellbutrin, and Zoloft. MEDICATION LIST: Reviewed from [facility]. The patient has been on potassium 10 mEq 2 times a day; Demadex 20 mg 2 times a day, script had previously been for 40 mg twice daily, but she was only taking 20; hydrocodone 10-325 1 every 4 hours as needed for pain; midodrine 5 mg 3 times a day; doxycycline 100 mg she has completed that, she is not on doxycycline; Pepcid is 20 mg daily; Phenergan as needed; Mylanta as needed as part of a GI cocktail; hydrocortisone 20 in the morning and 10 in the afternoon; magnesium 40 twice daily; Lipitor 40 mg at bedtime; Plavix 75 mg daily; Toprol 12.5 daily; Ativan 0.5 as needed for anxiety; Neurontin 200 in the morning and 300 at bedtime; Reglan 10 mg 3 times a day; Protonix 40 mg daily; Cymbalta 60 mg daily; MiraLAX as needed for constipation; Vaseline recommended to use in the groin area for irritation; Paxil 10 mg daily; Trelegy inhaler daily; albuterol nebs; nitroglycerin as needed; Flexeril as needed; B12; and vitamin D. PAST MEDICAL HISTORY: Includes severe COPD; coronary artery disease, not able to stent or do surgery; chronic diastolic heart failure, EF 50% in 01/2001; severe peripheral vascular disease in the left leg, not able to have a surgery, recent angiogram performed; SVT, on Zio patch; history of adrenal insufficiency; anxiety; Mtital's esophagus; carotid artery stenosis; chronic SI joint pain and chronic back pain; multiple previous back surgeries; GERD; hyperlipidemia; essential hypertension; but now having issues with hypotension for the last few years; depression disorder, sleep related hypoxia; previous smoking. PAST SURGICAL HISTORY: The patient has had tubal ligation, tonsillectomy, anal fissure repair, laminectomy, L3-4 fusion and thoracic spine fusion, hysterectomy, eye surgery, femoral endarterectomy on both sides, cholecystectomy, cervical fusion, cataract extraction, breast biopsy, and appendectomy. FAMILY HISTORY: Both parents are . SOCIAL HISTORY: The patient is . She lives in apartment independently. She has a dog who is with a friend now. 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 REVIEW OF SYSTEMS: General: The patient has not been able to ambulate as much as her oxygen had not been available. She is not aware of any weight changes. No fever. No chills. HEENT: No trouble swallowing. Cardiac: No chest pain, no palpitations but has had some shortness of breath, otherwise. Increased leg swelling is noted. Respiratory: No wheezing. GI: No nausea, vomiting, or diarrhea. Skin: Did have that rash in the groin, but the left heel ulcer has healed. Otherwise, all systems reviewed and found to be negative unless otherwise stated. PHYSICAL EXAMINATION: Vital Signs: On admission to the hospital when I did see the patient also in the hospital weight 85 kg there, pulse 95, initial blood pressure 128/99, respiratory rate 18, and O2 of 99% on 2 L. General: She is in no acute distress. Heart: Regular rate and rhythm with murmur. Lungs: Sounds mostly clear to auscultation, but does have crackles noted in both bases. No wheezing. Abdomen: Nondistended, nontender. Extremities: Warm and dry. She did have tenderness to the left medial calf area. She has firmness there but no redness, no warmth, no sores, no drainage. Left heel ulcer is healed but scab still in place and tender Mental Status: Alert and orientated x3. LAB WORK: Showed white count 13.5, it was actually 11.6 on discharge, hemoglobin 9.5, platelets 283. INR 0.9. D-dimer normal at 0.57. Troponin is 835. Actually, her kidney function had been done earlier when she arrived for her clinic visit and did show her to have a glucose of 156, but she had eaten. BUN 20, creatinine 0.8, sodium 140, potassium 3.7, chloride 97, bicarb 23, calcium 9.7. EKG, normal sinus rhythm. Chest x-ray, no acute infiltrates, but does have increased pulmonary congestion. PLAN: The patient is admitted again for acute cares for IV diuresis with IV Lasix. I will give her another 40 mg IV. Likely, she will need that at least twice daily. We will adjust dosing as needed. Some diuresis will be limited due to her hypotension. We will do Oh wraps to the legs if she is able to tolerate to help with swelling. We will continue her home medications. Due to concern for weight gain and now being on Cymbalta, we will try to wean down the Paxil to 5 mg. The patient likely needs more assistance in her home to help with her complex medical regimen. She was supposed to be admitted under the [facility] at home but they for some reason are unable to come like until Monday. She is a code level 3. For DVT prophylaxis, we will hold off due to her significant bruising and anemia and tell her ultrasound tomorrow. Also, make anemia hemoglobin stable, one of her assessment. MKA: 04/06/2021 15:33:19 MODL: 04/06/2021 20:50:19 /[id number] MTDYamilka
[2021-04-06] MEDS: Midodrine 5 MG Tab PO SCH (21:39)
[2021-04-06] MEDS: Cyclobenzaprine 10 MG Tab PO SCH (21:39)
[2021-04-07] MEDS: Acetaminophen/HYDROcodone 325-10 MG Tab PO PRN ×3 (03:27→17:20)
[2021-04-07] MEDS: Pantoprazole 40 MG Tab.CR PO SCH (06:28)
[2021-04-07 07:15] LABS: CHLORIDE,CL 102 mmol/L (98-107); SODIUM,NA 142 mmol/L (136-145)
[2021-04-07 07:21] LABS: ANION GAP 8.6 mmol/L (5-15)
[2021-04-07] MEDS: Albuterol 0.083% 2.5 MG/3 ML Neb Soln NEB PRN (07:25)
[2021-04-07] MEDS: Budesonide 0.5 MG/2 ML Neb Susp INH SCH ×2 (07:26→19:51)
[2021-04-07] MEDS ORDERED: Metoprolol Succinate 25 MG Tab.ER PO SCH (08:00)
[2021-04-07] MEDS ORDERED: Clopidogrel 75 MG Tab PO SCH (08:00)
[2021-04-07] MEDS ORDERED: Furosemide 20 MG/2 ML VIAL IV ONE (08:33)
[2021-04-07] MEDS: Fluticasone-Salmeterol 55-14 MCG Powder Inhalent INH SCH ×2 (08:40→19:51)
[2021-04-07] MEDS: LORazepam 0.5 MG Tab PO SCH (08:41)
[2021-04-07] MEDS: Hydrocortisone 20 MG Tab PO SCH (08:42)
[2021-04-07] MEDS: DULoxetine 60 MG Cap PO SCH (08:42)
[2021-04-07] MEDS: Cyclobenzaprine 10 MG Tab PO SCH ×3 (08:42→19:52)
[2021-04-07] MEDS: Potassium Chloride 10 MEQ Tab.ER PO SCH ×2 (08:43→17:21)
[2021-04-07] MEDS: Magnesium Oxide 400 MG Tab PO SCH ×2 (08:43→19:52)
[2021-04-07] MEDS: Midodrine 5 MG Tab PO SCH ×3 (08:45→19:53)
[2021-04-07] MEDS: PARoxetine 20 MG Tab PO SCH (08:46)
[2021-04-07] MEDS: Gabapentin 100 MG Cap PO SCH ×2 (08:46→19:52)
[2021-04-07] MEDS: Metoclopramide 10 MG Tab PO SCH ×3 (08:48→17:21)
[2021-04-07] MEDS: Famotidine 20 MG Tab PO SCH (08:48)
--- NOTE | 2021-04-07 09:22 | US ---
[id number] US/US Superficial Soft Tissue Exam: US Superficial Soft Tissue Clinical Data: LEFT LEG MASS COMPARISON: NO PREVIOUS SIMILAR EXAM IS AVAILABLE FINDINGS: A 2 cm nonvascular complex mass is seen in the medial left calf IMPRESSION: HEMATOMA, ABSCESS, OR TUMOR AT SITE OF CLINICAL CONCERN Brandon Coronado MD 04/07/21 4611 Thank you for allowing us to participate in the care of your patient.
[2021-04-07 14:17] LABS: PCO2 VENOUS 56 mmHG (41-51)
[2021-04-07 14:18] LABS: BASE EXCESS VENOUS 10 mmol/L ((-2)-3); BICARBONATE,VENOUS 34 mmol/L (22-29); O2 SATURATION VENOUS 99 %; PO2 VENOUS 145 mmHG
[2021-04-07] MEDS: Cholecalciferol (Vitamin D3) 25 MCG Tab PO SCH (19:52)
[2021-04-07] MEDS: Cyanocobalamin (Vitamin B12) 1,000 MCG Tab PO SCH (19:53)
[2021-04-07] MEDS: atorvaSTATin 40 MG Tab PO SCH (19:53)
--- NOTE | 2021-04-07 19:56 | PN ---
Progress Note for BOB BARONE Date: 04/07/2021 Room #: VM.212 SUBJECTIVE: This is hospital day #2 on a 71-year-old admitted with a non-ST- elevation MT, but the main symptoms are lower extremity edema. She states her breathing is fine and she feels good. She has not been lightheaded or dizzy. Blood pressure prior to going down to her ultrasound this morning was only recorded at 65/45. She has a known history of peripheral vascular disease and adrenal insufficiency with hypotension. She has not had any chest pain. She got 40 mg of IV Lasix yesterday and is down -450. She is eating 100% of her meals. She has not noticed the fluid restriction. Her main source of pain is in the left serrato. She denies any injury. She has not had any fever or chills. White count decreased despite no antibiotics. OBJECTIVE: Vital Signs: This morning, her blood pressure is 104/70, weight 83.5 kg, temperature 97.7, pulse 98, respiratory rate 16, and O2 of 98% on 1.5 L. General: She is in no acute distress. Heart: Regular rate and rhythm with murmur. Lungs: Sounds decreased, but without crackles or wheezes. Abdomen: Nondistended, nontender. Extremities: Warm, dry. She still has 1+ edema in her ankles and feet, but both are warm, actually less purple discoloration this morning on the left leg and foot. The left medial serrato near the knee is tender with what appears like a small hematoma. There is no redness or warmth. No drainage. The left heel has an ulcer which is sore. It is an arterial ulcer, but no drainage. Mental Status: She is alert and orientated x3. LABORATORY DATA: Lab work does show white count down to 11.5, hemoglobin at 8.9, platelets 282. A pCO2 was 56 on venous blood gases. She is not having any tremor this morning. Sodium 142, potassium 3.6, chloride 102, bicarb 35, BUN 19, creatinine 0.8, glucose 142, calcium 10.3, bilirubin 0.3. AST and ALT normal. Alkaline phosphatase normal. Troponin up to 1250. Albumin 2.7. UA negative for wbc's or infection. ASSESSMENT AND PLAN: 1. [id number]-[id number] myocardial infarction with increasing troponin, but no chest pain and improvement in her breathing. 2. Lower extremity edema due to heart failure. 3. Adrenal insufficiency. We will continue her home medications, but if blood pressure worsens, I will start IV hydrocortisone. She is also on midodrine 5 mg twice daily. 4. Coronary artery disease, on medical management. She is not a candidate for any interventions. 5. Acute on chronic diastolic heart failure exacerbation. Ejection fraction noted to be 50% in 01/2001. 6. Severe chronic obstructive pulmonary disease. 7. Peripheral vascular disease not amenable to interventions. 8. Recent supraventricular tachycardia. She has not had any events on telemetry. She is on low-dose metoprolol. We will hold it today due to hypotension. 9. Mittal's esophagus. She is on PPI. 10.Chronic back pain. She is on long-term opioids. She actually has only used 1 pill on her admission yesterday and then 1 during the night. 11.Chronic hypoxic respiratory failure, on oxygen usually 2.5 L. She is actually doing fine on 1.5 L currently. The patient will continue acute cares. I will give her 20 mg of IV Lasix today, but be cautious with diuresis due to some lower blood pressures. We will continue her other home medications. We will repeat a troponin this afternoon. We will get her up and working with therapies. The patient has an outpatient podiatry appointment planned for tomorrow. The vascular ultrasound that was done today was showing hematoma versus abscess. Clinically, it is a hematoma. Given the patient's severe peripheral vascular disease, she is on Plavix. I am going to decrease it to every other day and we will have to discuss further with her vascular specialist. Unfortunately, with her coronary disease and recurrent non ST-elevation MT, she is not on aspirin. I am not sure if there are other better options for her at this point, and she is a code level 3. MKA: 04/07/2021 19:24:48 MODL: 04/07/2021 19:53:05 /[id number]
[2021-04-08] MEDS: Acetaminophen/HYDROcodone 325-10 MG Tab PO PRN (04:11)
[2021-04-08] MEDS: Albuterol 0.083% 2.5 MG/3 ML Neb Soln NEB PRN ×2 (05:10→08:20)
[2021-04-08] MEDS: LORazepam 0.5 MG Tab PO SCH ×2 (05:34→07:56)
[2021-04-08] MEDS: Budesonide 0.5 MG/2 ML Neb Susp INH SCH ×2 (05:48→06:47)
[2021-04-08] MEDS: Fluticasone-Salmeterol 55-14 MCG Powder Inhalent INH SCH (06:47)
[2021-04-08] MEDS: Pantoprazole 40 MG Tab.CR PO SCH (06:47)
[2021-04-08 07:32] LABS: ANION GAP 13.6 mmol/L (5-15)
[2021-04-08] MEDS ORDERED: Midodrine 2.5 MG Tab PO STA (07:43)
[2021-04-08] MEDS ORDERED: cefTRIAXone 1 GM Vial IVPUSH SCH (08:15)
[2021-04-08] MEDS ORDERED: VANCOmycin 1.75 GM/350 ML 1.75 GM in Premix Bag 1 BAG IV ONE (08:26)
[2021-04-08] MEDS ORDERED: Hydrocortisone Sodium Succinate 100 MG/2 ML SDV IVPUSH ONE (08:32)
--- NOTE | 2021-04-08 08:37 | CR ---
[id number] RAD/RAD Chest PA or AP 1V EXAM: SINGLE VIEW CHEST. INDICATION: SHORTNESS OF BREATH COMPARISON: CORRELATION IS MADE WITH MARCH 25, 2021 FINDINGS: There is mild edema The cardiac silhouette is stable Wells rods are seen IMPRESSION: MILD EDEMA Brandon Coronado MD 04/08/21 0836 Thank you for allowing us to participate in the care of your patient.
[2021-04-08] MEDS ORDERED: Norepinephrine 4 MG/4 ML SDV ONE ×2 (08:47→08:49)
[2021-04-08] MEDS: Norepinephrine 4 MG in Dextrose 5% in Water 246 ML IV SCH ×4 (08:57→13:13)
[2021-04-08] MEDS ORDERED: HYDROmorphone 1 MG/ML Syringe IVPUSH PRN ×2 (09:07→13:32)
[2021-04-08] MEDS: DULoxetine 60 MG Cap PO SCH (10:21)
[2021-04-08] MEDS: Hydrocortisone 20 MG Tab PO SCH (10:21)
[2021-04-08] MEDS: Potassium Chloride 10 MEQ Tab.ER PO SCH ×2 (10:22→17:15)
[2021-04-08] MEDS: Midodrine 5 MG Tab PO SCH ×2 (10:22→15:18)
[2021-04-08] MEDS: Magnesium Oxide 400 MG Tab PO SCH (10:22)
[2021-04-08] MEDS: Cyclobenzaprine 10 MG Tab PO SCH ×2 (10:22→11:32)
[2021-04-08] MEDS: Metoclopramide 10 MG Tab PO SCH ×3 (10:23→17:15)
[2021-04-08] MEDS: Gabapentin 100 MG Cap PO SCH (10:23)
[2021-04-08] MEDS: Famotidine 20 MG Tab PO SCH (10:23)
[2021-04-08] MEDS: PARoxetine 20 MG Tab PO SCH (10:23)
[2021-04-08] MEDS ORDERED: Sodium Chloride 0.9% 10 ML Syringe FLUSH PRN (12:35)
--- NOTE | 2021-04-08 14:14 | PN ---
Progress Note for BOB BARONE Date: 04/08/2021 Room #: VM.216 SUBJECTIVE: This is hospital day #3 on a 71-year-old admitted with bilateral lower extremity edema with recurrent CHF and [id number] UT. The patient had been having lower blood pressures again yesterday. She has a known history of adrenal insufficiency, so she got only 1 dose of IV Lasix in the morning. She was not able to get her metoprolol. She did get her Plavix. She was not having any chest pain. No worsening shortness of breathing until about 4 a.m. this morning. Her telemetry changed to a left bundle-branch block. She was still not having any chest pain, but her left leg was mottled. She has known severe peripheral vascular disease and is not a candidate for any interventions on it. The patient had an ultrasound yesterday that was suspecting a hematoma or abscess in that left calf area, but her white count had improved, and she had no redness to suggest infection or warmth. This morning though, her white count did go up to 18,000. Her lactic was at 5.7. Her systolic blood pressure was in the 60s with mean arterial pressure around 55. She had a mildly elevated D- dimer up to 1.28 which was normal on admission, but she had not been on Lovenox due to the concern for a hematoma. Discussion was had with the patient, and she was not very keen on going to [place], but we reached out to the specialists there for guidance on ordering and starting pressors for her, and also the vascular surgeon did discuss that the patient, given her overall medical condition with UT, was not a candidate for surgery, which would be an amputation because there were no interventions that could be performed, and the patient did not want an amputation. The patient did not get fluid boluses because her chest x-ray was showing pulmonary edema, and she was already increased from her oxygen, which was only down to 1.5 L, up to 4 L. The patient then, discussing the goals of care, was given IV Dilaudid for pain control, but also started on IV Levophed, which was titrated up to 28 mcg. She also did get IV hydrocortisone, and we reached out to her son Alxe whom I had not been able to reach, but did speak with her son Dyllan and let them know that their mother was having a decline in health, was of sound mind, and made the decision to focus on comfort measures due to there being no interventions that could improve her current medical status. OBJECTIVE: Vital Signs: At the time of this dictation included temperature 98.2, pulse 107, blood pressure 65/41, respiratory rate 18, and O2 of 96% on 5 L. General: The patient is in mild distress. She is resting in the bed. She is complaining of left leg pain. She had told me that this is the worst pain she has had. The left leg is purple, mottled. The foot is cool, but the leg itself is not cool. No pulses palpated. Pictures were taken and placed into her Epic chart. Mental Status: She is aware she is at [facility]. She is aware of who I am. Heart: Regular rate and rhythm. Tachycardic, but with murmur. Lungs: Lung sounds were decreased throughout with crackles. Abdomen: Nondistended, nontender. LABORATORY DATA: The patient's lab work again this morning showed that white count up to 18.5, hemoglobin was up to 10.3, and platelets 303. D-dimer 1.28. Sodium 143, potassium 4.6, chloride 102, bicarbonate 32, BUN 18, creatinine 1.1, and glucose 223. Lactic 5.7. Troponin down from 4000 to 3967. ASSESSMENT: 1. An episode of shock. One possibility was felt to be septic. Therefore, the patient was given IV vancomycin and Rocephin. Likely cardiac shock, cardiogenic, given her change in EKG to a left bundle-branch block and rising troponins. Another consideration would be due to her adrenal insufficiency and needing stress doses of steroids. Given the patient's goals of care, the patient stayed in [place] on comfort measures with IV Levophed until family could be reached, but unfortunately, were out of state. I did updated her sister also. 2. Non ST-elevation myocardial infarction. She is unable to get her beta- dianna due to hypotension. Her Plavix dose was not given today. She is not able to take the oral pills, but she did have it yesterday. 3. Chronic diastolic heart failure. EF had been 50% back in January. I am guessing it most certainly had worsened. At this point, we will just support her with oxygen. 4. Adrenal insufficiency. She did get her hydrocortisone and midodrine during this morning. We will give her 100 mg of IV hydrocortisone. 5. Coronary artery disease, on medical management. She was not a candidate for any surgery or stents. 6. Severe chronic obstructive pulmonary disease. 7. Peripheral vascular disease, severe, with an ischemic left leg and possible compartment syndrome. Clinically, it is unknown if the patient had hematoma or an infection leading to this, but hematoma was certainly a possibility. 8. Supraventricular tachycardia. The patient has not had any supraventricular tachycardia found on telemetry. 9. Mittal esophagus. 10.Chronic back pain. She has been on long-term opioids. 11.Acute on chronic hypoxic respiratory failure due to pulmonary edema and acute medical decompensation. PLAN: The patient is on acute cares, but is switching over to comfort end of life status due to a deterioration in her condition. As discussed with the ICU bag bundler and the vascular surgeon, there are no treatments that are going to fix her leg problem other than an amputation, but given her medical situation, she is not a candidate for surgery as she likely would not survive it. The patient did not want an amputation to begin with and is aware that her condition will deteriorate to . The patient's Levophed will be turned down from 28 to 26 and just allowed to finish when this bag runs out as her son was trying to call her on the phone and visit with her. However, she has now been getting IV Dilaudid for pain control, so she is less responsive. color drum worker, nurse, and souvenir street vendor have been at her bedside, supporting her. Critical Care time 60 minutes PROGNOSIS: Guarded. MKA: 04/08/2021 13:43:16 MODL: 04/08/2021 14:07:17 /[id number] MTDYamilka
[2021-04-08 14:43] VITALS: BP 77/41
[2021-04-08] MEDS ORDERED: Ondansetron 4 MG/2 ML SDV IVPUSH PRN (16:53)
[2021-04-08] MEDS ORDERED: Atropine 1% Ophth Soln 5 ML BOTTLE SL PRN (16:53)
[2021-04-08 18:09] VITALS: PULSE 86
[2021-04-08] MEDS ORDERED: Clopidogrel 75 MG Tab PO SCH (19:30)
--- NOTE | 2021-04-09 16:45 | PCM.EKG ---
#1 Interpretation EKG Date: 04/08/21 Rhythm: NSR Rate (Beats/Min): 122 P-Wave: Present QRS: Wide ST-T: Normal QT: Normal EKG Interpretation Comments: NEW LBBB
--- NOTE | 2021-04-09 18:38 | DISCH ---
PRIMARY CAUSE OF : 1. Cardiogenic shock due to ST-elevation GA with a new left bundle-branch block. 2. Acute GA with a non-STEMI converting into a STEMI leading to a decompensation in her medical condition. 3. Nypnf-ui-rubhubp diastolic heart failure exacerbation with EF 50% back in January. 4. Adrenal insufficiency. 5. Concern for septic shock, however, clinically no definitive infection was found. 6. Coronary artery disease, longstanding with multiple recurrent non-ST- elevation MIs. She was not a candidate for any bypass surgery or stenting per Cardiology on previous admissions in [place]. 7. Severe COPD with recent exacerbations. 8. Severe peripheral vascular disease and ischemic left leg and possible compartment syndrome which were likely contributing to her deterioration in her overall condition. 9. SVT. She did not have any episodes on her telemetry during this stay. 10.Mittla's esophagus. 11.Chronic back pain. 12.Gqoye-hd-xktgdpb hypoxic respiratory failure due to pulmonary edema from the cardiogenic shock. 13.Longstanding smoking, but had quit in the previous months. REASON FOR ADMISSION: On the date of admission, this 71-year-old female who is now having her tenth admission for heart failure, COPD, and one of them was for a bowel obstruction since having COVID in September, presented to the clinic with worsening pedal edema. She had actually been in the clinic on the previous date and had been requesting an IV Lasix to see if that would help as she had not been able to be up walking because her portable oxygen had run out and she was actually waiting for the [facility] at home and Palliative Care to come admit her from the previous admission, but despite us doing all of the paperwork, they had not connected with her or come to her home yet. The patient was not discharged on Home Health this time as they did feel she needed a higher level of care. Did discuss with the patient who absolutely refused to go to the skilled nursing. The patient was her own decision maker. She was cognitively intact. She passed her PT that she was working with, so she was able to do her ADLs at home. The patient was admitted. She was diuresed with IV Lasix. Unfortunately, around 4 a.m. on the morning of her passing, the patient had worsening shortness of breath and a change on telemetry to a left bundle-branch block. The patient denied any chest pain. She had a rising troponin throughout the previous day with no chest pain. She was on medical management for that. She had actually received her Plavix yesterday. There was concern that she might have a hematoma based on the ultrasound or an infection. Her white count had actually improved, but by the time patient had lab work that morning, her white count had increased. Her lactic acid was up to 5.7 and her troponin was at 3967. Chest x-ray was repeated and showed the pulmonary edema. Her blood pressures were low in the 60s to 70s systolic with a MAP around 55, but fluid boluses were not felt to be an option for her given her pulmonary edema. She was given her oral midodrine. She was given her oral hydrocortisone. She was given IV hydrocortisone. Discussed with the patient given her worsening leg pain and mottling, specialists in [place] were called and also in consultation to start pressors. Vascular specialist did not feel they could offer her any interventions and in fact felt she was too unstable for an amputation and this was discussed with Maritza and she did not want an amputation. She had already elected to have no CPR, no intubation on her previous stays, and did not want to even go to [place] to begin with. However, a decision was made that since there were no interventions that would help her that she could stay here and be under comfort measures. chemical research worker and myself attempted to contact her family and we were able to talk to them, her son that lives in [place], her sister I spoke with. There was a niece who was going to be coming and a dvmxfv-ig-ivn and those family members did make it, the ojiaas-ed-vts and niece to the bedside to be with Maritza for her passing. The patient had been maintained on a Levophed drip really up until that point, she was up to 28 mcg, then this was turned back down to 26 as it had just been titrated up until the drip ran out. Otherwise, the patient did receive the antibiotics when there was concern for septic shock, but those were not continued due to the goals of care being comfort and patient was medically unstable with her blood pressures. Ideally, she would have been managed in an ICU if there was a condition with her leg that could be fixed, but she had previously had an angiogram in this month and the vascular surgeons did not have anything to offer her and she had a painful arterial ulcer, however, that did not show any signs of infection on admission either. The patient had been switched over to comfort measures. At the time of her , she was receiving IV Dilaudid for pain control for the painful left ischemic leg as she was unable to take any of her oral pain medications when she did become unresponsive later in the day. MKA: 04/09/2021 17:24:39 MODL: 04/09/2021 18:33:56 /[id number]
== END 2021-04-08 18:39 | disposition expired ==
LOC: VM.MS 11:49
PROVIDERS: ADMIT Internal Medicine; ATTEND Internal Medicine
PROC: 3E033XZ Introduction of Vasopressor into Peripheral Vein, Percutaneous Approach (ICD-10-PCS; principal; 2021-04-08)
DX: I11.0 Hypertensive heart disease with heart failure (principal); I21.3 ST elevation (STEMI) myocardial infarction of unspecified site; J96.21 Acute and chronic respiratory failure with hypoxia; E27.40 Unspecified adrenocortical insufficiency; I47.1 Supraventricular tachycardia; T79.A0XA Compartment syndrome, unspecified, initial encounter; I50.33 Acute on chronic diastolic (congestive) heart failure; R57.0 Cardiogenic shock; Z51.5 Encounter for palliative care; I44.7 Left bundle-branch block, unspecified; I25.10 Atherosclerotic heart disease of native coronary artery without angina pectoris; J44.9 Chronic obstructive pulmonary disease, unspecified; K22.70 Barrett's esophagus without dysplasia; I73.9 Peripheral vascular disease, unspecified; M54.9 Dorsalgia, unspecified; G89.29 Other chronic pain; K21.9 Gastro-esophageal reflux disease without esophagitis; M53.3 Sacrococcygeal disorders, not elsewhere classified; E78.5 Hyperlipidemia, unspecified; F32.9 Major depressive disorder, single episode, unspecified; G47.34 Idiopathic sleep related nonobstructive alveolar hypoventilation; I95.9 Hypotension, unspecified; D64.9 Anemia, unspecified; I70.222 Atherosclerosis of native arteries of extremities with rest pain, left leg; Z86.16 Personal history of COVID-19; Z87.891 Personal history of nicotine dependence; Z88.0 Allergy status to penicillin; Z88.1 Allergy status to other antibiotic agents; Z88.6 Allergy status to analgesic agent; Z88.5 Allergy status to narcotic agent; Z88.8 Allergy status to other drugs, medicaments and biological substances; Z79.899 Other long term (current) drug therapy; Z98.890 Other specified postprocedural states; Z98.49 Cataract extraction status, unspecified eye; Z98.51 Tubal ligation status; Z90.710 Acquired absence of both cervix and uterus; Z90.49 Acquired absence of other specified parts of digestive tract; Z98.1 Arthrodesis status; Z79.02 Long term (current) use of antithrombotics/antiplatelets
CPT/HCPCS: 36415; 71045; 76881-LT; 80048; 80053; 81003; 82803; 82947; 83605; 84484; 85025; 85379; 85610; 93005; 94640; 94760; A9270-GY; J0696; J1170; J1940; J3370; J7060; J7613-GY